=== PATIENT | female | born 1985 | race Caucasian/White ===

== ENCOUNTER 2021-06-15 16:43 | Emergency (ER) | payer OTHER, SELFPAY ==
[2021-06-15 17:05] VITALS: BP 141/92; PULSE 90; RESP 16; TEMP 36.4; O2SAT 99
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
== END 2021-06-15 17:37 | disposition home or self-care (01) ==
PROVIDERS: Emergency Provider Nurse Practitioner; PCP Family Medicine
DX: L03.213 Periorbital cellulitis (principal); E11.9 Type 2 diabetes mellitus without complications; I10 Essential (primary) hypertension; E66.01 Morbid (severe) obesity due to excess calories; Z68.43 Body mass index [BMI] 50.0-59.9, adult
CPT/HCPCS: 99213; G0463

== ENCOUNTER 2021-08-10 16:26 | Emergency (ER) | payer OTHER, SELFPAY ==
[2021-08-10 16:31] VITALS: BP 134/92; PULSE 85; RESP 18; TEMP 36.3; O2SAT 99
--- NOTE | 2021-08-10 17:56 | ED.GENADULT ---
HPI - General Adult General Chief complaint: Allergic Reaction Stated complaint: swelling to face Time Seen by Provider: 08/10/21 17:54 History of Present Illness HPI narrative: Patient is a 35-year-old female who comes into the ED today complaining of facial swelling. Patient reports this has been an intermittent problem for the last 3 months. Has occasionally been accompanied by a rash on various body. Her face is pruritic. She has been prescribed 4 different rounds of antibiotics which have not helped and she is currently on doxycycline which she has been on for about 8 weeks. She was prescribed prednisone once before that helped a little. She is unknown what the cause of her symptoms are. She has been paying attention to possible precipitants/exposures. She saw her PCP for a few times. 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 Comes to the ED because symptoms became worse since yesterday. She took Benadryl which helped a little. Denies any throat swelling or shortness of breath. No other symptoms or concerns. No chance of . She does have a cat at home. Related Data Home Medications Medication Instructions Recorded Confirmed Aleve 06/15/19 Vitamin C 06/15/19 ertugliflozin [Steglatro] mg 06/15/19 fluvoxamine mg 06/15/19 insulin glargine [Basaglar KwikPen unit SUBCUT 06/15/19 U-100 Insulin] metformin 2,000 mg PO DAILY 06/15/19 06/15/19 multivitamin,tx-minerals 1 cap PO DAILY 06/15/19 06/15/19 [Multi-Vitamin HP/Minerals] norethindrone (contraceptive) mg 06/15/19 omega 4-mbx-zwx-fish oil [Fish Oil] 1 cap PO DAILY 06/15/19 06/15/19 quetiapine 50 mg DAILY 06/15/19 06/15/19 trazodone 06/15/19 06/15/19 vitamin E 400 unit PO DAILY 06/15/19 06/15/19 doxycycline monohydrate 08/10/21 empagliflozin [Jardiance] mg 08/10/21 fenofibrate nanocrystallized mg PO 08/10/21 liraglutide [Victoza 2-Mervin] mg SUBCUT 08/10/21 spironolactone 08/10/21 Allergies Allergy/AdvReac Type Severity Reaction Status Date / Time Penicillins Allergy Mild Anaphylaxis Verified 08/10/21 19:01 clindamycin Allergy Rash Verified 08/10/21 19:01 OXYCODONE HCL Allergy Unknown Rash Uncoded 08/10/21 19:01 Review of Systems Constitutional: Constitutional: Reports as per HPI, Denies fever(s), Denies night sweats and Denies weakness ENT: Comments: See HPI Cardiovascular: Cardiovascular: Denies chest pain, Denies edema, Denies leg edema, Denies dyspnea and Denies orthopnea Respiratory: Respiratory: Denies cough and Denies dyspnea Gastrointestinal: Gastrointestinal: Denies abdominal pain, Denies constipation, Denies diarrhea, Denies nausea and Denies vomiting Musculoskeletal: Musculoskeletal: Denies abnormal gait, Denies back pain, Denies numbness and Denies tingling Neurologic: Denies Abnormal speech present, Denies abnormal gait, Denies numbness, Denies tingling and Denies weakness Psychiatric: Psychiatric: Denies homicidal ideation and Denies suicidal ideation [facility] Past Medical History Medical History Diabetes HTN (hypertension) Morbid obesity Social History Social History (Updated 06/15/21 @ 17:24 by Lesvia Lorenzo CNP) Smoking status: Never smoker Exam Const: General: cooperative, healthy appearing, comfortable, no acute distress, well developed, alert, awake and Physically active Orientation/consciousness: patient oriented x3 HENMT: Head: normal to inspection, normocephalic and atraumatic Ears: external ears normal General nose exam: Normal external nose present Other: Clinically, patient only has a trace amount of infraorbital edema bilaterally Eyes: General: appearance normal, both eyes and all related structures Pupils: Equal, round and reactive pupils present EOM: EOMs intact bilaterally Neck: Neck: normal visual inspection Chest: Chest palpation & inspection: normal inspection of the chest and no tenderness Resp: Effort & Inspection: normal respira
[2021-08-10 18:05] VITALS: BP 134/92; PULSE 85; RESP 20; TEMP 36.3; O2SAT 99
[2021-08-10] MEDS: methylPREDNISolone SOD SUCC 125 MG VIAL IM (19:06)
[2021-08-10] MEDS: ACETAMINOPHEN 500 MG TABLET 1000 MG PO (19:07)
[2021-08-10] MEDS: IBUPROFEN 600 MG TABLET PO (19:07)
== END 2021-08-10 19:39 | disposition home or self-care (01) ==
PROVIDERS: Emergency Provider Family Medicine; PCP Family Medicine
DX: T78.40XA Allergy, unspecified, initial encounter (principal); E11.9 Type 2 diabetes mellitus without complications; I10 Essential (primary) hypertension; E66.01 Morbid (severe) obesity due to excess calories; Z68.43 Body mass index [BMI] 50.0-59.9, adult; Z79.4 Long term (current) use of insulin
CPT/HCPCS: 96372; 99283; A9270; J2930

== ENCOUNTER 2022-11-08 08:26 | Emergency (ER) | payer OTHER, SELFPAY ==
--- NOTE | ~2022-11-08 | US_ITS ---
Pelvic ultrasound. Clinical History: Left-sided pelvic pain Technique: Realtime transabdominal and transvaginal scanning of the pelvis was performed. Color flow Doppler and Doppler spectral analysis were performed. Findings: The uterus is anteverted, and measures 10.3 x 5.6 x 6.6 cm. There is a large fibroid centra lly in the uterus measuring 6.1 x 5.6 x 5.1 cm. Endometrial stripe is obscured by this dominant fibro id. There is a probable IUD in place, posterior to the fibroid. Measured ovary seen. No adnexal mass seen. There is no evidence of free fluid in the cul de sac. Impression: Dominant central fibroid measuring 6.1 cm in diameter, as above. IUD probably in place, posterior/deep to the fibroid. Reviewed, dictated and finalized at location . Impression: Dominant central fibroid measuring 6.1 cm in diameter, as above. IUD probably in place, posterior/deep to the fibroid.
[2022-11-08 08:28] VITALS: BP 112/76; PULSE 81; RESP 14; TEMP 36.6; O2SAT 99
[2022-11-08] MEDS: HYDROcodone/acetaminophen (*CRX) 5-325 MG TABLET 1 TAB PO (08:45)
[2022-11-08 08:51] LABS: Eosinophils Absolute Auto 0.1 K/mm3 (0-0.3); Eosinophils Percent Auto 3.5 % (0-4.4); Hemoglobin 14.7 g/dL (12.0-15.0); Immature Granulocyte Absolute 0.01 K/mm3 (0.00-0.031); Immature Granulocyte Percent A 0.3 % (0-0.5); Lymphocytes Absolute Auto 1.29 K/mm3 (0.9-3.2); Lymphocytes Percent Auto 32.3 % (18.3-44.2); Mean Corpuscular Hemoglobin 29.6 pg (26-34); Mean Corpuscular Volume 92.6 fl (80-100); Mean Platelet Volume 9.9 fl (7.4-10.4); Monocytes Absolute Auto 0.3 K/mm3 (0.1-0.6); Neutrophils Absolute Auto 2.2 K/mm3 (1.3-6.7); Neutrophils Percent Auto 54.9 % (45.5-73.1); Platelet Count Result 165 k/mm3 (150-375); Red Blood Count 4.97 M/mm3 (4.2-5.4); Red Cell Distribution Width 14.6 % (11.5-14.5)
[2022-11-08 09:08] LABS: Anion Gap 7 mmol/L (8-16); Blood Urea Nitrogen 8 mg/dL (7-17); Carbon Dioxide 25 mmol/L (22-30); Chloride 103 mmol/L (98-107); Estimated CRCL calculation 259 ml/min; Estimated Glomerular Filt Rate > 60; Glucose 175 mg/dL (65-110); Potassium 4.6 mmol/L (3.4-5.0); Sodium 135 mmol/L (137-145)
[2022-11-08 09:18] LABS: Appearance Urine Cloudy (Clear); Bacteria Urine 4+ /hpf; Bilirubin Urine Negative (Negative); Blood Urine Negative (Negative); Color Urine Yellow (Yellow); Glucose Urine UA Negative (Negative); Ketones Urine Negative (Negative); Leukocyte Esterase Ur 2+ LEU/UL (Negative); Nitrate Urine Positive (Negative); Non Pathogenic Casts 0-2; Protein Urine 1+ mg/dL (Negative); RBC Urine 0-2 /hpf (0-2); Specific Grav Ur 1.018 (1.001-1.035); Squamous Epithelial Cell Urine Occasional /hpf (Few); Urobilinogen Urine 0.2 mg/dL (<2.0); WBC Urine 51-100 /hpf; pH Urine 5.5 (5.0-9.0)
[2022-11-08 09:21] LABS: Add Urine Microscopic? YES
[2022-11-08 12:30] VITALS: BP 100/72; PULSE 72; RESP 16; O2SAT 100
--- NOTE | 2022-11-08 12:30 | ED.GENADULT ---
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 Ongoing over the last week. Intermittent and sharp. No radiation. Concerned it may be related to ovarian cyst. She has had some very mild bloody discharge. No concern for STI. No urinary frequency urgency or dysuria. Related Data Home Medications Medication Instructions Recorded Confirmed Aleve 06/15/19 Vitamin C 06/15/19 ertugliflozin 15 mg tablet mg 06/15/19 (Steglatro) fluvoxamine 100 mg tablet mg 06/15/19 insulin glargine 100 unit/mL (3 unit subcut 06/15/19 mL) subcutaneous pen (Basaglar KwikPen U-100 Insulin) metformin 500 mg tablet,extended 2,000 mg PO DAILY 06/15/19 06/15/19 release 24 hr multivitamin,tx-minerals 1 cap PO DAILY 06/15/19 06/15/19 (Multi-Vitamin HP/Minerals capsule) norethindrone (contraceptive) 0.35 mg 06/15/19 mg tablet omega 9-loc-vtx-fish oil 1,000 mg 1 cap PO DAILY 06/15/19 06/15/19 (120 mg-180 mg) capsule (Fish Oil) quetiapine 50 mg DAILY 06/15/19 06/15/19 trazodone 50 mg tablet 06/15/19 06/15/19 vitamin E 268 mg (400 unit) capsule 400 unit PO DAILY 06/15/19 06/15/19 doxycycline monohydrate 100 mg 08/10/21 capsule empagliflozin 25 mg tablet mg 08/10/21 (Jardiance) fenofibrate nanocrystallized 145 mg PO 08/10/21 mg tablet liraglutide 0.6 mg/0.1 mL (18 mg/3 mg subcut 08/10/21 mL) subcutaneous pen injector (Victoza 2-Mervin) spironolactone 100 mg tablet 08/10/21 Allergies Allergy/AdvReac Type Severity Reaction Status Date / Time Penicillins Allergy Mild Anaphylaxis Verified 08/10/21 19:01 oxycodone Allergy Unknown Rash Verified 11/08/22 08:41 clindamycin Allergy Rash Verified 08/10/21 19:01 Review of Systems Review of Systems: All systems reviewed & are unremarkable except as noted in HPI and below Constitutional: Constitutional: Denies chills, Denies fatigue and Denies fever(s) ENT: Denies nasal congestion and Denies sore throat Cardiovascular: Cardiovascular: Denies chest pain, Denies rapid heart rate and Denies radiating jaw, neck or arm pain Respiratory: Respiratory: Denies cough and Denies dyspnea Gastrointestinal: Gastrointestinal: Reports abdominal pain, Denies diarrhea, Denies nausea and Denies vomiting Genitourinary: Genitourinary: Reports abnormal vaginal bleeding, Denies nocturia and Denies dysuria [facility] Past Medical History Medical History (Updated 11/08/22 @ 12:40 by Chet Guerrero MD) Diabetes Fibroids HTN (hypertension) Morbid obesity Social History Social History (Updated 06/15/21 @ 17:24 by Lesvia Lorenzo, HAND CANDLE DIPPER) Smoking status: Never smoker Exam Narrative: GENERAL: Well-appearing, morbidly obese, and in no acute distress. HEAD: Normocephalic, atraumatic. EYES: PERRL and EOMI. ENT: Mucous membranes moist. CHEST: Clear to auscultation. No respiratory distress. HEART: Regular rate and rhythm. Normal peripheral pulses. ABDOMEN: Soft, mildly tender left lower quadrant, nondistended. EXTREMITIES: Normal range of motion. No edema. SKIN: Warm, dry, no rash. NEURO: Alert and oriented x3. PSYCH: Normal mood and affect. Course Course Emergency Course: Patient resting comfortably. Informed of results. Will treat as UTI. No ovarian torsion. Vital Signs Vital signs: Vital Signs Temperature 97.8 F 11/08/22 08:28 Pulse Rate 81 11/08/22 08:28 Respiratory Rate 14 11/08/22 08:28 Blood Pressure 112/76 11/08/22 08:28 Pulse Oximetry 99 11/08/22 08:28 Oxygen Delivery Room Air 11/08/22 08:28 Temperature 97.8 F 11/08/22 08:28 Pulse Rate 81 11/08/22 08:28 Respiratory Rate 14 11/08/22 08:28 Blood Pressure 112/76 11/08/22 08:28 Pulse Oximetry 99 11/08/22 08:28 Oxygen Delivery Room Air 11/08/22 08:28 Med
[2022-11-08 12:58] VITALS: BP 103/74; PULSE 81; RESP 20; O2SAT 98
== END 2022-11-08 13:07 | disposition home or self-care (01) ==
PROVIDERS: Emergency Provider Emergency Medicine; PCP Family Medicine
DX: N39.0 Urinary tract infection, site not specified (principal); E11.9 Type 2 diabetes mellitus without complications; I10 Essential (primary) hypertension; E66.01 Morbid (severe) obesity due to excess calories; Z68.43 Body mass index [BMI] 50.0-59.9, adult; Z79.85 Long-term (current) use of injectable non-insulin antidiabetic drugs; Z79.4 Long term (current) use of insulin; Z79.84 Long term (current) use of oral hypoglycemic drugs
CPT/HCPCS: 36415; 76830; 76856; 80048; 81001; 81025; 85025; 87077; 87086; 87088; 87186; 99284; A9270

== ENCOUNTER 2024-08-16 21:03 | Emergency (ER) | payer OTHER, SELFPAY ==
[2024-08-16 21:10] VITALS: BP 147/78; PULSE 94; RESP 20; TEMP 36.4; O2SAT 100
--- NOTE | 2024-08-16 23:04 | ECG_ITS ---
Test Date: 2024-08-16 23:13:40 Measurements Intervals [place] Rate: 99 P: 52 [place]: 156 QRS: -3 QRSD: 100 T: 43 QT: 368 QTc: 474 Interpretive Statements SINUS RHYTHM POSSIBLE LEFT ATRIAL ENLARGEMENT [-0.1mV P-WAVE IN V1/V2] LOW QRS VOLTAGE IN PRECORDIAL LEADS [QRS DEFLECTION < 1.0 mV IN CHEST LEADS] PATTERN CONSISTENT WITH PULMONARY DISEASE No previous ECG available for comparison Electronically Signed On 08-17-2024 11:54:59 SENIOR VALIDATION ENGINEER by Veena Garcia
[2024-08-16 23:36] LABS: Strep Group A RT-PCR NOT DETECTED (Negative)
[2024-08-16 23:48] LABS: Influenza A QL RT-PCR Positive (Negative); Influenza B QL RT-PCR Negative (Negative); RSV RNA, RT-PCR Negative (Negative); SARS-CoV-2 RNA PCR Negative (Negative)
--- NOTE | 2024-08-17 00:45 | ED_ITS ---
HPI - General Adult General Chief complaint: Upper Respiratory Infection Stated complaint: sob Time Seen by Provider: 08/17/24 00:20 History of Present Illness HPI narrative: Patient is a 38-year-old female who presents to the emergency department this evening complaining of URI symptoms. Patient states that 2 weeks ago she was diagnosed with RSV and then this past Tuesday her spouse tested positive for influenza A. Patient states that her symptoms did not start until today with shortness of breath and cough. States that she feels as though there is a lot of fluid backing up behind her ears worse in the right ear. Denies any additional symptoms or concerns at this time. Related Data Home Medications ?Medication ?Instructions ?Recorded ?Confirmed ?Last Taken ?Type Aleve 06/15/19 Unknown History Vitamin C 06/15/19 Unknown History ertugliflozin 15 mg tablet mg 06/15/19 Unknown History (Steglatro) fluvoxamine 100 mg tablet mg 06/15/19 Unknown History insulin glargine 100 unit/mL (3 unit subcut 06/15/19 Unknown History mL) subcutaneous pen (Basaglar KwikPen U-100 Insulin) metformin 500 mg tablet,extended 2,000 mg PO DAILY 06/15/19 06/15/19 Unknown History release 24 hr multivitamin,tx-minerals 1 cap PO DAILY 06/15/19 06/15/19 Unknown History (Multi-Vitamin HP/Minerals capsule) norethindrone (contraceptive) 0.35 mg 06/15/19 Unknown History mg tablet omega 5-gxd-htd-fish oil 1,000 mg 1 cap PO DAILY 06/15/19 06/15/19 Unknown History (120 mg-180 mg) capsule (Fish Oil) quetiapine 50 mg DAILY 06/15/19 06/15/19 Unknown History trazodone 50 mg tablet 06/15/19 06/15/19 Unknown History vitamin E 268 mg (400 unit) capsule 400 unit PO DAILY 06/15/19 06/15/19 Unknown History doxycycline monohydrate 100 mg 08/10/21 Unknown History capsule empagliflozin 25 mg tablet mg 08/10/21 Unknown History (Jardiance) fenofibrate nanocrystallized 145 mg PO 08/10/21 Unknown History mg tablet liraglutide 0.6 mg/0.1 mL (18 mg/3 mg subcut 08/10/21 Unknown History mL) subcutaneous pen injector (Victoza 2-Mervin) spironolactone 100 mg tablet 08/10/21 Unknown History Allergies Allergy/AdvReac Type Severity Reaction Status Date / Time Penicillins Allergy Mild Anaphylaxis Verified 08/16/24 21:21 oxycodone Allergy Unknown Rash Verified 08/16/24 21:21 clindamycin Allergy Rash Verified 08/16/24 21:21 Latex, Natural Rubber Allergy Rash Verified 08/16/24 21:21 Review of Systems Review of Systems: All systems are reviewed and are negative unless stated otherwise in the HPI. [facility] Past Medical History Medical History Fibroids Diabetes Morbid obesity HTN (hypertension) Social History Social History Smoking status: Never smoker Exam Narrative: General: Alert, awake, afebrile, in no acute distress. HEENT: PERRL, no rhinorrhea, no post nasal drip, oropharynx clear, clear bilateral tympanic membranes, no tonsillar exudates. Neck: Trachea midline, no JVD, no lymphadenopathy. Cardiovascular: Regular rate and rhythm, no murmurs, rubs or gallops, no peripheral edema. Respiratory: Clear to auscultation bilaterally, no tachypnea, no wheezing, no rhonchi, no rubs, no respiratory distress. Abdomen: Soft, nontender, nondistended, no rebound, no guarding, no peritoneal signs. Musculoskeletal: No joint swelling or deformity, normal muscle tone. Skin: No rashes or petechia, no signs of infection. Psychiatric: Alert and oriented, normal behavior and judgment for situation. Neurological: Alert and oriented to person, place, and time. Follows all commands. No focal deficits, speech is clear and fluent. Course Vital Signs Vital signs: Vital Signs Temperature 97.6 F 08/16/24 21:10 Pulse Rate 94 08/16/24 21:10 Respiratory Rate 20 08/16/24 21:10 Blood Pressure 147/78 H 08/16/24 21:10 Pulse Oximetry 100 08/16/24 21:10 Oxygen Delivery Room Air 08/16/24 21:10 Temperature 97.6 F 08/16/24 21:10 Pulse Rate 94 08/16/24 21:10 Respiratory Rate 20 08/16/24 21:10 Blood Pressure 147/78 H 08/16/24 21:10 Pulse Oximetry 100 08/16/24 21:10 Oxygen Delivery Room Air 08/16/24 21:10 Medical Decision Making MDM Narrative Medical decision making narrative: The patient was evaluated by myself in the emergency department. History is obtained from patient who is an independent historian and physical exam was performed. External medical records were reviewed at this time. Patient was administered 75 mg of Tamiflu at this time and was informed that she will be sent home on a script for the full 5 day course. Patient was also informed that she will be prescribed some Tessalon Perles to help with her cough. EKG was obtained and independently interpreted by me revealing normal sinus rhythm at a rate of 99 beats per minute, no evidence of acute ischemia. EKG pending official cardiology read. Differential diagnosis considerations include acute viral syndrome, strep versus viral pharyngitis, otitis media. Comorbidities impacting this visit include none. I have evaluated and discussed social determinants of health with the patient that could potentially impact subsequent diagnosis and treatment plans. On repeat assessment of the patient, reevaluation revealed that the patient is doing well and is in no acute distress. Patient symptoms have improved since she arrived to our emergency department. Repeat vital signs were all reviewed and noted to be stable. Differential diagnosis and treatment plan were discussed with the patient at bedside. Patient agrees with discussion and after shared medical decision making agrees with discharge. All questions were answered to the patient's satisfaction. Patient will follow up with her PCP in 3-5 days. Patient was provided with strict return precautions and instructed to return to the emergency department if any new or worsening symptoms develop. The patient was discharged in stable condition. Vital Signs Vital Signs: Vital Signs Temperature 97.6 F 08/16/24 21:10 Pulse Rate 94 08/16/24 21:10 Respiratory Rate 20 08/16/24 21:10 Blood Pressure 147/78 H 08/16/24 21:10 Pulse Oximetry 100 08/16/24 21:10 Oxygen Delivery Room Air 08/16/24 21:10 Temperature 97.6 F 08/16/24 21:10 Pulse Rate 94 08/16/24 21:10 Respiratory Rate 20 08/16/24 21:10 Blood Pressure 147/78 H 08/16/24 21:10 Pulse Oximetry 100 08/16/24 21:10 Oxygen Delivery Room Air 08/16/24 21:10 Lab Data Labs: Lab Results 08/16/24 08/16/24 Range/Units 23:07 23:08 Influenza A (RT-PCR) Positive A (Negative) Influenza B (RT-PCR) Negative (Negative) RSV (RT-PCR) Negative (Negative) SARS-CoV-2 RNA (RT-PCR) Negative (Negative) Group A Strep (PCR) Not detected (Negative) Discharge Plan Discharge Clinical Impression: Influenza A Patient Disposition: Home, Self-Care Condition: Stable Instructions: Antibiotic Form, Influenza (ED) Additional Instructions: Continue taking the Tamiflu as instructed use Tessalon Perles as needed for cough. Follow-up with your family doctor within the next 3-5 days and return to the ED if any new or worsening symptoms develop. Patient Language: Faroese Prescriptions: New oseltamivir [Tamiflu] 75 mg capsule 75 mg PO Q12H 5 Days Qty: 9 0RF benzonatate 200 mg capsule 200 mg PO TID PRN (Reason: cough) Qty: 14 0RF No Action metformin 500 mg tablet extended release 24 hr 2,000 mg PO DAILY fluvoxamine 100 mg tablet norethindrone (contraceptive) 0.35 mg tablet Basaglar KwikPen U-100 Insulin 100 unit/mL (3 mL) insulin pen SUBCUT quetiapine 50 mg DAILY vitamin E 400 unit Capsule 400 unit PO DAILY omega 3-trv-nku-fish oil [Fish Oil] 1,000 mg (120 mg-180 mg) Capsule 1 cap PO DAILY Vitamin C Aleve trazodone 50 mg tablet Multi-Vitamin HP/Minerals Capsule 1 cap PO DAILY Steglatro 15 mg tablet naproxen [Naprosyn] 500 mg tablet 500 mg PO BID PRN (Reason: pain) Qty: 20 0RF spironolactone 100 mg tablet doxycycline monohydrate 100 mg capsule fenofibrate nanocrystallized 145 mg tablet PO Jardiance 25 mg tablet Victoza 2-Mervin 0.6 mg/0.1 mL (18 mg/3 mL) pen injector SUBCUT prednisone 20 mg tablet 20 mg PO DAILY 5 Days Qty: 5 0RF Zyrtec 10 mg capsule 10 mg PO DAILY PRN (Reason: allergy symptoms) Qty: 30 0RF famotidine [Pepcid] 20 mg tablet 20 mg PO BID PRN (Reason: allergies) Qty: 30 0RF ciprofloxacin HCl [Cipro] 500 mg tablet 500 mg PO Q12H Qty: 10 0RF Follow-up/Referrals: Ambrosio,Michelle Harmon MD [Primary Care Provider] - 3 Days Stand Alone Forms: Work/School Release IP Time of Disposition: 00:52
[2024-08-17] MEDS: OSELTAMIVIR PHOSPHATE 75 MG CAPSULE PO (01:00)
[2024-08-17 01:21] VITALS: BP 136/76; PULSE 90; RESP 16; TEMP 37.1; O2SAT 98
--- OUTSIDE RECORDS SUMMARY | 2024-08-17 06:19 | XMS_ITS | Clinical Summary ---
Author Organization [facility] Address [address] [place] [address] Care Team Providers Care Field Interviewer Name Role Phone Michelle Valente MD Primary Care Provider [phone] Source Comments [facility],non-owned Affiliates and Associated Physician Practices is amultiple site organization consisting of ambulatory clinics and hospital sitesin [place], [place], [place] and [place]. This disclosure is being madepursuant to the Care Everywhere program and may not contain all information available regarding this patient. Last updated 18.[facility] Allergies Active Allergy Reactions Criticality Noted Date Comments Amoxicillin-Pot Clavulanate Rash Medium 10/20/2021 Clindamycin Rash Medium 07/28/2021 Eyes swollen shut, rash. Latex Rash Medium 04/05/2022 Oxycodone Rash Medium 03/24/2016 Pt says she can tolerate hydrocodone. Penicillins Anaphylaxis,Rash High 03/24/2016 Breathing problem seasonal allergies [Other] Headache Low 03/24/2016 Itchy eyes, nasal drainage, Received name: Seasonal Allergies Medications * Be aware that medications may not be up to date on this document. Alwaysverify current medications with the patient. Medication Sig Dispensed Refills Start Date End Date Status Puryear-3 Fatty Acids (OMEGA-3 FISH OIL) 500 MG Take 1,200 mg by mouth 2 times daily Active CPAP Inhale 1 device by mouth at bedtime Active vitamin D, ergocalciferol, (DRISDOL) 14772 UNITS capsule Take 5,000 Units by mouth once daily 09/27/2018 Active insulin syringe-needle (BD ULTRAFINE) 29G X 1/2 1 ML syringeIndication s:Type 2 diabetes mellitus with hyperglycemia, with long-term current use of insulin (HCC) once daily 100 Each 11 10/12/2018 Active QUEtiapine (SEROQUEL) 100 MG tablet Take 1 (one) tablet by mouth once daily Active fluticasone propionate (FLONASE) 50 MCG/ACT nasal spray 2 sprays 03/23/2020 Active fluvoxaMINE (LUVOX) 100 MG tablet 1 (one) tablet 04/09/2020 Active traZODone (DESYREL) 50 MG tablet 1 (one) tablet 03/31/2020 Active acetaminophen (TYLENOL) 500 MG capsule Take 1 capsule by mouth every 6 hours as needed for Pain 30 capsule 07/31/2020 Active ibuprofen (MOTRIN) 600 MG tablet Take 1 tablet by mouth every 6 hours as needed for Pain 40 tablet 1 07/31/2020 Active levonorgestrel (MIRENA, 52 MG,) 20 MCG/24HR IUD 1 (one) device by Intrauterine route as directed Active OneTouch Delica Lancets 33G MISCIndications:T ype 2 diabetes mellitus with hyperglycemia, with long-term current use of insulin (HCC) Use 1 Each 2 times daily 100 Each 11 06/25/2021 Active triamcinolone acetonide (KENALOG) 0.1 % cream MIX WITH NYSTATIN OINTMENT AND APPLY TO EXTERNALLY VULVAR TISSUES TWICE DAILY 07/31/2021 Active cetirizine (ZYRTEC) 10 MG tablet Take 1 (one) tablet by mouth once daily Active famotidine (PEPCID) 20 MG tablet Take 1 (one) tablet by mouth 2 times daily Active allergy injection Weekly through [facility] Active naproxen (NAPROSYN) 500 MG tablet Take 1 (one) tablet by mouth 2 times daily as needed 11/09/2021 Active Biotin 10 MGIndications:Acn e vulgaris 01/05/2022 Active insulin glargine (LANTUS SOLOSTAR) penIndications:Ty pe 2 diabetes mellitus with hyperglycemia, with long-term current use of insulin (HCC) Inject 90 (ninety) Units subcutaneously at bedtime 75 mL 11 01/05/2022 Active Insulin Pen Needle (TECHLITE PEN NEEDLES) 32G X 4 MM MISCIndications:T ype 2 diabetes mellitus with hyperglycemia, with long-term current use of insulin (HCC) Use 1 Each 3 times daily 100 Each 11 02/18/2022 Active Meth-Hyo-M Bl-Na Phos-Ph Carlos (Uribel) 118 MG Take 1 (one) capsule by mouth every 8 hours as needed (bladder pain) 30 capsule 11 04/05/2022 Active Additional Information Patient not taking.Reported on 04/20/2022 cyclobenzaprine (Flexeril) 10 MG tablet Take 1 (one) tablet by mouth 3 times daily 20 tablet 1 04/26/2022 Active metFORMIN ER 24hr (Glucophage XR) 500 MG tabletIndications :Type 2 diabetes mellitus with hyperglycemia, with long-term current use of insulin ([facility]) TAKE 2 TABLETS BY MOUTH TWICE DAILY 360 tablet 11 07/21/2022 Active fenofibrate (Tricor) 145 MG tabletIndications :Type 2 diabetes mellitus with hyperglycemia, with long-term current use of insulin ([facility]) TAKE 1 TABLET BY MOUTH EVERY DAY 90 tablet 4 08/05/2022 Active Blood Glucose Monitoring Suppl ([employer] Verio Flex System) w/Device KITIndications:Ty pe 2 diabetes mellitus with hyperglycemia, with long-term current use of insulin ([facility]) Use 1 kit as directed 1 kit 09/14/2022 Active dulaglutide (Trulicity) 1.5 MG/0.5ML injection Inject 0.5 mL subcutaneously every 7 days 6 mL 11 09/24/2022 Active Quickfilter TechnologiesTouch Verio test stripIndications: Type 2 diabetes mellitus with hyperglycemia, with long-term current use of insulin ([facility]) USE TWICE DAILY 100 strip 11 10/13/2022 Active SYRINGE-NEEDLE, DISP, 3 ML (B-D INTEGRA SYRINGE) 25G X 5/8 3 ML MISC USE WITH ALLERGY SERUM. Dispense 30 for a 1 month supply 30 Each 3 10/20/2022 Active acetaminophen (Tylenol) 500 MG tablet Take 1 (one) tablet by mouth every 6 hours as needed 07/15/2022 Active albuterol HFA (Proventil; Ventolin; Proair) 108 (90 Base) MCG/ACT inhaler INHALE 1 TO 2 PUFFS BY MOUTH EVERY 4 TO 6 HOURS NEEDED 06/04/2022 Active fenofibrate (Tricor) 145 MG tablet Take 1 (one) tablet by mouth once daily 06/17/2022 Active fluconazole (Diflucan) 150 MG tablet TAKE 1 TABLET BY MOUTH 1 TIME FOR 1 DOSE. REPEAT IN 3 DAYS 09/24/2022 Active lisinopril (Prinivil; Zestril) 10 MG tablet Take 1 (one) tablet by mouth once daily 10/22/2022 Active metFORMIN ER 24hr (Glucophage XR) 500 MG tablet Take 2 (two) tablets by mouth once daily 07/15/2022 Active spironolactone (Aldactone) 100 MG tabletIndications :Acne vulgaris Take 2 (two) tablets by mouth once daily 60 tablet 5 10/26/2022 Active ketoconazole (Nizoral) 2 % shampooIndication s:Other seborrheic dermatitis Apply to wet hair, leave on for 3 minutes, then rinse; three times weekly. 30 days supply 120 mL 10/26/2022 Active metroNIDAZOLE (Metrogel) 0.75 % gelIndications:Ot her rosacea,Acne vulgaris Apply a thin film to affected areas on face twice daily. 30 days supply. 45 g 11 10/26/2022 Active triamcinolone acetonide (Kenalog) 0.1 % ointmentIndicatio ns:Recurrent candidiasis of vagina MIX WITH NYSTATIN AND APPLY TO VULVAR TISSUES TWICE A DAY / patient needs an appointment for future refills 30 g 02/21/2023 Active nystatin (Mycostatin) 279087 UNIT/GM ointmentIndicatio ns:Recurrent candidiasis of vagina MIX WITH TRIAMCINOLONE AND APPLY TO EXTERNAL VULVAR TISSUES TWICE A DAY / pt needs an appointment for future refills 30 g 02/21/2023 Active hydrocortisone (Hytone) 2.5 % creamIndications: Eyelid dermatitis, allergic/contact APPLY TO AFFECTED AREA ON EYELIDS EVERY DAY NEEDED FOR RASH 28.35 g 3 06/06/2023 Active EPINEPHrine (Epipen) 0.3 MG/0.3ML auto-injector pen INJECT 1 PEN INTO THE MUSCLE 1 TIME NEEDED FOR ANAPHYLAXIS 0.6 mL 06/06/2023 Active doxycycline monohydrate 100 MG capsuleIndication s:Other rosacea,Acne vulgaris TAKE 1 CAPSULE BY MOUTH EVERY DAY 30 capsule 3 10/10/2023 Active fenofibrate (Tricor) 145 MG tablet TAKE 1 TABLET BY MOUTH EVERY DAY 30 tablet 01/02/2024 Active empagliflozin (Jardiance) 25 MG tabletIndications :Type 2 diabetes mellitus with hyperglycemia, with long-term current use of insulin (HCC) Take 1 (one) tablet by mouth once daily 30 tablet 01/02/2024 Active Active Problems Problem Noted Date Diagnosed Date Generalized anxiety disorder 07/15/2022 Overview (10/26/2022): Last Assessment & Plan: Condition: stable Follow up in: one month with PCP. Discussed breathing and relaxation techniques. Avoid triggering stressors, if possible. Take medications as directed and keep all scheduled appointments. Chronic interstitial cystitis 07/15/2022 Overview (10/26/2022): Last Assessment & Plan: Condition: stable Follow up in: one month with PCP Bipolar affective disorder, currently depressed, mild 07/15/2022 Overview (10/26/2022): Last Assessment & Plan: Condition: symptomatic Never seen mental health provider. Condition managed by PCP Medications: Taking medications as prescribed If taking medications, do not stop treatment without consulting healthcare provider. If symptoms worsen or do not improve/stabilize, notify health care provider right away. If thoughts of harming self or others notify health care provider immediately &/or seek urgent/emergent care including calling Suicide Hotline (364 or ) or 201. Follow up in one month with PCP Hypertension associated with type 2 diabetes kilo litus 07/12/2022 Overview (10/26/2022): Last Assessment & Plan: Condition: stable Discussed glucose control targets. 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 Follow up in: one month with PCP Intramural leiomyoma of uterus 07/30/2020 S/P laparoscopy 07/30/2020 Chronic pelvic pain in female 07/30/2020 Endometriosis, unspecified 07/30/2020 Overview (03/16/2022): N80.9 - Genital - extra low Added by Interface BMI 60.0-69.9, adult 10/12/2018 Type 2 diabetes mellitus wit h hyperglycemia, with long-term current use of insulin 06/02/2018 Central sleep apnea due to medical condition 01/2016 Depressed 06/30/2016 HLD (hyperlipidemia) 06/30/2016 Resolved Problems Problem Noted Date Diagnosed Date Resolved Date Constipation 09/16/2020 11/23/2022 Overview (10/26/2022): Last Assessment & Plan: Condition: stable Follow up in: one month with PCP BMI 50.0-59.9, adult 06/13/2017 019 Type 2 diabetes mellitus with hyperglycemia 06/30/2016 06/02/2018 Morbid obesity 05/14/2014 12/13/2017 Immunizations Name Administration Dates Next Due INFLUENZA VACCINE 06/10/2018 INFLUENZA VACCINE, QUADR. (F LUZONE; FLULAVAL; FLUARIX; AFLURIA QUADRIVALENT; 6MO+), 0.5 ML (IIV4) 07/31/2020 Family History Medical History Relation Name Comments None Known Brother Diabetes - Type 2 Father Hyperlipidemia Father Hypertension Father None Known Maternal Aunt Cancer - Skin, Melanoma Maternal Grandfather Lupus Maternal Grandmother None Known Maternal Uncle Hyperlipidemia Mother Hypertension Mother None Known Other None Known Paternal Aunt None Known Paternal Grandfather None Known Paternal Grandmother Cancer - Prostate Paternal Great-Grandfather None Known Paternal Uncle None Known Sister Asthma Neg Hx CVA Neg Hx Cancer - Breast Neg Hx Cancer - Other Neg Hx Cancer - Skin, Non Melanoma Neg Hx Eczema Neg Hx Hemophilia Neg Hx Psoriasis Neg Hx Relation Name Status Comments Brother Father Alive Maternal Aunt Maternal Grandfather Maternal Grandmother Maternal Uncle Mother Alive Other Paternal Aunt Paternal Grandfather Paternal Grandmother Paternal Great-Grandfather Paternal Uncle Sister Social History Tobacco Use Types Packs/Day Years Used Date Smoking Tobacco: Never Smokeless Tobacco: Never Tobacco Cessation:Counseling Given: Not Answered Alcohol Use Standard Drinks/Week Comments Not Currently 0 (1 standard drink = 0.6 oz pur e alcohol) Sex and Gender Information Value Date Recorded Sex Assigned at Female 04/20/2021 1:09 PM CDT Gender Identity Female 04/20/2021 1:09 PM CDT Sexual Orientation Straight 04/20/2021 1: 09 PM CDT Last Filed Vital Signs Vital Sign Reading Time Taken Comments Blood Pressure 140/80 04/23/2022 3:08 PM CDT Pulse 97 01/05/2022 3:44 PM CDT Temperature 36.2 ??C (97.2 ??F) 04/05/2022 3:02 PM CD T Respiratory Rate 18 07/31/2020 4:33 PM GAS PLUMBER Oxygen Saturation 96% 01/05/2022 3:44 PM CDT Inhaled Oxygen Concentration - - Weight 173.3 kg (382 lb) 04/23/2022 3:08 PM CDT Height 175.3 cm (5' 9 ) 04/23/2022 3:08 PM CDT Body Mass Index 56.41 04/23/2022 3:08 PM CDT Plan of Treatment Health Maintenance Due Date Last Done Comments HIV SCREENING 2002 HEPATITIS C SCREENING 09/12/2005 DTAP/TDAP/TD VACCINES (1 - Tdap) 2006 HEPATITIS B VACCINE (1 of 3 - 19+ 3-dose series) 2006 PNEUMOCOCCAL VACCINE (1 of 2 - PCV) 2006 DIABETES-FOOT EXAM WITH MONOFILAMENT 05/31/2020 05/31/2019, 01/24/2019, 01/24/2019, Additional history exists DIABETES-HGB A1C 07/07/2022 01/05/2022, , 05/22/2021, Additional history exists DIABETES-SERUM CREATININE 10/09/20222021, 05/22/2021, 03/28/2021, Additional history exists DIABETES RETINOPATHY SCREENING 06/29/2023 06/29/2021, 06/23/2021, 10/16/2018 COVID-19 VACCINE ( season) 2024 INFLUENZA VACCINE (#1) 2024 07/31/2020, 2017 DIABETES - URINE PROTEIN SCREENING 07/25/2024 10/09/2021, 05/22/2021, 12/13/2017, Additional history exists PAP with HPV 06/29/2026 06/29/2021 ZOSTER VACCINE (1 of 2) 2037 HIB VACCINE Aged Out No longer eligi ble based on patient's age to complete this topic HPV VACCINE Aged Out No longer eligi ble based on patient's age to complete this topic MENINGOCOCCAL (Group B) VACCINE Aged Out No longer eligible based on patient's age to complete this topic MENINGOCOCCAL VACCINE Aged Out No wilton otoniel eligible based on patient's age to complete this topic Medical Devices Implanted Type Area Melter Helper Device Identifier Shelf Expiration Date Model / Serial / Lot Intrauterine Device/Mirena Implanted:Qty: 1 on 07/30/2020 by Willy Landeros MD at [facility] Cervix 10/21/2022 [id number] Procedures Procedure Name Priority Date/Time Associated Diagnosis Comments HEMOGLOBIN A1C - POINT OF CARE (AMB) [facility] Routine 01/05/2022 Type 2 diabetes mellitus with hyperglycemia, with long-term current use of insulin (HCC) MICROALB/CREAT RATIO URINE RANDOM PANEL 10/09/2021 2:05 PM CDT COMPREHENSIVE METABOLIC PANEL 10/09/2021 2:05 PM CDT HPV DETECTION HIGH RISK TAI Routine 06/29/2021 1:53 PM GAS PLUMBER Encounter for Pap smear of cervix with HPV DNA cotesting EYE EXAM 06/29/2021 from Last 3 Months or Most Recently Relevant to Health Maintenance Results * HEMOGLOBIN A1C - POINT OF CARE (AMB) [facility] (01/05/2022) Hemoglobin A1c POCT 8.1 % BLOOD SPECIMEN / Unknown 01/05/2022 Kam Ramesh MD LAB - POINT OF CARE ORDERABLES * MICROALB/CREAT RATIO URINE RANDOM PANEL (10/09/2021 2:05 PM CDT) Creatinine Urine 117 20 - 275 mg/dL [facility] Microalbumin Urine 1.6 mg/dL [facility] Comment: Reference Range Not established Microalbumin/Creat inine Ratio 14 <30 mcg/mg creat [facility] Comment: The ADA defines abnormalities in albumin excretion as follows: Albuminuria Category ?Result (mcg/mg creatinine) Normal to Mildly increased ?? <30 Moderately increased ? 30-299 Severely increased ? > OR = 300 The ADA recommends that at least two of three specimens collected within a 3-6 month period be abnormal before considering a patient to be within a diagnostic category. Test Performed at: [facility] [address] [place], [place] ??[phone] BALAJI CANCINO DO,MPH 10/09/2021 2:05 PM CDT 10/09/2021 2:10 PM CDT Kam Ramesh MD LAB - URINE CHEMISTR Y ORDERABLES Performing Organization Address City/State/[facility] Co de Phone Number [facility] [address] [place] [address] * (ABNORMAL) COMPREHENSIVE METABOLIC PANEL (10/09/2021 2:05 PM CDT) Glucose 169(H) 65 - 99 mg/dL [facility] Comment: ? Fasting reference interval For someone without known diabetes, a glucose value >125 mg/dL indicates that they may have diabetes and this should be confirmed with a follow-up test. BUN 9 7 - 25 mg/dL [facility] Creatinine 0.55 0.50 - 1.10 mg/dL [facility] eGFR by MDRD 122 > OR = 60 mL/min/1. 73m2 [facility] eGFR by MDRD 142 > OR = 60 mL/min/1. 73m2 [facility] BUN/Creatinine Ratio NOT APPLICABLE 6 - 22 (calc) [facility] Sodium 139 135 - 146 mmol/L [facility] Potassium 4.2 3.5 - 5.3 mmol/L [facility] Chloride 104 98 - 110 mmol/L [facility] CO2 29 20 - 32 mmol/L [facility] Calcium 9.3 8.6 - 10.2 mg/dL [facility] Protein Total 6.3 6.1 - 8.1 g/dL [facility] Albumin 4.1 3.6 - 5.1 g/dL [facility] Globulin Total 2.2 1.9 - 3.7 g/dL (calc) [facility] Albumin/Globuli n Ratio 1.9 1.0 - 2.5 (calc) [facility] Bilirubin Total 0.6 0.2 - 1.2 mg/dL [facility] Alkaline Phosphatase 56 31 - 125 U/L [facility] AST 22 10 - 30 U/L [facility] ALT 36(H) 6 - 29 U/L [facility] Comment: Test Performed at: [email or web address] [address] [place], [place] ??[phone] BALAJI CANCINO DO,MPH 10/09/2021 2:05 PM CDT 10/09/2021 2:10 PM CDT Kam Ramesh MD LAB - CHEMISTRY DARCI STEWART Performing Organization Address [facility] Co de Phone Number [facility] [address] [place] [address] * HPV DETECTION HIGH RISK TAI (06/29/2021 1:53 PM GAS PLUMBER) High Risk Human Papilloma Result Not detected Not detected 07/01/2021 7:22 AM GAS PLUMBER [facility] High Risk Human Papilloma Interp 07/01/2021 7:22 AM GAS PLUMBER [facility] Comment:High Risk Human Lopez lloma Virus was Not Detected. Pathology/Cytolo gy MISCELLANEOUS SAMPLES / Unknown 06/29/2021 1:53 PM GAS PLUMBER 06/30/2021 12:05 PM GAS PLUMBER Narrative [facility] - 07/01/2021 7:22 AM GAS PLUMBER Nucleic acid isolated from the specimen was analyzed with a nucleic acid amplification test (FDA approved Gen-Probe HPV Assay) to detect high risk human papilloma virus (Types: 16, 18, 31, 33, 35, 39, 45, 51, 52, 56, 58, 59, 66, and 68). ??The reference range is Not Detected . Comment: These test results should not be used as the sole basis for clinical assessment and treatment of patients. ??These results should always be correlated with other available data (cytology, histology, and clinical information). Minoo Verdin MD LAB - MICROBIOLOGY [facility] [address] [place] [address], [facility] [phone] * EYE EXAM (06/29/2021) Anatomical Region Laterality Modality Other Narrative 06/29/2021 Ordered by an unspecified provider. Scanned Document SCANNING ONLY from Last 3 Months or Most Recently Relevant to Health Maintenance Care Teams Field Interviewer Relationship Specialty Start Date End Date Michelle Valente MD [address] [place] [address] [address] [place] [address] PCP - General 11/29/17
--- OUTSIDE RECORDS SUMMARY | 2024-08-17 06:19 | XMS_ITS | Encounter Summary ---
Author Organization [facility] Health Address [address] [place] [address] Care Team Providers Care Operations Executive Name Role Phone Michelle Valente MD Primary Care Provider [phone] Encounter Details Date Type Department Care Team (Late st Contact Info) Description 06/26/2021 Telephone [facility] [address] [place] [address] Kam Ramesh MD [facility] [place] [address] Social History Tobacco Use Types Packs/Day Years Used Date Smoking Tobacco: Never Smokeless Tobacco: Never Alcohol Use Standard Drinks/Week Comments No 0 (1 standard drink = 0.6 oz pur e alcohol) Sex and Gender Information Value Date Recorded Sex Assigned at Female 04/20/2021 1:09 PM CDT Gender Identity Female 04/20/2021 1:09 PM CDT Sexual Orientation Straight 04/20/2021 1: 09 PM CDT documented as of this encounter Patient Instructions * Patient Instructions* Carissa Travis - 06/26/2021 11:47 AM SUCKER MACHINE OPERATOR Pt is calling to see if she can get a order of test strips sent over to the pharmacy. ER MACHINE OPERATOR documented in this encounter Plan of Treatment Not on file documented as of this encounter Visit Diagnoses Not on filedocumented in this encounter Care Teams Operations Executive Relationship Specialty Start Date End Date Michelle Valente MD [facility] [place] [id number] PCP - General 11/29/17 documented as of this encounter
--- OUTSIDE RECORDS SUMMARY | 2024-08-17 06:19 | XMS_ITS | CONTINUITY OF CARE DOCUMENT ---
Author Name codey, codey Address Unknown Organization [facility] Address [address] [place] [address] Phone [phone] Care Team Providers Care Assembler Dc Field Ring Name Role Phone Mario Alberto BUNDY, Agusto Olmos Unavailable [phone] MELISA BUNDY, VIKTOR Unavailable CELENA BUNDY, PENNY Unavailable RESULTS Date Observation Value Provider Reference Range Interpretation Location platelet count 201 10*3/mm3 Pranay Celis hematocrit, blood 42.5 % Pranay Celis triglyceride, serum, fasting 212 mg/dL Pran[facility] Celis HDL cholesterol, serum 38 mg/dL Pran[facility] Celis lipoprotein, beta, serum, point, quantitative, calculated 125 mg/dL Pranay Celis cholesterol, serum 205 mg/dL Pranay Celis thyroid stimulating hormone, serum 1.580 u[IU]/mL Pran[facility] Celis alanine aminotransferase (SGPT), serum 66 1/L Pranay Celis aspartate aminotransferase (SGOT), serum 37 1/L Pranay Celis creatinine, serum 0.70 mg/dL Pranay Celis potassium, serum 4.1 mmol/L Pranay Celis sodium, serum 139 mmol/L Pranay Celis INSURANCE PROVIDERS Payer name Policy type / Coverage type [place] [employer] [place] MEDICAID (2) Medicaid [id number]
--- OUTSIDE RECORDS SUMMARY | 2024-08-17 06:19 | XMS_ITS | Data Portability ---
Author Organization [facility] [employer], Main Office Address [address] [place] [address] Assessment No assessment recorded. Plan of Treatment Reminders Order Date Submit Date Provider Last Modified By Organization Details Last Modified Time Details Appointments None recorded. Lab urinalysis, dipstick 2022 023 [email or web address] 3 [facility] [address], [place], [address], 3 13:37:20 culture, urine 2022 023 [facility] (Lab), [address] [place], [address], 3 07:58:25 lipid panel, serum 2022 023 [facility] (Lab), [address] [place], [address], 3 13:15:56 glycohemogl obin, total, blood 2022 023 [facility] (Lab), [address] [place], [address], 3 14:29:48 CMP, serum or plasma 2022 023 [facility] (Lab), [address] [place], [address], 3 13:15:52 Referral gynecologis t referral - Please call the pt to make an appt. Thank you 2022 023 Parul Aguiar MD, [address] [place], [address], 13:12:50 Procedures None recorded. Surgeries None recorded. Imaging None recorded. Medication Orders None recorded. Patient TargetsNo targets recorded. Patient InstructionsNo instructions recorded. Reason for Referral Grocery Specialist Referral for Pa in in pelvis Please call the pt to make an appt. Thank you Referring Physician: Michelle Valente, Family Medicine, Encounter Date: 11/15/2022 Results Created Date Observation Date Name Description Value Unit Range Abnormal Flag Note LastModifiedBy Organization Detail LastModifiedTime 09/08/19 23 09/08/2022 rapid strep group A, throa t STREP A negati ve Not Available [address], [place], [address], 09/08/2022 15:59:50 11/16/19 23 11/15/2022 urina lysis , dipst ick Leukocytes (reference range: negative mayte/??l) Negati ve Not Available [address], [place], [address], 11/15/2022 11:38:40 11/16/19 23 11/15/2022 urina lysis , dipst ick Nitrite (reference rage: negative mg/dl) negati ve Not Available [address], [place], [address], 11/15/2022 11:38:40 11/16/19 23 11/15/2022 urina lysis , dipst ick Urobilinogen (reference range: 0.2-1 mg/dl) 0.2 Not Available [address], [place], [address], 11/15/2022 11:38:40 11/16/19 23 11/15/2022 urina lysis , dipst ick Protein (reference range: negative mg/dl) Negati ve Not Available [address], [place], [address], 11/15/2022 11:38:40 11/16/19 23 11/15/2022 urina lysis , dipst ick pH (reference range: 5-7) 5.5 Not Available [address], [place], [address], 11/15/2022 11:38:40 11/16/19 23 11/15/2022 urina lysis , dipst ick Blood (reference range: negative Preston/??l) Negati ve Not Available [address], [place], [address], 11/15/2022 11:38:40 11/16/19 23 11/15/2022 urina lysis , dipst ick Specific [place] (reference range: 1.005-1.030) 1.030 Not Available [address], [place], [address], 11/15/2022 11:38:40 11/16/19 23 11/15/2022 urina lysis , dipst ick Ketone (reference range: negative mg/dl) Negati ve Not Available [address], [place], [address], 11/15/2022 11:38:40 11/16/19 23 11/15/2022 urina lysis , dipst ick Bilirubin (reference range: negative mg/dl) Negati ve Not Available [address], [place], [address], 11/15/2022 11:38:40 11/16/19 23 11/15/2022 urina lysis , dipst ick Glucose (reference range: negative mg/dl) 250 Not Available [address], [place], [address], 11/15/2022 11:38:40 11/16/19 23 11/15/2022 urina lysis , dipst ick Appearance Clear Not Available [address], [place], [address], 11/15/2022 11:38:40 11/16/19 23 11/15/2022 urina lysis , dipst ick Color Yellow Not Available [address], [place], [address], 11/15/2022 11:38:40 12/17/19 23 12/16/2022 COMPR EHENS AMISH METAB OLIC PANEL sodium 139 mmol/ L 137-14 5 Not Available [facility] (Lab) [address] [place], [address], 12/16/2022 13:15:52 12/17/19 23 12/16/2022 COMPR EHENS AMISH METAB OLIC PANEL potassium 3.8 mmol/ L 3.5-5. 1 Not Available [facility] (Lab) [address] [place], [address], 12/16/2022 13:15:52 12/17/19 23 12/16/2022 COMPR EHENS AMISH METAB OLIC PANEL chloride 106 mmol/ L 98-107 Not Available [facility] (Lab) [address] [place], [address], 12/16/2022 13:15:52 12/17/19 23 12/16/2022 COMPR EHENS AMISH METAB OLIC PANEL carbon dioxide 24 mmol/ L 22-30 Not Available [facility] (Lab) [address] [place], [address], 12/16/2022 13:15:52 12/17/19 23 12/16/2022 COMPR EHENS AMISH METAB OLIC PANEL anion gap 12.8 mmol/ L 14-22 low Not Available [facility] (Lab) [address] [place], [address], 12/16/2022 13:15:52 12/17/19 23 12/16/2022 COMPR EHENS AMISH METAB OLIC PANEL glucose 97 mg/dL 70-99 Not Available [facility] (Lab) [address] [place], [address], 12/16/2022 13:15:52 12/17/19 23 12/16/2022 COMPR EHENS AMISH METAB OLIC PANEL BUN 8 mg/dL 8-19 Not Available [facility] (Lab) [address] [place], [address], 12/16/2022 13:15:52 12/17/19 23 12/16/2022 COMPR EHENS AMISH METAB OLIC PANEL creatinine 0.56 mg/dL 0.66-1 .25 low Not Available [facility] (Lab) [address] [place], [address], 12/16/2022 13:15:52 12/17/19 23 12/16/2022 COMPR EHENS AMISH METAB OLIC PANEL GFR >60 Refer ence Range : [place] ge GFR Healt hy Adult : >60 mL/mi n/1.7 3 m2 Chron ic Kidne y Disea se: 15-60 mL/mi n/1.7 3 m2 Kidne y Failu re: <15/m L/min /1.73 m2 www.n iddk. nih.g ov The MDRD study equat ion has not been valid ated in child nancy <18 years of age; pregn ant women ; the elder ly >85 years of age; or in some racia l or ethni c subgr oups, such as Hispa nics. Outsi de the valid ated montrell eters , estim ated GFR is less accur ate, requi ring clini lynne judgm ent on a case- by-ca se basis . Clini lynne inter preta tion for other races and ages must be made by the clini pravin. The MDRD study equat ion has not been valid ated for the evalu ation of serum creat inine relat ed to nutri hadley l statu s or medic ation usage . For perso ns <18 years of age, a pedia tric GFR calcu lator is avail able on the [facility] websi te: https ://davi cote.rik pierson/pr ofess ional s/kdo qi/gf r_cal culat or Not Available [facility] (Lab) [address] [place], [address], 12/16/2022 13:15:52 12/17/19 23 12/16/2022 COMPR EHENS AMISH METAB OLIC PANEL alkaline phosphatase 49 U/L 38-126 Not Available [facility] (Lab) [address] [place], [address], 12/16/2022 13:15:52 12/17/19 23 12/16/2022 COMPR EHENS AMISH METAB OLIC PANEL alanine aminotransfe rase 34 U/L 0-35 Not Available [facility] (Lab) [address] [place], [address], 12/16/2022 13:15:52 12/17/19 23 12/16/2022 COMPR EHENS AMISH METAB OLIC PANEL aspartate aminotransfe rase 26 U/L 15-37 Not Available [facility] (Lab) [address] [place], [address], 12/16/2022 13:15:52 12/17/19 23 12/16/2022 COMPR EHENS AMISH METAB OLIC PANEL bilirubin, total 0.60 mg/dL 0.20-1 .30 Not Available [facility] (Lab) [address] [place], [address], 12/16/2022 13:15:52 12/17/19 23 12/16/2022 COMPR EHENS AMISH METAB OLIC PANEL calcium 8.8 mg/dL 8.4-10 .2 Not Available [facility] (Lab) [address] [place], [address], 12/16/2022 13:15:52 12/17/19 23 12/16/2022 COMPR EHENS AMISH METAB OLIC PANEL total protein 6.2 g/dL 6.3-8. 2 low Not Available [facility] (Lab) [address] [place], [address], 12/16/2022 13:15:52 12/17/19 23 12/16/2022 COMPR EHENS AMISH METAB OLIC PANEL albumin 3.6 g/dL 3.4-5. 0 Not Available [facility] (Lab) [address] [place], [address], 12/16/2022 13:15:52 12/17/19 23 12/16/2022 COMPR EHENS AMISH METAB OLIC PANEL globulin 2.6 g/dL 2.6-4. 2 Not Available [facility] (Lab) [address] [place], [address], 12/16/2022 13:15:52 12/17/19 23 12/16/2022 COMPR EHENS AMISH METAB OLIC PANEL A/G ratio 1.4 ratio 1.0-2. 0 Not Available [facility] (Lab) [address] [place], [address], 12/16/2022 13:15:52 12/17/19 23 12/16/2022 LIPID PANEL cholesterol 235 mg/dL 140-19 9 high NIH CHARLI NSUS RECOM MENDA TION FOR CLARENCE STERO L: ADULT CHILD LOW RISK: <200 <170 BORDE RLINE : <200- 239 ----- HIGH RISK: >240 >200 Not Available [facility] (Lab) [address] [place], [address], 12/16/2022 13:15:56 12/17/19 23 12/16/2022 LIPID PANEL triglyceride s 318 mg/dL 0-150 high NIH CHARLI NSUS REPOR T RECOM MENDA TION FOR TRIGL YCERI URMILA: ADULT CHILD LOW RISK: <150 ----- BODER LINE: 150-1 99 ----- HIGH RISK: >200 ----- Not Available [facility] (Lab) [address] [place], [address], 12/16/2022 13:15:56 12/17/19 23 12/16/2022 LIPID PANEL HDL cholesterol 37 mg/dL 40- low Not Available [facility] (Lab) [address] [place], [address], 12/16/2022 13:15:56 12/17/19 23 12/16/2022 LIPID PANEL LDL cholesterol, calculated 134 mg/dL 0-130 high NIH CHARLI NSUS REPOR T RECOM MENDA TIONS FOR LDL: ADULT CHILD LOW RISK <130 <110 (OPTI MAL LDL) <100 ----- BORDE RLINE : 130-1 59 ----- HIGH RISK: >160 >130 A TRIGL YCERI DE RESUL T >400 INVAL IDATE S THE CALCU LATIO N FOR LDL FRACT IONAT ION - THE LDL RESUL T WILL NOT BE REPOR HIRA. Not Available [facility] (Lab) [address] [place], [address], 12/16/2022 13:15:56 12/17/1912/16/2022 HEMOG LOBIN A1C HA1C 8.5 % 4.0-6. 0 high Diabe camilla Scree melisa Crite yesi: <5.7% Consi stent with absen ce of diabe camilla 5.7-6 .4% Consi stent with incre ased risk for diabe camilla (pred iabet es) >OR=6 .5% Consi stent with diabe camilla REFER ENCE: Diabe camilla Care 2016, 39([place]ullon ppl.1 ):s13 -s22 Not Available [facility] (Lab) [address], [place], [address], 12/16/2022 14:29:48 09/08/19 23 XR, chest , 2 view [facility] [address], [place] [address] [phone] Patien t Name: DAGO SHULTZ A E Access ion #: [id number] Sex: F : 1985 7 Locati on: RA2 Attend ing Physic larry: ELKHAT IB, RUNDA Orderi ng Physic larry: ELKHAT IB, RUNDA Exam Date: 023 3:16 PM Exam Name: XR CHEST 2V Admitt ing Diagno sis(es ): RADIOL OGY REPORT - FINAL EXAM: XR CHEST 2V HISTOR Y: cough 36-yea r-old female with cough, shortn ess of breath , chest pain. COMPAR KING: Chest x-ray dated 2016. TECHNI QUE: 2 views of the chest were perfor med. FINDIN GS: No pneumo thorax , pulmon nidia edema, or consol idativ e infilt rates. The heart is not enlarg ed. No fractu res are identi fied about the bony thorax . There is abunda nt subcut aneous adipos e tissue . IMPRES WYATT: Obesit y withou t eviden ce of acute intrat horaci c proces s. Page 1 of 2 [facility] Patikandace t Name: DAGO SHULTZ A E Access ion #: [id number] Sex: F : 1985 7 Exam Date: 023 3:16 PM Exam Name: XR CHEST 2V Admitt ing Diagno sis(es ): Create d and electr onical ly signed by: Kevin rodriguez MD Signed Date: 3:43 PM (CT) Dictat ed by: Kevin rodriguez MD DD: 3:43 PM (CT) DT: 3:43 PM (CT) Page 2 of 2 [id number] [facility] (Imaging) [address], [place], [address], 09/22/2022 08:21:58 09/08/19 23 09/08/2022 XR, chest , 2 view No observ ation record ed. [id number] Not Available 09/22/2022 08:21:58 11/09/19 23 11/08/2022 imagi ng/di agnos tic resul t No observ ation record ed. [address] [facility] [address], [place], [address], 11/09/2022 08:17:44 Result Notes None recorded. Problems Name Problem SNOMED Code Status Onset Date Resolution Date Notes Provider Name and Address Organization Details Recorded Time Injury of groin 63927346 Active Not Available [facility] 3 23:43:27 Folliculitis 07221334 Active Not Available [facility] 3 23:43:27 Constipation 94763860 Active Not Available [facility] 3 23:43:27 Infectious diarrheal disease 40861175 Active Not Available [facility] 3 23:43:27 Abdominal pain 81909015 Active Not Available [facility] 3 23:43:27 Gastroesophag eal reflux disease 934007545 Active Not Available [facility] 3 23:43:27 Morbid obesity 954091573 Active Not Available [facility] 3 23:43:27 Acute vaginitis 09832343 Active Not Available [facility] 3 23:43:27 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 Not Available [facility] 3 23:43:27 Transient memory loss Active Not Available [facility] 3 23:43:27 Vaginitis 29297050 Active Not Available [facility] 3 23:43:27 Knee pain Active Not Available [facility] 3 23:43:27 Sprain of lateral collateral ligament of knee 62745508 Active Not Available [facility] 3 23:43:27 Acneiform eruption 766136451 Active Not Available [facility] 3 23:43:27 Aphthous ulcer of mouth 506066681 Active Not Available [facility] 3 23:43:28 Anxiety 40694629 Active Not Available [facility] 3 23:43:28 Sprain of foot 14650149 Active Not Available [facility] 3 23:43:28 Hyperlipidemi a 11520904 Active Not Available [facility] 3 23:43:28 Essential hypertension 77632179 Active Not Available [facility] 3 23:43:28 Diabetes mellitus 83218870 Active Not Available [facility] 3 23:43:28 Sleep apnea 60846641 Active Not Available [facility] 3 23:43:28 Nocturnal enuresis 0559377 Active Not Available [facility] 3 23:43:28 Tinea corporis 61595868 Active Not Available [facility] 3 23:43:28 Pain in pelvis 77183790 Active 2022 Not Available [facility] 3 23:43:27 Type 2 diabetes mellitus without complication 194518464 Active 2022 Not Available [facility] 3 23:43:27 Bipolar disorder 00676559 Active 2022 Not Available [facility] 3 23:43:27 Uncontrolled type 2 diabetes mellitus 241377818 Active 2022 Not Available [facility] 3 23:43:28 Insomnia 942590315 Active 2022 Michelle Valente MD [address] [facility], [address], [address] , [facility] 3 11:37:18 Persistent insomnia 429139979 Active 2022 Michelle Valente MD [address], [place], [address] , [facility] 3 11:39:42 Eczema 19732695 Active 2023 [facility] [address], [place], [address] , [facility] 4 14:58:18 Notes:Some problems listed i n Documents: #[id number], #[id number] could not be added to this patient's chart. Please review these documents and add these problems to the patient's chart manually as needed. Problem Notes None recorded. Procedures Surgical History Date Name Laterality Status Provider Name and Address Organization Details Recorded Time embolization of uterine fibroid using fluoroscopic guidance completed Not Available [facility] 09/22/2022 08:17:33 Cholecystectomy completed Not Available [facility] 09/22/2022 08:17:33 procedure on wrist completed Not Available [facility] 09/22/2022 08:17:33 Imaging Results Imaging Date Name Status LastModified by Organiz ation Details LastModified Time 09/08/2022 XR, chest, 2 view completed [id number] [facility] ([facility]) [address], [place], [address], 09/22/2022 08:21:58 09/08/2022 XR, chest, 2 view completed [id number] Information not available 09/22/2022 08:21:58 11/08/2022 imaging/lópez gnostic result completed [address], [place], [address], 11/09/2022 08:17:44 Procedure Notes None recorded. Medical Equipment None Reported. Allergies Allergen ID Allergen Name Allergen Category Reaction Reaction Severity Criticality Documentation Date Start Date Code Code System Note Provider Name and Address Organization Details Recorded Time Product containin g penicilli n and antibioti c (product) medicatio n Not available Not available Not available 09/22/2022 11971 05 SNOMED Not Available [facility] 3 08:21:55 39550 oxycodone medicatio n Not available Not available Not available 12/16/2022 7804 [facility] Mariana Lay MA null, [place] [facility] 3 09:45:23 Medications Name Sig Start Date Stop Date Status Note LastModified by Organization Details LastModified Time Singulair 10 mg tablet 1 po daily active Not Available Not Available No t Available cyclobenzap rine 10 mg tablet TAKE 1 TABLET BY MOUTH THREE TIMES DAILY 12/22 completed Not Available Not Available Not Available ziprasidone 80 mg capsule TK ONE C PO HS 09/03 completed Not Available Not Available Not Available fluconazole 100 mg tablet TK 1 T PO QD FOR 3 DAYS 09/12 completed Not Available Not Available Not Available metformin 500 mg tablet TK 2 TS PO BID WC 01/14 completed Not Available Not Available Not Available hydrocodone 7.5 mg-ibuprofe n 200 mg tablet TK ONE T PO Q 6 H PRF PAIN CONTROL. DO NOT EXCEED 5 TABLETS PER DAY 08/24 completed Not Available Not Available Not Available terconazole 0.4 % vaginal cream IVB FOR 7 DAYS 03/29 completed Not Available Not Available Not Available promethazin e-DM 6.25 mg-15 mg/5 mL oral syrup Take 5 mL every 4 hours by oral route as needed. active Not Available Not Available No t Available doxycycline hyclate 100 mg capsule Take 1 capsule twice a day by oral route for 10 days. 02/13 completed Not Available Not Available Not Available atorvastati n 20 mg tablet TAKE 1 TABLET BY MOUTH EVERY DAY 2023 active Not Available Not Available Not Avai lable ketoconazol e 2 % shampoo APPLY TO WET HAIR, LEAVE ON FOR 3MINS THEN RINSE 3 TIMES PER WEEK active Not Available Not Available No t Available clindamycin HCl 300 mg capsule TAKE 1 CAPSULE BY MOUTH EVERY 8 HOURS 07/07 completed Not Available Not Available Not Available BD Luer-Milton Syringe 3 mL 25 x 5/8 USE DIRECTED WITH ALLERGY SERUM. active Not Available Not Available No t Available trazodone 50 mg tablet active Not Available Not Available Not Available cetirizine 10 mg tablet TAKE 1 TABLET BY MOUTH EVERY DAY NEEDED FOR ALLERGY SYMPTOMS active Not Available Not Available No t Available azithromyci n 250 mg tablet TAKE DIRECTED 12/22 completed Not Available Not Available Not Available glyburide 5 mg tablet TAKE 2 TABLETS BY MOUTH IN THE MORNING AND THEN 1 TABLET IN THE EVENING active Not Available Not Available No t Available ibuprofen 800 mg tablet TK 1 T PO Q 8 H NEEDED FOR PAIN 11/08 completed Not Available Not Available Not Available nystatin 100,000 unit/gram topical ointment APPLY TO AFFECTED AREA TWICE A DAY active Not Available Not Available No t Available fluconazole 150 mg tablet TAKE 1 TABLET BY MOUTH FOR 1 DOSE. REPEAT IN 3 DAYS 12/22 completed Not Available Not Available Not Available benzonatate 200 mg capsule TAKE 1 CAPSULE BY MOUTH UP TO THREE TIMES DAILY NEEDED FOR COUGH 12/22 completed Not Available Not Available Not Available Lotrisone 1 %-0.05 % topical cream APPLY TO THE AFFECTED AND SURROUNDI NG AREAS OF SKIN BY TOPICAL ROUTE 2 TIMES PER DAY IN THE MORNING AND EVENING FOR 2 WEEKS 08/25 completed Not Available Not Available Not Available hydrocodone 5 mg-acetamin ophen 325 mg tablet TAKE 1 TABLET BY MOUTH EVERY 4 HOURS NEEDED 11/12 completed Not Available Not Available Not Available ondansetron HCl 8 mg tablet TAKE ONE TABLET BY MOUTH EVERY 8 HOURS 08/25 completed Not Available Not Available Not Available fluconazole 200 mg tablet TAKE 1 TABLET BY MOUTH EVERY OTHER DAY FOR 3 DOSES 07/07 completed Not Available Not Available Not Available meloxicam 15 mg tablet TK 1 T PO ONCE D 12/06 completed Not Available Not Available Not Available naltrexone 50 mg tablet TK 1/2 T PO BID UTD 02/13 completed Not Available Not Available Not Available FreeStyle Lancets 28 gauge USE BID 12/22 completed Not Available Not Available Not Available prednisone 20 mg tablet TAKE 2 TABLETS BY MOUTH EVERY DAY FOR 5 DAYS 12/22 completed Not Available Not Available Not Available spironolact one 100 mg tablet TAKE 2 TABLETS BY MOUTH EVERY DAY active Not Available Not Available No t Available Lantus U-100 Insulin 100 unit/mL subcutaneou s solution ADM 55 UNI SC HS active Not Available Not Available No t Available Nexium 40 mg capsule,del ayed release 1 po daily active Not Available Not Available No t Available metronidazo le 500 mg tablet TK 1 T PO Q 8 H FOR 10 DAYS 12/06 completed Not Available Not Available Not Available phentermine 37.5 mg tablet one po daily active Not Available Not Available No t Available insulin syringe U-100 with needle 1 mL 29 gauge x 7/16 U ONCE D UTD active Not Available Not Available No t Available ciprofloxac in 500 mg tablet TAKE 1 TABLET BY MOUTH EVERY 12 HOURS 12/22 completed Not Available Not Available Not Available sulfamethox azole 800 mg-trimetho prim 160 mg tablet TAKE 1 TABLET BY MOUTH TWICE DAILY FOR 3 DAYS 12/15 completed Not Available Not Available Not Available tramadol 50 mg tablet TK 1 T PO Q 6 H PRN P 09/03 completed Not Available Not Available Not Available quetiapine 100 mg tablet TAKE 1 TABLET BY MOUTH EVERYDAY AT BEDTIME active Not Available Not Available No t Available acetaminoph en 500 mg tablet TAKE 1 TABLET BY MOUTH EVERY 6 HOURS NEEDED FOR PAIN 12/22 completed Not Available Not Available Not Available triamcinolo ne acetonide 0.1 % topical cream MIX WITH NYSTATIN OINTMENT AND APPLY TO EXTERNALL Y VULVAR TISSUES TWICE DAILY 12/22 completed Not Available Not Available Not Available Depo-Medrol 80 mg/mL suspension for injection Take 1 mL by injection route. 12/22 completed Not Available Not Available Not Available terconazole 80 mg vaginal suppository UNW AND I 1 SUP VAG QHS 01/14 completed Not Available Not Available Not Available meloxicam 7.5 mg tablet TK 1 T PO D WITH FOOD active Not Available Not Available No t Available citalopram 20 mg tablet TK 3 TS PO QD HS 03/29 completed Not Available Not Available Not Available ziprasidone 20 mg capsule TK ONE C PO BID 08/25 completed Not Available Not Available Not Available famotidine 20 mg tablet TAKE 1 TABLET BY MOUTH TWICE DAILY NEEDED FOR ALLERGIES 12/22 completed Not Available Not Available Not Available methocarbam ol 750 mg tablet TAKE 1 TABLET BY MOUTH EVERY 8 HOURS NEEDED active Not Available Not Available No t Available DOK 100 mg capsule TAKE 1 CAPSULE BY MOUTH TWICE DAILY active Not Available Not Available No t Available trazodone 100 mg tablet TK 1 T PO QHS 09/03 completed Not Available Not Available Not Available meclizine 25 mg tablet TAKE 1 TABLET BY MOUTH THREE TIMES A DAY NEEDED 2023 active Not Available Not Available Not Avai lable phenazopyri dine 100 mg tablet TK 2 TS PO TID active Not Available Not Available No t Available fluvoxamine 100 mg tablet TAKE 1 TABLET BY MOUTH EVERY DAY active Not Available Not Available No t Available doxycycline monohydrate 100 mg capsule TAKE 1 CAPSULE BY MOUTH EVERY DAY active Not Available Not Available No t Available erythromyci n 5 mg/gram (0.5 %) eye ointment APPLY A THIN RIBBON TO THE LOWER EYELIDS FOUR TIMES DAILY 12/22 completed Not Available Not Available Not Available trazodone 150 mg tablet TK 1 T PO HS 09/12 completed Not Available Not Available Not Available neomycin-po lymyxin-dex ameth 3.5 mg/mL-10,00 0 unit/mL-0.1 % eye drops INSTILL 1 DROP INTO AFFECTED EYE(S) BY OPHTHALMI C ROUTE EVERY 3-4 HOURS 12/06 completed Not Available Not Available Not Available triamcinolo ne acetonide 0.1 % topical ointment MIX WITH NYSTATIN OINTMENT AND APPLY TO EXTERNAL VULVAR TISSUES TWICE DAILY active Not Available Not Available No t Available nystatin 100,000 unit/gram topical cream JOHNY AA 2-3 TIMES A DAY 09/03 completed Not Available Not Available Not Available ranitidine 150 mg tablet TAKE 1 TABLET BY MOUTH TWICE DAILY active Not Available Not Available No t Available lisinopril 10 mg tablet TAKE 1 TABLET BY MOUTH EVERY DAY active Not Available Not Available No t Available betamethaso ne dipropionat e 0.05 % topical cream JOHNY THIN LAYER EXT AA QD 08/24 completed Not Available Not Available Not Available cranberry fruit 400 mg capsule Take 2 capsules twice a day by oral route. 2013 active Not Available Not Available Not Avai lable omeprazole 20 mg capsule,del ayed release TK 1 C PO D 01/14 completed Not Available Not Available Not Available DDAVP 0.2 mg tablet 1 po q hs active Not Available Not Available Not Available hydrocortis one 2.5 % topical cream APPLY TO AFFECTED AREA ON EYELIDS EVERY DAY NEEDED FOR RASH active Not Available Not Available No t Available pseudoephed rine 30 mg tablet TAKE 2 TABLETS BY MOUTH EVERY 6 HOURS active Not Available Not Available No t Available Cortifoam 10 % (80 mg) rectal Insert by rectal route twice daily active Not Available Not Available No t Available acyclovir 200 mg capsule active Not Available Not Available Not Available zolpidem 5 mg tablet TK 1 T PO QD HS 12/06 completed Not Available Not Available Not Available fluvoxamine 50 mg tablet TK 3 TS PO QD UTD 12/06 completed Not Available Not Available Not Available ziprasidone 40 mg capsule START TAKING ONCE 60MG ARE COMPLETE. TK 1 C PO QD THEN DISCONTIN UE 02/13 completed Not Available Not Available Not Available ergocalcife rol (vitamin D2) 1,250 mcg (50,000 unit) capsule TK 1 C PO Q WK active Not Available Not Available No t Available epinephrine 0.3 mg/0.3 mL injection, auto-inject or INJECT 1 PEN INTO THE MUSCLE 1 TIME NEEDED FOR ANAPHYLAX IS active Not Available Not Available No t Available ibuprofen 600 mg tablet TAKE 1 TABLET BY MOUTH EVERY 6 HOURS WITH FOOD NEEDED FOR PAIN 12/22 completed Not Available Not Available Not Available levofloxaci n 500 mg tablet Take 1 tablet every 24 hours by oral route. active Not Available Not Available No t Available Anusol-HC 25 mg rectal suppository 1 every 8 hours rectally 01/14 completed Not Available Not Available Not Available levofloxaci n 750 mg tablet TAKE 1 TABLET BY MOUTH EVERY DAY active Not Available Not Available No t Available methylpredn isolone 4 mg tablets in a dose pack TAKE 6 TABLETS ON DAY 1 DIRECTED ON PACKAGE AND DECREASE BY 1 TAB EACH DAY FOR A TOTAL OF 6 DAYS active Not Available Not Available No t Available albuterol sulfate HFA 90 mcg/actuati on aerosol inhaler INHALE 1 TO 2 PUFFS BY MOUTH EVERY 4 TO 6 HOURS NEEDED active Not Available Not Available No t Available norethindro ne (contracept amish) 0.35 mg tablet TAKE 1 TABLET BY MOUTH EVERY DAY 12/22 completed Not Available Not Available Not Available ziprasidone 60 mg capsule TK ONE C PO QD 02/13 completed Not Available Not Available Not Available ondansetron 4 mg disintegrat ing tablet LET 1 TABLET DISSOLVE BY MOUTH EVERY 6 HOURS NEEDED FOR NAUSEA 12/22 completed Not Available Not Available Not Available cefdinir 300 mg capsule TAKE 1 CAPSULE BY MOUTH TWICE A DAY X7 DAYS active Not Available Not Available No t Available fluticasone propionate 50 mcg/actuati on nasal spray,suspe nsion SHAKE LIQUID AND ADMINISTE R 2 SPRAYS INTO EACH NOSTRIL EVERY DAY active Not Available Not Available No t Available pseudoephed rine 60 mg tablet Take 1 tablet every 6 hours by oral route. 01/14 completed Not Available Not Available Not Available metformin ER 500 mg tablet,exte nded release 24 hr TAKE 2 TABLETS BY MOUTH TWICE A DAY active Not Available Not Available No t Available risperidone 1 mg tablet 09/03 completed Not Available Not Available Not Available metronidazo le 0.75 % topical gel APPLY A THIN LAYER TO THE AFFECTED AREA OF FACE TWICE A DAY active Not Available Not Available No t Available risperidone 0.5 mg tablet TK 1 T PO HS 09/03 completed Not Available Not Available Not Available naproxen 500 mg tablet TAKE 1 TABLET BY MOUTH EVERY 12 HOURS. DO NOT USE OTHER NSAIDS WITH MEDICATIO N active Not Available Not Available No t Available spironolact one 50 mg tablet TAKE 3 TABLETS BY MOUTH EVERY DAY 12/22 completed Not Available Not Available Not Available vitamin B complex capsule Take by oral route. 2014 active Not Available Not Available Not Avai lable diazepam [address] 1 TABLET NIGHTLY IN THE VAGINA active Not Available Not Available No t Available Clarinex 5 mg tablet Take 1 tablet every day by oral route. active Not Available Not Available No t Available Vitamin D 50,000 unit capsule 1 po q weekly active Not Available Not Available No t Available bupropion HCl SR 200 mg tablet,12 hr sustained-r elease TAKE 1 TABLET BY MOUTH TWICE DAILY 12/22 completed Not Available Not Available Not Available azithromyci n 500 mg tablet TAKE 1 TABLET BY MOUTH EVERY DAY 12/22 completed Not Available Not Available Not Available Prilosec OTC 20 mg tablet,jossie yed release Take 1 tablet every day by oral route. 12/06 completed Not Available Not Available Not Available nitrofurant oin monohydrate /macrocryst als 100 mg capsule TAKE ONE CAPSULE BY MOUTH TWICE DAILY UNTIL ALL TAKEN 12/15 completed Not Available Not Available Not Available BD Integra Syringe 3 mL 25 gauge x 5/8 DIRECTED WITH ALLERGY SERUM. DISPENSE 30 FOR A MONTH SUPPLY active Not Available Not Available No t Available Acidophilus 2013 active Not Available Not Available Not Avai lable multivitami n 2013 active Not Available Not Available Not Avai lable quetiapine 50 mg tablet TAKE 1 TABLET BY MOUTH EVERY NIGHT AT BEDTIME 12/15 completed Not Available Not Available Not Available fenofibrate nanocrystal lized 145 mg tablet TAKE 1 TABLET BY MOUTH EVERY DAY active Not Available Not Available No t Available Januvia 100 mg tablet TAKE 1 TABLET BY MOUTH EVERY DAY 08/25 completed Not Available Not Available Not Available omeprazole 20 mg tablet,jossie yed release TK 1 T PO QD 08/24 completed Not Available Not Available Not Available Uribel 118 mg-10 mg-40.8 mg-36 mg capsule TAKE 1 CAPSULE BY MOUTH THREE TIMES DAILY NEEDED active Not Available Not Available No t Available OneTouch Verio test strips USE TO TEST TWICE A DAY active Not Available Not Available No t Available TRUEplus Insulin 1 mL 29 gauge x 1/2 syringe U UTD ONCE D 12/22 completed Not Available Not Available Not Available Victoza 2-Mervin 0.6 mg/0.1 mL (18 mg/3 mL) subcutaneou s pen injector ADMINISTE R 1.8 MG UNDER THE SKIN EVERY DAY 12/22 completed Not Available Not Available Not Available Invokana 100 mg tablet TK 1 T PO D 08/24 completed Not Available Not Available Not Available Invokana 300 mg tablet TK 1 T PO D 02/13 completed Not Available Not Available Not Available Meghann Cambogia 2014 active Not Available Not Available Not Avai lable Levemir FlexTouch U-100 Insulin 100 unit/mL (3 mL) subcutaneou s pen Inject 20 units every day by subcutane ous route. active Not Available Not Available No t Available Tanzeum 50 mg/0.5 mL subcutaneou s pen injector ADM 50 MG SC Q 7 DAYS 08/25 completed Not Available Not Available Not Available Bydureon 2 mg/0.65 mL subcutaneou s pen injector INJ ONCE A WK UTD active Not Available Not Available No t Available Jardiance 25 mg tablet TAKE 1 TABLET BY MOUTH EVERY DAY active Not Available Not Available No t Available Trulicity 1.5 mg/0.5 mL subcutaneou s pen injector active Not Available Not Available Not Available Trulicity 0.75 mg/0.5 mL subcutaneou s pen injector ADMINISTE R 0.75 MG UNDER THE SKIN WEEKLY 2022 active Not Available Not Available Not Avai lable OneTouch Verio Flex Meter USE DIRECTED active Not Available Not Available No t Available TechLITE Pen Needle 32 gauge x 5/32 DIRECTED THREE TIMES DAILY active Not Available Not Available No t Available Basaglar KwikPen U-100 Insulin 100 unit/mL (3 mL) subcutaneou s 2023 active Not Available Not Available Not Avai lable TRUEplus Pen Needle 31 gauge x 5/16 USE DIRECTED 3 TIMES A DAY FOR INJECTION S active Not Available Not Available No t Available Steglatro 15 mg tablet TK 1 T PO QD 09/03 completed Not Available Not Available Not Available OneTouch Ultra Blue Test Strip TEST ONCE DAILY 12/22 completed Not Available Not Available Not Available Fluzone Quad (PF) 60 mcg(15 mcgx4)/0.5 mL intramuscul ar syringe ADM 0.5ML IM UTD 09/12 completed Not Available Not Available Not Available OneTouch Delica Plus Lancet 33 gauge USE 1 EACH TWICE DAILY active Not Available Not Available No t Available OneTouch Delica Plus Lancet 30 gauge USE ONCE DAILY 12/22 completed Not Available Not Available Not Available Semglee (insulin glargine-yf gn) Pen 100 unit/mL (3 mL) subcutaneou s 2023 active Not Available Not Available Not Avai lable Paxlovid 300 mg (150 mg x 2)-100 mg tablets in a dose pack TK 2 NIRMATREL VIR TS AND 1 RITONAVIR T TOGETHER PO BID FOR 5 DAYS BID FOR 5 DAYS active Not Available Not Available No t Available Lagevrio 200 mg capsule (EUA) TAKE 4 CAPSULES BY MOUTH TWICE A DAY FOR 5 DAYS 12/22 completed Not Available Not Available Not Available Vitals Date Recorded Body mass index (BMI) Body height Oxygen saturation Oxygen saturation in Arterial blood by Pulse oximetry Heart rate Respiratory rate Body temperature Body weight Systolic blood pressure Diastolic blood pressure Provider Name and Address Organization Details Last Updated DateTime 2 58.6 kg/m2 170.18 cm 97 % 97 % 86 /min 18 /min 97.2 [degF] 377642. 55 g 114 mm[Hg] 82 mm[Hg] Not Available [facility] 3 08:18:18 Date Recorded Body mass index (BMI) Body height Oxygen saturation Oxygen saturation in Arterial blood by Pulse oximetry Heart rate Body temperature Body weight Systolic blood pressure Diastolic blood pressure Provider Name and Address Organization Details Last Updated DateTime 3 55.8 kg/m2 170.18 cm 97 % 97 % 96 /min 97.3 [degF] 709450. 88 g 142 mm[Hg] 100 mm[Hg] Not Available [facility] 3 08:18:18 Date Recorded Body mass index (BMI) Body height Oxygen saturation Oxygen saturation in Arterial blood by Pulse oximetry Heart rate Body temperature Body weight Systolic blood pressure Diastolic blood pressure Provider Name and Address Organization Details Last Updated DateTime 3 55.1 kg/m2 170.18 cm 97 % 97 % 85 /min 97.2 [degF] 695123. 51 g 134 mm[Hg] 80 mm[Hg] Not Available [facility] 3 08:18:18 Date Recorded Body height Body mass index (BMI) Body weight Body temperature Heart rate Oxygen saturation Oxygen saturation in Arterial blood by Pulse oximetry Systolic blood pressure Diastolic blood pressure Provider Name and Address Organization Details Last Updated DateTime 3 170.18 cm 55.4 kg/m2 058969. 7 g 97.2 [degF] 99 /min 97 % 97 % 108 mm[Hg] 74 mm[Hg] VADIM Maria DC [employer] [facility] [employer] 3 11:24:49 Date Recorded Body height Body mass index (BMI) Body weight Body temperature Heart rate Oxygen saturation Oxygen saturation in Arterial blood by Pulse oximetry Systolic blood pressure Diastolic blood pressure Provider Name and Address Organization Details Last Updated DateTime 3 170.18 cm 55.8 kg/m2 463661. 6 g 97.3 [degF] 75 /min 98 % 98 % 118 mm[Hg] 62 mm[Hg] Mariana Lay MA [employer] 3 09:44:49 Social History Question Answer Notes LastModified by Organizat ion Details LastModified Time Tobacco Smoking Status Never Smoker Not Available [facility] 09/22/2022 08:17:27 What Is Your Level Of Alcohol Consumption? None [id number] Information not available 09/22/2022 In The 14 Days Before Symptom Onset, Have You Had Close Contact With A Laboratory-confirm ed COVID-19 While That Case Was Ill? No [id number] Information not available 09/22/2022 In The 14 Days Before Symptom Onset, Have You Had Close Contact With A Person Who Is Under Investigation For COVID-19 While That Person Was Ill? No [id number] Information not available 09/22/2022 Do You Use Your Seat Belt Or Car Seat Routinely? Yes [email or web address] Information not available 12/16/2022 Do You Feel Stressed (tense, Restless, Nervous, Or Anxious, Or Unable To Sleep At Night)? [id number] Information not available 12/16/2022 Sex: Unknown Functional Status None recorded. Mental Status None recorded. Family History Relationship Description Onset Age of this Age Resolved Age Notes LastModified by Organization Details LastModified Time Maternal Grandfather Heart disease [id number] Not available 09/22/2022 08:17:34 Maternal Grandfather Family history of malignant neoplasm [id number] Not available 09/22/2022 08:17:34 Maternal Grandfather Hypertensive disorder [id number] Not available 09/22/2022 08:17:34 Maternal Grandmother Heart disease [id number] Not available 09/22/2022 08:17:34 Maternal Grandmother Depressive disorder [id number] Not available 09/22/2022 08:17:34 Maternal Grandmother Hypertensive disorder [id number] Not available 09/22/2022 08:17:34 Paternal Grandfather Heart disease [id number] Not available 09/22/2022 08:17:34 Paternal Grandfather Family history of malignant neoplasm [id number] Not available 09/22/2022 08:17:34 Paternal Grandfather Hypertensive disorder [id number] [id number] Not available 09/22/2022 08:17:34 Paternal Grandmother Heart disease [id number] Not available 09/22/2022 08:17:34 Paternal Grandmother Hypertensive disorder [id number].207 [id number] Not available 09/22/2022 08:17:34 Father Diabetes mellitus [id number] [id number] Not available 09/22/2022 08:17:34 Father Hypertensive disorder [id number].590 [id number] Not available 09/22/2022 08:17:34 Mother Depressive disorder [id number] Not available 09/22/2022 08:17:34 Mother Hypertensive disorder [id number] Not available 09/22/2022 08:17:34 Medical History No medical history recorded. Gynecological HistoryNo gynecological history recorded. Obstetrics History GPAL:G 0 P 0 0 0 0 Past Encounters Encounter ID Performer Location Encounter Start Date Encounter Closed Date Diagnosis/Indication Diagnosis SNOMED-CT Code Diagnosis ICD10 Code Diagnosis Note [id number] [place] [address] 01/06/2021 00:00:00 01/06/2021 19:51:12 [id number] [place] [address] 04/27/2021 00:00:00 04/27/2021 20:57:20 [id number] [facility] [place] [address] 06/15/2021 00:00:00 06/15/2021 19:04:33 [id number] [facility] [place] [address] 07/07/2021 00:00:00 07/08/2021 06:10:39 [id number] [facility] [place] [address] 12/15/2021 00:00:00 12/16/2021 06:17:08 [id number] S_G [facility] [address] [place] [address] 07/28/2022 00:00:00 07/28/2022 20:12:37 [id number] [facility] [place] [address] [place] [address] 09/08/2022 00:00:00 09/09/2022 06:12:28 [id number] Michelle Valente MD [facility] [place] [address] [facility] [place] [address] 11/15/2022 11:16:21 11/15/2022 11:59:20 Pain in pelvis 11695241 R10.2 [id number] Michelle Valente MD [facility] [place] [address] [facility] [place] [address] 12/16/2022 09:38:49 12/16/2022 10:02:06 Adult health examination 920538895 Z00.00 Ok to participat e in exercise at the GYM. Type 2 lópez betes mellitus without complication 759698267 E11.9 Hyperlipid emia screening 534037065 Z13.220 Bipolar disorder 7450597 4 F31.9 Continue meds Health Concerns Section Related Observation LastModified by Organization Detai ls LastModified Time None Recorded Concern Status LastModified by Organization Details LastModified Time None Recorded Advance Directives Directive None Recorded Payers Encounter Date Sequence Insurance Name Policy Number Policy Brewster Covered Member ID Brewster Member ID Guarantor Name 11/15/2022 1 [employer] [place] ON [place] AFTER 2020 (MEDICAID REPLACEMENT - HMO) Cora Shultz [id number] Cora Shultz 12/16/2022 1 [employer] [place] AFTER 2020 ([place]ICAID REPLACEMENT - HMO) Cora E Khushboo Lexii [id number] Cora Shultz Notes Date Note Type Note Provider Name and Address Organization Details Recorded Time 11/15/2022 text/html Here today for f/u of UTI. finished cipro after stopped cipro. Pain is located in pelvic area. No burning on urination. No frequency or urgency. Stopped the cipro on Tuesday and sxs started again Tuesday night. No vaginal d/c. Michelle Valente MD [address] [facility] [address], [place], [address], [employer] 11/15/2022 13:38:00 12/16/2022 text/html Here today for annual physical. Doing ok. Wants to get qualified for GYM membership submitted to Insurance company. 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 Michelle Valente MD [address], [facility] [address], [place], [address], [employer] 12/16/2022 20:22:31 OBGyn Episode No OBEpisode recorded.
--- OUTSIDE RECORDS SUMMARY | 2024-08-17 06:19 | XMS_ITS | Referral Summary ---
Author Organization [facility] Address [address] [place] [address] Care Team Providers Care Mail Clerk Bills Name Role Phone Michelle Valente MD Primary Care Provider [phone] Source Comments [facility],non-owned Affiliates and Associated Physician Practices is amultiple site organization consisting of ambulatory clinics and hospital sitesin [place], [place], [place] and [place]. This disclosure is being madepursuant to the Care Everywhere program and may not contain all information available regarding this patient. Last updated 18.[facility] Allergies Active Allergy Reactions Criticality [...] Dispensed Refills Start Date End Date Status [place]-3 Fatty Acids (OMEGA-3 FISH OIL) 500 MG Take 1,200 mg by mouth 2 times daily Active CPAP Inhale 1 device by mouth at bedtime Active vitamin D, ergocalciferol, (DRISDOL) 37779 UNITS capsule Take 5,000 Units by mouth [...] times daily Active allergy injection Weekly through [facility] Ot[facility] Active naproxen (NAPROSYN) 500 MG [...] hyperglycemia, with long-term current use of insulin ([facility]) TAKE 2 TABLETS BY MOUTH TWICE DAILY 360 tablet 11 07/21/2022 Active fenofibrate (Tricor) 145 MG tabletIndications :Type 2 diabetes mellitus with hyperglycemia, with long-term current use of insulin ([facility]) TAKE 1 TABLET BY MOUTH EVERY DAY 90 tablet 4 08/05/2022 Active Blood Glucose Monitoring Suppl ([employer] Verio Flex System) w/Device KITIndications:Ty pe 2 diabetes mellitus with hyperglycemia, with long-term current use of insulin ([facility]) Use 1 kit as directed 1 kit 09/14/2022 Active dulaglutide (Trulicity) 1.5 MG/0.5ML injection Inject 0.5 mL subcutaneously every 7 days 6 mL 11 09/24/2022 Active [employer] Verio test stripIndications: Type 2 diabetes mellitus with hyperglycemia, with long-term current use of insulin ([facility]) USE TWICE DAILY 100 strip 11 10/13/2022 [...] refills 30 g 02/21/2023 Active nystatin (Mycostatin) 479830 UNIT/GM ointmentIndicatio ns:Recurrent candidiasis of vagina MIX [...] seek urgent/emergent care including calling Suicide Hotline (792 or ) or 321. Follow up in one month with PCP [...] AFLURIA QUADRIVALENT; 6MO+), 0.5 ML (IIV4) 07/31/2020 Social History Tobacco Use Types Packs/Day Years [...] T Respiratory Rate 18 07/31/2020 4:33 PM INJECTOR ASSEMBLER Oxygen Saturation 96% 01/05/2022 3:44 PM CDT Inhaled Oxygen Concentration - - Weight 173.3 kg (382 lb) 04/23/2022 3:08 PM CDT Height 175.3 cm (5' 9 ) 04/23/2022 3:08 PM CDT Body Mass Index 56.41 04/23/2022 3:08 PM CDT Plan of Treatment Not on file Medical Devices Implanted Type Area Court Magistrate Device Identifier Shelf Expiration Date Model / Serial / Lot Intrauterine Device/Mirena Implanted:Qty: 1 on 07/30/2020 by Willy Landeros MD at [facility] Cervix 10/21/2022 [id number] / [id number] Procedures Procedure Name Priority Date/Time Associated Diagnosis Comments HEMOGLOBIN A1C - POINT OF CARE (AMB) [facility] Routine 01/05/2022 Type 2 diabetes mellitus with hyperglycemia, with long-term current use of insulin (HCC) MICROALB/CREAT RATIO URINE RANDOM PANEL 10/09/2021 2:05 PM CDT COMPREHENSIVE METABOLIC PANEL 10/09/2021 2:05 PM CDT HPV DETECTION HIGH RISK TAI Routine 06/29/2021 1:53 PM INJECTOR ASSEMBLER Encounter for Pap smear of cervix with HPV DNA cotesting EYE EXAM 06/29/2021 from Last 3 Months or Most Recently Relevant to Health Maintenance Results * HEMOGLOBIN A1C - POINT OF CARE (AMB) [facility] (01/05/2022) Pathologist [facility] Hemoglobin A1c POCT 8.1 % BLOOD SPECIMEN [...] within a diagnostic category. Test Performed at: [facility] [address] [place], [place] ??[phone] BALAJI CANCINO DO,MPH 10/09/2021 2:05 PM CDT 10/09/2021 2:10 PM CDT Kam Ramesh MD LAB - URINE CHEMISTR Y ORDERABLES [facility] [address] [place] [address] * (ABNORMAL) COMPREHENSIVE METABOLIC PANEL (10/09/2021 2:05 [...] 29 U/L [facility] Comment: Test Performed at: [facility] [address] [place], [place] ??[phone] BALAJI CANCINO DO,MPH 10/09/2021 2:05 PM CDT 10/09/2021 2:10 PM CDT Kam Ramesh MD LAB - CHEMISTRY DARCI STEWART [facility] [address] [place] [address] * HPV DETECTION HIGH RISK TAI (06/29/2021 1:53 PM INJECTOR ASSEMBLER) High Risk Human Papilloma Result Not detected Not detected 07/01/2021 7:22 AM INJECTOR ASSEMBLER [facility] High Risk Human Papilloma Interp 07/01/2021 7:22 AM INJECTOR ASSEMBLER [facility] Comment:High Risk Human Lopez lloma Virus was Not Detected. Pathology/Cytolo gy MISCELLANEOUS SAMPLES / Unknown 06/29/2021 1:53 PM INJECTOR ASSEMBLER 06/30/2021 12:05 PM INJECTOR ASSEMBLER Narrative [facility] - 07/01/2021 7:22 AM INJECTOR ASSEMBLER Nucleic acid isolated from the specimen was [...] information). Minoo Verdin MD LAB - MICROBIOLOGY [facility] [address] [place] [address], [facility] [phone] * EYE EXAM (06/29/2021) Anatomical Region Laterality Modality Other Narrative 06/29/2021 Ordered by an unspecified provider. Scanned Document SCANNING ONLY from Last 3 Months or Most Recently Relevant to Health Maintenance Care Teams Mail Clerk Bills Relationship Specialty Start Date End Date Michelle Valente MD [facility] [place] [id number] PCP - General 11/29/17
--- OUTSIDE RECORDS SUMMARY | 2024-08-17 06:19 | XMS_ITS | Patient Health Summary ---
Author Organization [facility] Address [address] [place] [address] Care Team Providers Care Scarf Gluer Name Role Phone Michelle Valente MD Primary Care Provider [phone] Note from [facility],non-owned Affiliates and Associated Physician Practices is amultiple site organization consisting of ambulatory clinics and hospital sitesin [place], [place], [place] and [place]. This disclosure is being madepursuant to the Care Everywhere program and may not contain all information available regarding this patient. Last updated 18.[facility] Allergies * Amoxicillin-Pot Clavulanate(Rash) -Medium Criticality * Clindamycin(Rash) -Medium Criticality * Latex(Rash) -Medium Criticality * Oxycodone(Rash) -Medium Criticality * Penicillins(Anaphylaxis,Rash) -High Criticality * seasonal allergies [Other](Headache) -Low Criticality Medications * Be aware that medications may not be up to date on this document. Alwaysverify current medications with the patient. * [place]-3 Fatty Acids (OMEGA-3 FISH OIL) 500 MG Take 1,200 mg by mouth 2 times daily * CPAP Inhale 1 device by mouth at bedtime * vitamin D, ergocalciferol, (DRISDOL) 94960 UNITS capsule(Started 09/27/2018) Take 5,000 Units by mouth once daily * insulin syringe-needle (BD ULTRAFINE) 29G X 1/2 1 ML syringe(Started 10/12/2018) once daily 11 refills remaining * QUEtiapine (SEROQUEL) 100 MG tablet Take 1 (one) tablet by mouth once daily * fluticasone propionate (FLONASE) 50 MCG/ACT nasal spray(Started 03/23/2020) 2 sprays * fluvoxaMINE (LUVOX) 100 MG tablet(Started 04/09/2020) 1 (one) tablet * traZODone (DESYREL) 50 MG tablet(Started 03/31/2020) 1 (one) tablet * acetaminophen (TYLENOL) 500 MG capsule(Started 07/31/2020) Take 1 capsule by mouth every 6 hours as needed for Pain * ibuprofen (MOTRIN) 600 MG tablet(Started 07/31/2020) Take 1 tablet by mouth every 6 hours as needed for Pain 1 refill by 07/31/2021 * levonorgestrel (MIRENA, 52 MG,) 20 MCG/24HR IUD 1 (one) device by Intrauterine route as directed * OneTouch Delica Lancets 33G MISC(Started 06/25/2021) Use 1 Each 2 times daily 11 refills by 06/25/2022 * triamcinolone acetonide (KENALOG) 0.1 % cream(Started 07/31/2021) MIX WITH NYSTATIN OINTMENT AND APPLY TO EXTERNALLY VULVAR TISSUES TWICE DAILY * cetirizine (ZYRTEC) 10 MG tablet Take 1 (one) tablet by mouth once daily * famotidine (PEPCID) 20 MG tablet Take 1 (one) tablet by mouth 2 times daily * [facility] * naproxen (NAPROSYN) 500 MG tablet(Started 11/09/2021) Take 1 (one) tablet by mouth 2 times daily as needed * Biotin 10 MG(Started 01/05/2022) * insulin glargine (LANTUS SOLOSTAR) pen(Started 01/05/2022) Inject 90 (ninety) Units subcutaneously at bedtime 11 refills by 01/05/2023 * Insulin Pen Needle (TECHLITE PEN NEEDLES) 32G X 4 MM MISC(Started 02/18/2022) Use 1 Each 3 times daily 11 refills by 02/18/2023 * Meth-Hyo-M Bl-Na Phos-Ph Carlos (Uribel) 118 MG(Started 04/05/2022) Take 1 (one) capsule by mouth every 8 hours as needed (bladder pain) 11 refills by 04/05/2023 * cyclobenzaprine (Flexeril) 10 MG tablet(Started 04/26/2022) Take 1 (one) tablet by mouth 3 times daily 1 refill by 04/26/2023 * metFORMIN ER 24hr (Glucophage XR) 500 MG tablet(Started 07/21/2022) TAKE 2 TABLETS BY MOUTH TWICE DAILY 11 refills by 07/21/2023 * fenofibrate (Tricor) 145 MG tablet(Started 08/05/2022) TAKE 1 TABLET BY MOUTH EVERY DAY 4 refills by 08/05/2023 * Blood Glucose Monitoring Suppl ([employer] Verio Flex System) w/Device KIT (Started 09/14/2022) Use 1 kit as directed * dulaglutide (Trulicity) 1.5 MG/0.5ML injection(Started 09/24/2022) Inject 0.5 mL subcutaneously every 7 days 11 refills by 09/24/2023 * [employer] Verio test strip(Started 10/13/2022) USE TWICE DAILY 11 refills by 10/13/2023 * SYRINGE-NEEDLE, DISP, 3 ML (B-D INTEGRA SYRINGE) 25G X 5/8 3 ML MISC(Started 10/20/2022) USE WITH ALLERGY SERUM. Dispense 30 for a 1 month supply 3 refills by 10/20/2023 * acetaminophen (Tylenol) 500 MG tablet(Started 07/15/2022) Take 1 (one) tablet by mouth every 6 hours as needed * albuterol HFA (Proventil; Ventolin; Proair) 108 (90 Base) MCG/ACT inhaler (Started 06/04/2022) INHALE 1 TO 2 PUFFS BY MOUTH EVERY 4 TO 6 HOURS NEEDED * fenofibrate (Tricor) 145 MG tablet(Started 06/17/2022) Take 1 (one) tablet by mouth once daily * fluconazole (Diflucan) 150 MG tablet(Started 09/24/2022) TAKE 1 TABLET BY MOUTH 1 TIME FOR 1 DOSE. REPEAT IN 3 DAYS * lisinopril (Prinivil; Zestril) 10 MG tablet(Started 10/22/2022) Take 1 (one) tablet by mouth once daily * metFORMIN ER 24hr (Glucophage XR) 500 MG tablet(Started 07/15/2022) Take 2 (two) tablets by mouth once daily * spironolactone (Aldactone) 100 MG tablet(Started 10/26/2022) Take 2 (two) tablets by mouth once daily 5 refills by 10/26/2023 * ketoconazole (Nizoral) 2 % shampoo(Started 10/26/2022) Apply to wet hair, leave on for 3 minutes, then rinse; three times weekly. 30 days supply 11 refills by 10/26/2023 * metroNIDAZOLE (Metrogel) 0.75 % gel(Started 10/26/2022) Apply a thin film to affected areas on face twice daily. 30 days supply. 11 refills by 10/26/2023 * triamcinolone acetonide (Kenalog) 0.1 % ointment(Started 02/21/2023) MIX WITH NYSTATIN AND APPLY TO VULVAR TISSUES TWICE A DAY / patient needs an appointment for futurerefills * nystatin (Mycostatin) 988376 UNIT/GM ointment(Started 02/21/2023) MIX WITH TRIAMCINOLONE AND APPLY TO EXTERNAL VULVAR TISSUES TWICE A DAY / pt needs an appointment for future refills * hydrocortisone (Hytone) 2.5 % cream(Started 06/06/2023) APPLY TO AFFECTED AREA ON EYELIDS EVERY DAY NEEDED FOR RASH 3 refills by 06/05/2024 * EPINEPHrine (Epipen) 0.3 MG/0.3ML auto-injector pen(Started 06/06/2023) INJECT 1 PEN INTO THE MUSCLE 1 TIME NEEDED FOR ANAPHYLAXIS * doxycycline monohydrate 100 MG capsule(Started 10/10/2023) TAKE 1 CAPSULE BY MOUTH EVERY DAY 3 refills by 10/09/2024 * fenofibrate (Tricor) 145 MG tablet(Started 01/02/2024) TAKE 1 TABLET BY MOUTH EVERY DAY * empagliflozin (Jardiance) 25 MG tablet(Started 01/02/2024) Take 1 (one) tablet by mouth once daily Active Problems Problem Noted Date Diagnosed Date Generalized anxiety disorder 07/15/2022 Chronic interstitial cystitis 07/15/2022 Bipolar affective disorder, currently depressed, mild 07/15/2022 Hypertension associated with type 2 diabetes kilo litus 07/12/2022 Lichen simplex chronicus 03/16/2022 Infection due to Marah glabrata 03/16/2022 Recurrent candidiasis of vagina 03/16/2022 Other seborrheic dermatitis 05/09/2021 Other rosacea 05/09/2021 Acne vulgaris 05/09/2021 Fatty (change of) liver, not elsewhere classifie d 03/11/2021 Acneiform eruption 11/11/2020 Aphthous ulcer of mouth 11/11/2020 Folliculitis 11/11/2020 Tinea corporis 11/11/2020 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 Seasonal allergies 09/16/2020 Gastroesophageal reflux disease 09/16/2020 Intramural leiomyoma of uterus 07/30/2020 S/P laparoscopy 07/30/2020 Chronic pelvic pain in female 07/30/2020 Endometriosis, unspecified 07/30/2020 BMI 60.0-69.9, adult 10/12/2018 Type 2 diabetes mellitus wit h hyperglycemia, with long-term current use of insulin 06/02/2018 Central sleep apnea due to medical condition 01/2016 Depressed 06/30/2016 HLD (hyperlipidemia) 06/30/2016 Resolved Problems Problem Noted Date Diagnosed Date Resolved Date Constipation 09/16/2020 11/23/2022 BMI 50.0-59.9, adult 06/13/2017 019 Type 2 diabetes mellitus with hyperglycemia 06/30/2016 06/02/2018 Morbid obesity 05/14/2014 12/13/2017 Immunizations * INFLUENZA VACCINE(Given 06/10/2018) * INFLUENZA VACCINE, QUADR. (FLUZONE; FLULAVAL; FLUARIX; AFLURIA QUADRIVALENT; 6MO+), 0.5 ML (IIV4)(Given 07/31/2020) Social History Tobacco Use Types Packs/Day Years [...] T Respiratory Rate 18 07/31/2020 4:33 PM PEELER OPERATOR Oxygen Saturation 96% 01/05/2022 3:44 PM CDT Inhaled Oxygen Concentration - - Weight 173.3 kg (382 lb) 04/23/2022 3:08 PM CDT Height 175.3 cm (5' 9 ) 04/23/2022 3:08 PM CDT Body Mass Index 56.41 04/23/2022 3:08 PM CDT Medical Devices Implanted Type Area Paint Roller Assembler Device Identifier Shelf Expiration Date Model / Serial / Lot Intrauterine Device/Mirena Implanted:Qty: 1 on 07/30/2020 by Willy Landeros MD at [facility] Cervix 10/21/2022 [id number] / [id number] Procedures * CT INSERT NON-INDWELLING BLADDER(Performed 04/05/2022) Performed for Pelvic pain * URINALYSIS AUTO - POINT OF CARE (AMB) SLU(Performed 04/05/2022) Performed for Chronic interstitial cystitis * CULTURE URINE(Performed 01/14/2022) Performed for Acute cystitis without hematuria * HEMOGLOBIN A1C - POINT OF CARE (AMB) [facility]U(Performed 01/05/2022) Performed for Type 2 diabetes mellitus with hyperglycemia, with long-term current use of insulin (HCC) * URINALYSIS W/MICROSCOPIC NO CULTURE(Performed 10/13/2021) Performed for Hematuria, unspecified type * CULTURE URINE COMPREHENSIVE(Performed 10/13/2021) Performed for Hematuria, unspecified type * HEMOGLOBIN A1C(Performed 10/09/2021) * VITAMIN B12(Performed 10/09/2021) * COMPREHENSIVE METABOLIC PANEL(Performed 10/09/2021) * MICROALB/CREAT RATIO URINE RANDOM PANEL(Performed 10/09/2021) * LIPID PROFILE(Performed 10/09/2021) * PAP IMAGE-GUIDED W HPV(Performed 06/29/2021) Performed for Encounter for Pap smear of cervix with HPV DNA cotesting * HPV DETECTION HIGH RISK TAI(Performed 06/29/2021) Performed for Encounter for Pap smear of cervix with HPV DNA cotesting * EYE EXAM(Performed 06/29/2021) * SUSCEPTIBILITY YEAST(Performed 06/03/2021) * CULTURE YEAST WITH DIRECT FLUORESCENT JAMILA(Performed 06/03/2021) Performed for Yeast infection involving the vagina and surrounding area * US PELVIS COMPLETE(Performed 06/02/2021) Performed for Chronic interstitial cystitis * CT SONO EXAM, TRANSVAGINAL(Performed 06/02/2021) Performed for Chronic interstitial cystitis * CT US PEL NONOB B-SCAN&/R-T IMG LMTD/F-UP+C97(Performed 06/02/2021) Performed for Chronic interstitial cystitis * HEMOGLOBIN A1C(Performed 05/22/2021) * VITAMIN B12(Performed 05/22/2021) * COMPREHENSIVE METABOLIC PANEL(Performed 05/22/2021) * MICROALB/CREAT RATIO URINE RANDOM PANEL(Performed 05/22/2021) * LIPID PROFILE(Performed 05/22/2021) * URINALYSIS AUTO - POINT OF CARE (AMB) SLU(Performed 05/05/2021) Performed for Dysuria * MRI BRAIN WWO CONTRAST(Performed 03/28/2021) Performed for Transient amnesia, Black-out (not amnesia), Staring episodes * CREATININE - POCT INTERFACED(Performed 03/28/2021) * CARDIAC RHYTHM STRIP ORDER(Performed 08/01/2020) * APHERESIS/TRANSFUSION ORDER(Performed 08/01/2020) * GLUCOSE - POINT OF CARE(Performed 07/31/2020) * GLUCOSE - POINT OF CARE(Performed 07/31/2020) * GLUCOSE - POINT OF CARE(Performed 07/31/2020) * RENAL FUNCTION PANEL(Performed 07/31/2020) Performed for Intramural leiomyoma of uterus, Chronic pelvic pain in female, S/P laparoscopy * CBC W AUTO DIFFERENTIAL(Performed 07/31/2020) Performed for Intramural leiomyoma of uterus, Chronic pelvic pain in female, S/P laparoscopy * GLUCOSE - POINT OF CARE(Performed 07/31/2020) * GLUCOSE - POINT OF CARE(Performed 07/31/2020) * GLUCOSE - POINT OF CARE(Performed 07/30/2020) * CBC W AUTO DIFFERENTIAL(Performed 07/30/2020) Performed for Intramural leiomyoma of uterus, Chronic pelvic pain in female, S/P laparoscopy * GLUCOSE - POINT OF CARE(Performed 07/30/2020) * GLUCOSE - POINT OF CARE(Performed 07/30/2020) * GLUCOSE - POINT OF CARE(Performed 07/30/2020) * PATHOLOGY TISSUE EXAM (STL)(Performed 07/30/2020) Performed for Diagnosis unknown * ENDOTRACHEAL TUBE NOTE(Performed 07/30/2020) * CT HYSTEROSCOPY,W/ENDO BX(Performed 07/30/2020) Performed for Diagnosis unknown * LAPAROSCOPIC MYOMECTOMY(Performed 07/30/2020) Performed for Diagnosis unknown * HCG URINE QUAL POCT NOTIFICATION(Performed 07/30/2020) Performed for Preop examination * GLUCOSE - POINT OF CARE(Performed 07/30/2020) * BLOOD TYPE VERIFICATION(Performed 07/30/2020) * HCG URINE QUALITATIVE - POCT (IP) INTERFACED(Performed 07/30/2020) * BASIC METABOLIC PANEL (CALCIUM TOTAL)(Performed 07/28/2020) Performed for Pre-op testing * HEMOGLOBIN A1C(Performed 07/28/2020) Performed for Pre-op testing * CBC W AUTO DIFFERENTIAL(Performed 07/28/2020) Performed for Pre-op testing * SARS-COV-2 (COVID-19) IN HOUSE(Performed 07/28/2020) Performed for Pre-op testing * TYPE + SCREEN PANEL(Performed 07/28/2020) Performed for Pre-op testing * CBC W AUTO DIFFERENTIAL(Performed 02/27/2020) Performed for Menorrhagia with regular cycle, Dysmenorrhea, Fibroids, intramural * IMAGING/RADIOLOGY/XRAY RESULTS ORDER(Performed 02/25/2020) * CT SONO EXAM, TRANSVAGINAL(Performed 02/22/2020) Performed for Chronic pelvic pain in female, Dysmenorrhea, Menorrhagia with regular cycle * CT US PELVIC NONOB REAL-TIME IMG COMPLETE(Performed 02/22/2020) Performed for Chronic pelvic pain in female, Dysmenorrhea, Menorrhagia with regular cycle * HEMOGLOBIN A1C - POINT OF CARE (AMB) SLU(Performed 05/31/2019) Performed for Type 2 diabetes mellitus with hyperglycemia, with long-term current use of insulin ([facility]) * LAB RESULTS ORDER(Performed 02/01/2019) * HEMOGLOBIN A1C - POINT OF CARE (AMB) SLU(Performed 01/24/2019) Performed for Type 2 diabetes mellitus with hyperglycemia, with long-term current use of insulin (HCC) * EYE EXAM(Performed 10/16/2018) * HEMOGLOBIN A1C - POINT OF CARE (AMB) SLU(Performed 10/12/2018) Performed for Type 2 diabetes mellitus with hyperglycemia, with long-term current use of insulin ([facility]) * HEMOGLOBIN A1C - POINT OF CARE (AMB) [facility]U(Performed 06/02/2018) Performed for Type 2 diabetes mellitus with hyperglycemia, with long-term current use of insulin ([facility]) * MICROALB/CREAT RATIO URINE RANDOM PANEL(Performed 12/13/2017) Performed for Type 2 diabetes mellitus with complication, with long-term current use of insulin ([facility]) * LIPID PROFILE(Performed 12/13/2017) Performed for Type 2 diabetes mellitus with complication, with long-term current use of insulin ([facility]) * TSH(Performed 12/13/2017) Performed for Type 2 diabetes mellitus with complication, with long-term current use of insulin ([facility]) * COMPREHENSIVE METABOLIC PANEL(Performed 12/13/2017) Performed for Type 2 diabetes mellitus with complication, with long-term current use of insulin ([facility]) * HEMOGLOBIN A1C - POINT OF CARE (AMB)(Performed 12/13/2017) Performed for Type 2 diabetes mellitus with complication, with long-term current use of insulin ([facility]) * HEMOGLOBIN A1C - POINT OF CARE (AMB) SLU(Performed 09/13/2017) * HEMOGLOBIN A1C - POINT OF CARE (AMB) SLU(Performed 06/13/2017) * TSH(Performed 01/10/2017) * MICROALB/CREAT RATIO URINE RANDOM PANEL(Performed 01/10/2017) * COMPREHENSIVE METABOLIC PANEL(Performed 01/10/2017) * LIPID PROFILE(Performed 01/10/2017) * HEMOGLOBIN A1C(Performed 01/10/2017) * HEMOGLOBIN A1C - POINT OF CARE (AMB) SLU(Performed 09/20/2016) * HEMOGLOBIN A1C - POINT OF CARE (AMB) SLU(Performed 06/21/2016) * GLUTAMIC ACID DECARBOXYLASE (ABIDA) ANTIBODY(Performed 03/24/2016) * HEMOGLOBIN A1C(Performed 03/24/2016) * C-PEPTIDE(Performed 03/24/2016) * TSH(Performed 03/24/2016) * COMPREHENSIVE METABOLIC PANEL(Performed 03/24/2016) * LIPID PROFILE(Performed 03/24/2016) * MICROALB/CREAT RATIO URINE RANDOM PANEL(Performed 03/24/2016) * GROSS + MICRO EXAM(Performed 01/30/1997) Results * CT INSERT NON-INDWELLING BLADDER (04/05/2022 5:36 PM CDT) Narrative Oneida Trivedi MD - 04/05/2022 5:36 PM CDT Oneida Trivedi MD ? 04/05/2022 ??5:40 PM Procedure note: Straight catheterization was performed after swabbing the urethra with betadine. A 14 Fr urethral catheter was inserted without difficulty and the bladder was drained for 20 mL. The patient tolerated the procedure well. ?? Oneida Trivedi MD PROCEDURE/MINOR MARCEL GICAL ORDERABLES * URINALYSIS AUTO - POINT OF CARE (AMB) SLU (04/05/2022 4:21 PM CDT) Only the most recent of2 resultswithin the time period is included. Glucose UA 3+ Comment:1000 mg/dL Bilirubin UA POCT 1+ Comment:1 mg/dL Ketones UA POCT neg Specific Pearcy UA 1.030 Blood Urine POCT neg pH UA 5.5 Protein UA trace Comment:15 mg/dL Urobilinogen UA neg Nitrite UA neg WBC UA neg Urine URINE / Unknown 04/05/2022 4 :21 PM CDT Oneida Trivedi MD LAB - POINT OF CARE ORDERABLES * CULTURE URINE (01/14/2022 3:15 PM CDT) Culture [facility] Comment: ??CULTURE, URINE, ROUTINE ?Micro Number: ?[id number] ??Test Status: ? Final ??Specimen Source: ?? Urine, clean catch ??Specimen Quality: ??Adequate ??Result: ?No Growth Test Performed at: [address] ??[id number] CODY NORMAN MD Urine URINE SPECIMEN OBTAINED BY CLEAN CATCH PROCEDURE / Unknown 01/14/2022 3:15 PM CDT 01/14/2022 3:15 PM CDT Minoo Verdin MD LAB - MICROBIOLOGY O RDERABLES [address] [address] * HEMOGLOBIN A1C - POINT OF CARE (AMB) [facility]U (01/05/2022) Only the most recent of9 resultswithin the time period is included. Pathologist [facility] Hemoglobin A1c POCT 8.1 % BLOOD SPECIMEN / Unknown 01/05/2022 Kam Ramesh MD LAB - POINT OF CARE ORDERABLES * (ABNORMAL) URINALYSIS W/MICROSCOPIC NO CULTURE (10/13/2021 5:09 PM CDT) Color UA YELLOW YELLOW [facility] Appearance CLEAR CLEAR [facility] Specific [place] UA 1.024 1.001 - 1.035 [facility] pH UA 6.0 5.0 - 8.0 [facility] Glucose UA 3+(A) NEGATIVE [facility] Bilirubin UA NEGATIVE NEGATIVE [facility] Ketone UA NEGATIVE NEGATIVE [facility] Blood UA NEGATIVE NEGATIVE [facility] Protein UA NEGATIVE NEGATIVE [facility] Nitrite UA NEGATIVE NEGATIVE [facility] Leukocyte UA NEGATIVE NEGATIVE [facility] WBC UA NONE SEEN < OR = 5 /HPF [facility] RBC UA NONE SEEN < OR = 2 /HPF [facility] Epithelial Cell UA NONE SEEN < OR = 5 /HPF [facility] Bacteria UA NONE SEEN NONE SEEN /HPF [facility] Hyaline Casts NONE SEEN NONE SEEN /LPF [facility] Comment: Test Performed at: [facility] [address] ??[phone] CODY NORMAN MD Urine URINE SPECIMEN OBTAINED BY CLEAN CATCH PROCEDURE / Unknown 10/13/2021 5:09 PM CDT 10/14/2021 11:45 PM CDT Minoo Verdin MD LAB - URINALYSIS ORD ERABLES [facility] [id number] [address] * (ABNORMAL) CULTURE URINE COMPREHENSIVE (10/13/2021 5:09 PM CDT) Culture (A) [facility] Comment: ??CULTURE, URINE, SPECIAL ?Micro Number: ?[id number] ??Test Status: ? Final ??Specimen Source: ?? Urine ??Specimen Quality: ??Adequate ??Result: ?50,000-100,000 CFU/mL of Klebsiella pneumoniae ?K.pneumoniae ?INT ?? MALOU ?? AMOX/CLAVULANATE ? S ? 4 ?? AMPICILLIN ? R ? >=32 ?? AMP/SULBACTAM ?I ? 16 ?? CEFAZOLIN ?NR ?<=4 2 ?? CEFEPIME ? S ? <=1 ?? CEFTRIAXONE ?S ? <=1 ?? CIPROFLOXACIN ?S ? <=0.25 ?? ERTAPENEM ?S ? <=0.5 ?? GENTAMICIN ? S ? <=1 ?? IMIPENEM ? S ? <=0.25 ?? LEVOFLOXACIN ? S ? 0.5 ?? NITROFURANTOIN ? R ? 128 ?? PIP/TAZOBACTAM ? S ? 16 ?? TOBRAMYCIN ? S ? <=1 ?? TRIMETHOPRIM/SULFA ? S ? <=20 S=Susceptible ??I=Intermediate ??R=Resistant ??* = Not Tested NR = Not Reported ??NN = See Therapy Comments THERAPY COMMENTS ?Note 1: ?For infections other than uncomplicated UTI ?caused by E. coli, K. pneumoniae or P. mirabilis: ?Cefazolin is resistant if MALOU > or = 8 mcg/mL. ?(Distinguishing susceptible versus intermediate ?for isolates with MALOU < or = 4 mcg/mL requires ?additional testing.) ?Note 2: ?For uncomplicated UTI caused by E. coli, ?K. pneumoniae or P. mirabilis: Cefazolin is ?susceptible if MALOU <32 mcg/mL and predicts ?susceptible to the oral agents cefaclor, cefdinir, ?cefpodoxime, cefprozil, cefuroxime, cephalexin ?and loracarbef. Test Performed at: [facility] ??[phone] CODY NORMAN MD Microbiology URINE SPECIMEN OBTAINED BY CLEAN CATCH PROCEDURE / Unknown 10/13/2021 5:09 PM CDT 10/15/2021 12:22 AM CDT Minoo Verdin MD LAB - MICROBIOLOGY O RDERABLES [address] [address] * MICROALB/CREAT RATIO URINE RANDOM PANEL (10/09/2021 2:05 PM CDT) Only the most recent of5 resultswithin the time period is included. Creatinine Urine 117 20 - 275 mg/dL [...] within a diagnostic category. Test Performed at: [facility] [address] [place], [place] ??[phone] BALAJI CANCINO DO,MPH 10/09/2021 2:05 PM CDT 10/09/2021 2:10 PM CDT Kam Ramesh MD LAB - URINE CHEMISTR Y ORDERABLES [place] [id number] [place] [address] * (ABNORMAL) HEMOGLOBIN A1C (10/09/2021 2:05 PM CDT) Only the most recent of5 resultswithin the time period is included. Hemoglobin A1c 9.3(H) <5.7 % of total Hgb [facility] Comment: For someone without known diabetes, a hemoglobin A1c value of 6.5% or greater indicates that they may have diabetes and this should be confirmed with a follow-up test. For someone with known diabetes, a value <7% indicates that their diabetes is well controlled and a value greater than or equal to 7% indicates suboptimal control. A1c targets should be individualized based on duration of diabetes, age, comorbid conditions, and other considerations. Currently, no consensus exists regarding use of hemoglobin A1c for diagnosis of diabetes for children. ?? REPORT COMMENT: INSURANCE ON PHONE FASTING:YES Test Performed at: [facility] [place] ??[phone] CODY NORMAN MD 10/09/2021 2:05 PM CDT 10/09/2021 2:10 PM CDT Kam Ramesh MD LAB - CHEMISTRY [facility] [address] [address] * (ABNORMAL) COMPREHENSIVE METABOLIC PANEL (10/09/2021 2:05 PM CDT) Only the most recent of5 resultswithin the time period is included. Glucose 169(H) 65 - 99 mg/dL [facility] [...] 29 U/L [facility] Comment: Test Performed at: [facility] [address] [facility] [place] ??[phone] BALAJI CANCINO DO,MPH 10/09/2021 2:05 PM CDT 10/09/2021 2:10 PM CDT Kam Ramesh MD LAB - CHEMISTRY [facility] Performing Organization Address [facility] Co de Phone Number [facility] [address] [place] [address] * VITAMIN B12 (10/09/2021 2:05 PM CDT) Only the most recent of2 resultswithin the time period is included. Vitamin B12 434 200 - 1100 pg/mL [facility] Comment: Test Performed at: [facility] ??[phone] BALAJI CANCINO DO,MPH 10/09/2021 2:05 PM CDT 10/09/2021 2:10 PM CDT Kam Ramesh MD LAB - CHEMISTRY [facility] Performing Organization Address [facility] de Phone Number [facility] [address] [place] [address] * (ABNORMAL) LIPID PROFILE (10/09/2021 2:05 PM CDT) Only the most recent of5 resultswithin the time period is included. Cholesterol 242(H) <200 mg/dL [facility] HDL Cholesterol 38(L) > OR = 50 mg/dL [facility] Triglycerides 437(H) <150 mg/dL [facility] Comment: If a non-fasting specimen was collected, consider repeat triglyceride testing on a fasting specimen if clinically indicated. Abiel et al. J. of Clin. Lipidol. 2015;9:129-169. LDL Calculated mg/dL (calc) [facility] Comment: LDL cholesterol not calculated. Triglyceride levels greater than 400 mg/dL invalidate calculated LDL results. Reference range: <100 Desirable range <100 mg/dL for primary prevention; ?? <70 mg/dL for patients with CHD or diabetic patients with > or = 2 CHD risk factors. LDL-C is now calculated using the Gianfranco-Jac calculation, which is a validated novel method providing better accuracy than the Friedewald equation in the estimation of LDL-C. Gianfranco SUE et al. ISABELA. 2013;310(19): 0378-0791 (http://education.[facility].DrNaturalHealing/faq/CYS698) CHOL/HDLC RATIO 6.4(H) <5.0 (calc) [facility] Non HDL Cholesterol 204(H) <130 mg/dL (calc) [facility] Comment: For patients with diabetes plus 1 major ASCVD risk factor, treating to a non-HDL-C goal of <100 mg/dL (LDL-C of <70 mg/dL) is considered a therapeutic option. Test Performed at: [facility] [address] [place], [place] ??[phone] BALAJI CANCINO DO,MPH 10/09/2021 2:05 PM CDT 10/09/2021 2:10 PM CDT Kam Ramesh MD LAB - CHEMISTRY [facility] [address] [place] [address] * HPV DETECTION HIGH RISK TAI (06/29/2021 1:53 PM PEELER OPERATOR) High Risk Human Papilloma Result Not detected Not detected 07/01/2021 7:22 AM PEELER OPERATOR [facility] High Risk Human Papilloma Interp 07/01/2021 7:22 AM PEELER OPERATOR [facility] Comment:High Risk Human Lopez lloma Virus was Not Detected. Pathology/Cytolo gy MISCELLANEOUS SAMPLES / Unknown 06/29/2021 1:53 PM PEELER OPERATOR 06/30/2021 12:05 PM PEELER OPERATOR Narrative [facility] - 07/01/2021 7:22 AM PEELER OPERATOR Nucleic acid isolated from the specimen was [...] Minoo Verdin MD LAB - MICROBIOLOGY O RDERABLES [facility] [address] [place], [place] [address], [facility] [phone] * PAP IMAGE-GUIDED W HPV (06/29/2021 1:53 PM PEELER OPERATOR) Case Report Gynecologic Cytology Report ? Case: [id number] ? Authorizing Provider: ??Minoo Verdin MD ? Collected: ? 06/29/2021 01:53 PM ? Ordering Location: ? [facility] ? Received: ?06/30/2021 12:05 PM ? Gynecology and Women's ? Health ? First Screen: ?Tereso Woodruff ? Rescreen: ?Garo Orellana ? Specimen: ?THINPREP - IMAGE GUIDED, Cervix/Endocervix ? 07/02/2021 3:53 PM PEELER OPERATOR [facility] LMP na 07/02/2021 3:53 PM PEELER OPERATOR [facility] Menstrual Status Mirena 07/02/20 21 3:53 PM PEELER OPERATOR [facility] Specimen Adequacy Satisfactory for evaluation, endocervical/trans formation zone component present. 07/02/2021 3:53 PM PEELER OPERATOR [facility] Categorization Negative for intraepithelial lesion or malignancy. 07/02/2021 3:53 PM PEELER OPERATOR [facility] Interpretation FOOD SERVICE TECHNICIAN Negative for intraepithelial lesion or malignancy. 07/02/2021 3:53 PM PEELER OPERATOR [facility] Pap Footnote The Pap Smear is a screening test. False positive and false negative results occur. Negative results do not preclude abnormalities, thus clinical correlation is required. This specimen was evaluated by the ThinPrep Imaging System along with an additional manual rescreening by a electron beam operator and/or pathologist. 07/02/2021 3:53 PM PEELER OPERATOR [facility] Embedded Images 3:53 PM PEELER OPERATOR [facility] Pathology/Cytolo gy MISCELLANEOUS SAMPLES / Unknown 06/29/2021 1:53 PM PEELER OPERATOR 06/30/2021 12:05 PM PEELER OPERATOR Minoo Verdin MD LAB - PATHOLOGY/CYTO LOGY ORDERABLES [facility] [address] [place] [address], [facility] [phone] * EYE EXAM (06/29/2021) Anatomical Region Laterality Modality Other Narrative 06/29/2021 Ordered by an unspecified provider. Scanned Document SCANNING ONLY * SUSCEPTIBILITY YEAST (06/03/2021) Source GENITAL [facility] Organism ID MARAH GLABRATA [facility] Amphotericin B 0.500 mcg/mL [facility] Anidulafungin <=0.015 S mcg/mL [facility] Caspofungin 0.030 S mcg/mL [facility] Fluconazole 8 S-DD mcg/mL [facility] 5-Flucytosine <=0.060 mcg/mL [facility] Itraconazole 0.500 mcg/mL [facility] Micafungin <=0.008 S mcg/mL [facility] Posaconazole 0.500 mcg/mL [facility] Voriconazole 0.120 mcg/mL [facility] Comment See below [facility] Comment: Drug concentrations are expressed in mcg/mL. S = Susceptible S-DD = Susceptible-Dose Dependent I = Intermediate R = Resistant Susceptible Dose Dependent (S-DD): susceptibility is dependent on achieving maximum blood levels. MALOU interpretations are based on recently published CLSI guidelines. Only the MALOU value is reported when CLSI guidelines are not available. This test was performed using a kit that has not been cleared or approved by the FDA. The analytical performance characteristics of this test have been determined by [facility]. This test should not be used for diagnosis without confirmation by other medically established means. Test Performed at: [facility] [address] [place] [address] ??[phone] RAVINDER MCKINNEY MD 06/03/2021 06/03/2021 12: 21 PM PEELER OPERATOR Kristine Fine MD LAB - MICROBIOLOGY ORDERABLES [facility] [address] [place] [address] * (ABNORMAL) CULTURE YEAST WITH DIRECT FLUORESCENT JAMILA (06/03/2021) Smear (A) [facility] Comment: ??CULTURE, YEAST, W/DIRECT FLUORESCENT JAMILA ?Micro Number: ?[id number] ??Test Status: ? Final ??Specimen Source: ?? Genital ??Specimen Quality: ??Adequate ??Smear: ? Rare Budding yeast seen ??Result: ?Marah glabrata ? Isolate forwarded to [facility] [email or web address] for Susceptibility Testing. REPORT COMMENT: FASTING:UNKNOWN Test Performed at: [address] ??[id number] CODY NORMAN MD Microbiology SPECIMEN FROM GENITAL SYSTEM / Unknown 06/03/2021 06/03/2021 12:21 PM PEELER OPERATOR Kristine Fine MD LAB - MICROBIOLOGY ORDERABLES [address] [address] * CT US PEL NONOB B-SCAN&/R-T IMG LMTD/F-UP+C97, CT SONO EXAM, TRANSVAGINAL, US PELVIS COMPLETE (06/02/2021) Anatomical Region Laterality Modality Pelvis Ultrasound Narrative 06/02/2021 Danielle Puente ? 06/02/2021 ??4:58 PM Documentation in digisonics. Procedure Note Danielle Puente - 06/02/2021 4:56 PM CST Documentation in digisonics. Minoo Verdin MD US ORDERABLES * MRI BRAIN WWO CONTRAST (03/28/2021 6:37 PM CDT) Anatomical Region Laterality Modality Head Magnetic Resonan ce 03/31/2021 1:19 PM CDT Impressions 03/31/2021 1:46 PM CDT IMPRESSION: 1. No acute intracranial abnormality. 2. 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 This report was electronically signed by SHAN MCNEILL ??on 03/31/2021 1:46 PM . Narrative 03/31/2021 1:46 PM CDT EXAM: MR BRAIN WITHOUT AND WITH CONTRAST CLINICAL INDICATION: R41.3: Transient amnesia R55: Black-out (not amnesia) R40.4: Staring episodes TECHNIQUE: ??Sagittal T1, axial diffusion, T2 FLAIR, T2, SWI, pre and post contrast T1 as well as 3-D axial T1, post contrast sagittal and coronal T1 , coronal T2 and T2 FLAIR weighted images of the brain were obtained following intravenous administration of 10 ml's of Gadavist. COMPARISON: None FINDINGS: Brain volume is normal for age. ??No significant midline shift or hydrocephalus. No significant parenchymal abnormality. Diffusion-weighted images demonstrate no acute infarction. No mass, abnormal enhancement or abnormal extra-axial fluid collection. Incidentally noted is an approximately 1.5 x 1.4 x 1.1 cm (AP, TR, CC) consistent pineal cyst which is associated with a chronic deformity of the superior aspect of the quadrigeminal plate. Visualized proximal segments of major intracranial arteries and major dural venous sinuses demonstrate patent flow signal. Orbits are normal bilaterally. ??Visualized parts of paranasal sinuses demonstrate no significant mucosal disease or opacification. ??Visualized tympanic cavities and mastoids demonstrate no significant opacification. Procedure Note Shan Mcneill MD - 03/31/2021 EXAM: MR BRAIN WITHOUT AND WITH CONTRAST CLINICAL INDICATION: R41.3: Transient amnesia R55: Black-out (not amnesia) R40.4: Staring episodes TECHNIQUE: Sagittal T1, axial diffusion, T2 FLAIR, T2, SWI, pre andpost contrast T1 as well as 3-D axial T1, post contrast sagittal and coronalT1 , coronal T2 and T2 FLAIR weighted images of the brain were obtained following intravenous administration of 10 ml's of Gadavist. COMPARISON: None FINDINGS: Brain volume is normal for age. No significant midline shift or hydrocephalus. No significant parenchymal abnormality. Diffusion-weighted images demonstrate no acute infarction. No mass, abnormal enhancement or abnormal extra-axial fluid collection. Incidentally noted is an approximately 1.5 x 1.4 x 1.1 cm (AP, TR, CC) consistent pineal cyst which is associated with a chronic deformity ofthe superior aspect of the quadrigeminal plate. Visualized proximal segments of major intracranial arteries and major dural venous sinuses demonstrate patent flow signal. Orbits are normal bilaterally. Visualized parts of paranasal sinuses demonstrate no significant mucosal disease or opacification. Visualized tympanic cavities and mastoids demonstrate no significant opacification. IMPRESSION: 1. No acute intracranial abnormality. 2. Incidental 1.5 x 1.4 x 1.1 cm pineal cyst associated chronicdeformity of the superior aspect of the quadrigeminal plate. This report was electronically signed by SHAN MCNEILL on 03/31/2021 1:46 PM. Jane PUGA MR ORDERABLES * CREATININE - POCT INTERFACED (03/28/2021 5:21 PM CDT) [facility] Signature Creatinine POCT 0.85 0.30 - 1.30 mg/dL 03/28/2021 5:25 PM CDT [facility] eGFR >60 >60 mL/min/1.7 3 m2 03/28/2021 5:25 PM CDT [facility] Blood BLOOD SPECIMEN / Unknown 03/28/2021 5:21 PM CDT 03/28/2021 5:25 PM CDT Jane PUGA LAB - POINT OF CARE ORDERABLES Performing Organization Address City/State/[facility] Co de Phone Number [facility] [address] [place] [phone], [facility] [phone] * CARDIAC RHYTHM STRIP ORDER (08/01/2020 5:07 PM PEELER OPERATOR) Narrative 08/01/2020 5:07 PM PEELER OPERATOR Ordered by an unspecified provider. Scanned Document CARDIAC SERVICES ORD ERABLES * APHERESIS/TRANSFUSION ORDER (08/01/2020 5:07 PM PEELER OPERATOR) Narrative 08/01/2020 5:07 PM PEELER OPERATOR Ordered by an unspecified provider. Scanned Document NURSING - VITAL SIGN S AND ASSESSMENT * (ABNORMAL) GLUCOSE - POINT OF CARE (07/31/2020 4:30 PM PEELER OPERATOR) Only the most recent of10 resultswithin the time period is included. [facility] Glucose WB/POC 153(H) 70 - 106 mg/dL 07/31/2020 5:[address] [facility] Specimen Type Arterial/C apillary 07/31/2020 5:[address] [facility] Blood BLOOD SPECIMEN / Unknown 07/31/2020 4:30 PM PEELER OPERATOR 07/31/2020 5:33 PM PEELER OPERATOR Willy Lanedros MD LAB - POINT OF CARE ORDERABLES [facility] [address] [place] [address] * CBC W AUTO DIFFERENTIAL (07/31/2020 5:17 AM PEELER OPERATOR) Only the most recent of4 resultswithin the time period is included. [facility] WBC 8.1 4.4 - 10.7 x10E9/L 07/31/2020 5:[address] [facility] WBC Corrected 07/31/2020 5:[address] [facility] RBC 4.54 3.80 - 5.20 x10E12/L 07/31/2020 5:[address] [facility] Hemoglobin 13.1 12.0 - 15.6 gm/dL 07/31/2020 5:[address] [facility] Hematocrit 41.5 35.9 - 45.5 % 07/31/2020 5:[address] [facility] MCV 91.4 80.7 - 98.3 fl 07/31/2020 5:[address] [facility] MCH 28.9 26.7 - 34.0 pg 07/31/2020 5:[address] [facility] MCHC 31.6 30.8 - 35.9 gm/dL 07/31/2020 5:[address] [facility] Platelet Count 196 153 - 416 x10E9/L 07/31/2020 5:[address] [facility] RDW-CV 14.3 12.1 - 14.9 % 07/31/2020 5:[address] [facility] MPV 9.4 9.4 - 12.9 fl 07/31/2020 5:[address] [facility] Neutrophils % 68.7 44.0 - 73.0 % 07/31/2020 5:[address] [facility] Lymphocytes % 22.5 20.0 - 43.0 % 07/31/2020 5:[address] [facility] Monocytes % 7.5 5.0 - 13.0 % 07/31/2020 5:[address] [facility] Eosinophils % 0.6 0.0 - 6.0 % 07/31/2020 5:[address] [facility] Basophils % 0.5 0.0 - 2.0 % 07/31/2020 5:[address] [facility] Immature Granulocytes 0.2 0 - 1 % 07/31/2020 5:[address] [facility] Neutrophil Absolute 5.59 2.01 - 7.14 x10E9/L 07/31/2020 5:[address] [facility] Lymphocytes Absolute 1.83 1.07 - 3.94 x10E9/L 07/31/2020 5:[address] [facility] Monocytes Absolute 0.61 0.26 - 1.07 x10E9/L 07/31/2020 5:[address] [facility] Eosinophils Absolute 0.05 0 - 0.47 x10E9/L 07/31/2020 5:[address] [facility] Basophils Absolute 0.04 0 - 0.08 x10E9/L 07/31/2020 5:[address] [facility] Immature Granulocytes Absolute 0.02 0.00 - 0.06 x10E9/L 07/31/2020 5:[address] [facility] nRBC Auto 0 /100 WBC 07/31/2020 5:[address] [facility] Blood BLOOD SPECIMEN / Unknown Lab Venipuncture / Unknown 07/31/2020 5:17 AM PEELER OPERATOR 07/31/2020 5:37 AM [facility] Minoo Verdin MD LAB - HEMATOLOGY ORD ERABLES [facility] [address] [place] [address] * (ABNORMAL) RENAL FUNCTION PANEL (07/31/2020 5:17 AM [facility]) [facility] Glucose 109(H) 70 - 105 mg/dL 07/31/2020 6:[address] [facility] Sodium 141 136 - 145 mmol/L 07/31/2020 6:[address] [facility] Potassium 4.2 3.5 - 5.1 mmol/L 07/31/2020 6:[address] [facility] Chloride 107 98 - 107 mmol/L 07/31/2020 6:[address] [facility] CO2 25 23 - 31 mmol/L 07/31/2020 6:[address] [facility] Calcium 8.4 8.4 - 10.4 mg/dL 07/31/2020 6:[address] [facility] Anion Gap 9 8 - 18 mmol/L 07/31/2020 6:[address] [facility] Comment:Attention clinician: ??Reference Range change. BUN 16 7 - 18.7 mg/dL 07/31/2020 6:[address] [facility] Creatinine 0.74 0.57 - 1.11 mg/dL 07/31/2020 6:[address] [facility] Albumin 3.5 3.5 - 5.2 gm/dL 07/31/2020 6:[address] [facility] Phosphorus 4.2 2.3 - 4.7 mg/dL 07/31/2020 6:[address] [facility] Comment:Attention clinician: ??Reference Range change. eGFR by MDRD >60 >60 mL/min/1.7 3m2 07/31/2020 6:[address] [facility] eGFR by MDRD >60 >60 mL/min/1.7 3m2 07/31/2020 6:[address] [facility] Blood BLOOD SPECIMEN / Unknown Lab Venipuncture / Unknown 07/31/2020 5:17 AM PEELER OPERATOR 07/31/2020 5:37 AM [facility] Minoo Verdin MD LAB - CHEMISTRY DARCI STEWART [facility] Organization Address City/State/ZIP Co de Phone Number [facility] [address] [place] [address] * PATHOLOGY TISSUE EXAM (STL) (07/30/2020 10:04 AM [facility]) Case Report Surgical Pathology Report ? Case: [id number] ? Authorizing Provider: ??Willy Landeros MD ? Collected: ? 07/30/2020 10:04 AM ? Ordering Location: ? [facility] ? Received: ?07/30/2020 01:07 PM ? Pathologist: ? Kristen Rich MD ? Specimens: ?? A) - Fibroid, UTERINE FIBROID ? B) - Endometrium Curettings ? 07/31/2020 4:20 PM PEELER OPERATOR [facility] Final Diagnosis Uterus, myomectomy (A): - Leiomyoma, 5 cm greatest dimension. Endometrium, curetting (B): - Weakly proliferative endometrium with stromal breakdown . - Benign endocervical glands. 07/31/2020 4:20 PM PEELER OPERATOR [facility] Clinical History The patient is a 34-year-old woman who underwent excision of endometriosis and myomectomy. 07/31/2020 4:[address] [facility] Gross Description The specimen is received in two containers fixed in formalin for gross and microscopic examination. Each container is labeled with the patient's name, Cora Shultz. Specimen A, fibroid consists of a 5.0 x 3.5 x 3.0 cm leiomyoma. Sectioning reveals white-erickson firm whorled tissue without necrosis or hemorrhage. Additionally received in the same container are three additional portions of white firm tissue measuring 1.0, 1.2, and 1.3 cm in greatest dimension. Sections are submitted as follows: A1-A2 - Senior Applications Analyst sections leiomyoma, A3 - Additionally submitted tissue. Specimen B, endometrial curettings consists of multiple portions of white-erickson tissue admixed with coagula and mucoid material. The specimen has an aggregate measurement of 2.0 x 0.5 x 0.2 cm. The specimen is submitted entirely in cassette B1. KH/scs 07/31/2020 4:[address] [facility] Microscopic Description Microscopic examination substantiates the final diagnosis. 07/31/2020 4:[address] [facility] Disclaimer All histochemical and/or immunohistochemical results are interpreted with controls that demonstrate appropriate staining reactions before reporting results. Note on use of immunocytochemistry reagents: This test was developed and its performance characteristic determined by [facility], Department of Laboratory Medicine. It has not been cleared or approved by the U.S. Food and Drug Administration (FDA). The FDA has determined that such clearance or approval is not necessary. The test is used for clinical purpose. It should not be regarded as investigational or for research. This laboratory is certified to perform high complexity testing. The performance characteristics of the IHC/NGUYỄN assays have been validated on formalin-fixed paraffin embedded tissues only. The assays have not been validated on decalcified tissues. Results should be interpreted with caution. 07/31/2020 4:[address] [facility] Embedded Images 07/31/2020 4:[address] [facility] Pathology/Cytology FIBROMA / Unknown 12/2020 10:04 AM PEELER OPERATOR 07/30/2020 1:07 PM PEELER OPERATOR Comment:Pre-op diagnosis: Diagnosis unknown [R69] Miscellaneous samples (specimen) SPECIMEN FROM ENDOMETRIUM OBTAINED BY CURETTAGE / Unknown 07/30/2020 12:12 PM PEELER OPERATOR 07/30/2020 1:07 PM PEELER OPERATOR Comment:Pre-op diagnosis: Diagnosis unknown [R69] Willy Landeros MD LAB - PATHOLOGY/CYTO LOGY ORDERABLES Performing Organization Address [facility] Co de Phone Number [facility] [address] [place] [address] * ETT LINE PERFORMABLE (07/30/2020 9:04 AM PEELER OPERATOR) Narrative Jose Lockett APRN-CRNA - 07/30/2020 9:04 AM PEELER OPERATOR Jose Lockett APRN-CRNA ? 07/30/2020 ??9:05 AM Endotracheal Tube Placement: ? Patient Location: OR. Procedure: intubation ([address]). Procedure Section: ?? Sedation: under general anesthesia. Indications for Airway Management: ??anesthesia Induction: standard IV Mask Ventilation: easy with oral airway. Blade Type: Watkins Blade Size: 2 Laryngoscopy View: grade 1 (full cords) Intubation Adjuncts: cricoid pressure and stylet Tube: endotracheal tube Placement: oral Tube type: cuff - inflated Tube Size (MM): 7 Depth of Insertion (CM): 21 Measured From: lips Cuff volume (mL): ??5 Cuff Inflated With: air Number of Attempts: 1. Placement Verified By: direct visualization, bilateral breath sounds, chest auscultation and CO2 monitor Tube secured with: ??adhesive tape. Dentition unchanged? ??Yes Difficult Airway? ??No. Staff Section ?? Anesthesia Provider: Jose Lockett APRN-CRNA, Performed the procedure Brice Chávez MD GENERAL ANESTHESIA ORDERABLES * HCG URINE QUAL POCT NOTIFICATION (07/30/2020 6:31 AM PEELER OPERATOR) Comment Notification Label Only - See Separate Report 07/30/2020 6:31 AM PEELER OPERATOR [facility] Urine URINE / Unknown 5:28 AM PEELER OPERATOR Brice Chávez MD LAB - URINALYSIS O RDERABLES Performing Organization Address [facility] Co de Phone Number [facility] [address] [place] [address] * BLOOD TYPE VERIFICATION (07/30/2020 6:03 AM PEELER OPERATOR) ABO Rh A POS 07/30/2020 6:5 7 AM PEELER OPERATOR [facility] Blood Bank BLOOD SPECIMEN / Unknown Venipuncture / Unknown 07/30/2020 6:03 AM PEELER OPERATOR 07/30/2020 6:11 AM PEELER OPERATOR Brice Chávez MD LAB - BLOOD BANK O RDERABLES [facility] [address] [place] [address] * HCG URINE QUALITATIVE - POCT (IP) INTERFACED (07/30/2020 5:47 AM PEELER OPERATOR) Pathologist [facility] HCG Qual Urine Negative Negative 07/30/2020 5:53 AM PEELER OPERATOR [facility] Urine URINE / Unknown 07/30/2020 5 :47 AM PEELER OPERATOR 07/30/2020 5:53 AM PEELER OPERATOR Willy Landeros MD LAB - POINT OF CARE ORDERABLES Performing Organization Address City/[facility]/ZIP Co de Phone Number [facility] [address] [place] [address] * (ABNORMAL) BASIC METABOLIC PANEL (CALCIUM TOTAL) (07/28/2020 2:53 PM PEELER OPERATOR) Pathologist [facility] Glucose 99 70 - 105 mg/dL 07/28/2020 3:[address] [facility] Sodium 141 136 - 145 mmol/L 07/28/2020 3:[address] [facility] Potassium 4.8 3.5 - 5.1 mmol/L 07/28/2020 3:[address] [facility] Chloride 107 98 - 107 mmol/L 07/28/2020 3:[address] [facility] CO2 23 23 - 31 mmol/L 07/28/2020 3:[address] [facility] Calcium 8.2(L) 8.4 - 10.4 mg/dL 07/28/2020 3:[address] [facility] Anion Gap 11 8 - 18 mmol/L 07/28/2020 3:14 PM PEELER OPERATOR [facility] Comment:Attention clinician: Reference Range change. BUN 19(H) 7 - 18.7 mg/dL 07/28/2020 3:14 PM PEELER OPERATOR [facility] Creatinine 0.76 0.57 - 1.11 mg/dL 07/28/2020 3:14 PM PEELER OPERATOR [facility] eGFR by MDRD >60 >60 mL/min/1.7 3m2 07/28/2020 3:14 PM PEELER OPERATOR [facility] eGFR by MDRD >60 >60 mL/min/1.7 3m2 07/28/2020 3:14 PM PEELER OPERATOR [facility] Blood BLOOD SPECIMEN / Unknown Venipuncture / Unknown 07/28/2020 2:53 PM PEELER OPERATOR 07/28/2020 2:56 PM PEELER OPERATOR Minoo Verdin MD LAB - CHEMISTRY DARCI [facility] Organization Address City/State/ZIP Co de Phone Number [facility] [address] [place] [address] * SARS-COV-2 (COVID-19) IN HOUSE (07/28/2020 2:43 PM PEELER OPERATOR) COVID-19 PCR Not detected Not detected 07/28/2020 11:38 PM PEELER OPERATOR [facility] Microbiology SPECIMEN FROM NASOPHARYNGEAL STRUCTURE / Unknown Collection / Unknown 07/28/2020 2:43 PM PEELER OPERATOR 07/28/2020 2:55 PM PEELER OPERATOR Narrative [facility] - 07/28/2020 11:38 PM PEELER OPERATOR This nucleic acid amplification assay performance was validated by [facility]. This test has been authorized by the Food and Drug administration (FDA)under an Emergency??Use Authorization (EUA). This test has been validated in accordance with the FDA's guidance document Policy for Diagnostic Testing in Laboratories Certified to perform High Complexity Testing under CLIA prior to Emergency Use Authorization for Coronavirus Disease-2019 during the Public Health Emergency issued on September 22, 2019. FDA independent review of this validation is pending. This test is only authorized for the duration of time the declaration that circumstances exist justifying the authorization of emergency use of in vitro diagnostic tests for detection of SARS-CoV-2 virus and/or diagnosis of COVID-19 infection under section 564(b)(1) of the Act, 21 U.S.C 360bbb-3 (b)(1), unless the authorization is terminated or revoked sooner. Fact Sheets for this EUA assay are available upon request. Willy Landeros MD LAB - MICROBIOLOGY O RDERABLES [facility] [address] [place], [place] [address] [phone] * TYPE + SCREEN PANEL (07/28/2020 2:42 PM PEELER OPERATOR) ABO Rh A POS 07/28/2020 3:30 PM PEELER OPERATOR [facility] Comment:No history; collect retype. Antibody Screen NEG 3:30 PM PEELER OPERATOR [facility] Blood Bank BLOOD SPECIMEN / Unknown Venipuncture / Unknown 07/28/2020 2:42 PM PEELER OPERATOR 07/28/2020 2:55 PM PEELER OPERATOR Willy Landeros MD LAB - BLOOD BANK ORD ERABLES Performing Organization Address City/[facility] [facility] Co de Phone Number [facility] [address] [place] [address], [facility] [phone] * IMAGING RADIOLOGY XRAY RESULTS ORDER (02/25/2020 7:29 AM CDT) Anatomical Region Laterality Modality Other Narrative 02/25/2020 7:29 AM CDT Ordered by an unspecified provider. Scanned Document IMAGING * CT US PELVIC NONOB REAL-TIME IMG COMPLETE, CT SONO EXAM, TRANSVAGINAL (02/22/2020 12:45 PM CDT) Narrative Danielle Puente - 02/22/2020 12:45 PM CDT Danielle Puente ? 02/22/2020 12:45 PM Documentation in digisonics. Martin Meyers MD PROCEDURE/MINOR MALHOTRA RGICAL ORDERABLES * LAB RESULTS ORDER (02/01/2019 2:28 PM CDT) Narrative 02/01/2019 2:28 PM CDT Ordered by an unspecified provider. Scanned Document LAB - THERAPEUTIC DR UG MONITORING ORDERABLES * EYE EXAM (10/16/2018 2:02 PM CDT) Anatomical Region Laterality Modality Other Narrative 10/16/2018 2:02 PM CDT Ordered by an unspecified provider. Scanned Document SCANNING ONLY * TSH (12/13/2017 12:48 PM CDT) Only the most recent of3 resultswithin the time period is included. [facility] TSH 2.021 0.350 - 4.940 uIU/mL 12/13/2017 4:17 PM CDT [facility] Blood BLOOD SPECIMEN / Unknown Lab Venipuncture / Unknown 12/13/2017 12:48 PM CDT 12/13/2017 1:55 PM CDT Ranjit Martinez MD LAB - CHEMISTRY ORDE RABLES [facility] [address] [place] [address] * HEMOGLOBIN A1C - POINT OF CARE (AMB) (12/13/2017 11:56 AM CDT) [facility] Hemoglobin A1c POCT 5.8 % [facility] QC Verified Yes [facility] Blood BLOOD SPECIMEN / Unknown 12/13/2017 11:56 AM CDT Ranjit Martinez MD LAB - POINT OF CARE ORDERABLES Performing Organization Address City/[facility]/ZIP Co de Phone Number [facility] [address] [phone] * (ABNORMAL) C-PEPTIDE (03/24/2016 12:39 PM CDT) [facility] C-Peptide 5.2(H) 1.1 - 4.4 ng/mL [facility] ([facility]) Comment:C-Peptide reference interval is for fasting patients. Blood specimen (specimen) BLOOD SPECIMEN / Unknown 03/24/2016 12:39 PM CDT 03/24/2016 2:10 PM CDT Narrative [facility] ([place]) - 03/25/2016 3:18 PM CDT Performed at: ??01 - [facility] ??[id number] Autistic Teacher: Maicol Chin PhD, Phone: ??[phone] Ranjit Martinez MD LAB - CHEMISTRY DARCI STEWART Performing Organization Address City/[facility]/ZIP Co de Phone Number [facility] ([place]) * GLUTAMIC ACID DECARBOXYLASE (ABIDA) ANTIBODY (03/24/2016 12:39 PM CDT) ABIDA-65 <5.0 0.0 - 5.0 U/mL [facility] ([place]) Blood specimen (specimen) BLOOD SPECIMEN / Unknown 03/24/2016 12:39 PM CDT 03/24/2016 2:09 PM CDT Narrative [facility] ([place]) - 03/26/2016 5:09 PM CDT Performed at: ??01 - [address] ??[id number] Autistic Teacher: Balaji Singh MD, Phone: ??[phone] Ranjit Martinez MD LAB - SEROLOGY ORDER TAYLOR Performing Organization Address [facility] Co de Phone Number [facility]) * GROSS + MICRO EXAM (01/30/1997 1:00 PM CDT) Result CASE NUMBER [id number] [facility] PATH REPORT Comment: ORDERING PHYSICIAN ??ALIYAH PATEL SPECIMEN TYPE ?Gastric / Esophagus CLINICAL HISTORY ? The patient is a 11-year-old girl with abdominal pain who underwent an upper endoscopy. ?? GROSS DESCRIPTION ? The specimen labeled with the patient's name and gastric and esophagus is received fixed in formalin for a gross and microscopic examination and consists of four minute fragments of pink-erickson soft tissue each with a measurement of 0.2 cm. in greatest dimension. ??The specimens are submitted in toto as A1 . (CT/lw) MICROSCOPIC DESCRIPTION ? 6 H/E Sections show fragments of esophageal mucosa with a few scattered intraepithelial lymphocytes. ??There are no intraepithelial eosinophils. ??Basal cell hyperplasia is mild, and slight papillary elongation is present. ??These features are suggestive of, but not diagnostic for, mild esophagitis. ??Also present are fragments of unremarkable gastric epithelium with underlying lamina propria containing a normal complement of inflammatory cells. ??(SYLVIA/lw) DIAGNOSIS ? DIAGNOSIS ?? STOMACH AND ESOPHAGUS, BIOPSIES ?- NO DIAGNOSTIC ABNORMALITIES. ??SEE DESCRIPTION. Heating And Cooling Technician ? Virginia Ramos RESIDENT IN PATHOLOG Al Martinez M.D. PATHOLOGIST ?Cortez Talley M.D. ELECTRONICALLY SUSY [facility] MISCELLANEOUS SAMPLES / Unknown 01/30/1997 1:00 PM CDT 01/30/1997 2:32 PM CDT Historical Provider LAB - PATHOLOGY/C YTOLOGY ORDERABLES [facility] PATH REPORT Care Teams Scarf Gluer Relationship Specialty Start Date End Date Michelle Valente MD [address] [place] [address] [address] [place] [id number] PCP - General 11/29/17
--- OUTSIDE RECORDS SUMMARY | 2024-08-17 06:20 | XMS_ITS | Encounter Summary ---
Author Organization [facility] Healthcare Address [address] [place] [address] Care Team Providers Care Retail Specialist Name Role Phone Soren Mcwilliams MD Primary Care Provider [phone] Yoel Paulson MD Unavailable [phone] Encounter Details Date Type Department Care Team (Latest Contact Info) Description 08/15/2024 2:01 PM RENEWABLE ENERGY DIVISION MANAGER - 08/15/2024 11:59 PM RENEWABLE ENERGY DIVISION MANAGER Hospital Encounter [address] [id number] Hypertension associated with type 2 diabetes mellitus (HCC); Class 3 severe obesity due to excess calories with serious comorbidity and body mass index (BMI) of 45.0 to 49.9 in adult (HCC) Discharge Disposition: Discharge to home or self care Social History Tobacco Use Types Packs/Day Years Used Date Smoking Tobacco: Never PHQ-2 Answer Date Recorded PHQ-2 Total Score (If total score is 3 or more points, staff should administer the PHQ-9) 0 08/15/2024 Personal Safety Answer Date Recorded Have you ever been in or are you currently in a harmful physical or emotional relationship or is someone making you feel afraid or unsafe? Denies 05/26/2024 Comments No Sex and Gender Information Value Date Recorded Sex Assigned at Not on file Legal Sex Female 1:26 AM RENEWABLE ENERGY DIVISION MANAGER Gender Identity Female 12/25/2022 7:50 PM CDT Sexual Orientation Straight 12/25/2022 7: 50 PM CDT documented as of this encounter Medications at Time of Discharge acetaminophen (TYLENOL) 500 mg tablet Take 1 tablet (500 mg total) by mouth every 6 (six) hours as needed 2 albuterol HFA (PROVENTIL HFA,VENTOLIN HFA,PROAIR HFA) 90 mcg/actuation inhaler Take 1-2 puffs by mouth 2 atorvastatin (LIPITOR) 20 mg tablet Take 2 tablets (40 mg total) by mouth daily biotin 10,000 mcg capsule Take by mouth 2 blood-glucose meter miscIndications:Type 2 diabetes mellitus with hyperglycemia, with long-term current use of insulin (HCC) One Touch Verio Meter Use to test blood sugar three times a day Dx: E11.65 1 each 5 boric acid, bulk, granules 600 mg compounded nightly x 4 weeks. DO NOT PUT IN MOUTH 454 g 2 3 cetirizine (ZyrTEC) 10 mg tablet TAKE 1 TABLET BY MOUTH EVERY DAY NEEDED FOR ALLERGY SYMPTOMS clotrimazole-betameth asone (LOTRISONE) cream Apply topically 2 (two) times a day 15 g 1 5 desloratadine (Clarinex) 5 mg tablet Take 1 tablet every day by oral route. diazePAM (VALIUM) [address] 1 tablet nightly in the vagina 30 tablet 1 3 docusate sodium (DOK) 100 mg capsule Take 1 capsule (100 mg total) by mouth 2 (two) times a day doxycycline monohydrate (MONODOX) 100 mg capsule Take by mouth daily EPINEPHrine 0.3 mg/0.3 mL auto-injection syringe Inject 0.3 mL (0.3 mg total) into the muscle as instructed as needed for anaphylaxis 2 each 2 4 famotidine (PEPCID) 20 mg tablet Take 1 tablet (20 mg total) by mouth 2 (two) times a day fenofibrate nanocrystallized (TRICOR) 145 mg tablet Take 1 tablet (145 mg total) by mouth daily fluticasone propionate (FLONASE) 50 mcg/actuation nasal spray SHAKE LIQUID AND ADMINISTER 2 SPRAYS INTO EACH NOSTRIL EVERY DAY fluvoxaMINE (LUVOX) 100 mg tablet Take 1 tablet (100 mg total) by mouth daily 30 tablet 2 4 hydrocortisone 2.5 % cream APPLY TO AFFECTED AREA ON EYELIDS EVERY DAY NEEDED FOR RASH insulin glargine (LANTUS) 100 unit/mL vial for injectionIndications: Type 2 diabetes mellitus with hyperglycemia, with long-term current use of insulin ([facility]) Inject 120 Units under the skin nightly 120 mL 2 5 insulin syringe-needle U-100 1 mL 29 gauge x 1/2 syringe daily 9 Jardiance 25 mg tablet Take 1 tablet (25 mg total) by mouth daily ketoconazole (NIZORAL) 2 % shampoo APPLY TO WET HAIR, LEAVE ON FOR 3MINS THEN RINSE 3 TIMES PER WEEK 4 lamoTRIgine (LaMICtal) 100 mg tablet Take 1 tablet (100 mg total) by mouth 2 (two) times a day 60 tablet 3 4 lancets 33 gauge miscIndications:Type 2 diabetes mellitus with hyperglycemia, with long-term current use of insulin ([facility]) Use to test blood sugar three times a day Dx: E11.65 100 each 11 4 levonorgestreL (Mirena) IUD 1 each by intrauterine route as directed lisinopriL (PRINIVIL,ZESTRIL) 10 mg tablet Take 1 tablet (10 mg total) by mouth daily 3 meclizine (ANTIVERT) 25 mg tablet Take by mouth 3 (three) times a day as needed medroxyPROGESTERone (PROVERA) 10 mg tabletIndications:Abn ormal Uterine Bleeding due to Hormonal Imbalance Take 1 tablet (10 mg total) by mouth daily 30 tablet 2 4 09/26/19 25 metFORMIN XR (GLUCOPHAGE XR) 500 mg 24 hr tabletIndications:Typ e 2 diabetes mellitus with hyperglycemia, with long-term current use of insulin ([facility]) Take 2 tablets (1,000 mg total) by mouth 2 (two) times a day 360 tablet 3 5 08/01/19 26 suziephos- phsal-hyo (UribeL) 118-10-40.8-36 mg capsule TAKE 1 CAPSULE BY MOUTH THREE TIMES DAILY NEEDED 2 methocarbamoL (ROBAXIN) 750 mg tablet Take 1 tablet (750 mg total) by mouth every 8 (eight) hours as needed methylPREDNISolone (MEDROL DOSEPACK) 4 mg Dosepack TAKE PER PACKAGE INSERT 4 metroNIDAZOLE (METROGEL) 0.75 % gel APPLY A THIN LAYER TO THE AFFECTED AREA OF FACE TWICE A DAY 4 naproxen (NAPROSYN) 500 mg tablet TAKE 1 TABLET BY MOUTH EVERY 12 HOURS. DO NOT USE OTHER NSAIDS WITH MEDICATION 2 nystatin ointment Apply topically 2 (two) times a day APPLY TO AFFECTED AREA 30 g 1 5 omeprazole (PriLOSEC) 20 mg capsule Take by mouth daily 6 ondansetron ODT (ZOFRAN-ODT) 8 mg disintegrating tablet Take 1 tablet (8 mg total) by mouth 3 (three) times a day as needed 4 OneTouch Verio test strips stripIndications:Type 2 diabetes mellitus with hyperglycemia, with long-term current use of insulin ([facility]) Use to test blood sugar three times a day Dx: E11.65 100 strip 11 4 pen needle, diabetic (TechLITE Pen Needle) 32 gauge x 5/32 needle 2 pseudoephedrine (SUDAFED) 30 mg tablet Take 2 tablets (60 mg total) by mouth every 6 (six) hours QUEtiapine (SEROquel) 100 mg tablet TAKE 1 TABLET BY MOUTH EVERY DAY AT NIGHT 90 tablet 1 4 spironolactone (ALDACTONE) 100 mg tablet Take 2 tablets (200 mg total) by mouth daily tirzepatide (MOUNJARO) 7.5 mg/0.5 mL pen injectorIndications:T ype 2 diabetes mellitus with hyperglycemia, with long-term current use of insulin ([facility]) Inject 7.5 mg under the skin every 7 days 6 mL 3 5 08/01/19 26 traZODone (DESYREL) 50 mg tabletIndications:Oth er insomnia TAKE 1 TABLET BY MOUTH EVERY DAY AT BEDTIME FOR 30 DAYS 90 tablet 3 4 triamcinolone (KENALOG) 0.1 % cream MIX WITH NYSTATIN OINTMENT AND APPLY TO EXTERNALLY VULVAR TISSUES TWICE DAILY 2 ergocalciferol (VITAMIN D) 50,000 unit capsule TK 1 C PO Q WK 9 08/16/19 25 documented as of this encounter Discharge Disposition Disposition Code Departure Means Destination Discharge to home or self care documented in this encounter Plan of Treatment Not on file documented as of this encounter Procedures Procedure Name Priority Date/Time Associated Diagnosis Comments EGFR Routine 08/15/2024 2:01 PM R[employer]EWABLE ENERGY DIVISION MANAGER Hypertension associated with type 2 diabetes mellitus (HCC) DIFFERENTIAL AUTO Routine 08/15/2024 2:0 1 PM RENEWABLE ENERGY DIVISION MANAGER Hypertension associated with type 2 diabetes mellitus (HCC) THYROID FUNCTION CASCADE Routine 08/15/2024 2:01 PM RENEWABLE ENERGY DIVISION MANAGER Hypertension associated with type 2 diabetes mellitus (HCC) CBC WITH AUTO DIFFERENTIAL Routine 08/15/2024 2:01 PM RENEWABLE ENERGY DIVISION MANAGER Hypertension associated with type 2 diabetes mellitus (HCC) VITAMIN D 25 HYDROXY Routine 08/15/2024 2:01 PM RENEWABLE ENERGY DIVISION MANAGER Class 3 severe obesity due to excess calories with serious comorbidity and body mass index (BMI) of 45.0 to 49.9 in adult (HCC) CHOLESTEROL, LDL, DIRECT Routine 08/15/2024 2:01 PM RENEWABLE ENERGY DIVISION MANAGER Hypertension associated with type 2 diabetes mellitus (HCC) LIPID PANEL Routine 08/15/2024 2:01 PM RENEWABLE ENERGY DIVISION MANAGER Hypertension associated with type 2 diabetes mellitus (HCC) COMPREHENSIVE METABOLIC PANEL Routine 08/15/2024 2:01 PM RENEWABLE ENERGY DIVISION MANAGER Hypertension associated with type 2 diabetes mellitus (HCC) documented in this encounter Results * eGFR (08/15/2024 2:01 PM RENEWABLE ENERGY DIVISION MANAGER) eGFR >90 >=60 mL/min/1. 73 m2 Comment: Interpretive Data Reference Interval Normal ?>/= 90 mL/min/1.73m2 Mildly decreased* ? 60 - 89 mL/min/1.73m2 Mildly to moderately decreased ?45 - 59 mL/min/1.73m2 Moderately to severely decreased ??30 - 44 mL/min/1.73m2 Severely decreased ?15 - 29 mL/min/1.73m2 Kidney Failure ?< 15 ??mL/min/1.73m2 *Relative to young adult level Estimated glomerular filtration rate is determined by the 2020 CKD-EPI equation recommended by the National Kidney Foundation (A Unifying Approach to GFR Estimation: Recommendations of the NKF-ASK Task Force on Reassessing the Inclusion of Race in Diagnosing Kidney Disease, JASN 2020). The CKD-EPI equation should not be used for patients with unstable renal function and has not been validated in children and those over 70. Current interpretive data was last reviewed 2021. Blood 08/15/2024 2:01 PM RENEWABLE ENERGY DIVISION MANAGER 08/15/2024 9:27 PM RENEWABLE ENERGY DIVISION MANAGER us Soren Mcwilliams MD LAB BLOOD ORDERABLES Final Result Performing Organization Address City/State/[facility] [place] Phone Number [place]IM[facility] [address] Department [place] [address] * Cholesterol, LDL, direct (08/15/2024 2:01 PM RENEWABLE ENERGY DIVISION MANAGER) LDL Cholesterol, Direct 72 <=129 mg/dL Comment: Interpretive Data Ages < or = 19 years ??Acceptable: ? <110 mg/dL ??Borderline high: ??110-129 mg/dL ??High: ?>or= 130 mg/dL Ages > or = 20 years ??Optimal: ? <100 mg/dL ??Near optimal: ?100-129 mg/dL ??Borderline high: ?? 130-159 mg/dL ??High: ?>160 mg/dL Literature References: 1. Expert Panel on Integrated Guidelines for Cardiovascular Health and Risk Reduction in Children and Adolescents. Pediatrics 2011;128:S213 2. NCEP Expert Panel. Circulation 2004;110:227 Current Interpretive Data was last revised on 2018. Blood 08/15/2024 2:01 PM RENEWABLE ENERGY DIVISION MANAGER 08/15/2024 9:27 PM RENEWABLE ENERGY DIVISION MANAGER Narrative [facility] - 08/15/2024 11:39 PM RENEWABLE ENERGY DIVISION MANAGER Cholesterol, LDL, direct reflexed based on Elevated Triglyceride (>400) us Soren Mcwilliams MD LAB BLOOD ORDERABLES Final Result [facility] [address] [place] [address] * Differential, auto (08/15/2024 2:01 PM RENEWABLE ENERGY DIVISION MANAGER) Neutrophil abs 2.8 1.5 - 6.5 K/cumm Imm gran abs 0.0 0.0 - 0.1 K/cumm [facility] Lymphocyte abs 1.3 0.8 - 3.3 K/cumm [facility] Monocyte abs 0.3 0.2 - 0.8 K/cumm [facility] Eosinophil abs 0.2 0.0 - 0.5 K/cumm [facility] Basophil abs 0.1 0.0 - 0.1 K/cumm [facility] Neutrophil pct 59.2 % [facility] Comment: Interpretive Data Percent cell count reference ranges are not reported, since discordance with absolute values may lead to misinterpretation of CBC data. Current Interpretive Data was last revised on 2017. Imm gran pct 0.4 % [facility] Comment: Interpretive Data Percent cell count reference ranges are not reported, since discordance with absolute values may lead to misinterpretation of CBC data. Current Interpretive Data was last revised on 2017. Lymphocyte pct 27.8 % [facility] Comment: Interpretive Data Percent cell count reference ranges are not reported, since discordance with absolute values may lead to misinterpretation of CBC data. Current Interpretive Data was last revised on 2017. Monocyte pct 6.4 % [facility] Comment: Interpretive Data Percent cell count reference ranges are not reported, since discordance with absolute values may lead to misinterpretation of CBC data. Current Interpretive Data was last revised on 2017. Eosinophil pct 4.9 % [facility] Comment: Interpretive Data Percent cell count reference ranges are not reported, since discordance with absolute values may lead to misinterpretation of CBC data. Current Interpretive Data was last revised on 2017. Basophil pct 1.3 % [facility] Comment: Interpretive Data Percent cell count reference ranges are not reported, since discordance with absolute values may lead to misinterpretation of CBC data. Current Interpretive Data was last revised on 2017. Blood 08/15/2024 2:01 PM RENEWABLE ENERGY DIVISION MANAGER 08/15/2024 9:08 PM RENEWABLE ENERGY DIVISION MANAGER Soren Mcwilliams MD LAB BLOOD ORDERABLES Final Result Performing Organization Address [facility] de Phone Number EUN [address] [employer] [place] [address] * (ABNORMAL) Vitamin D 25 hydroxy (08/15/2024 2:01 PM RENEWABLE ENERGY DIVISION MANAGER) Vitamin D 25-OH 18(L) 30 - 80 ng/mL Blood 08/15/2024 2:01 PM RENEWABLE ENERGY DIVISION MANAGER 08/15/2024 9:08 PM RENEWABLE ENERGY DIVISION MANAGER Soren Mcwilliams MD LAB BLOOD ORDERABLES Final Result Performing Organization Address [facility] de Phone Number EUN [id number] Department [place] [employer] [place] [address] * (ABNORMAL) Lipid panel (08/15/2024 2:01 PM RENEWABLE ENERGY DIVISION MANAGER) Cholesterol 171 30 - 199 mg/dL Comment: Interpretive Data Ages < or = 19 years ??Acceptable: ? <170 mg/dL ??Borderline high: ??170-199 mg/dL ??High: ? >or= 200 mg/dL Ages > or = 20 years ??Desirable: ?<200 mg/dL ??Borderline high: ??200-239 mg/dL ??High: ? >or= 240 mg/dL Literature References: 1. Expert Panel on Integrated Guidelines for Cardiovascular Health and Risk Reduction in Children and Adolescents. Pediatrics 2011;128:S213 2. NCEP Expert Panel. Circulation 2004;110:227 Current Interpretive Data was last revised on 2018. Triglycerides 734(H) <=149 mg/dL [facility] Comment: Interpretive Data Ages < or = 9 years ??Acceptable: ? <75 mg/dL ??Borderline high: ??75-99 mg/dL ??High: ? >or= 100 mg/dL Ages 10 to 20 years ??Acceptable: ? <90 mg/dL ??Borderline high: ??90-129 mg/dL ??High: ? >or= 130 mg/dL Ages > or = 20 years ??Desirable: ?<150 mg/dL ??Borderline high: ??150-199 mg/dL ??High: ? 200-499 mg/dL ?Very high: ?? >or= 499 mg/dL Literature References: 1. Expert Panel on Integrated Guidelines for Cardiovascular Health and Risk Reduction in Children and Adolescents. Pediatrics 2011;128:S213 2. NCEP Expert Panel. Circulation 2004;110:227 Current Interpretive Data was last revised on 2018. HDL 26(L) >=40 mg/dL [facility] Comment: Interpretive Data Ages < or = 19 years ??Acceptable: ? >45 mg/dL ??Borderline low: ?? 40-45 mg/dL ??Low: ? <40 mg/dL Ages > or = 20 years ??Desirable: ?>or= 60 mg/dL ??Low: ? <40 mg/dL Literature References: 1. Expert Panel on Integrated Guidelines for Cardiovascular Health and Risk Reduction in Children and Adolescents. Pediatrics 2011;128:S213 2. NCEP Expert Panel. Circulation 2004;110:227 Current Interpretive Data was last revised on 2018. LDL, calculated See Comment <=129 mg/dL [facility] Comment: Unable to calculate due to elevated Triglycerides. Interpretive Data Ages < or = 19 years ??Acceptable: ? <110 mg/dL ??Borderline high: ??110-129 mg/dL ??High: ?>or= 130 mg/dL Ages > or = 20 years ??Optimal: ? <100 mg/dL ??Near optimal: ?100-129 mg/dL ??Borderline high: ?? 130-159 mg/dL ??High: ?>160 mg/dL Calculated using the Sabino LDL-C estimating equation. This equation was implemented on 2024. Prior to this date LDL-C was estimated using the Friedewald equation. Literature References: 1. Expert Panel on Integrated Guidelines for Cardiovascular Health and Risk Reduction in Children and Adolescents. Pediatrics 2011;128:S213 2. NCEP Expert Panel. Circulation 2004;110:227 3. Sabino Olmos et al. ISABELA Cardiol. 2020 November 22;5(5):540-548. doi: 10.1001/jamacardio.2020.0013 Current Interpretive Data was last revised on 2024. Non-HDL Cholesterol 145 mg/dL [facility] Comment: Interpretive Data Ages < or = 19 years ??Acceptable: ?<120 mg/dL ??Borderline high: ??120-144 mg/dL ??High: ?>145 mg/dL Ages > or = 20 years ??When triglycerides are >200 mg/dL, Non-HDL cholesterol is a secondary target of ? therapy with treatment goals that are 30 mg/dL greater than the LDL cholesterol target. ? Literature References: 1. Expert Panel on Integrated Guidelines for Cardiovascular Health and Risk Reduction in Children and Adolescents. Pediatrics 2011;128:S213 2. NCEP Expert Panel. Circulation 2004;110:227 Current Interpretive Data was last revised on 2018. Chol/HDL ratio 7 [facility] Blood 08/15/2024 2:01 PM RENEWABLE ENERGY DIVISION MANAGER 08/15/2024 9:08 PM RENEWABLE ENERGY DIVISION MANAGER us Soren Mcwilliams MD LAB B[place] [address] [address] Department [place] [address] * (ABNORMAL) Comprehensive metabolic panel (08/15/2024 2:01 PM RENEWABLE ENERGY DIVISION MANAGER) Sodium 136 135 - 145 mmol/L Potassium, pl 4.4 3.3 - 4.9 mmol/L [facility] Chloride 103 97 - 110 mmol/L [facility] CO2 21(L) 22 - 32 mmol/L [facility] Anion gap 12 2 - 15 mmol/L [facility] BUN 5(L) 6 - 25 mg/dL [facility] Creatinine 0.57(L) 0.60 - 1.10 mg/dL [facility] Glucose 430(H) 70 - 199 mg/dL [facility] Comment: Interpretive Data Fasting glucose >/= 126 mg/dl is diagnostic for diabetes. ?? Fasting is defined as no caloric intake for at least 8 hours. Fasting glucose between 100 mg/dl to 125 mg/dl is diagnostic of prediabetes. In a patient with classic symptoms of hyperglycemia or hyperglycemic crisis, a random glucose >/= 200 mg/dl is diagnostic for diabetes. In the absence of unequivocal hyperglycemia, results should be confirmed by repeat testing. The classification and Diagnosis of Diabetes Diabetes Care 2021; 46: S19-S40. Current interpretive data was last revised 2022. Calcium 9.0 8.5 - 10.3 mg/dL [facility] Bilirubin, total 0.2 0.1 - 1.2 mg/dL [facility] Protein, pl 6.2(L) 6.5 - 8.5 g/dL [facility] Albumin 3.8 3.5 - 5.0 g/dL [facility] Alk phos 77 40 - 130 Units/L [facility] ALT 15 7 - 45 Units/L [facility] AST 14 10 - 45 Units/L [facility] Blood 08/15/2024 2:01 PM RENEWABLE ENERGY DIVISION MANAGER 08/15/2024 9:08 PM RENEWABLE ENERGY DIVISION MANAGER Soren Mcwilliams MD LAB BLOOD ORDERABLES Final Result Performing Organization Address City/[facility]/ZIP Co de Phone Number EUN [place] [phone] [place] [place] [address] * (ABNORMAL) CBC with auto differential (08/15/2024 2:01 PM RENEWABLE ENERGY DIVISION MANAGER) WBC 4.7 3.8 - 9.9 K/cumm Hgb 11.3(L) 11.9 - 15.5 g/dL [facility] Hct 38.6 35.6 - 45.5 % [facility] Plt 210 150 - 400 K/cumm [facility] MPV 11.1 9.1 - 12.3 fL [facility] RBC 4.53 3.90 - 5.20 M/cumm [facility] MCV 85.2 81.3 - 96.4 fL [facility] MCH 24.9(L) 27.1 - 33.3 pg [facility] MCHC 29.3(L) 32.3 - 35.7 g/dL [facility] RDW CV 15.8(H) 11.1 - 14.9 % [facility] RDW SD 47.4 35.7 - 48.1 fL [facility] NRBC abs 0.00 0.00 - 0.01 K/cumm [facility] Blood 08/15/2024 2:01 PM RENEWABLE ENERGY DIVISION MANAGER 08/15/2024 9:08 PM RENEWABLE ENERGY DIVISION MANAGER Soren Mcwilliams MD LAB BLOOD ORDERABLES Final Result EUN [facility] [address] [facility] [place] [place] [address] * Thyroid Function [place] (08/15/2024 2:01 PM RENEWABLE ENERGY DIVISION MANAGER) TSH 1.59 0.30 - 4.20 mcIUnit/mL Blood 08/15/2024 2:01 PM RENEWABLE ENERGY DIVISION MANAGER 08/15/2024 9:08 PM RENEWABLE ENERGY DIVISION MANAGER us Soren Mcwilliams MD LAB BLOOD ORDERABLES Final Result Performing Organization Address City/[place] [address] [address] Department [place] [address] documented in this encounter Visit Diagnoses Diagnosis Hypertension associated with type 2 diabetes mellitus (HCC) Class 3 severe obesity due to excess calories with serious comorbidity and body mass index (BMI) of 45.0 to 49.9 in adult (HCC) documented in this encounter Care Teams Retail Specialist Relationship Specialty Start Date End Date Soren Mcwilliams MD [address] [facility] [address] [place] [address] PCP - General Family Medicine 04/17/24 Yoel Paulson MD [address] [place] [address] Complex Care Nurse Practitioner Obstetrics and Gynecology 08/15/24 documented as of this encounter
--- OUTSIDE RECORDS SUMMARY | 2024-08-17 06:20 | XMS_ITS | Clinical Summary ---
Author Organization [facility] Address [address] [place] [address]. [place], [place] [address] [place] [id number] Care Team Providers Care Assistant Corporation Counsel Name Role Phone Anup Orellana MD Primary Care Provider [phone] Allergies Active Allergy Reactions Criticality Noted Date Comments Oxycodone Unknown 12/01/2016 Penicillins Unknown 08/09/2016 Medications CPAP MACHINE 9 cm. 10/11/2016 Active Albiglutide (TANZEUM) 50 MG Pen-injector 04/08/2016 Active INVOKANA 300 MG tablet TK 1 T PO D 2 01/17/2018 Active Exenatide ER (BYDUREON) 2 MG Pen-injector PEN Active glyBURIDE 5 MG tablet 03/23/2016 Active hydrocodone-armani taminophen 5-325 MG tablet TAKE 1 TO 2 TABLETS BY MOUTH EVERY 4 TO 6 HOURS NEEDED FOR PAIN 0 09/22/2017 Active LANTUS 100 UNIT/ML injection (VIAL) ADM 55 UNI SC HS 11 06/23/2018 Active lisinopril 10 MG tablet Active meloxicam 15 MG tablet Active metFORMIN 500 MG 24 hr tablet TK 4 TS PO QD 9 06/23/2018 Active Norethindrone, Contraceptive, 0.35 MG tablet TK 1 T PO QD 0 06/10/2018 A ctive omeprazole 20 MG capsule Take by mouth daily. 12/15/2015 Active STEGLATRO 15 MG Tab Take 1 tablet by mouth daily. 08/21/2019 Active QUEtiapine 50 MG tablet Take 50 mg by mouth nightly at bedtime. 10/26/2019 Active raNITIdine 150 MG tablet Take 150 mg by mouth 2 (two) times daily. 06/10/2017 Active traMADol 50 MG tablet Take 50 mg by mouth every 6 (six) hours as needed. 10/30/2019 Active traZODone 50 MG tablet Take 50 mg by mouth nightly at bedtime. 10/26/2019 Active CPAP MACHINE Inhale 1 Device into the lungs. Active buPROPion SR 200 MG TABLET SR 12 HR 12 hr tablet Take 2 tablets by mouth daily. 09/06/2017 Active fluvoxaMINE 100 MG tablet 11/18/2019 Active Multiple Vitamin (MULTIVITAMIN) capsule Take 1 capsule by mouth daily. Active omega-3 fatty acid 500 MG capsule Take 1,200 mg by mouth 2 (two) times daily. Active fluticasone propionate 50 MCG/ACT nasal spray 11/18/2019 Active vitamin D2, ergocalciferol, 68847 UNITS capsule Take 50,000 Units by mouth every 7 days. 09/04/2019 Active Active Problems Problem Noted Date Diagnosed Date Daytime sleepiness 10/11/2016 Benign essential HTN 08/09/2016 Diabetes mellitus ([facility]) 08/09/2016 Morbid obesity ([facility]) 08/09/2016 NIEVES on CPAP 08/09/2016 Family History Medical History Relation Comments Diabetes Father Osteoarthritis Father high cholesterol Father Glaucoma Mother Hypertension Mother bipolar disorder Mother Relation Status Comments Father Mother Social History Tobacco Use Types Packs/Day Years Used Date Smoking Tobacco: Never Smokeless Tobacco: Never Alcohol Use Standard Drinks/Week Comments No 0 (1 standard drink = 0.6 oz pur e alcohol) AUDIT-C Answer Date Recorded Frequency of Alcohol Consumption Never 11/22/2019 Average Number of Drinks Not on file 020 Frequency of Binge Drinking Not on file 10/25 Comments Unknown Sex and Gender Information Value Date Recorded Sex Assigned at Not on file Legal Sex Female 7:17 PM CDT Gender Identity Not on file Sexual Orientation Not on file Last Filed Vital Signs Vital Sign Reading Time Taken Comments Blood Pressure 126/68 07/08/2017 11:53 AM PRECIPITATOR OPERATOR Pulse 82 07/08/2017 11:53 AM PRECIPITATOR OPERATOR Temperature - - Respiratory Rate - - Oxygen Saturation - - Inhaled Oxygen Concentration - - Weight 172.8 kg (381 lb) 07/08/2017 11:53 AM PRECIPITATOR OPERATOR Height 170.2 cm (5' 7 ) 07/08/2017 11:53 AM PRECIPITATOR OPERATOR Body Mass Index 59.67 07/08/2017 11:53 AM PRECIPITATOR OPERATOR Plan of Treatment Health Maintenance Due Date Last Done Comments Cervical Cancer Screening Pa p Smear (Age 30 to 64) Every 3 Years 1987 Kidney Health Evaluation 1987 Hemoglobin A1C 1987 Lipid Panel 1987 Annual Physical 1990 Pneumococcal Vaccine: Pediat rics (0 to 5 Years) and At-Risk Patients (6 to 64 Years) (1 of 2 - PCV) 1993 Diabetes: Retinopathy Eye Exam 2005 Hepatitis C 2005 DTaP, Tdap and Td Vaccines ( 1 - Tdap) 2006 Hepatitis B Vaccines (1 of 3 - 19+ 3-dose series) 2006 Cervical Cancer Screening Pa p with HPV Testing (Age 30 to 64) Every 5 Years 2017 Cervical Cancer Screening with HPV 2017 COVID-19 Vaccine (2023-2 5 season) 2024 Influenza Adult (#1) 2024 06/10/2018 HPV Vaccines Aged Out No longer eligi ble based on patient's age to complete this topic Meningococcal Vaccine Aged Out No [place]iel eligible based on patient's age to complete this topic RSV Immunizations Under 20 Months Aged Out No longer eligible based on patient's age to complete this topic Insurance [employer] Care Teams Assistant Corporation Counsel Relationship Specialty Start Date End Date Anup Orellana MD [address] [id number] PCP - General INTERNAL MEDICINE 05/29/18
--- OUTSIDE RECORDS SUMMARY | 2024-08-17 06:20 | XMS_ITS | Encounter Summary ---
Author Organization [facility] Healthcare Address [address] [place] [address] Care Team Providers Care Sewer Head Name Role Phone Soren Mcwilliams MD Primary Care Provider [phone] Yoel Paulson MD Unavailable [phone] Reason for Visit * Reason Onset Date Comments Prior Auth 08/16/2024 clotrimazole-bet amethasone (LOTRISONE) cream Encounter Details Date Type Department Care Team (Late st Contact Info) Description 08/16/2024 Telephone [facility] Primary Care at [address] [id number] Soren Mcwilliams MD [address] [place] [address] [address] [place] [address] Prior Auth (clotrimazole-betameth asone (LOTRISONE) cream) Social History Tobacco Use Types Packs/Day Years [...] on file Legal Sex Female 1:26 AM ACCOUNT SUPPORT SPECIALIST Gender Identity Female 12/25/2022 7:50 PM CDT Sexual Orientation Straight 12/25/2022 7: 50 PM CDT documented as of this encounter Miscellaneous Notes * Telephone Encounter - Meka Castellano NP - 08/16/2024 7:10 PM CST I sent in Clotrimazole UNT SUPPORT SPECIALIST * Telephone Encounter - Danielle Ford MA - 08/16/2024 4:03 PM CST Received response. PA was denied saying pt needs to try preferred alternitives. They are: Clotrimazole 1 percent cream, betamethasone valerate cream/lotion/ointmen UNT SUPPORT SPECIALIST * Telephone Encounter - Danielle Ford MA - 08/16/2024 10:35 AM CST Received PA request for clotrimazole-betamethasone (LOTRISONE) cream PA submitted to [facility] via covermymeds. Waiting for a response. UNT SUPPORT SPECIALIST documented in this encounter Plan of Treatment Not on file documented as of this encounter Visit Diagnoses Not on filedocumented in this encounter Care Teams Sewer Head Relationship Specialty Start Date End Date Soren Mcwilliams MD [address] [place] [address] PCP - General Family Medicine 04/17/24 Yoel Paulson MD [address] [place] [address] [address] [place] [id number] Military Technology Specialist Obstetrics and Gynecology 08/15/24 documented as of this encounter
--- OUTSIDE RECORDS SUMMARY | 2024-08-17 06:20 | XMS_ITS | Clinical Summary ---
Author Organization [facility] Address [address] [place] [address] Care Team Providers Care Cleaning Technician Name Role Phone Soren Mcwilliams MD Primary Care Provider Yoel Paulson MD Unavailable [phone] Allergies Active Allergy Reactions Criticality Noted Date Comments Clindamycin Rash Medium 07/28/2021 Eyes swollen shut, rash. Eyes swollen shut, rash. Latex Rash Medium 04/05/2022 Oxycodone Rash,Unknown Medium 03/24/2016 Pt says she can tolerate hydrocodone. Pt says she can tolerate hydrocodone. Penicillins Shortness of breath High 01/17/2024 Reaction: SOB, , Medications boric acid, bulk, granules 600 mg compounded nightly x 4 weeks. DO NOT PUT IN MOUTH 454 g 2 023 Active diazePAM (VALIUM) [address] 1 tablet nightly in the vagina 30 tablet 1 023 Active acetaminophen (TYLENOL) 500 mg tablet Take 1 tablet (500 mg total) by mouth every 6 (six) hours as needed 022 Active albuterol HFA (PROVENTIL HFA,VENTOLIN HFA,PROAIR HFA) 90 mcg/actuation inhaler Take 1-2 puffs by mouth 022 Active atorvastatin (LIPITOR) 20 mg tablet Take 2 tablets (40 mg total) by mouth daily Active biotin 10,000 mcg capsule Take by mouth 022 Active cetirizine (ZyrTEC) 10 mg tablet TAKE 1 TABLET BY MOUTH EVERY DAY NEEDED FOR ALLERGY SYMPTOMS Active desloratadine (Clarinex) 5 mg tablet Take 1 tablet every day by oral route. Active doxycycline monohydrate (MONODOX) 100 mg capsule Take by mouth daily Active Jardiance 25 mg tablet Take 1 tablet (25 mg total) by mouth daily Active famotidine (PEPCID) 20 mg tablet Take 1 tablet (20 mg total) by mouth 2 (two) times a day Active fenofibrate nanocrystallized (TRICOR) 145 mg tablet Take 1 tablet (145 mg total) by mouth daily Active fluticasone propionate (FLONASE) 50 mcg/actuation nasal spray SHAKE LIQUID AND ADMINISTER 2 SPRAYS INTO EACH NOSTRIL EVERY DAY Active hydrocortisone 2.5 % cream APPLY TO AFFECTED AREA ON EYELIDS EVERY DAY NEEDED FOR RASH Active levonorgestreL (Mirena) IUD 1 each by intrauterine route as directed Active lisinopriL (PRINIVIL,ZESTRIL) 10 mg tablet Take 1 tablet (10 mg total) by mouth daily 023 Active meclizine (ANTIVERT) 25 mg tablet Take by mouth 3 (three) times a day as needed Active suzieph sz-yjozh-sik (UribeL) 118-10-40.8-36 mg capsule TAKE 1 CAPSULE BY MOUTH THREE TIMES DAILY NEEDED Active naproxen (NAPROSYN) 500 mg tablet TAKE 1 TABLET BY MOUTH EVERY 12 HOURS. DO NOT USE OTHER NSAIDS WITH MEDICATION 022 Active omeprazole (PriLOSEC) 20 mg capsule Take by mouth daily 016 Active pen needle, diabetic (TechLITE Pen Needle) 32 gauge x needle 022 Active pseudoephedrine (SUDAFED) 30 mg tablet Take 2 tablets (60 mg total) by mouth every 6 (six) hours Active spironolactone (ALDACTONE) 100 mg tablet Take 2 tablets (200 mg total) by mouth daily Active insulin syringe-needle U-100 1 mL 29 gauge x 2 syringe daily 019 Active triamcinolone (KENALOG) 0.1 % cream MIX WITH NYSTATIN OINTMENT AND APPLY TO EXTERNALLY VULVAR TISSUES TWICE DAILY Active OneTouch Verio test strips stripIndications:T ype 2 diabetes mellitus with hyperglycemia, with long-term current use of insulin (HCC) Use to test blood sugar three times a day Dx: E11.65 100 strip 11 Active lancets 33 gauge miscIndications:Ty pe 2 diabetes mellitus with hyperglycemia, with long-term current use of insulin (HCC) Use to test blood sugar three times a day Dx: E11.65 100 each 11 Active docusate sodium (DOK) 100 mg capsule Take 1 capsule (100 mg total) by mouth 2 (two) times a day Active ketoconazole (NIZORAL) 2 % shampoo APPLY TO WET HAIR, LEAVE ON FOR 3MINS THEN RINSE 3 TIMES PER WEEK Active methocarbamoL (ROBAXIN) 750 mg tablet Take 1 tablet (750 mg total) by mouth every 8 (eight) hours as needed Active methylPREDNISolone (MEDROL DOSEPACK) 4 mg Dosepack TAKE PER PACKAGE INSERT Active metroNIDAZOLE (METROGEL) 0.75 % gel APPLY A THIN LAYER TO THE AFFECTED AREA OF FACE TWICE A DAY Active ondansetron ODT (ZOFRAN-ODT) 8 mg disintegrating tablet Take 1 tablet (8 mg total) by mouth 3 (three) times a day as needed Active traZODone (DESYREL) 50 mg tabletIndications: Other insomnia TAKE 1 TABLET BY MOUTH EVERY DAY AT BEDTIME FOR 30 DAYS 90 tablet 3 Active lamoTRIgine (LaMICtal) 100 mg tablet Take 1 tablet (100 mg total) by mouth 2 (two) times a day 60 tablet 3 Active EPINEPHrine 0.3 mg/0.3 mL auto-injection syringe Inject 0.3 mL (0.3 mg total) into the muscle as instructed as needed for anaphylaxis 2 each 2 Active medroxyPROGESTERon e (PROVERA) 10 mg tabletIndications: Abnormal Uterine Bleeding due to Hormonal Imbalance Take 1 tablet (10 mg total) by mouth daily 30 tablet 2 024 2024 Active QUEtiapine (SEROquel) 100 mg tablet TAKE 1 TABLET BY MOUTH EVERY DAY AT NIGHT 90 tablet 1 024 Active fluvoxaMINE (LUVOX) 100 mg tablet Take 1 tablet (100 mg total) by mouth daily 30 tablet 2 024 Active metFORMIN XR (GLUCOPHAGE XR) 500 mg 24 hr tabletIndications: Type 2 diabetes mellitus with hyperglycemia, with long-term current use of insulin ([facility]) Take 2 tablets (1,000 mg total) by mouth 2 (two) times a day 360 tablet 3 025 2025 Active tirzepatide (MOUNJARO) 7.5 mg/0.5 mL pen injectorIndication s:Type 2 diabetes mellitus with hyperglycemia, with long-term current use of insulin ([facility]) Inject 7.5 mg under the skin every 7 days 6 mL 3 025 2025 Active blood-glucose meter miscIndications:Ty pe 2 diabetes mellitus with hyperglycemia, with long-term current use of insulin ([facility]) One Touch Verio Meter Use to test blood sugar three times a day Dx: E11.65 1 each 025 Active insulin glargine (LANTUS) 100 unit/mL vial for injectionIndicatio ns:Type 2 diabetes mellitus with hyperglycemia, with long-term current use of insulin ([facility]) Inject 120 Units under the skin nightly 120 mL 2 025 Active clotrimazole-betam ethasone (LOTRISONE) cream Apply topically 2 (two) times a day 15 g 025 Active nystatin ointment Apply topically 2 (two) times a day APPLY TO AFFECTED AREA 30 g 025 Active ergocalciferol (VITAMIN D) 50,000 unit capsule Take 1 capsule (50,000 Units total) by mouth once a week 12 capsule 1 025 Active clotrimazole 1 % cream Apply topically 2 (two) times a day 30 g 025 Active ergocalciferol (VITAMIN D) 50,000 unit capsule TK 1 C PO Q WK 019 2024 Discontinued(R eorder) nystatin ointment Apply topically 2 (two) times a day APPLY TO AFFECTED AREA 2024 Discontinued(R eorder) blood-glucose meter miscIndications:Ty pe 2 diabetes mellitus with hyperglycemia, with long-term current use of insulin (HCC) One Touch Verio Meter Use to test blood sugar three times a day Dx: E11.65 1 each 024 2024 Discontinued(R eorder) metFORMIN XR (GLUCOPHAGE XR) 500 mg 24 hr tabletIndications: Type 2 diabetes mellitus with hyperglycemia, with long-term current use of insulin (HCC) TAKE 2 TABLETS BY MOUTH TWICE A DAY 360 tablet 2 024 2024 Discontinued(R eorder) LANTUS 100 unit/mL (3 mL) pen for injectionIndicatio ns:Type 2 diabetes mellitus with hyperglycemia, with long-term current use of insulin ([facility]) Inject 100 Units under the skin nightly 90 mL 3 024 2024 Discontinued(R eorder) tirzepatide (Mounjaro) 5 mg/0.5 mL pen injectorIndication s:Type 2 diabetes mellitus with hyperglycemia, with long-term current use of insulin ([facility]) Inject 5 mg under the skin every 7 days 6 mL 3 024 2024 Discontinued clindamycin (CLEOCIN) 150 mg capsule TAKE 2 CAPSULES ORAL ROUTE 3 TIMES PER DAY FOR 10 DAYS 024 2024 Discontinued(T herapy completed) LANTUS 100 unit/mL (3 mL) pen for injectionIndicatio ns:Type 2 diabetes mellitus with hyperglycemia, with long-term current use of insulin ([facility]) Inject 120 Units under the skin nightly 120 mL 2 025 2024 Discontinued Active Problems Problem Noted Date Diagnosed Date NIEVES (obstructive sleep apnea) 07/05/2024 Family history of sleep apnea 07/05/2024 Delayed sleep phase syndrome 07/05/2024 Psychophysiological insomnia 07/05/2024 Nonsmoker 07/05/2024 Knee pain 04/17/2024 Infectious diarrheal disease 04/17/2024 Injury of groin 04/17/2024 Transient memory loss 04/17/2024 Sprain of foot 04/17/2024 Sprain of lateral collateral ligament of knee Encounter for medical examination to establish c are 04/17/2024 Assessment & Plan (04/17/2024 3:54 PM CDT): A(n) initial well visit to establish care has been performed today. Cora Shultz is not up to date on screening tests. She is in need of Diabetic eye exam, hep B, C, Cholesterol screening, and Cervical cancer screening. She is not up to date on needed preventative vaccinations; She is in need of Tdap/Td, Influenza, and Pneumonia (Prevnar-13 or Pneumovax-23). We discussed healthy lifestyle habits, educational material has been given. Medications reviewed, changes documented as per the medical record and discussed with patient along with risks vs benefits. Specific topics reviewed: drugs, ETOH, and tobacco, importance of regular dental care, importance of regular exercise, importance of varied diet, limit TV, media violence, minimize junk food, and seat belts. Return in 4 months Bipolar disorder, in partial remission, most recent episode mixed ([facility]) 04/17/2024 Assessment & Plan (08/15/2024 1:57 PM CUT OFF SAW OPERATOR): Patient has not re-established with Psychiatry, information on psychiatrist in area who accept her insurance. Symptoms stable. Assessment & Plan (05/15/2024 3:22 PM CDT): Improvement noted on the Lamictal, patient to get labs today to check level. Discussed Psychiatry with patient, she used to see provider but was released. Discussed getting back in with that provider--she is agreeable. Other Psychiatry resources given to patient also. Lymphedema of left leg 04/17/2024 Hypertension associated with type 2 diabetes kilo litus 01/17/2024 Assessment & Plan (08/15/2024 1:58 PM CUT OFF SAW OPERATOR): Chronic problem. Currently taking lisinopril 10mg daily. Assessment & Plan (08/01/2024 1:48 PM CUT OFF SAW OPERATOR): Chronic problem. Currently taking lisinopril 10mg daily. Assessment & Plan (04/17/2024 3:13 PM CDT): Chronic problem. Currently taking lisinopril 10mg daily. Assessment & Plan (01/17/2024 11:44 AM CDT): Chronic problem. Currently taking lisinopril 10mg daily. Will update labs today. Verified that she uses mychart. Aware to check results/results letter in [employer]. Will contact by phone if needed. Hyperlipidemia associated with type 2 diabetes sonia salazar 01/17/2024 Assessment & Plan (08/15/2024 1:57 PM CUT OFF SAW OPERATOR): Awaiting labs, continues Atorvastatin. Assessment & Plan (08/01/2024 1:48 PM CUT OFF SAW OPERATOR): Chronic problem. Currently taking Atorvastatin 20mg & fenofibrate 145mg daily. Last lipid panel: 01/17/24 EJA=944, HZ=450. Assessment & Plan (04/17/2024 3:14 PM CDT): Chronic problem. Currently taking Atorvastatin 20mg & fenofibrate 145mg daily. Last lipid panel: 01/17/24 FCD=245, EY=823. Assessment & Plan (01/17/2024 11:45 AM CDT): Chronic problem. Currently taking Atorvastatin 20mg & fenofibrate 145mg daily. Last lipid panel: 10/09/21 LDL=could not calc, GW=287. Will update labs today. Verified that she uses mychart. Aware to check results/results letter in [employer]. Will contact by phone if needed. Morbid (severe) obesity due to excess calories 0 01/17/2024 BMI 50.0-59.9, adult 01/17/2024 Class 3 severe obesity due t o excess calories with serious comorbidity and body mass index (BMI) of 50.0 to 59.9 in adult 01/17/2024 Assessment & Plan (08/15/2024 1:57 PM CUT OFF SAW OPERATOR): Healthy, low carbohydrate lifestyle and exercise for 150min/week recommended. Assessment & Plan (05/15/2024 3:22 PM CDT): Healthy, low carbohydrate lifestyle and exercise for 150min/week recommended Assessment & Plan (04/17/2024 4:02 PM CDT): BMI Follow-up includes: nutrition counseling, exercise counseling, and education provided. Assessment & Plan (01/17/2024 12:57 PM CDT): Discussed healthy diet and importance of regular physical activity (20- 30min/day, 150min/wk). Sent in Mounjaro 2.5mg weekly. Will call office if not covered. Type 2 diabetes mellitus wit h hyperglycemia, with long-term current use of insulin 09/15/2023 Assessment & Plan (08/01/2024 2:08 PM CUT OFF SAW OPERATOR): Chronic problem. A1c worsened from 9.3% 04/17/24 to now 10.0%. interested in insulin pump therapy but wants to check with insurance to see what cost/coverage is. Will send me a [employer] message if pump is covered. Will increase mounjaro from 5mg to 7.5mg on next refill. May need to decrease Lantus dose once Mounjaro 7.5mg weekly sent in. Would drop by 2 units weekly to keep morning fasting blood sugar less than 140 without lows overnight. Current medications: Metformin XR 1000mg twice daily Jardiance 25mg every morning Mounjaro 7.5mg weekly Lantus 120 units at bedtime UTD on DM eye exam (, letter sent to get copy of report) UTD on labs. Discussed with Cora Shultz: Strive for regular exercise (30min most days) and diet (get at least 4-5 servings of fruit and veggies daily, avoid processed foods, increase lean protein intake and decrease carb portions as well as fruit juices, regular soda & desserts). Watch carbs and simple sugars. Check the blood sugar: Freestyle sonny 3. Check the feet daily for skin breakdown and infection. Assessment & Plan (04/17/2024 3:33 PM CDT): Chronic problem. A1c worsened from 7.3% 01/17/24 to now 9.3%. will try to switch from Rybelsus to Mounjaro. Aware to call office if unable to obtain. Current medications: Metformin XR 1000mg twice daily Jardiance 25mg every morning Mounjaro 2.5mg weekly x 4weeks then increase to 5mg weekly Lantus 100 units at bedtime Due for DM eye exam; last 2022 at [facility]. Letter sent to get copy of report. UTD on labs. Discussed with Cora Shultz: Strive for regular exercise (30min most days) and diet (get at least 4-5 servings of fruit and veggies daily, avoid processed foods, increase lean protein intake and decrease carb portions as well as fruit juices, regular soda & desserts). Watch carbs and simple sugars. Check the blood sugar: Freestyle sonny 3. Check the feet daily for skin breakdown and infection. Assessment & Plan (01/17/2024 12:57 PM CDT): Chronic problem. A1c increased mildy from 7.2% 09/15/23 to now 7.3%. will switch from Trulicity to Mounjaro. Aware to call office if unable to obtain. Current medications: Metformin XR 1000mg twice daily Jardiance 25mg every morning Mounjaro 2.5mg weekly Lantus 100 units at bedtime DM eye exam 2022 at [facility]. Letter sent to get copy of report. Will update labs today. Verified that she uses [employer]. Aware to check results/results letter in [employer]. Will contact by phone if needed. Discussed with Cora Shultz: Strive for regular exercise (30min most days) and diet (get at least 4-5 servings of fruit and veggies daily, avoid processed foods, increase lean protein intake and decrease carb portions as well as fruit juices, regular soda & desserts). Watch carbs and simple sugars. Check the blood sugar: Freestyle sonny 3. Check the feet daily for skin breakdown and infection. Assessment & Plan (09/15/2023 12:26 PM CUT OFF SAW OPERATOR): Hba1c was Lab Results Component Value Date HGBA1C 7.2 09/15/2023 today, indicating suboptimal DM control Goal Hba1c under 7 and blood glucose level in the 120-160 range was explained Low carb diet and daily aerobic and /or resistant exercise were advised Prevention and treatment of hyypoglcyemia were discussed with the patient Blood glucose monitoring : will try to get her a FSL 3 Adjustment to medications: Will try to switch from Trulicity to Mounjaro If Mounjaro is not approved, will increase Trulicity to 1.5 mg Continue Lantus , Jardiance and Metformin PCOS (polycystic ovarian syndrome) 09/15/2023 Assessment & Plan (08/01/2024 1:48 PM CUT OFF SAW OPERATOR): Chronic problem. Continue metformin & Spironolactone. Assessment & Plan (04/17/2024 3:13 PM CDT): Chronic problem. Continue metformin & Spironolactone. Assessment & Plan (01/17/2024 11:43 AM CDT): Chronic problem. Continue metformin & Spironolactone. Assessment & Plan (09/15/2023 12:27 PM CUT OFF SAW OPERATOR): Continue aldactone Eczema 07/27/2023 Persistent insomnia 02/13/2023 Type II diabetes mellitus wi th hyperosmolarity, uncontrolled 12/22/2022 Type 2 diabetes mellitus 12/22/2022 Recurrent candidiasis of vagina 03/16/2022 Overview (04/17/2024): Last Assessment & Plan: Condition: stable Follow up in: one month with PCP Other rosacea 05/09/2021 Tinea corporis 11/11/2020 Gastroesophageal reflux disease 09/16/2020 Overview (04/17/2024): Last Assessment & Plan: Condition: stable Reviewed use of antacid medication and/or diet modifications of decreasing caffeine, spicy foods, chocolate, and avoiding alcohol, tobacco, NSAIDs, and reducing citrus acids. 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 Overview (04/17/2024): Last Assessment & Plan: Condition: stable Follow up in: one month with PCP Intramural leiomyoma of uterus 07/30/2020 Generalized anxiety disorder 07/03/2012 Resolved Problems Problem Noted Date Diagnosed Date Resolved Date Infection due to Marah glabrata 03/16/2022 06/27/2024 Encounters Date Type Department Care Team Description 08/16/2024 Orders Only [facility] Medical [facility] Primary Care at [address] [phone] Meka Castellano NP 08/16/2024 Telephone [facility] Primary Care at [address] [phone] Soren Mcwilliams MD Prior Auth (clotrimazole-betametha sone (LOTRISONE) cream) 08/16/2024 Orders Only [facility] Primary Care at [address] [phone] Soren Mcwilliams MD 08/15/2024 2:01 PM CUT OFF SAW OPERATOR - 08/15/2024 11:59 PM CUT OFF SAW OPERATOR Hospital Encounter [address] [address] Hypertension associated with type 2 diabetes mellitus (HCC); Class 3 severe obesity due to excess calories with serious comorbidity and body mass index (BMI) of 45.0 to 49.9 in adult (HCC) Discharge Disposition: Discharge to home or self care 08/15/2024 2:00 PM CUT OFF SAW OPERATOR Lab [facility] at [address] [phone] Type 2 diabetes mellitus (HCC) (Primary Dx) 08/15/2024 1:30 PM CUT OFF SAW OPERATOR Office Visit [facility] at [address] [phone] Meka Castellano NP Bipolar disorder, in partial remission, most recent episode mixed (CMS/HCC) (HCC) (Primary Dx); Hypertension associated with type 2 diabetes mellitus (HCC); Hyperlipidemia associated with type 2 diabetes mellitus (HCC); Intertrigo; Class 3 severe obesity due to excess calories with serious comorbidity and body mass index (BMI) of 50.0 to 59.9 in adult (HCC) 08/08/2024 Orders Only [facility] [address] [place] [phone] ProviderDavid MD 08/02/2024 Telephone [facility] at [address] [phone] Soren Mcwilliams MD Medical Question/Miscellaneous 08/01/2024 3:13 PM CUT OFF SAW OPERATOR - 08/01/2024 11:59 PM CUT OFF SAW OPERATOR Hospital Encounter [address] [address] Acute viral syndrome Discharge Disposition: Discharge to home or self care 08/01/2024 2:45 PM CUT OFF SAW OPERATOR Office Visit [facility] at [address] [phone] Rehana Irizarry NP Acute viral syndrome (Primary Dx) 08/01/2024 1:30 PM CUT OFF SAW OPERATOR Office Visit [facility] [address] [place] [phone] Haleigh Ramirez NP Type 2 diabetes mellitus with hyperglycemia, with long-term current use of insulin (HCC) (Primary Dx); Hypertension associated with type 2 diabetes mellitus (HCC); Hyperlipidemia associated with type 2 diabetes mellitus (HCC); PCOS (polycystic ovarian syndrome) 07/19/2024 [facility] [address] [place] [address] Mily Mason RN Bleeding/Progesterone Update 07/05/2024 4:00 PM CUT OFF SAW OPERATOR Office Visit [facility] Pul[facility] [address] [place] [address] Brenda Cabrera MD NIEVES (obstructive sleep apnea) (Primary Dx); Psychophysiological insomnia; Delayed sleep phase syndrome; Family history of sleep apnea; BMI 50.0-59.9, adult (HCC); Nonsmoker 07/04/2024 2:30 PM CUT OFF SAW OPERATOR Ancillary Procedure [address] [place] [address] Menometrorrhagia 07/02/[address], [place] [address] Mily Mason RN Cycle Update 06/27/2024 2:35 PM CUT OFF SAW OPERATOR Lab [address] Menometrorrhagia 06/27/2024 1:30 PM CUT OFF SAW OPERATOR Office Visit [address] [phone] Yoel Paulson MD Encounter for gynecological examination with abnormal finding (Primary Dx); Menometrorrhagia; Fibroids 06/13/[address] [place] [phone] Oneida Wells MA Appointment 06/11/2024 2:30 PM CUT OFF SAW OPERATOR Office Visit [facility] at [address] [phone] Rina Huizar NP Nausea and vomiting, unspecified vomiting type (Primary Dx); Viral gastroenteritis 05/30/2024 Telephone [facility] at [address] [phone] Leonela Johnson MA 05/26/2024 12:17 PM CDT - 05/26/2024 3:56 PM CDT Emergency [facility] Emergency Department [address] [place] [address] Dysfunctional uterine bleeding (Primary Dx) Discharge Disposition: Discharge to home or self care 05/26/2024 Orders Only [facility] at [address] [phone] Soren Mcwilliams MD from Last 3 Months Immunizations Name Administration Dates Next Due Influenza, Quadrivalent, Deepthi l Culture-based MDCK, Preservative Free, Antibiotic Free, Intramuscular 04/15/2022 Influenza, Quadrivalent, Spl it, Preservative Free, Intramuscular 09/02/2021,07/31/2020,06/10/2018 Influenza, Trivalent, Preser vative Free, Intramuscular 05/15/2024 Influenza, Unspecified 06/10/2018 Medical History Medical History Date Comments Personal history of other di seases of the digestive system History of cholecystitis - ( Added by TW Conv) Diabetes mellitus type 2, in sulin dependent (CMS/HCC) (HCC) PCOS (polycystic ovarian syndrome) Family History Medical History Relation Name Comments Diabetes Brother Diabetes Father Relation Name Status Comments Brother Alive Father Alive Mother Alive Social History Tobacco Use Types Packs/Day Years Used Date Smoking Tobacco: Never Tobacco Cessation:Counseling Given: Not Answered PHQ-2 Answer Date Recorded PHQ-2 Total Score [...] on file Legal Sex Female 1:26 AM CUT OFF SAW OPERATOR Gender Identity Female 12/25/2022 7:50 PM CDT Sexual Orientation Straight 12/25/2022 7: 50 PM CDT Obstetrics History Para Term AB IAB SAB Ectopic Multiple Livin g Live Births 0 0 0 0 0 0 0 0 0 0 0 Last Filed Vital Signs Vital Sign Reading Time Taken Comments Blood Pressure 104/60 08/15/2024 1:28 PM CUT OFF SAW OPERATOR Pulse 85 08/15/2024 1:28 PM CUT OFF SAW OPERATOR Temperature 36.6 ??C (97.8 ??F) 08/15/2024 1:28 PM CS T Respiratory Rate 18 08/01/2024 2:47 PM CUT OFF SAW OPERATOR Oxygen Saturation 99% 08/15/2024 1:28 PM CUT OFF SAW OPERATOR Inhaled Oxygen Concentration - - Weight 156.5 kg (345 lb) 08/15/2024 1:28 PM CUT OFF SAW OPERATOR Height 175.3 cm (5' 9.02 ) 08/15/2024 1:28 PM CS T Body Mass Index 50.92 08/15/2024 1:28 PM CUT OFF SAW OPERATOR Plan of Treatment Health Maintenance Due Date Last Done Comments Hepatitis C Screening 1987 Pneumococcal vaccine <65 (1 of 2 - PCV) 1993 DTaP/Tdap/Td Vaccine (1 - Tdap) 1998 Varicella Vaccines (1 of 2 - 13+ 2-dose series) 2000 Hepatitis B Screening 2005 Covid-19 Vaccine ( - season) 2024 04/15/2022, 07/22/2021, 11/25/2020, Additional history exists Foot Exam 09/15/2024 09/15/2023 Cervical Cancer Screening 10/13/2024 Po stponed from 1987 (Patient declined, but will receive in the future) Albumin Creatinine Ratio, Urine 01/16/2025 01/17/2024 Hemoglobin A1C 01/29/2025 08/01/2024, 03/26, 01/17/2024, Additional history exists Dilated Eye Exam 05/01/2025 05/01/2024, 10/21/2022 Regular Well Visit/Exam 18-64 06/27/2025 06/27/2024, 04/17/2024 Depression Screening 08/15/2025 08/15/2024, 06/27/2024, 05/15/2024, Additional history exists Lipid Panel 08/15/2025 08/15/2024, 12/24, 10/11/2012 eGFR 08/15/2025 08/15/2024, 11/0 08/2023, 01/17/2024 Influenza Vaccine Completed 05/15/2024, , 09/02/2021, Additional history exists HPV Vaccines Aged Out No longer eligi ble based on patient's age to complete this topic Procedures Procedure Name Priority Date/Time Associated Diagnosis Comments EGFR Routine 08/15/2024 2:01 PM CUT OFF SAW OPERATOR Hypertension associated with type 2 diabetes mellitus (HCC) CHOLESTEROL, LDL, DIRECT Routine 08/15/2024 2:01 PM CUT OFF SAW OPERATOR Hypertension associated with type 2 diabetes mellitus (HCC) DIFFERENTIAL AUTO Routine 08/15/2024 2:0 1 PM CUT OFF SAW OPERATOR Hypertension associated with type 2 diabetes mellitus (HCC) VITAMIN D 25 HYDROXY Routine 08/15/2024 2:01 PM CUT OFF SAW OPERATOR Class 3 severe obesity due to excess calories with serious comorbidity and body mass index (BMI) of 45.0 to 49.9 in adult (HCC) LIPID PANEL Routine 08/15/2024 2:01 PM CUT OFF SAW OPERATOR Hypertension associated with type 2 diabetes mellitus (HCC) COMPREHENSIVE METABOLIC PANEL Routine 08/15/2024 2:01 PM CUT OFF SAW OPERATOR Hypertension associated with type 2 diabetes mellitus (HCC) CBC WITH AUTO DIFFERENTIAL Routine 08/15/2024 2:01 PM CUT OFF SAW OPERATOR Hypertension associated with type 2 diabetes mellitus (HCC) THYROID FUNCTION CASCADE Routine 08/15/2024 2:01 PM CUT OFF SAW OPERATOR Hypertension associated with type 2 diabetes mellitus (HCC) THROAT CULTURE Routine 08/01/2024 3:13 PM CUT OFF SAW OPERATOR Acute viral syndrome INFLUENZA A/B, RSV, AND COVID-19 PCR Routine 08/01/2024 3:13 PM CUT OFF SAW OPERATOR Acute viral syndrome POCT RAPID RSV Routine 08/01/2024 3:07 PM CUT OFF SAW OPERATOR Acute viral syndrome POC INFLUENZA A/B, COVID-19 ANTIGEN Routine 08/01/2024 3:07 PM CUT OFF SAW OPERATOR Acute viral syndrome POCT RAPID STREP Routine 08/01/2024 3:04 PM CUT OFF SAW OPERATOR Acute viral syndrome POCT GLUCOSE Routine 08/01/2024 1:35 PM CUT OFF SAW OPERATOR Type 2 diabetes mellitus with hyperglycemia, with long-term current use of insulin (HCC) POCT HEMOGLOBIN A1C Routine 08/01/2024 1 :35 PM CUT OFF SAW OPERATOR Type 2 diabetes mellitus with hyperglycemia, with long-term current use of insulin (HCC) US TRANSVAGINAL Schedule Routine, Read Routine (OP Routine) 07/04/2024 2:55 PM CUT OFF SAW OPERATOR Menometrorrhagia DIFFERENTIAL AUTO Routine 06/27/2024 2:3 9 PM CUT OFF SAW OPERATOR Menometrorrhagia CBC WITH AUTO DIFFERENTIAL Routine 06/27/2024 2:39 PM CUT OFF SAW OPERATOR Menometrorrhagia TSH Routine 06/27/2024 2:39 PM CUT OFF SAW OPERATOR Menometrorrhagia FERRITIN Routine 06/27/2024 2:39 PM CUT OFF SAW OPERATOR Menometrorrhagia POC INFLUENZA A/B, COVID-19 ANTIGEN Routine 06/11/2024 2:26 PM CUT OFF SAW OPERATOR Nausea and vomiting, unspecified vomiting type EGFR STAT 05/26/2024 12:47 PM CDT DIFFERENTIAL AUTO STAT 05/26/2024 12: 47 PM CDT ANTIBODY SCREEN STAT 05/26/2024 12:47 PM CDT ABO/RH STAT 05/26/2024 12:47 PM CDT TYPE AND SCREEN STAT 05/26/2024 12:47 PM CDT HCG, BLOOD, QUANTITATIVE STAT 05/26/2024 12:47 PM CDT COMPREHENSIVE METABOLIC PANEL STAT 05/26/2024 12:47 PM CDT CBC WITH AUTO DIFFERENTIAL STAT 05/26/2024 12:47 PM CDT B ABO / RH CONFIRMATION TESTING STAT 05/26/2024 12:42 PM CDT HM DIABETES EYE EXAM Routine 05/01/2024 7:23 AM CDT ALBUMIN CREATININE RATIO, URINE Routine 01/17/2024 1:00 PM CDT Type 2 diabetes mellitus with hyperglycemia, with long-term current use of insulin (HCC) from Last 3 Months or Most Recently Relevant to Health Maintenance Results * eGFR (08/15/2024 2:01 PM CUT OFF SAW OPERATOR) [facility] eGFR >90 >=60 mL/min/1. 73 m2 Comment: [...] last reviewed 2021. Blood 08/15/2024 2:01 PM CUT OFF SAW OPERATOR 08/15/2024 9:27 PM CUT OFF SAW OPERATOR us Soren Mcwilliams MD LAB BLOOD ORDERABLES Final Result [facility] [address] Department [place] [address] * Differential, auto (08/15/2024 2:01 PM CUT OFF SAW OPERATOR) Neutrophil abs 2.8 1.5 - 6.5 K/cumm Imm gran abs 0.0 0.0 - 0.1 K/cumm [facility] Lymphocyte abs 1.3 0.8 - 3.3 K/cumm [facility] Monocyte abs 0.3 0.2 - 0.8 K/cumm [facility] Eosinophil abs 0.2 0.0 - 0.5 K/cumm [facility] Basophil abs 0.1 0.0 - 0.1 K/cumm [facility] Neutrophil pct 59.2 % [facility] Comment: Interpretive Data Percent cell count reference ranges are not reported, since discordance with absolute values may lead to misinterpretation of CBC data. Current Interpretive Data was last revised on 2017. Imm gran pct 0.4 % [facility] Comment: Interpretive Data Percent cell count reference ranges are not reported, since discordance with absolute values may lead to misinterpretation of CBC data. Current Interpretive Data was last revised on 2017. Lymphocyte pct 27.8 % [facility] Comment: Interpretive Data Percent cell count reference ranges are not reported, since discordance with absolute values may lead to misinterpretation of CBC data. Current Interpretive Data was last revised on 2017. Monocyte pct 6.4 % [facility] Comment: Interpretive Data Percent cell count reference ranges are not reported, since discordance with absolute values may lead to misinterpretation of CBC data. Current Interpretive Data was last revised on 2017. Eosinophil pct 4.9 % [facility] Comment: Interpretive Data Percent cell count reference ranges are not reported, since discordance with absolute values may lead to misinterpretation of CBC data. Current Interpretive Data was last revised on 2017. Basophil pct 1.3 % [facility] Comment: Interpretive Data Percent cell count reference ranges are not reported, since discordance with absolute values may lead to misinterpretation of CBC data. Current Interpretive Data was last revised on 2017. Blood 08/15/2024 2:01 PM CUT OFF SAW OPERATOR 08/15/2024 9:08 PM CUT OFF SAW OPERATOR us Soren Mcwilliams MD LAB BLOOD ORDERABLES Final Result [facility] [address] Department [place] [address] * Thyroid Function Crowley (08/15/2024 2:01 PM CUT OFF SAW OPERATOR) Pathologist [facility] TSH 1.59 0.30 - 4.20 mcIUnit/mL Blood 08/15/2024 2:01 PM CUT OFF SAW OPERATOR 08/15/2024 9:08 PM CUT OFF SAW OPERATOR Soren Mcwilliams MD LAB BLOOD ORDERABLES Final Result [facility] [address] [facility] [place] [address] * (ABNORMAL) CBC with auto differential (08/15/2024 2:01 PM CUT OFF SAW OPERATOR) Pathologist [facility] WBC 4.7 3.8 - 9.9 K/cumm Hgb [...] K/cumm [facility] Blood 08/15/2024 2:01 PM CUT OFF SAW OPERATOR 08/15/2024 9:08 PM CUT OFF SAW OPERATOR Soren Mcwilliams MD LAB BLOOD ORDERABLES Final Result [facility] [address] [facility] [place] [address] * (ABNORMAL) Vitamin D 25 hydroxy (08/15/2024 2:01 PM CUT OFF SAW OPERATOR) Vitamin D 25-OH 18(L) 30 - 80 ng/mL Blood 08/15/2024 2:01 PM CUT OFF SAW OPERATOR 08/15/2024 9:08 PM CUT OFF SAW OPERATOR Soren Mcwilliams MD LAB BLOOD ORDERABLES Final Result Performing Organization Address [facility] de Phone Number [facility] [address] [place] [address] * Cholesterol, LDL, direct (08/15/2024 2:01 PM CUT OFF SAW OPERATOR) Pathologist [facility] LDL Cholesterol, Direct 72 <=129 mg/dL Comment: [...] revised on 2018. Blood 08/15/2024 2:01 PM CUT OFF SAW OPERATOR 08/15/2024 9:27 PM CUT OFF SAW OPERATOR Narrative EUN - 08/15/2024 11:39 PM CUT OFF SAW OPERATOR Cholesterol, LDL, direct reflexed based on Elevated Triglyceride (>400) Soren Mcwilliams MD LAB BLOOD ORDERABLES Final Result Performing Organization Address [facility] de Phone Number EUN [address] Department [place] [address] * (ABNORMAL) Lipid panel (08/15/2024 2:01 PM CUT OFF SAW OPERATOR) [facility] Signature Cholesterol 171 30 - 199 mg/dL Comment: [...] 2018. LDL, calculated See Comment <=129 mg/dL [facility] Comment: Unable to calculate due to [...] 7 [facility] Blood 08/15/2024 2:01 PM CUT OFF SAW OPERATOR 08/15/2024 9:08 PM CUT OFF SAW OPERATOR us Soren Mcwilliams MD LAB BLOOD ORDERABLES Final Result [facility] [address] Department [place] [address] * (ABNORMAL) Comprehensive metabolic panel (08/15/2024 2:01 PM CUT OFF SAW OPERATOR) Sodium 136 135 - 145 mmol/L Potassium, [...] classification and Diagnosis of Diabetes Diabetes Care 2022; 46: S19-S40. Current interpretive data was last [...] Units/L [facility] Blood 08/15/2024 2:01 PM CUT OFF SAW OPERATOR 08/15/2024 9:08 PM CUT OFF SAW OPERATOR Soren Mcwilliams MD LAB BLOOD ORDERABLES Final Result EUN [address] Department [place] [address] * (ABNORMAL) Influenza A/B, RSV, and COVID-19 PCR Nasopharyngeal (08/01/2024 3:13 PM CUT OFF SAW OPERATOR) Pathologist [facility] COVID-19 RNA Negative Negative Influenza A RNA Negative Negative [facility] Influenza B RNA Negative Negative [facility] RSV RNA Positive(A) Negative [facility] Comment: Interpretive data: Testing performed by [facility]. This test is performed using the 10X10 Room Xpert Xpress CoV-2/Flu/RSV plus assay. This is a multiplex, real-time reverse transcriptase PCR assay intended for the qualitative detection of nucleic acid from SARS-CoV-2, influenza A, influenza B, and respiratory syncytial virus. This assay has been cleared by the [place] Food and Drug administration. The performance characteristics have been verified by the [facility]. ??Results must be considered in the clinical context, and a negative result does not rule out infection. Interpretive Data last revised 2023 Nasopharyngeal 08/01/2024 3: 13 PM CUT OFF SAW OPERATOR 08/01/2024 7:43 PM CUT OFF SAW OPERATOR Narrative [facility] - 08/01/2024 8:34 PM CUT OFF SAW OPERATOR Is the Patient experiencing symptoms consistent with COVID?->Yes us Rehana Irizarry NP LAB MICROBIOLOGY - GENERAL ORD ERABLES Final Result [facility] [address] Department [place] [address] CH * Throat culture Throat (08/01/2024 3:13 PM CUT OFF SAW OPERATOR) Report Final Report: No growth of pathogens. Comment:Testing performed by : [facility], [address] [place]., [address] Throat 08/01/2024 3:13 PM CUT OFF SAW OPERATOR 08/01/2024 10:46 PM CUT OFF SAW OPERATOR Narrative EUN - 08/02/2024 10:45 PM CUT OFF SAW OPERATOR Testing performed by [facility] Microbiology Laboratory ([phone]). us Rehana Irizarry NP LAB MICROBIOLOGY - GENERAL ORD ERABLES Final Result Performing Organization Address [facility] Co de Phone Number EUN [facility] [address] Department [place] [address] * POC Influenza A/B, COVID-19 antigen (08/01/2024 3:07 PM CUT OFF SAW OPERATOR) [facility] Influenza A Ag, POC Negative Negative [facility] ED[facility] Influenza B Ag, POC Negative Negative [facility] COVID-19 Ag POC Presumptive Negative Presumptive Negative, Invalid [facility] Nasal 08/01/2024 3:07 PM CUT OFF SAW OPERATOR Rehana Irizarry NP POINT OF CARE TEST ORDERABLES Final Result [facility] [address] [place] [address] * POCT rapid RSV (08/01/2024 3:07 PM CUT OFF SAW OPERATOR) [facility] Rapid RSV, POC Negative Negative Lot Number [id number] QC Control Line Acceptable Swab 08/01/2024 3:07 PM CUT OFF SAW OPERATOR Rehana Irizarry NP POINT OF CARE TEST ORDERABLES Final Result * POCT rapid strep A (08/01/2024 3:04 PM CUT OFF SAW OPERATOR) Rapid Strep A, POC Negative Negative Swab 08/01/2024 3:04 PM CUT OFF SAW OPERATOR Rehana Irizarry NP POINT OF CARE TEST ORDERABLES Final Result * (ABNORMAL) POCT hemoglobin A1c (08/01/2024 1:35 PM CUT OFF SAW OPERATOR) Hemoglobin A1C, POC 10.0 4.0 - 5.6 % Blood 08/01/2024 1:35 PM CUT OFF SAW OPERATOR Haleigh Ramirez DIRECTOR TRANSLATION POINT OF CARE TEST ORDERA BLES Final Result * (ABNORMAL) POCT glucose (08/01/2024 1:35 PM CUT OFF SAW OPERATOR) Pathologist [facility] Glucose Blood, POC 351 mg/dL Blood 08/01/2024 1:35 PM CUT OFF SAW OPERATOR Haleigh Ramirez DIRECTOR TRANSLATION POINT OF CARE TEST ORDERA BLES Final Result * US Transvaginal (07/04/2024 2:55 PM CUT OFF SAW OPERATOR) Anatomical Region Laterality Modality Pelvis N/A Ultrasound 07/04/2024 3:06 PM CUT OFF SAW OPERATOR Impressions 07/04/2024 9:26 PM CUT OFF SAW OPERATOR 1. Enlarged uterus with a 4.6 and a 4.5 cm fibroid as described. ??EMC is not well seen. ??IUD is suspected within the EMC. ?? 2. Normal appearing left ovary. ?? 3. Right ovary is not seen. ?? Narrative Procedure Note Yoel Paulson MD - 07/04/2024 IMPRESSION: 1. Enlarged uterus with a 4.6 and a 4.5 cm fibroid as described. EMC isnot well seen. IUD is suspected within the EMC. 2. Normal appearing left ovary. 3. Right ovary is not seen. us Yoel Paulson MD [facility] US PROCEDURES Final Re sult * Differential, auto (06/27/2024 2:39 PM CUT OFF SAW OPERATOR) Neutrophil abs 3.0 1.5 - 6.5 K/cumm Imm gran abs 0.0 0.0 - 0.1 K/cumm [facility] ([place]) Lymphocyte abs 1.7 0.8 - 3.3 K/cumm [facility] ([place]) Monocyte abs 0.3 0.2 - 0.8 K/cumm [facility] ([place]) Eosinophil abs 0.2 0.0 - 0.5 K/cumm [facility] ([place]) Basophil abs 0.1 0.0 - 0.1 K/cumm [facility] ([place]) Neutrophil pct 57.7 % [facility] ([place]) Comment: Interpretive Data Percent cell count reference ranges are not reported, since discordance with absolute values may lead to misinterpretation of CBC data. Current Interpretive Data was last revised on 2017. Imm gran pct 0.2 % [facility] ([place]) Comment: Interpretive Data Percent cell count reference ranges are not reported, since discordance with absolute values may lead to misinterpretation of CBC data. Current Interpretive Data was last revised on 2017. Lymphocyte pct 32.3 % [facility] ([place]) Comment: Interpretive Data Percent cell count reference ranges are not reported, since discordance with absolute values may lead to misinterpretation of CBC data. Current Interpretive Data was last revised on 2017. Monocyte pct 5.5 % [facility] ([place]) Comment: Interpretive Data Percent cell count reference ranges are not reported, since discordance with absolute values may lead to misinterpretation of CBC data. Current Interpretive Data was last revised on 2017. Eosinophil pct 3.2 % [facility] ([place]) Comment: Interpretive Data Percent cell count reference ranges are not reported, since discordance with absolute values may lead to misinterpretation of CBC data. Current Interpretive Data was last revised on 2017. Basophil pct 1.1 % [facility] ([place]) Comment: Interpretive Data Percent cell count reference ranges are not reported, since discordance with absolute values may lead to misinterpretation of CBC data. Current Interpretive Data was last revised on 2017. Blood 06/27/2024 2:39 PM CUT OFF SAW OPERATOR 06/27/2024 3:46 PM CUT OFF SAW OPERATOR Yoel Paulson MD LAB BLOOD ORDERABLES Final Result [facility] ([place]) 1 [facility] Department [place] [address] * (ABNORMAL) CBC with auto differential (06/27/2024 2:39 PM CUT OFF SAW OPERATOR) WBC 5.3 3.8 - 9.9 K/cumm Hgb 11.8(L) 11.9 - 15.5 g/dL [facility] ([place]) Hct 37.2 35.6 - 45.5 % [facility] ([place]) Plt 243 150 - 400 K/cumm [facility] ([place]) MPV 10.4 9.1 - 12.3 fL [facility] ([place]) RBC 4.21 3.90 - 5.20 M/cumm [facility] ([place]) MCV 88.4 81.3 - 96.4 fL [facility] ([place]) MCH 28.0 27.1 - 33.3 pg [facility] ([place]) MCHC 31.7(L) 32.3 - 35.7 g/dL [facility] ([place]) RDW CV 13.6 11.1 - 14.9 % [facility] ([place]) RDW SD 43.9 35.7 - 48.1 fL [facility] ([place]) NRBC abs 0.00 0.00 - 0.01 K/cumm [facility] ([place]) Blood 06/27/2024 2:39 PM CUT OFF SAW OPERATOR 06/27/2024 3:46 PM CUT OFF SAW OPERATOR us Yoel Paulson MD LAB BLOOD ORDERABLES Final Result [facility] ([place]) 1 [facility] [place] [address] * TSH (06/27/2024 2:39 PM CUT OFF SAW OPERATOR) [facility] Thyroid Stimulating Hormone 2.25 0.30 - 4.20 mcIUnit/mL Blood 06/27/2024 2:39 PM CUT OFF SAW OPERATOR 06/27/2024 3:46 PM CUT OFF SAW OPERATOR Yoel Paulson MD LAB BLOOD ORDERABLES Final Result [facility] ([place]) 1 [facility] [place] [address] * Ferritin (06/27/2024 2:39 PM CUT OFF SAW OPERATOR) [facility] Ferritin 22 15 - 150 ng/mL Blood 06/27/2024 2:39 PM CUT OFF SAW OPERATOR 06/27/2024 3:46 PM CUT OFF SAW OPERATOR Yoel Paulson MD LAB BLOOD ORDERABLES Final Result Performing Organization Address City/[facility]/ZIP Co de Phone Number [facility] ([place]) 1 [facility] [place] [address] * POC Influenza A/B, COVID-19 antigen (06/11/2024 2:26 PM CUT OFF SAW OPERATOR) [facility] Influenza A Ag, POC Negative Negative [facility] Influenza B Ag, POC Negative Negative [facility] COVID-19 Ag POC Presumptive Negative Presumptive Negative, Invalid [facility] Nasal 06/11/2024 2:26 PM CUT OFF SAW OPERATOR Rina Huizar NP POINT OF CARE TEST ORDERAB LES Final Result [facility] CC ED[facility] [address] * eGFR (05/26/2024 12:47 PM CDT) [facility] eGFR >90 >=60 mL/min/1. 73 m2 Comment: [...] interpretive data was last reviewed 2021. Blood 05/26/2024 12:4 7 PM CDT 05/26/2024 12:51 PM CDT Suyapa MAI LAB BLOOD ORDERABLES Dilcia l Result [facility] ([place]) 1 [facility] Department [place] [address] * Differential, auto (05/26/2024 12:47 PM CDT) [facility] Neutrophil abs 2.1 1.5 - 6.5 K/cumm Imm gran abs 0.0 0.0 - 0.1 K/cumm [facility] ([place]) Lymphocyte abs 2.3 0.8 - 3.3 K/cumm EUN COUNT INCLUDES THE [facility] ([place]) Monocyte abs 0.3 0.2 - 0.8 K/cumm [facility] ([place]) Eosinophil abs 0.1 0.0 - 0.5 K/cumm [facility] ([place]) Basophil abs 0.1 0.0 - 0.1 K/cumm [facility] ([place]) Neutrophil pct 43.9 % [facility] ([place]) Comment: Interpretive Data Percent cell count reference ranges are not reported, since discordance with absolute values may lead to misinterpretation of CBC data. Current Interpretive Data was last revised on 2017. Imm gran pct 0.4 % [facility] ([place]) Comment: Interpretive Data Percent cell count reference ranges are not reported, since discordance with absolute values may lead to misinterpretation of CBC data. Current Interpretive Data was last revised on 2017. Lymphocyte pct 46.8 % [facility] ([place]) Comment: Interpretive Data Percent cell count reference ranges are not reported, since discordance with absolute values may lead to misinterpretation of CBC data. Current Interpretive Data was last revised on 2017. Monocyte pct 5.6 % [facility] ([place]) Comment: Interpretive Data Percent cell count reference ranges are not reported, since discordance with absolute values may lead to misinterpretation of CBC data. Current Interpretive Data was last revised on 2017. Eosinophil pct 2.3 % [facility] ([place]) Comment: Interpretive Data Percent cell count reference ranges are not reported, since discordance with absolute values may lead to misinterpretation of CBC data. Current Interpretive Data was last revised on 2017. Basophil pct 1.0 % [facility] ([place]) Comment: Interpretive Data Percent cell count reference ranges are not reported, since discordance with absolute values may lead to misinterpretation of CBC data. Current Interpretive Data was last revised on 2017. Blood 05/26/2024 12:4 7 PM CDT 05/26/2024 12:51 PM CDT us Suyapa MAI LAB BLOOD ORDERABLES Dilcia disla Result EUN COUNT INCLUDES THE [facility] ([place]) 1 [facility] Department [place] [address] * CBC with auto differential (05/26/2024 12:47 PM CDT) WBC 4.8 3.8 - 9.9 K/cumm Hgb 13.7 11.9 - 15.5 g/dL [facility] Hct 41.9 35.6 - 45.5 % [facility] ([place]) Plt 174 150 - 400 K/cumm [facility] ([place]) MPV 10.0 9.1 - 12.3 fL [facility] ([place]) RBC 4.77 3.90 - 5.20 M/cumm [facility] ([place]) MCV 87.8 81.3 - 96.4 fL [facility] ([place]) MCH 28.7 27.1 - 33.3 pg [facility] ([place]) MCHC 32.7 32.3 - 35.7 g/dL [facility] ([place] RDW CV 14.1 11.1 - 14.9 % [facility] RDW SD 44.2 35.7 - 48.1 fL [facility] ([place] NRBC abs 0.00 0.00 - 0.01 K/cumm [facility] ([place] Blood 05/26/2024 12:4 7 PM CDT 05/26/2024 12:51 PM CDT Suyapa MAI LAB BLOOD ORDERABLES Dilcia l Result [facility] ([place]) 1 [facility] Department [place] [address] * ABO/Rh (05/26/2024 12:47 PM CDT) Pathologist [facility] ABO/Rh A Positive Blood 05/26/2024 12:4 7 PM CDT 05/26/2024 12:51 PM CDT Narrative [facility] ([place] - 05/26/2024 1:28 PM CDT Has the patient had Daratumumab or Isatuximab in the past 6 months?->Unknown Suyapa MAI LAB BLOOD BANK TEST ORDER TAYLOR Final Result Performing Organization Address City/[facility]/ZIP Co de Phone Number [facility] ([place]) 1 [facility] [place] [address] * Antibody screen (05/26/2024 12:47 PM CDT) Raissa, indirect, Gel Interpretation Negative ABSC Blood 05/26/2024 12:4 7 PM CDT 05/26/2024 12:51 PM CDT Narrative [facility] ([place]) - 05/26/2024 1:28 PM CDT Has the patient had Daratumumab or Isatuximab in the past 6 months?->Unknown Suyapa MAI LAB BLOOD BANK TEST ORDER TAYLOR Final Result Performing Organization Address [facility] de Phone Number [facility] ([place]) [address] [place] [address] * hCG, blood, quantitative (05/26/2024 12:47 PM CDT) hCG, quant <5.0 0.0 - 5.0 IUnits/L Comment: Interpretive Data Male: < 5 IU/L Non- premenopausal Female: <5 IU/L The Elma hCG Beta Quant assay procedure was used. Results from different manufacturers or methods may not be comparable. ??Serial testing should be performed using the same method. Interpretive Data was last revised on 2023 Blood 05/26/2024 12:4 7 PM CDT 05/26/2024 12:51 PM CDT Suyapa MAI LAB BLOOD ORDERABLES Dilcia l Result [facility] ([place]) 1 [facility] [place] [address] * (ABNORMAL) Comprehensive metabolic panel (05/26/2024 12:47 PM CDT) Sodium 136 135 - 145 mmol/L Potassium, pl 4.2 3.3 - 4.9 mmol/L [facility] ([place]) Chloride 104 97 - 110 mmol/L [facility] ([place]) CO2 21(L) 22 - 32 mmol/L [facility] ([place]) Anion gap 12 2 - 15 mmol/L [facility] ([place]) BUN 8 6 - 25 mg/dL [facility] ([place]) Creatinine 0.74 0.60 - 1.10 mg/dL [facility] ([place]) Glucose 191 70 - 199 mg/dL [facility] ([place]) Comment: Interpretive Data Fasting glucose >/= 126 [...] classification and Diagnosis of Diabetes Diabetes Care 202; 46: S19-S40. Current interpretive data was last revised 2022. Calcium 9.2 8.5 - 10.3 mg/dL [facility] ([place]) Bilirubin, total 0.3 0.1 - 1.2 mg/dL [facility] [facility] ([facility]) Protein, pl 6.5 6.5 - 8.5 g/dL [facility] ([facility]) Albumin 4.1 3.5 - 5.0 g/dL [facility] ([facility]) Alk phos 55 40 - 130 Units/L [facility] ([facility]) ALT 9 7 - 45 Units/L [facility] ([facility]) AST 8(L) 10 - 45 Units/L [facility] ([facility]) Blood 05/26/2024 12:4 7 PM CDT 05/26/2024 12:51 PM CDT us Suyapa MAI LAB BLOOD ORDERABLES Dilcia disla Result [facility] [address] Department [place] [address] * ABO / Rh Confirmation Testing (05/26/2024 12:42 PM CDT) Pathologist [facility] ABO/Rh Confirmation A Positive [facility] Blood 05/26/2024 12:4 2 PM CDT 05/26/2024 1:28 PM CDT Suyapa MAI LAB BLOOD ORDERABLES Dilcia l Result [facility] ([facility]) 1 [facility] [place] [address] [facility] * DIABETES EYE EXAM (05/01/2024 7:23 AM CDT) Historical Provider MD HEALTH MAINTENANCE Final Result * Albumin Creatinine Ratio, Urine (01/17/2024 1:00 PM CDT) Albumin Ur <12.0 mg/L Comment: Interpretive Data No reference range established. Current interpretive data was last revised 2018. Creatinine Ur 35.5 mg/dL [facility] Comment: Interpretive Data No reference range established. Current interpretive data was last revised 2018. Albumin Creatinine Ratio, Ur See Comment 1 - 29 [facility] Comment:Unable to calculate Urine 01/17/2024 1:00 PM CDT 01/17/2024 8:21 PM CDT Haleigh Ramirez NP LAB URINE ORDERABLES Dilcia l Result [facility] [address] Department [place] [address] from Last 3 Months or Most Recently Relevant to Health Maintenance Insurance [employer] [employer] Care Teams Cleaning Technician Relationship Specialty Start Date End Date Soren Mcwilliams MD [address] [facility] [address] [place] [address] PCP - General Family Medicine 04/17/24 Yoel Paulson MD [address] [place] [address] [address] [place] [address] Paralegal Internship Obstetrics and Gynecology 08/15/24
--- OUTSIDE RECORDS SUMMARY | 2024-08-17 06:20 | XMS_ITS | Encounter Summary ---
Author Organization [facility] Healthcare Address [address] [place] [address] Care Team Providers Care Lunchroom Attendant Name Role Phone Soren Mcwilliams MD Primary Care Provider [phone] Yoel Paulson MD Unavailable [phone] Encounter Details Date Type Department Care Team (Late st Contact Info) Description 08/16/2024 Orders Only [facility] Medical Group Primary Care at [address] [address] Soren Mcwilliams MD [address] [place] [address] [address] [place] [address] Social History Tobacco Use Types Packs/Day Years [...] on file 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 Gender Identity Female 12/25/2022 7:50 PM CDT Sexual Orientation Straight 12/25/2022 7: 50 PM CDT documented as of this encounter Ordered Prescriptions Prescription Sig Dispense Quantity Refills Last Filled Start Date End Date ergocalciferol (VITAMIN D) 50,000 unit capsule Take 1 capsule (50,000 Units total) by mouth once a week 12 capsule 1 08/16/2024 documented in this encounter Plan of Treatment Not on file documented as of this encounter Visit Diagnoses Not on filedocumented in this encounter Discontinued Medications Medication Sig Discontinue Reason Start Date End Da te ergocalciferol (VITAMIN D) 50,000 unit capsule TK 1 C PO Q WK Reorder 09/27/2018 08/16/2024 documented as of this encounter Care Teams Lunchroom Attendant Relationship Specialty Start Date End Date Soren Mcwilliams MD [address] [facility] [address] [place] [address] PCP - General Family Medicine 04/17/24 Yoel Paulson MD [address] [facility] [address] [place] [address] Power Transformer Repairer Obstetrics and Gynecology 08/15/24 documented as of this encounter
--- OUTSIDE RECORDS SUMMARY | 2024-08-17 06:20 | XMS_ITS | Encounter Summary ---
Author Organization [facility] Healthcare Address [address] [place] [address] Care Team Providers Care Rn Case Mgr Name Role Phone Soren Mcwilliams MD Primary Care Provider [phone] Yoel Paulson MD Unavailable [phone] Reason for Visit * Reason Comments Follow-up Pt states for 3 magui h follow up. Pt has no current complaints. Encounter Details Date Type Department Care Team (Late st Contact Info) Description 08/15/2024 1:30 PM AWNING HANGER HELPER Office Visit [facility] Medical Group Primary Care at [address] [address] Meka Castellano, KIRSTIE [address] [place] [address] [address] [place] [address] Bipolar disorder, in partial remission, most recent episode mixed (CMS/HCC) (HCC) (Primary Dx); Hypertension associated with type 2 diabetes mellitus (HCC); Hyperlipidemia associated with type 2 diabetes mellitus (HCC); Intertrigo; Class 3 severe obesity due to excess calories with serious comorbidity and body mass index (BMI) of 50.0 to 59.9 in adult (HCC) Social History Tobacco Use Types Packs/Day Years [...] on file Legal Sex Female 1:26 AM AWNING HANGER HELPER Gender Identity Female 12/25/2022 7:50 PM CDT Sexual Orientation Straight 12/25/2022 7: 50 PM CDT documented as of this encounter Last Filed Vital Signs Vital Sign Reading Time Taken Comments Blood Pressure 104/60 08/15/2024 1:28 PM AWNING HANGER HELPER Pulse 85 08/15/2024 1:28 PM AWNING HANGER HELPER Temperature 36.6 ??C (97.8 ??F) 08/15/2024 1:28 PM CS T Respiratory Rate - - Oxygen Saturation 99% 08/15/2024 1:28 PM AWNING HANGER HELPER Inhaled Oxygen Concentration - - Weight 156.5 kg (345 lb) 08/15/2024 1:28 PM AWNING HANGER HELPER Height 175.3 cm (5' 9.02 ) 08/15/2024 1:28 PM CS T Body Mass Index 50.92 08/15/2024 1:28 PM AWNING HANGER HELPER documented in this encounter Patient Instructions * Patient Instructions* Meka Castellano NP - 08/15/2024 1:30 PM AWNING HANGER HELPER [email or web address] is a resource to help find a local psychologist/counselor. You can search for local therapist by zip code and read their profile to see if he finds somebody that you feel would be a good fit for you. Local Psychiatrist. Please call and see who can see you. If none of these options work, then call your insurance to seewho is network and then call those providers to schedule an appointment. It can take a couple months to get in with psychiatry, so do not turn down appointments if you feel they are too far out. You can always call back and cancel if you find a provider that can get you in sooner [facility] Psychiatry at [facility] [address], [facility] [address] [place] [address] [address] Initial Appointments : State funded insurance can walk in with no appointment [address] [place] [address] [facility] MD Oneida Khanna, KIRSTIE Polanco NP [address] [place] [address] [facility] [address] [place] [phone] KIRSTIE Clay - [place], [place] [phone] Inna Martinez NP - [place], [place] [phone] [facility] Care Psychiatry [address] [address] Other Psychiatry locations to try: [facility] @ [phone] [facility] Behavioral Health @ [phone] [facility] @ [phone] [facility] [place] @ [phone] If struggling but not actively suicidal and you need to see somebody more urgently for mental health consultation you can try the [facility] Behavioral Health urgent Care at [address], [address] [place] [address] Currently open Mon-Sat 9 am-7 pm National Suicide Prevention Lifeline 988 or 0-357-288-TALK ( ) A skilled, trained counselor in your are is available you are 24 hours a day 7 days a week to talk.If you feel in a crisis, whether or not you are thinking of hurting yourself, and need to talk please consider calling the Lifeline. All calls are confidential and FREE If actively suicidal, call 911 or go to the ER NG HANGER HELPER NG HANGER HELPER NG HANGER HELPER documented in this encounter Ordered Prescriptions Prescription Sig Dispense Quantity Refills Last Filled Start Date End Date nystatin ointment Apply topically 2 (two) times a day APPLY TO AFFECTED AREA 30 g 1 08/15/2024 clotrimazole-betam ethasone (LOTRISONE) cream Apply topically 2 (two) times a day 15 g 1 08/15/2024 documented in this encounter Progress Notes * Meka Castellano, KIRSTIE - 08/15/2024 1:30 PM CST Images from the original note were not included. Patient ID: Cora Shultz is a 38 y.o. female. Assessment/Plan Diagnoses and all orders for this visit: Bipolar disorder, in partial remission, most recent episode mixed ([facility]) ([facility]) (Primary) Assessment & Plan: Patient has not re-established with Psychiatry, information on psychiatrist in area who accept her insurance. Symptoms stable. Hypertension associated with type 2 diabetes mellitus ([facility]) Assessment & Plan: Chronic problem. Currently taking lisinopril 10mg daily. Hyperlipidemia associated with type 2 diabetes mellitus ([facility]) Assessment & Plan: Awaiting labs, continues Atorvastatin. Intertrigo Comments: topical Lotrisone Class 3 severe obesity due to excess calories with serious comorbidity and body mass index (BMI) of50.0 to 59.9 in adult ([facility]) Assessment & Plan: Healthy, low carbohydrate lifestyle and exercise for 150min/week recommended. Other orders - clotrimazole-betamethasone (LOTRISONE) cream; Apply topically 2 (two) times a day - nystatin ointment; Apply topically 2 (two) times a day APPLY TO AFFECTED AREA Follow up 6 Months Chief Complaint Follow-up (Pt states for 3 month follow up. Pt has no current complaints. ) Patient here today to discuss chronic conditions and discuss labs/have labs ordered. Had RSV x 2 weeks ago, sinus sx still present but improving. Review of Systems Respiratory: Negative for shortness of breath. Cardiovascular: Negative for chest pain. Skin: Positive for rash. Psychiatric/Behavioral: Negative for suicidal ideas. BP 104/60 (BP Location: Right arm, Patient Position: Sitting) Pulse 85 Temp 36.6 ??C (97.8 ??F)(Temporal) Ht 175.3 cm (5' 9.02 ) Wt (!) 156.5 kg (345 lb) SpO2 99% BMI 50.92 kg/m?? Physical Exam Constitutional: Appearance: Normal appearance. HENT: Head: Normocephalic. Right Ear: Tympanic membrane and external ear normal. Left Ear: Tympanic membrane and external ear normal. Eyes: Extraocular Movements: Extraocular movements intact. Cardiovascular: Rate and Rhythm: Normal rate and regular rhythm. Pulmonary: Effort: Pulmonary effort is normal. Breath sounds: Normal breath sounds. Skin: Findings: Rash (intertrigo rash present intergluteal cleft) present. Neurological: General: No focal deficit present. Mental Status: She is alert and oriented to person, place, and time. Psychiatric: Mood and Affect: Mood normal. Behavior: Behavior normal. Meka Castellano NP Cosigned by Soren Mcwilliams MD at 08/16/2024 4:23 PM AWNING HANGER HELPER NG HANGER HELPER NG HANGER HELPER documented in this encounter Miscellaneous Notes * Assessment & Plan Note - Meka Castellano NP - 08/15/2024 1:58 PM CSTAssociated Problem(s): Hypertension associated with type 2 diabetes mellitus (HCC) Chronic problem. Currently taking lisinopril 10mg daily. NG HANGER HELPER * Assessment & Plan Note - Meka Castellano NP - 08/15/2024 1:57 PM CSTAssociated Problem(s): Hyperlipidemia associated with type 2 diabetes mellitus (HCC) Awaiting labs, continues Atorvastatin. NG HANGER HELPER * Assessment & Plan Note - Meka Castellano NP - 08/15/2024 1:57 PM CSTAssociated Problem(s): Class 3 severe obesity due to excess calories with serious comorbidity and body mass index (BMI) of 50.0 to 59.9 in adult (HCC) Healthy, low carbohydrate lifestyle and exercise for 150min/week recommended. NG HANGER HELPER * Assessment & Plan Note - Meka Castellano NP - 08/15/2024 1:57 PM CSTAssociated Problem(s): Bipolar disorder, in partial remission, most recent episode mixed (CMS/HCC) (HCC) Patient has not re-established with Psychiatry, information on psychiatrist in area who accept her insurance. Symptoms stable. NG HANGER HELPER NG HANGER HELPER documented in this encounter Plan of Treatment Not on file documented as of this encounter Visit Diagnoses Diagnosis Bipolar disorder, in partial remission, most recent episode mixed (CMS/HCC) (HCC)- Primary Hypertension associated with type 2 diabetes mellitus (HCC) Hyperlipidemia associated with type 2 diabetes mellitus (HCC) Intertrigo Other specified erythematous condition Class 3 severe obesity due to excess calories with serious comorbidity and body mass index (BMI) of 50.0 to 59.9 in adult (HCC) documented in this encounter Discontinued Medications Medication Sig Discontinue Reason Start Date End Da te nystatin ointment Apply topically 2 (two) times a day APPLY TO AFFECTED AREA Reorder 08/15/2024 documented as of this encounter Care Teams Rn Case Mgr Relationship Specialty Start Date End Date Soren Mcwilliams MD [address] [facility] [address] [place] [address] PCP - General Family Medicine 04/17/24 Yoel Paulson MD [address] [place] [address] [address] [place] [address] Hoisting Pile Driving Engineer Obstetrics and Gynecology 08/15/24 documented as of this encounter
--- OUTSIDE RECORDS SUMMARY | 2024-08-17 06:20 | XMS_ITS | Encounter Summary ---
Author Organization [facility] Healthcare Address [address] [place] [address] Care Team Providers Care Credit Support Specialist Name Role Phone Soren Mcwilliams MD Primary Care Provider [phone] Yoel Paulson MD Unavailable [phone] Encounter Details Date Type Department Care Team (Late st Contact Info) Description 08/16/2024 Orders Only [facility] Medical Group Primary Care at [address] [address] Meka Castellano, KIRSTIE [address] [place] [address] [address] [place] [address] Social History Tobacco Use Types [...] on file 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 Gender Identity Female 12/25/2022 7:50 PM CDT Sexual Orientation Straight 12/25/2022 7: 50 PM CDT documented as of this encounter Ordered Prescriptions Prescription Sig Dispense Quantity Refills Last Filled Start Date End Date clotrimazole 1 % cream Apply topically 2 (two) times a day 30 g 1 08/16/2024 documented in this encounter Plan of Treatment Not on file documented as of this encounter Visit Diagnoses Not on filedocumented in this encounter Care Teams Credit Support Specialist Relationship Specialty Start Date End Date Soren Mcwilliams MD [address] [place] [address] PCP - General Family Medicine 04/17/24 Yoel Paulson MD [address] [facility] [address] [place] [address] Lower In Supervisor Obstetrics and Gynecology 08/15/24 documented as of this encounter
--- OUTSIDE RECORDS SUMMARY | 2024-08-17 06:20 | XMS_ITS | Encounter Summary ---
Author Organization [facility] Healthcare Address [address] [place] [address] Care Team Providers Care Picture Frames Inspector Name Role Phone Soren Mcwilliams MD Primary Care Provider [phone] Yoel Paulson MD Unavailable [phone] Encounter Details Date Type Department Care Team (Late st Contact Info) Description 08/15/2024 2:00 PM VICE PRESIDENT AND PORTFOLIO MANAGER Lab [facility] Medical Group Outpatient Lab at [address] [address] Type 2 diabetes mellitus (HCC) (Primary Dx) Social History Tobacco Use Types Packs/Day Years [...] on file Legal Sex Female 1:26 AM VICE PRESIDENT AND PORTFOLIO MANAGER Gender Identity Female 12/25/2022 7:50 PM CDT Sexual Orientation Straight 12/25/2022 7: 50 PM CDT documented as of this encounter Plan of Treatment Not on file documented as of this encounter Visit Diagnoses Diagnosis Type 2 diabetes mellitus (HCC)- Primary documented in this encounter Care Teams Picture Frames Inspector Relationship Specialty Start Date End Date Soren Mcwilliams MD [address] [place] [address] PCP - General Family Medicine 04/17/24 Yoel Paulson MD [address] [facility] [address] [place] [address] Photo Producer Obstetrics and Gynecology 08/15/24 documented as of this encounter
--- OUTSIDE RECORDS SUMMARY | 2024-08-17 06:20 | XMS_ITS | Referral Summary ---
Author Organization [facility] Address [address] [place] [address] Care Team Providers Care Drawing Press Operator Name Role Phone Soren Mcwilliams MD Primary Care Provider Yoel Paulson MD Unavailable [phone] Encounters Date Type Department Care Team Description 08/16/2024 Orders Only [facility] Medical [facility] Primary Care at [address] [phone] Meka Castellano NP 08/16/2024 Telephone [facility] Medical [facility] Primary Care at [address] [address] Soren Mcwilliams MD Prior Auth (clotrimazole-betametha sone (LOTRISONE) cream) 08/16/2024 Orders Only [facility] Medical [facility] Primary Care at [address] [phone] Soren Mcwilliams MD 08/15/2024 2:01 PM SEWING MACHINE ATTACHMENT TESTER - 08/15/2024 11:59 PM SEWING MACHINE ATTACHMENT TESTER Hospital Encounter [address] [address] Hypertension associated with type 2 diabetes mellitus (HCC); Class 3 severe obesity due to excess calories with serious comorbidity and body mass index (BMI) of 45.0 to 49.9 in adult (HCC) Discharge Disposition: Discharge to home or self care 08/15/2024 2:00 PM SEWING MACHINE ATTACHMENT TESTER Lab [facility] at [address] [address] Type 2 diabetes mellitus (HCC) (Primary Dx) 08/15/2024 1:30 PM SEWING MACHINE ATTACHMENT TESTER Office Visit [facility] at [address] [phone] Meka Castellano NP Bipolar disorder, in partial remission, most recent episode mixed (CMS/HCC) (HCC) (Primary Dx); Hypertension associated with type 2 diabetes mellitus (HCC); Hyperlipidemia associated with type 2 diabetes mellitus (HCC); Intertrigo; Class 3 severe obesity due to excess calories with serious comorbidity and body mass index (BMI) of 50.0 to 59.9 in adult (HCC) 08/08/2024 Orders Only [facility] [address] [place] [phone] David Garrett MD 08/02/2024 Telephone [facility] at [address] [address] Soren Mcwilliams MD Medical Question/Miscellaneous 08/01/2024 3:13 PM SEWING MACHINE ATTACHMENT TESTER - 08/01/2024 11:59 PM SEWING MACHINE ATTACHMENT TESTER Hospital Encounter [address] [address] Acute viral syndrome Discharge Disposition: Discharge to home or self care 08/01/2024 2:45 PM SEWING MACHINE ATTACHMENT TESTER Office Visit [facility] at [address] [address] Rehana Irizarry NP Acute viral syndrome (Primary Dx) 08/01/2024 1:30 PM SEWING MACHINE ATTACHMENT TESTER Office Visit [facility] [address] [place] [phone] Haleigh Ramirez NP Type 2 diabetes mellitus with hyperglycemia, with long-term current use of insulin (HCC) (Primary Dx); Hypertension associated with type 2 diabetes mellitus (HCC); Hyperlipidemia associated with type 2 diabetes mellitus (HCC); PCOS (polycystic ovarian syndrome) 07/19/[address] [place] [address] Mily Mason RN Bleeding/Progesterone Update 07/05/2024 4:00 PM SEWING MACHINE ATTACHMENT TESTER Office Visit [facility] [address] [facility] [address] [place] [phone] Brenda Sheriff MD NIEVES (obstructive sleep apnea) (Primary Dx); Psychophysiological insomnia; Delayed sleep phase syndrome; Family history of sleep apnea; BMI 50.0-59.9, adult (HCC); Nonsmoker 07/04/2024 2:30 PM SEWING MACHINE ATTACHMENT TESTER Ancillary Procedure [address] [place] [phone] Menometrorrhagia 07/02/[address] [address] Mily Mason RN Cycle Update 06/27/2024 2:35 PM SEWING MACHINE ATTACHMENT TESTER Lab [address] Menometrorrhagia 06/27/2024 1:30 PM SEWING MACHINE ATTACHMENT TESTER Office Visit [address] [phone] Yoel Paulson MD Encounter for gynecological examination with abnormal finding (Primary Dx); Menometrorrhagia; Fibroids 06/13/[address] [place] [phone] Oneida Wells MA Appointment 06/11/2024 2:30 PM SEWING MACHINE ATTACHMENT TESTER Office Visit [facility] at [address] [phone] Rina Huizar NP Nausea and vomiting, unspecified vomiting type (Primary Dx); Viral gastroenteritis 05/30/2024 Telephone [facility] at [address] [address] Leonela Johnson MA 05/26/2024 Orders Only [facility] Medical [facility] Primary Care at [address] [phone] Soren Mcwilliams MD 05/26/2024 12:17 PM CDT - 05/26/2024 3:56 PM CDT Emergency [facility] Emergency Department [address] [place] [address] Dysfunctional uterine bleeding (Primary Dx) Discharge Disposition: Discharge to home or self care from Last 3 Months Allergies Active Allergy Reactions Criticality Noted Date [...] mouth every 6 (six) hours as needed Active albuterol HFA (PROVENTIL HFA,VENTOLIN HFA,PROAIR HFA) 90 mcg/actuation inhaler Take 1-2 puffs by mouth Active atorvastatin (LIPITOR) 20 mg tablet Take [...] (three) times a day as needed Active methen-mAllablue-s.ph lu-riomk-mek (UribeL) 118-10-40.8-36 mg capsule TAKE 1 CAPSULE BY MOUTH THREE TIMES DAILY NEEDED 022 Active naproxen (NAPROSYN) 500 mg tablet TAKE 1 TABLET BY MOUTH EVERY 12 HOURS. DO NOT USE OTHER NSAIDS WITH MEDICATION 022 Active omeprazole (PriLOSEC) 20 mg capsule Take by mouth daily 016 Active pen needle, diabetic (TechLITE Pen Needle) 32 gauge x 32 needle 022 Active pseudoephedrine (SUDAFED) 30 mg tablet Take 2 tablets (60 mg total) by mouth every 6 (six) hours Active spironolactone (ALDACTONE) 100 mg tablet Take 2 tablets (200 mg total) by mouth daily Active insulin syringe-needle U-100 1 mL 29 gauge x 1/2 syringe daily 019 Active triamcinolone (KENALOG) 0.1 % cream MIX WITH NYSTATIN OINTMENT AND APPLY TO EXTERNALLY VULVAR TISSUES TWICE DAILY 022 Active OneTouch Verio test strips stripIndications:T ype 2 diabetes mellitus with hyperglycemia, with long-term current use of insulin (HCC) Use to test blood sugar three times a day Dx: E11.65 100 strip 11 024 Active lancets 33 gauge miscIndications:Ty pe 2 diabetes mellitus with hyperglycemia, with long-term current use of insulin (HCC) Use to test blood sugar three times a day Dx: E11.65 100 each Active docusate sodium (DOK) 100 mg capsule [...] EVERY DAY AT NIGHT 90 tablet 1 Active fluvoxaMINE (LUVOX) 100 mg tablet Take 1 tablet (100 mg total) by mouth daily 30 tablet 2 Active metFORMIN XR (GLUCOPHAGE XR) 500 mg 24 hr tabletIndications: Type 2 diabetes mellitus with hyperglycemia, with long-term current use of insulin (HCC) Take 2 tablets (1,000 mg total) by mouth 2 (two) times a day 360 tablet 3 025 2025 Active tirzepatide (MOUNJARO) 7.5 mg/0.5 mL pen injectorIndication s:Type 2 diabetes mellitus with hyperglycemia, with long-term current use of insulin ([facility]) Inject 7.5 mg under the skin every 7 days 6 mL 3 025 2025 Active blood-glucose meter miscIndications:Ty pe 2 diabetes mellitus with hyperglycemia, with long-term current use of insulin ([facility]) One Touch Verio Meter Use to test blood sugar three times a day Dx: E11.65 1 each 025 Active insulin glargine (LANTUS) 100 unit/mL vial for injectionIndicatio ns:Type 2 diabetes mellitus with hyperglycemia, with long-term current use of insulin ([facility]) Inject 120 Units under the skin nightly 120 mL 2 025 Active clotrimazole-betam ethasone (LOTRISONE) cream Apply topically 2 (two) times a day 15 g 1 025 Active nystatin ointment Apply topically 2 (two) times a day APPLY TO AFFECTED AREA 30 g 025 Active ergocalciferol (VITAMIN D) 50,000 unit capsule Take 1 capsule (50,000 Units total) by mouth once a week 12 capsule 1 025 Active clotrimazole 1 % cream Apply topically 2 (two) times a day 30 g 1 025 Active ergocalciferol (VITAMIN D) 50,000 unit capsule TK 1 C PO Q WK 019 2024 Discontinued(R eorder) nystatin ointment Apply topically 2 (two) times a day APPLY TO AFFECTED AREA 2024 Discontinued(R eorder) blood-glucose meter miscIndications:Ty pe 2 diabetes mellitus with hyperglycemia, with long-term current use of insulin ([facility]) One Touch Verio Meter Use to test blood sugar three times a day Dx: E11.65 1 each 024 2024 Discontinued(R eorder) metFORMIN XR (GLUCOPHAGE XR) 500 mg 24 hr tabletIndications: Type 2 diabetes mellitus with hyperglycemia, with long-term current use of insulin ([facility]) TAKE 2 TABLETS BY MOUTH TWICE A DAY 360 tablet 2 12/21/ 024 2024 Discontinued(R eorder) LANTUS 100 unit/mL (3 mL) pen for injectionIndicatio ns:Type 2 diabetes mellitus with hyperglycemia, with long-term current use of insulin (HCC) Inject 100 Units under the skin nightly 90 mL 3 024 2024 Discontinued(R eorder) tirzepatide (Mounjaro) 5 mg/0.5 mL pen injectorIndication s:Type 2 diabetes mellitus with hyperglycemia, with long-term current use of insulin (HCC) Inject 5 mg under the skin every 7 days 6 mL 3 024 2024 Discontinued clindamycin (CLEOCIN) 150 mg capsule TAKE 2 CAPSULES ORAL ROUTE 3 TIMES PER DAY FOR 10 DAYS 024 2024 Discontinued(T herapy completed) LANTUS 100 unit/mL (3 mL) pen for injectionIndicatio ns:Type 2 diabetes mellitus with hyperglycemia, with long-term current use of insulin ([facility]) Inject 120 Units under the skin nightly [...] in partial remission, most recent episode mixed ([facility]) 04/17/2024 Assessment & Plan (08/15/2024 1:57 PM SEWING MACHINE ATTACHMENT TESTER): Patient has not re-established with Psychiatry, information [...] 01/17/2024 Assessment & Plan (08/15/2024 1:58 PM SEWING MACHINE ATTACHMENT TESTER): Chronic problem. Currently taking lisinopril 10mg daily. Assessment & Plan (08/01/2024 1:48 PM SEWING MACHINE ATTACHMENT TESTER): Chronic problem. Currently taking lisinopril 10mg daily. Assessment & Plan (04/17/2024 3:13 PM CDT): Chronic problem. Currently taking lisinopril 10mg daily. Assessment & Plan (01/17/2024 11:44 AM CDT): Chronic problem. Currently taking lisinopril 10mg daily. Will update labs today. Verified that she uses my[facility]. Aware to check results/results letter in [facility]. Will contact by phone if needed. Hyperlipidemia associated with type 2 diabetes sonia salazar 01/17/2024 Assessment & Plan (08/15/2024 1:57 PM SEWING MACHINE ATTACHMENT TESTER): Awaiting labs, continues Atorvastatin. Assessment & Plan (08/01/2024 1:48 PM SEWING MACHINE ATTACHMENT TESTER): Chronic problem. Currently taking Atorvastatin 20mg & fenofibrate 145mg daily. Last lipid panel: 01/17/24 IRX=452, AV=085. Assessment & Plan (04/17/2024 3:14 PM CDT): Chronic problem. Currently taking Atorvastatin 20mg & fenofibrate 145mg daily. Last lipid panel: 01/17/24 JSX=475, MC=900. Assessment & Plan (01/17/2024 11:45 AM CDT): Chronic problem. Currently taking Atorvastatin 20mg & fenofibrate 145mg daily. Last lipid panel: 10/09/21 LDL=could not calc, QY=515. Will update labs today. Verified that she uses [facility]. Aware to check results/results letter in [facility]. Will contact by phone if needed. Morbid (severe) obesity due to excess calories 0 01/17/2024 BMI 50.0-59.9, adult 01/17/2024 Class 3 severe obesity due t o excess calories with serious comorbidity and body mass index (BMI) of 50.0 to 59.9 in adult 01/17/2024 Assessment & Plan (08/15/2024 1:57 PM SEWING MACHINE ATTACHMENT TESTER): Healthy, low carbohydrate lifestyle and exercise for [...] 09/15/2023 Assessment & Plan (08/01/2024 2:08 PM SEWING MACHINE ATTACHMENT TESTER): Chronic problem. A1c worsened from 9.3% 04/17/24 to now 10.0%. interested in insulin pump therapy but wants to check with insurance to see what cost/coverage is. Will send me a [facility] message if pump is covered. Will increase [...] for DM eye exam; last 2022 at [facility] in [place]. Letter sent to get copy of report. [...] at bedtime DM eye exam 2022 at [facility] in [place]. Letter sent to get copy of report. Will update labs today. Verified that she uses [facility]. Aware to check results/results letter in [facility]. Will contact by phone if needed. Discussed [...] infection. Assessment & Plan (09/15/2023 12:26 PM SEWING MACHINE ATTACHMENT TESTER): Hba1c was Lab Results Component Value Date [...] 09/15/2023 Assessment & Plan (08/01/2024 1:48 PM SEWING MACHINE ATTACHMENT TESTER): Chronic problem. Continue metformin & Spironolactone. Assessment & Plan (04/17/2024 3:13 PM CDT): Chronic problem. Continue metformin & Spironolactone. Assessment & Plan (01/17/2024 11:43 AM CDT): Chronic problem. Continue metformin & Spironolactone. 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 03/16/2022 06/27/2024 Immunizations Name Administration Dates Next Due Influenza, Quadrivalent, Deepthi l Culture-based MDCK, Preservative Free, Antibiotic Free, Intramuscular 04/15/2022 Influenza, Quadrivalent, Spl it, Preservative Free, Intramuscular 09/02/2021,07/31/2020,06/10/2018 Influenza, Trivalent, Preser vative Free, Intramuscular 05/15/2024 Influenza, Unspecified 06/10/2018 Social History Tobacco Use Types Packs/Day Years [...] on file Legal Sex Female 1:26 AM SEWING MACHINE ATTACHMENT TESTER Gender Identity Female 12/25/2022 7:50 PM CDT Sexual Orientation Straight 12/25/2022 7: 50 PM CDT Last Filed Vital Signs Vital Sign Reading Time Taken Comments Blood Pressure 104/60 08/15/2024 1:28 PM SEWING MACHINE ATTACHMENT TESTER Pulse 85 08/15/2024 1:28 PM SEWING MACHINE ATTACHMENT TESTER Temperature 36.6 ??C (97.8 ??F) 08/15/2024 1:28 PM CS T Respiratory Rate 18 08/01/2024 2:47 PM SEWING MACHINE ATTACHMENT TESTER Oxygen Saturation 99% 08/15/2024 1:28 PM SEWING MACHINE ATTACHMENT TESTER Inhaled Oxygen Concentration - - Weight 156.5 kg (345 lb) 08/15/2024 1:28 PM SEWING MACHINE ATTACHMENT TESTER Height 175.3 cm (5' 9.02 ) 08/15/2024 1:28 PM CS T Body Mass Index 50.92 08/15/2024 1:28 PM SEWING MACHINE ATTACHMENT TESTER Plan of Treatment Not on file Procedures Procedure Name Priority Date/Time Associated Diagnosis Comments EGFR Routine 08/15/2024 2:01 PM SEWING MACHINE ATTACHMENT TESTER Hypertension associated with type 2 diabetes mellitus (HCC) CHOLESTEROL, LDL, DIRECT Routine 08/15/2024 2:01 PM SEWING MACHINE ATTACHMENT TESTER Hypertension associated with type 2 diabetes mellitus (HCC) DIFFERENTIAL AUTO Routine 08/15/2024 2:0 1 PM SEWING MACHINE ATTACHMENT TESTER Hypertension associated with type 2 diabetes mellitus (HCC) VITAMIN D 25 HYDROXY Routine 08/15/2024 2:01 PM SEWING MACHINE ATTACHMENT TESTER Class 3 severe obesity due to excess calories with serious comorbidity and body mass index (BMI) of 45.0 to 49.9 in adult (HCC) LIPID PANEL Routine 08/15/2024 2:01 PM SEWING MACHINE ATTACHMENT TESTER Hypertension associated with type 2 diabetes mellitus (HCC) COMPREHENSIVE METABOLIC PANEL Routine 08/15/2024 2:01 PM SEWING MACHINE ATTACHMENT TESTER Hypertension associated with type 2 diabetes mellitus (HCC) CBC WITH AUTO DIFFERENTIAL Routine 08/15/2024 2:01 PM SEWING MACHINE ATTACHMENT TESTER Hypertension associated with type 2 diabetes mellitus (HCC) THYROID FUNCTION CASCADE Routine 08/15/2024 2:01 PM SEWING MACHINE ATTACHMENT TESTER Hypertension associated with type 2 diabetes mellitus (HCC) THROAT CULTURE Routine 08/01/2024 3:13 PM SEWING MACHINE ATTACHMENT TESTER Acute viral syndrome INFLUENZA A/B, RSV, AND COVID-19 PCR Routine 08/01/2024 3:13 PM SEWING MACHINE ATTACHMENT TESTER Acute viral syndrome POCT RAPID RSV Routine 08/01/2024 3:07 PM SEWING MACHINE ATTACHMENT TESTER Acute viral syndrome POC INFLUENZA A/B, COVID-19 ANTIGEN Routine 08/01/2024 3:07 PM SEWING MACHINE ATTACHMENT TESTER Acute viral syndrome POCT RAPID STREP Routine 08/01/2024 3:04 PM SEWING MACHINE ATTACHMENT TESTER Acute viral syndrome POCT GLUCOSE Routine 08/01/2024 1:35 PM SEWING MACHINE ATTACHMENT TESTER Type 2 diabetes mellitus with hyperglycemia, with long-term current use of insulin (HCC) POCT HEMOGLOBIN A1C Routine 08/01/2024 1 :35 PM SEWING MACHINE ATTACHMENT TESTER Type 2 diabetes mellitus with hyperglycemia, with long-term current use of insulin (HCC) US TRANSVAGINAL Schedule Routine, Read Routine (OP Routine) 07/04/2024 2:55 PM SEWING MACHINE ATTACHMENT TESTER Menometrorrhagia DIFFERENTIAL AUTO Routine 06/27/2024 2:3 9 PM SEWING MACHINE ATTACHMENT TESTER Menometrorrhagia CBC WITH AUTO DIFFERENTIAL Routine 06/27/2024 2:39 PM SEWING MACHINE ATTACHMENT TESTER Menometrorrhagia TSH Routine 06/27/2024 2:39 PM SEWING MACHINE ATTACHMENT TESTER Menometrorrhagia FERRITIN Routine 06/27/2024 2:39 PM SEWING MACHINE ATTACHMENT TESTER Menometrorrhagia POC INFLUENZA A/B, COVID-19 ANTIGEN Routine 06/11/2024 2:26 PM SEWING MACHINE ATTACHMENT TESTER Nausea and vomiting, unspecified vomiting type EGFR [...] Maintenance Results * eGFR (08/15/2024 2:01 PM SEWING MACHINE ATTACHMENT TESTER) Pathologist [facility] eGFR >90 >=60 mL/min/1. 73 m2 Comment: [...] of Race in Diagnosing Kidney Disease, JASN 202). The CKD-EPI equation should not be used for patients with unstable renal function and has not been validated in children and those over 70. Current interpretive data was last reviewed 2021. Blood 08/15/2024 2:01 PM SEWING MACHINE ATTACHMENT TESTER 08/15/2024 9:27 PM SEWING MACHINE ATTACHMENT TESTER us Soren Mcwilliams MD LAB BLOOD ORDERABLES Final Result Performing Organization Address City/State/ZIP Co mt Phone Number EUN [address] Department [place] [address] * Differential, auto (08/15/2024 2:01 PM SEWING MACHINE ATTACHMENT TESTER) Neutrophil abs 2.8 1.5 - 6.5 K/cumm Imm gran abs 0.0 0.0 - 0.1 K/cumm [facility] Lymphocyte abs 1.3 0.8 - 3.3 K/cumm [facility] Monocyte abs 0.3 0.2 - 0.8 K/cumm [facility] Eosinophil abs 0.2 0.0 - 0.5 K/cumm [facility] Basophil abs 0.1 0.0 - 0.1 K/cumm [facility] Neutrophil pct 59.2 % [facility] Comment: Interpretive Data Percent cell count reference ranges are not reported, since discordance with absolute values may lead to misinterpretation of CBC data. Current Interpretive Data was last revised on 2017. Imm gran pct 0.4 % [facility] Comment: Interpretive Data Percent cell count reference ranges are not reported, since discordance with absolute values may lead to misinterpretation of CBC data. Current Interpretive Data was last revised on 2017. Lymphocyte pct 27.8 % [facility] Comment: Interpretive Data Percent cell count reference ranges are not reported, since discordance with absolute values may lead to misinterpretation of CBC data. Current Interpretive Data was last revised on 2017. Monocyte pct 6.4 % [facility] Comment: Interpretive Data Percent cell count reference ranges are not reported, since discordance with absolute values may lead to misinterpretation of CBC data. Current Interpretive Data was last revised on 2017. Eosinophil pct 4.9 % [facility] Comment: Interpretive Data Percent cell count reference ranges are not reported, since discordance with absolute values may lead to misinterpretation of CBC data. Current Interpretive Data was last revised on 2017. Basophil pct 1.3 % [facility] Comment: Interpretive Data Percent cell count reference ranges are not reported, since discordance with absolute values may lead to misinterpretation of CBC data. Current Interpretive Data was last revised on 2017. Blood 08/15/2024 2:01 PM SEWING MACHINE ATTACHMENT TESTER 08/15/2024 9:08 PM SEWING MACHINE ATTACHMENT TESTER us Soren Mcwilliams MD LAB BLOOD ORDERABLES Final Result EUN [facility] [id number] [address] [facility] [place] [address] * Thyroid Function Midway (08/15/2024 2:01 PM SEWING MACHINE ATTACHMENT TESTER) Pathologist [facility] TSH 1.59 0.30 - 4.20 mcIUnit/mL Blood 08/15/2024 2:01 PM SEWING MACHINE ATTACHMENT TESTER 08/15/2024 9:08 PM SEWING MACHINE ATTACHMENT TESTER Soren Mcwilliams MD LAB BLOOD ORDERABLES Final Result Performing Organization Address City/[facility]/ZIP Co de Phone Number EUN [address] [address] [facility] [place] [address] * (ABNORMAL) CBC with auto differential (08/15/2024 2:01 PM SEWING MACHINE ATTACHMENT TESTER) Pathologist [facility] WBC 4.7 3.8 - 9.9 K/cumm Hgb [...] K/cumm [facility] CH Blood 08/15/2024 2:01 PM SEWING MACHINE ATTACHMENT TESTER 08/15/2024 9:08 PM SEWING MACHINE ATTACHMENT TESTER Soren Mcwilliams MD LAB BLOOD ORDERABLES Final Result EUN [facility] [address] [address] [facility] [place] [address] * (ABNORMAL) Vitamin D 25 hydroxy (08/15/2024 2:01 PM SEWING MACHINE ATTACHMENT TESTER) Vitamin D 25-OH 18(L) 30 - 80 ng/mL Blood 08/15/2024 2:01 PM SEWING MACHINE ATTACHMENT TESTER 08/15/2024 9:08 PM SEWING MACHINE ATTACHMENT TESTER Soren Mcwilliams MD LAB BLOOD ORDERABLES Final Result Performing Organization Address [facility] Phone Number [facility] [address] [employer] [place] [address] * Cholesterol, LDL, direct (08/15/2024 2:01 PM SEWING MACHINE ATTACHMENT TESTER) Pathologist [facility] LDL Cholesterol, Direct 72 <=129 mg/dL Comment: [...] revised on 2018. Blood 08/15/2024 2:01 PM SEWING MACHINE ATTACHMENT TESTER 08/15/2024 9:27 PM SEWING MACHINE ATTACHMENT TESTER Narrative EUN XAVIER - 08/15/2024 11:39 PM SEWING MACHINE ATTACHMENT TESTER Cholesterol, LDL, direct reflexed based on Elevated Triglyceride (>400) Soren Mcwilliams MD LAB BLOOD ORDERABLES Final Result Performing Organization Address [facility] de Phone Number EUN [address] [place] [address] * (ABNORMAL) Lipid panel (08/15/2024 2:01 PM SEWING MACHINE ATTACHMENT TESTER) [facility] Signature Cholesterol 171 30 - 199 [...] 7 [facility] CH Blood 08/15/2024 2:01 PM SEWING MACHINE ATTACHMENT TESTER 08/15/2024 9:08 PM SEWING MACHINE ATTACHMENT TESTER us Soren Mcwilliams MD LAB BLOOD ORDERABLES Final Result [facility] [address] Department [place] [address] * (ABNORMAL) Comprehensive metabolic panel (08/15/2024 2:01 PM SEWING MACHINE ATTACHMENT TESTER) Sodium 136 135 - 145 mmol/L Potassium, pl 4.4 3.3 - 4.9 mmol/L [facility] Chloride 103 97 - 110 mmol/L [facility] CO2 21(L) 22 - 32 mmol/L [facility] Anion gap 12 2 - 15 mmol/L [facility] BUN 5(L) 6 - 25 mg/dL [facility]ER Creatinine 0.57(L) 0.60 - 1.10 mg/dL CERNER [...] Units/L [facility] Blood 08/15/2024 2:01 PM SEWING MACHINE ATTACHMENT TESTER 08/15/2024 9:08 PM SEWING MACHINE ATTACHMENT TESTER Soren Mcwilliams MD LAB BLOOD ORDERABLES Final Result EUN [address] Department [place] [address] * (ABNORMAL) Influenza A/B, RSV, and COVID-19 PCR Nasopharyngeal (08/01/2024 3:13 PM SEWING MACHINE ATTACHMENT TESTER) COVID-19 RNA Negative Negative Influenza A RNA Negative Negative C[facility]ER Influenza B RNA Negative Negative [facility] RSV RNA Positive(A) Negative [facility] Comment: Interpretive data: Testing performed by [facility]. This test is performed using the [employer] Xpert Xpress CoV-2/Flu/RSV plus assay. This is a multiplex, real-time reverse transcriptase PCR assay intended for the qualitative detection of nucleic acid from SARS-CoV-2, influenza A, influenza B, and respiratory syncytial virus. This assay has been cleared by the [place] Food and Drug administration. The performance characteristics have been verified by the [facility]. ??Results must be considered in the clinical context, and a negative result does not rule out infection. Interpretive Data last revised 2023 Nasopharyngeal 08/01/2024 3: 13 PM SEWING MACHINE ATTACHMENT TESTER 08/01/2024 7:43 PM SEWING MACHINE ATTACHMENT TESTER Narrative CERNER [facility] - 08/01/2024 8:34 PM SEWING MACHINE ATTACHMENT TESTER Is the Patient experiencing symptoms consistent with COVID?->Yes us Rehana Irizarry NP LAB MICROBIOLOGY - GENERAL ORD ERABLES Final Result EUN [address] Department [place] [address] CH * Throat culture Throat (08/01/2024 3:13 PM SEWING MACHINE ATTACHMENT TESTER) Report Final Report: No growth of pathogens. Comment:Testing performed by : [facility], [address] [place]., [address] Throat 08/01/2024 3:13 PM SEWING MACHINE ATTACHMENT TESTER 08/01/2024 10:46 PM SEWING MACHINE ATTACHMENT TESTER Narrative EUN - 08/02/2024 10:45 PM SEWING MACHINE ATTACHMENT TESTER Testing performed by [facility] Microbiology Laboratory ([phone]). us Rehana Irizarry NP LAB MICROBIOLOGY - GENERAL ORD ERABLES Final Result Performing Organization Address [facility] Co de Phone Number EUN [address] Department [place] [address] * POC Influenza A/B, COVID-19 antigen (08/01/2024 3:07 PM SEWING MACHINE ATTACHMENT TESTER) [facility] Influenza A Ag, POC Negative Negative [facility] ED[facility] Influenza B Ag, POC Negative Negative [facility] COVID-19 Ag POC Presumptive Negative Presumptive Negative, Invalid [facility] Nasal 08/01/2024 3:07 PM SEWING MACHINE ATTACHMENT TESTER Rehana Irizarry NP POINT OF CARE TEST ORDERABLES Final Result [facility] EDW [address] [place] [address] * POCT rapid RSV (08/01/2024 3:07 PM SEWING MACHINE ATTACHMENT TESTER) [facility] Rapid RSV, POC Negative Negative Lot Number [id number] QC Control Line Acceptable Swab 08/01/2024 3:07 PM SEWING MACHINE ATTACHMENT TESTER Rehana Irizarry NP POINT OF CARE TEST ORDERABLES Final Result * POCT rapid strep A (08/01/2024 3:04 PM SEWING MACHINE ATTACHMENT TESTER) Rapid Strep A, POC Negative Negative Swab 08/01/2024 3:04 PM SEWING MACHINE ATTACHMENT TESTER Rehana Irizarry EDGING MACHINE FEEDER POINT OF CARE TEST ORDERABLES Final Result * (ABNORMAL) POCT hemoglobin A1c (08/01/2024 1:35 PM SEWING MACHINE ATTACHMENT TESTER) Hemoglobin A1C, POC 10.0 4.0 - 5.6 % Blood 08/01/2024 1:35 PM SEWING MACHINE ATTACHMENT TESTER Haleigh Ramirez EDGING MACHINE FEEDER POINT OF CARE TEST ORDERA BLES Final Result * (ABNORMAL) POCT glucose (08/01/2024 1:35 PM SEWING MACHINE ATTACHMENT TESTER) Pathologist [facility] Glucose Blood, POC 351 mg/dL Blood 08/01/2024 1:35 PM SEWING MACHINE ATTACHMENT TESTER Haleigh Ramirez EDGING MACHINE FEEDER POINT OF CARE TEST ORDERA BLES Final Result * US Transvaginal (07/04/2024 2:55 PM SEWING MACHINE ATTACHMENT TESTER) Anatomical Region Laterality Modality Pelvis N/A Ultrasound 07/04/2024 3:06 PM SEWING MACHINE ATTACHMENT TESTER Impressions 07/04/2024 9:26 PM SEWING MACHINE ATTACHMENT TESTER 1. Enlarged uterus with a 4.6 and [...] is not seen. us Yoel Paulson MD IM US PROCEDURES Final Re sult * Differential, auto (06/27/2024 2:39 PM SEWING MACHINE ATTACHMENT TESTER) Neutrophil abs 3.0 1.5 - 6.5 K/cumm [...] revised on 2017. Blood 06/27/2024 2:39 PM SEWING MACHINE ATTACHMENT TESTER 06/27/2024 3:46 PM SEWING MACHINE ATTACHMENT TESTER Yoel Paulson MD LAB BLOOD ORDERABLES Final Result Performing Organization Address City/[facility] Co de Phone Number [facility] ([place]) 1 [facility] Department [place] [address] * (ABNORMAL) CBC with auto differential (06/27/2024 2:39 PM SEWING MACHINE ATTACHMENT TESTER) WBC 5.3 3.8 - 9.9 K/cumm Hgb [...] [facility] ([place]) Blood 06/27/2024 2:39 PM SEWING MACHINE ATTACHMENT TESTER 06/27/2024 3:46 PM SEWING MACHINE ATTACHMENT TESTER us Yoel Paulson MD LAB BLOOD ORDERABLES Final Result EUN B[facility] ([place]) 1 [facility] [place] [address] * TSH (06/27/2024 2:39 PM SEWING MACHINE ATTACHMENT TESTER) [facility] Thyroid Stimulating Hormone 2.25 0.30 - 4.20 mcIUnit/mL Blood 06/27/2024 2:39 PM SEWING MACHINE ATTACHMENT TESTER 06/27/2024 3:46 PM SEWING MACHINE ATTACHMENT TESTER Yoel Paulson MD LAB BLOOD ORDERABLES Final Result Performing Organization Address [facility]/State/ZIP Co de Phone Number EUN [facility] ([place]) 1 [facility] [place] [address] * Ferritin (06/27/2024 2:39 PM SEWING MACHINE ATTACHMENT TESTER) [facility] Ferritin 22 15 - 150 ng/mL Blood 06/27/2024 2:39 PM SEWING MACHINE ATTACHMENT TESTER 06/27/2024 3:46 PM SEWING MACHINE ATTACHMENT TESTER Yoel Paulson MD LAB BLOOD ORDERABLES Final Result Performing Organization Address [facility]/ZIP Co de Phone Number EUN [facility] ([place]) 1 [facility] [place] [address] * POC Influenza A/B, COVID-19 antigen (06/11/2024 2:26 PM SEWING MACHINE ATTACHMENT TESTER) [facility] Influenza A Ag, POC Negative Negative [facility] Influenza B Ag, POC Negative Negative [facility] COVID-19 Ag POC Presumptive Negative Presumptive Negative, Invalid [facility] Nasal 06/11/2024 2:26 PM SEWING MACHINE ATTACHMENT TESTER Rina Huizar NP POINT OF CARE TEST ORDERAB LES Final Result [facility] [address] [place] [address] * eGFR (05/26/2024 12:47 PM CDT) [facility] eGFR >90 >=60 mL/min/1. 73 m2 [...] LAB BLOOD ORDERABLES Dilcia l Result EUN [facility] ([place]) 1 [facility] Department [place] [address] * Differential, auto (05/26/2024 12:47 PM CDT) [facility] Neutrophil abs 2.1 1.5 - 6.5 K/cumm Imm gran abs 0.0 0.0 - 0.1 K/cumm [facility] ([place]) Lymphocyte abs 2.3 0.8 - 3.3 K/cumm [facility] ([place]) Monocyte abs 0.3 0.2 - [...] Lymphocyte pct 46.8 % [facility]NE R [facility] ([place]) Comment: Interpretive [...] Eosinophil pct 2.3 % [facility] ([place]) Comment: Interpretive Data Percent cell count reference ranges are not reported, since discordance with absolute values may lead to misinterpretation of CBC data. Current Interpretive Data was last revised on 2017. Basophil pct 1.0 % [facility] ([place]) Comment: Interpretive Data Percent cell count reference ranges are not reported, since discordance with absolute values may lead to misinterpretation of CBC data. Current Interpretive Data was last revised on 2017. Blood 05/26/2024 12:4 7 PM CDT 05/26/2024 12:51 PM CDT us Suyapa MAI LAB BLOOD ORDERABLES Dilcia l Result EUN [facility] ([place]) 1 [facility] Department [place] [address] * CBC with auto differential (05/26/2024 12:47 PM CDT) WBC 4.8 3.8 - 9.9 K/cumm Hgb 13.7 11.9 - 15.5 g/dL [facility] ([place]) Hct 41.9 35.6 - 45.5 % [facility] ([place]) Plt 174 150 - 400 K/cumm [facility] ([place]) MPV 10.0 9.1 - 12.3 fL [facility] ([place]) RBC 4.77 3.90 - 5.20 M/cumm [facility] ([place]) MCV 87.8 81.3 - 96.4 fL [facility] ([place]) MCH 28.7 27.1 - 33.3 pg [facility] ([place]) MCHC 32.7 32.3 - 35.7 g/dL [facility] ([place]) RDW CV 14.1 11.1 - 14.9 % [facility] ([place]) RDW SD 44.2 35.7 - 48.1 fL [facility] ([place]) NRBC abs 0.00 0.00 - 0.01 K/cumm [facility] ([place]) Blood 05/26/2024 12:4 7 PM CDT 05/26/2024 12:51 PM CDT Suyapa MAI LAB BLOOD ORDERABLES Dilcia disla Result EUN [facility] ([place]) 1 [facility] [place] [address] * ABO/Rh (05/26/2024 12:47 PM CDT) ABO/Rh A Positive Blood 05/26/2024 12:4 7 PM CDT 05/26/2024 12:51 PM CDT Narrative [facility] ([place]) - 05/26/2024 1:28 PM CDT Has the patient had Daratumumab or Isatuximab in the past 6 months?->Unknown Suyapa MAI LAB BLOOD BANK TEST ORDER TAYLOR Final Result Performing Organization Address City/[facility]/ZIP Co de Phone Number EUN [facility] ([place]) 1 [facility] [place] [address] * Antibody screen (05/26/2024 12:47 PM CDT) Raissa, indirect, Gel Interpretation Negative ABSC Blood 05/26/2024 12:4 7 PM CDT 05/26/2024 12:51 PM CDT Narrative ASIM[facility]IS B[facility] ([place]) - 05/26/2024 1:28 PM CDT Has the patient had Daratumumab or Isatuximab in the past 6 months?->Unknown Suyapa MAI LAB BLOOD BANK TEST ORDER TAYLOR Final Result Performing Organization Address [facility] de Phone Number EUN [facility] ([place]) 1 [place] [address] * hCG, blood, quantitative (05/26/2024 12:47 PM [...] BLOOD ORDERABLES Dilcia l Result EUN [facility] ([place]) 1 [facility] [place] [address] * (ABNORMAL) Comprehensive metabolic panel (05/26/2024 12:47 [...] MAI LAB BLOOD ORDERABLES Dilcia disla Result [facility] ([place]) 1 [facility] Department [place] [address] * ABO / Rh Confirmation Testing (05/26/2024 12:42 PM CDT) Pathologist [facility] ABO/Rh Confirmation A Positive [facility] Blood 05/26/2024 12:4 2 PM CDT 05/26/2024 1:28 PM CDT Suyapa Marvin PA LAB BLOOD ORDERABLES Dilcia l Result EUN [facility] ([place]) 1 [facility] [place] [address] AM[facility] * DIABETES EYE EXAM (05/01/2024 7:23 AM CDT) [facility] Provider MD HEALTH MAINTENANCE Final Result * [...] URINE ORDERABLES Dilcia l Result EUN [address] Department [place] [address] from Last 3 Months or Most Recently Relevant to Health Maintenance [facility] [place] [address] [facility] Care Teams Drawing Press Operator Relationship Specialty Start Date End Date Soren Mcwilliams MD [address] [facility] [address] [place] [address] PCP - General Family Medicine 04/17/24 Yoel Paulson MD [address] [place] [address] [address] [place] [id number] Assembly Machine Tool Setter Obstetrics and Gynecology 08/15/24
--- OUTSIDE RECORDS SUMMARY | 2024-08-17 06:20 | XMS_ITS | Encounter Summary ---
Author Organization [facility] Address [address] [facility] [place] [address] Care Team Providers Care Bias Machine Operator Name Role Phone Michelle Valente MD Primary Care Provider [phone] Reason for Visit * Reason Onset Date Comments Concerns 09/08/2021 Appointment 09/08/2021 Encounter Details Date Type Department Care Team (Late st Contact Info) Description 09/08/2021 Telephone [facility] [address] [place] [address] Minoo Verdin MD Need new address Concerns; Appointment Social History Tobacco Use Types Packs/Day Years [...] encounter Miscellaneous Notes * Telephone Encounter - Dudley Johns RN - 09/08/2021 2:[address] Verdin, since fever just broke roughly 2 1/2 days ago, prefers to wait until next week to be seen. Opening next week, 09/15 , at 120. LM on her personal VM re: we can see you next week as above. Will cancel today's appt. EL MACHINE OPERATOR * Telephone Encounter - Dudley Johns RN - 09/08/2021 11:24 AM CST She lives w/ her parents and brother who last Wed started w/ Covid symptoms. All broke out with fever on Tuesday, but gone on Tuesday. Can she still come in and be seen? Will check w/ supervisors and provider then call her back. Appt at 4pm today. EL MACHINE OPERATOR * Telephone Encounter - Karrie Santos - 09/08/2021 11:19 AM CST Pt states she has come in contact with someone who had covid last week. She states she has since tested negative and has no symptoms. CB# [phone] EL MACHINE OPERATOR documented in this encounter Plan of Treatment Not on file documented as of this encounter Visit Diagnoses Not on filedocumented in this encounter Care Teams Bias Machine Operator Relationship Specialty Start Date End Date Michelle Valente MD [address] [place] [address] [address] [place] [id number] PCP - General 11/29/17 documented as of this encounter
--- OUTSIDE RECORDS SUMMARY | 2024-08-17 06:20 | XMS_ITS | Encounter Summary ---
Author Organization [facility] Healthcare Address [address] [place] [address] Care Team Providers Care Manager Mutual Fund Name Role Phone Soren Mcwilliams MD Primary Care Provider [phone] Yoel Paulson MD Unavailable [phone] Reason for Visit * Reason Onset Date Comments Medical Question/Miscellaneous 08/02/2024 Encounter Details Date Type Department Care Team (Late st Contact Info) Description 08/02/2024 Telephone [facility] Medical Group Primary Care at [address] [address] Soren Mcwilliams MD [address] [place] [address] [address] [place] [address] Medical Question/Miscellaneous Social History Tobacco Use Types Packs/Day Years Used Date Smoking Tobacco: Never PHQ-2 Answer Date Recorded PHQ-2 Total Score (If total score is 3 or more points, staff should administer the PHQ-9) 0 06/27/2024 Personal Safety Answer Date Recorded Have you ever been in or are you currently in a harmful physical or emotional relationship or is someone making you feel afraid or unsafe? Denies 05/26/2024 Comments No Sex and Gender Information Value Date Recorded Sex Assigned at Not on file Legal Sex Female 1:26 AM STARCHMAKER Gender Identity Female 12/25/2022 7:50 PM CDT Sexual Orientation Straight 12/25/2022 7: 50 PM CDT documented as of this encounter Miscellaneous Notes * Telephone Encounter - Amaya Escamilla - 08/02/2024 10:04 AM CST Medical Question/Miscellaneous Caller???s Concern: Patient tested positive for RSV yesterday at [facility] cc. Her symptoms started 07/31. She would like to know how long she needs to quarantine? Please advise Does message need to be routed? Yes-Action Needed CHMAKER documented in this encounter Plan of Treatment Not on file documented as of this encounter Visit Diagnoses Not on filedocumented in this encounter Additional Health Concerns Infection Onset Date Last Indicated Resolved Time RSV, droplet 08/01/2024 08/01/2024 08/08/2024 3:05 AM STARCHMAKER documented as of this encounter Care Teams Manager Mutual Fund Relationship Specialty Start Date End Date Soren Mcwilliams MD [address] [place] [address] PCP - General Family Medicine 04/17/24 Yoel Paulson MD [address] [facility] [address] [place] [address] [employer] Sk[employer] Front Desk Clerk Obstetrics and Gynecology 08/15/24 documented as of this encounter
--- OUTSIDE RECORDS SUMMARY | 2024-08-17 06:21 | XMS_ITS | Encounter Summary ---
Author Organization [facility] Address [address] [place] [address] Care Team Providers Care Armhole Raiser Lockstitch Name Role Phone Soren Mcwilliams MD Primary Care Provider [phone] Yoel Paulson MD Unavailable [phone] Reason for Referral * Diagnostic Imaging (Routine) - Closed Specialty Diagnoses / Procedures Referred By Contac t Referred To Contact Diagnoses Other specified symptoms and signs involving the circulatory and respiratory systems Procedures Vl US SAVAGE Soren Mcwilliams MD [address] [place] [id number] Phone: tel: fax: [facility] Cardiology at [address] [address] Phone: tel: fax: Referral ID Status Reason Start Date Expiration Date Visits Re quested Visits Authorized [id number] Closed 05/10/2024 06/09/2025 1 1 Reason for Visit * Reason Comments Getting Established Encounter Details Date Type Department Care Team ([facility] Contact Info) Description 04/17/2024 3:45 PM CDT Office Visit [facility] Primary Care at [address] [address] Soren Mcwilliams MD [address] [place] [address] Encounter for medical examination to establish care (Primary Dx); Hypertension associated with type 2 diabetes mellitus (HCC); Class 3 severe obesity due to excess calories with serious comorbidity and body mass index (BMI) of 45.0 to 49.9 in adult (HCC); Bipolar disorder, in partial remission, most recent episode mixed (CMS/HCC) (HCC); Class 3 severe obesity due to excess calories with serious comorbidity and body mass index (BMI) of 50.0 to 59.9 in adult (HCC); Lymphedema of left leg; Other specified symptoms and signs involving the circulatory and respiratory systems Social History Tobacco Use Types Packs/Day Years [...] on file Legal Sex Female 1:26 AM CURRICULUM MANAGER Gender Identity Female 12/25/2022 7:50 PM CDT Sexual Orientation Straight 12/25/2022 7: 50 PM CDT documented as of this encounter Last Filed Vital Signs Vital Sign Reading Time Taken Comments Blood Pressure 108/70 04/17/2024 3:42 PM CDT Pulse 67 04/17/2024 3:42 PM CDT Temperature 36.7 ??C (98 ??F) 04/17/2024 3:42 PM CDT Respiratory Rate 20 04/17/2024 3:42 PM CDT Oxygen Saturation 97% 04/17/2024 3:42 PM CDT Inhaled Oxygen Concentration - - Weight 152.9 kg (337 lb) 04/17/2024 3:42 PM CDT Height 172.7 cm (5' 7.99 ) 04/17/2024 3:42 PM CD T Body Mass Index 51.26 04/17/2024 3:42 PM CDT documented in this encounter Patient Instructions * Patient Instructions* Warren, Soren A., MD - 04/17/2024 3:45 PM CDT Lamictal trial Continue current regimen BP looks fine SAVAGE ordered to assess vascular in the left leg We may want to get a lymphedema clinic involved as well Compression stockings, massage should be helpful Thanks for coming in today! My medical assistants and I are thankful you have trusted us with your care, and hope that you received EXCELLENT care today! Please do not hesitate to call if you have any questions or concerns at [phone]. You may receive a phone call, text, MYCHART message, or e-mail asking about your care today. We would love to hear your feedback on how EXCELLENT your care wastoday! Wishing you better health, always. Dr. Mcwilliams * Attachments The following attachments cannot be sent through Care Everywhere. * Lamotrigine (By mouth) (Kazakh) documented in this encounter Ordered Prescriptions Prescription Sig Dispense Quantity Refills Last Filled Start Date End Date lamoTRIgine (LaMICtal) 25 mg tabletIndications: Rapid Cycling Bipolar Affective Disorder Take 1 tablet (25 mg total) by mouth 2 (two) times a day for 14 days, THEN 2 tablets (50 mg total) 2 (two) times a day for 14 days. 84 tablet 04/17/2024 4 documented in this encounter Progress Notes * Soren Mcwilliams MD - 04/17/2024 3:45 PM CDT SUBJECTIVE: 38 y.o. female who presents today to establish care with me. HPI Current Outpatient Medications Medication Sig Dispense Refill acetaminophen (TYLENOL) 500 mg tablet Take 1 tablet (500 mg total) by mouth every 6 (six) hours as needed albuterol HFA (PROVENTIL HFA,VENTOLIN HFA,PROAIR HFA) 90 mcg/actuation inhaler Take 1-2 puffs by mouth atorvastatin (LIPITOR) 20 mg tablet Take 1 tablet (20 mg total) by mouth daily biotin 10,000 mcg capsule Take by mouth blood-glucose meter [facility] One Touch Verio Meter Use to test blood sugar three times a day Dx: E11.651 each 0 boric acid, bulk, granules 600 mg compounded nightly x 4 weeks. DO NOT PUT IN MOUTH 454 g 2 cetirizine (ZyrTEC) 10 mg tablet TAKE 1 TABLET BY MOUTH EVERY DAY NEEDED FOR ALLERGY SYMPTOMS desloratadine (Clarinex) 5 mg tablet Take 1 tablet every day by oral route. diazePAM (VALIUM) [address] 1 tablet nightly in the vagina 30 tablet 1 docusate sodium (DOK) 100 mg capsule Take 1 capsule (100 mg total) by mouth 2 (two) times a day doxycycline monohydrate (MONODOX) 100 mg capsule Take by mouth daily EPINEPHrine 0.3 mg/0.3 mL auto-injection syringe INJECT 1 PEN INTO THE MUSCLE 1 TIME NEEDED FOR ANAPHYLAXIS ergocalciferol (VITAMIN D) 50,000 unit capsule TK 1 C PO Q WK famotidine (PEPCID) 20 mg tablet Take 1 [...] tablet (100 mg total) by mouth daily hydrocortisone 2.5 % cream APPLY TO AFFECTED AREA ON EYELIDS EVERY DAY NEEDED FOR RASH insulin syringe-needle U-100 1 mL 29 gauge x 1/2 syringe daily Jardiance 25 mg tablet Take 1 tablet (25 mg total) by mouth daily ketoconazole (NIZORAL) 2 % shampoo APPLY TO WET HAIR, LEAVE ON FOR 3MINS THEN RINSE 3 TIMES PER WEEK lancets 33 gauge [facility] Use to test blood sugar three times a day Dx: E11.65 100 each 11 LANTUS 100 unit/mL (3 mL) pen for injection Inject 100 Units under the skin nightly (Patient takingdifferently: Inject 120 Units under the skin nightly) 90 mL 3 levonorgestreL (Mirena) IUD 1 each by intrauterine route as directed lisinopriL (PRINIVIL,ZESTRIL) 10 mg tablet Take 1 tablet (10 mg total) by mouth daily meclizine (ANTIVERT) 25 mg tablet Take by mouth 3 (three) times a day as needed metFORMIN XR (GLUCOPHAGE XR) 500 mg 24 hr tablet TAKE 2 TABLETS BY MOUTH TWICE A DAY 360 tablet 2 hany.sxva-vwjdd-udz (UribeL) 118-10-40.8-36 mg capsule TAKE 1 CAPSULE BY MOUTH THREE TIMES DAILY NEEDED methocarbamoL (ROBAXIN) 750 mg tablet Take 1 tablet (750 mg total) by mouth every 8 (eight) hours as needed methylPREDNISolone (MEDROL DOSEPACK) 4 mg Dosepack TAKE PER PACKAGE INSERT metroNIDAZOLE (METROGEL) 0.75 % gel APPLY A THIN LAYER TO THE AFFECTED AREA OF FACE TWICE A DAY naproxen (NAPROSYN) 500 mg tablet TAKE 1 TABLET BY MOUTH EVERY 12 HOURS. DO NOT USE OTHER NSAIDS WITH MEDICATION norethindrone (MICRONOR) 0.35 mg tablet Take by mouth daily nystatin ointment Apply topically 2 (two) times a day APPLY TO AFFECTED AREA omeprazole (PriLOSEC) 20 mg capsule Take by mouth daily ondansetron ODT (ZOFRAN-ODT) 8 mg disintegrating tablet Take 1 tablet (8 mg total) by mouth 3 (three) times a day as needed OneTouch Verio test strips strip Use to test blood sugar three times a day Dx: E11.65 100 strip 11 pen needle, diabetic (TechLITE Pen Needle) 32 gauge x 5/32 needle pseudoephedrine (SUDAFED) 30 mg tablet Take 2 tablets (60 mg total) by mouth every 6 (six) hours QUEtiapine (SEROquel) 100 mg tablet Take 1 tablet (100 mg total) by mouth nightly spironolactone (ALDACTONE) 100 mg tablet Take 2 tablets (200 mg total) by mouth daily tirzepatide (Mounjaro) 5 mg/0.5 mL pen injector Inject 5 mg under the skin every 7 days 6 mL 3 traZODone (DESYREL) 50 mg tablet TAKE 1 TABLET BY MOUTH EVERY DAY AT BEDTIME FOR 30 DAYS triamcinolone (KENALOG) 0.1 % cream MIX WITH NYSTATIN OINTMENT AND APPLY TO EXTERNALLY VULVAR TISSUES TWICE DAILY No current facility-administered medications for this visit. Allergies: Penicillins, Clindamycin, Latex, and Oxycodone No LMP recorded. (Menstrual status: IUD). Past Medical History: Diagnosis Date Diabetes mellitus type 2, insulin dependent (CMS/HCC) (HCC) PCOS (polycystic ovarian syndrome) Personal history of other diseases of the digestive system History of cholecystitis - (Added by TW Conv) No past surgical history on file. Family History Problem Relation Age of Onset Diabetes Father Diabetes Brother Social History Tobacco Use Smoking status: Never Smokeless tobacco: None Substance and Sexual Activity Drug use: Defer Sexual activity: None Alcohol Use: Not At Risk (09/16/2020) Received from [employer], [employer] [facility] Frequency of Alcohol Consumption: Never Average Number of Drinks: Not on file Frequency of Binge Drinking: Not on file Review of Systems Constitutional: Negative. HENT: Negative. Eyes: Negative. Respiratory: Negative. Cardiovascular: Negative. Gastrointestinal: Negative. Genitourinary: Negative. Musculoskeletal: Negative. Skin: Negative. Neurological: Negative. Endo/Heme/Allergies: Negative. Psychiatric/Behavioral: Negative. Negative for depression. OBJECTIVE: The patient appears well, alert, oriented x 3, in no distress. BP 108/70 (BP Location: Right arm, Patient Position: Sitting) Pulse 67 Temp 36.7 ??C (98 ??F) (Temporal) Resp 20 Ht 172.7 cm (5' 7.99 ) Wt (!) 152.9 kg (337 lb) SpO2 97% BMI 51.26 kg/m?? Physical Exam Vitals reviewed. Constitutional: Appearance: She is well-developed. She is morbidly obese. HENT: Head: Normocephalic and atraumatic. Right Ear: External ear normal. Left Ear: External ear normal. Eyes: Conjunctiva/sclera: Conjunctivae normal. Pupils: Pupils are equal, round, and reactive to light. Cardiovascular: Rate and Rhythm: Normal rate and regular rhythm. Heart sounds: Normal heart sounds. No murmur heard. No friction rub. No gallop. Pulmonary: Effort: Pulmonary effort is normal. Breath sounds: Normal breath sounds. Abdominal: General: Bowel sounds are normal. Palpations: Abdomen is soft. Tenderness: There is no abdominal tenderness. Musculoskeletal: General: Normal range of motion. Cervical back: Normal range of motion and neck supple. Skin: General: Skin is warm and dry. Capillary Refill: Capillary refill takes less than 2 seconds. Neurological: Mental Status: She is alert and oriented to person, place, and time. Psychiatric: Behavior: Behavior normal. Diagnoses and all orders for this visit: Encounter for medical examination to establish care (Primary) Assessment & Plan: A(n) initial well visit to establish care has been performed today. Xiomara Shultz is not up to date on screening tests. She is in need of Diabetic eye exam, hep B, C, Cholesterol screening, and Cervical cancer screening. She is not up to date on needed preventative vaccinations; She is in need ofTdap/Td, Influenza, and Pneumonia (Prevnar-13 or Pneumovax-23). We discussed healthy lifestyle habit s, educational material has been given. Medications reviewed, changes documented as per the medicalrecord and discussed with patient along with risks vs benefits. Specific topics reviewed: drugs, ETOH, and tobacco, importance of regular dental care, importance of regular exercise, importance of varied diet, limit TV, media violence, minimize junk food, and seat belts. Return in 4 months Hypertension associated with type 2 diabetes mellitus (HCC) - CBC with auto differential; Future - Comprehensive metabolic panel; Future - Lipid panel; Future - Thyroid Function [place]; Future Class 3 severe obesity due to excess calories with serious comorbidity and body mass index (BMI) of45.0 to 49.9 in adult ([facility]) Assessment & Plan: BMI Follow-up includes: nutrition counseling, exercise counseling, and education provided. Orders: - Vitamin D 25 hydroxy; Future Bipolar disorder, in partial remission, most recent episode mixed (CMS/HCC) ([facility]) Comments: Lamictal trial, will ramp up slowly Continuing quetiapine, duloxetine as well follow up in 1 month Orders: - lamoTRIgine (LaMICtal) 25 mg tablet; Take 1 tablet (25 mg total) by mouth 2 (two) times a day for14 days, THEN 2 tablets (50 mg total) 2 (two) times a day for 14 days. - Lamotrigine level; Future Class 3 severe obesity due to excess calories with serious comorbidity and body mass index (BMI) of50.0 to 59.9 in adult ([facility]) Assessment & Plan: BMI Follow-up includes: nutrition counseling, exercise counseling, and education provided. Lymphedema of left leg - Vl US SAVAGE; Future documented in this encounter Miscellaneous Notes * Assessment & Plan Note - Soren Mcwilliams MD - 04/17/2024 4:02 PM CDT Associated Problem(s): Class 3 severe obesity due to excess calories with serious comorbidity and body mass index (BMI) of 50.0 to 59.9 in adult ([facility]) BMI Follow-up includes: nutrition counseling, exercise counseling, and education provided. * Assessment & Plan Note - Soren Mcwilliams MD - 04/17/2024 3:54 PM CDT Associated Problem(s): Encounter for medical examination to establish care A(n) initial well visit to establish care has been performed today. Xiomara Shultz is not up to date on screening tests. She is in need of Diabetic eye exam, hep B, C, Cholesterol screening, and Cervical cancer screening. She is not up to date on needed preventative vaccinations; She is in need ofTdap/Td, Influenza, and Pneumonia (Prevnar-13 or Pneumovax-23). We discussed healthy lifestyle habit s, educational material has been given. Medications reviewed, changes documented as per the medicalrecord and discussed with patient along with risks vs benefits. Specific topics reviewed: drugs, ETOH, and tobacco, importance of regular dental care, importance of regular exercise, importance of varied diet, limit TV, media violence, minimize junk food, and seat belts. Return in 4 months * Addendum Note - Robby Villalobos MA - 04/17/2024 3:45 PM CDTAddended by: ROBBY VILLALOBOS on: 05/10/2024 11:15 AM Modules accepted: Orders * Addendum Note - Archana Morrison - 04/17/2024 3:45 PM CDTAddended by: ARCHANA MORRISON on: 05/15/2024 03:25 PM Modules accepted: Orders * Addendum Note - Yumiko Murphy - 04/17/2024 3:45 PM CDTAddended by: YUMIKO MURPHY on: 08/15/2024 02:00 PM Modules accepted: Orders ICULUM MANAGER documented in this encounter Plan of Treatment Not on file documented as of this encounter Results * (ABNORMAL) Vitamin D 25 hydroxy (08/15/2024 2:01 PM CURRICULUM MANAGER) Vitamin D 25-OH 18(L) 30 - 80 ng/mL Blood 08/15/2024 2:01 PM CURRICULUM MANAGER 08/15/2024 9:08 PM CURRICULUM MANAGER us Soren Mcwilliams MD LAB BLOOD ORDERABLES Final Result Performing Organization Address City/State/[facility] Co ak Phone Number [facility] [address] [facility] Department [place] [address] * (ABNORMAL) Lipid panel (08/15/2024 2:01 PM CURRICULUM MANAGER) Cholesterol 171 30 - 199 mg/dL [...] last revised on 2018. Chol/HDL ratio 7 EUN XAVIER Blood 08/15/2024 2:01 PM CURRICULUM MANAGER 08/15/2024 9:08 PM CURRICULUM MANAGER us Soren Mcwilliams MD LAB BLOOD ORDERABLES Final Result Performing Organization Address [facility] [place] [address] Department [place] [address] * (ABNORMAL) Comprehensive metabolic panel (08/15/2024 2:01 PM CURRICULUM MANAGER) Sodium 136 135 - 145 mmol/L [...] Units/L [facility] Blood 08/15/2024 2:01 PM CURRICULUM MANAGER 08/15/2024 9:08 PM CURRICULUM MANAGER Soren Mcwilliams MD LAB BLOOD ORDERABLES Final Result Performing Organization Address City/[facility]/ZIP Co de Phone Number EUN X[facility] [address] [place] [address] * (ABNORMAL) CBC with auto differential (08/15/2024 2:01 PM CURRICULUM MANAGER) WBC 4.7 3.8 - 9.9 K/cumm [...] K/cumm [facility] Blood 08/15/2024 2:01 PM CURRICULUM MANAGER 08/15/2024 9:08 PM CURRICULUM MANAGER us Soren Mcwilliams MD LAB BLOOD ORDERABLES Final Result Performing Organization Address [facility] Co de Phone Number EUN [facility] [address] [place] [address] * Thyroid Function [place] (08/15/2024 2:01 PM CURRICULUM MANAGER) TSH 1.59 0.30 - 4.20 mcIUnit/mL Blood 08/15/2024 2:01 PM CURRICULUM MANAGER 08/15/2024 9:08 PM CURRICULUM MANAGER Soren Mcwilliams MD LAB BLOOD ORDERABLES Final Result Performing Organization Address [facility] Co de Phone Number [facility] [address] Department [place] [address] * (ABNORMAL) Lamotrigine level (05/15/2024 3:25 PM CDT) Lamotrigine 1.0(L) 3.0 - 15.0 mcg/mL [place] ref Lab Comment: ADDITIONAL INFORMATION This test was developed and its performance characteristics determined by [facility] in a manner consistent with CLIA requirements. This test has not been cleared or approved by the U.S. Food and Drug Administration. Test Performed by: [facility] - [address] [address] [employer]: Davian Martinez Ph.D.; CLIA# [id number] Blood 05/15/2024 3:25 PM CDT 05/15/2024 8:28 PM CDT us Soren Mcwilliams MD LAB BLOOD ORDERABLES Final Result EUN [address] Department [place] [address] [facility] Lab * Vl US SAVAGE (05/15/2024 8:54 AM CDT) Anatomical Region Laterality Modality Vascular N/A Ultrasound 05/15/2024 8:43 AM CDT Narrative 05/15/2024 12:46 PM CDT Vascular & Vein Surgery [address] [place] [address] Lower Extremity Arterial Doppler Report Patient Name: XIOMARA SHULTZ E : 1985 Study Date: 05/15/2024 8:43:00 AM Gender: F [id number] Consultant: Nicole Callejas RVSmiley Location: [facility] Ref Provider: SOREN MCWILLIAMS ?Quality: Adequate Order Provider: SOREN MCWILLIAMS ?? PROCEDURES: Arterial Report: Ankle - Brachial Index Doppler exam. ?? INDICATIONS: R09.89 Other specified symptoms and signs involving the circulatory and respiratory systems. ?? HISTORY: Hypertension. Hyperlipidemia. Diabetic. ?? PREVIOUS STUDIES: No previous studies for comparison. ?? MEASUREMENTS: Right ? Value ? Left ?Value Rt Brachial Pressure ?134 mmHg ?Lt Brachial Pressure ?121 mmHg Rt ERECTING ENGINEER Pressure ? 141 mmHg ?Lt ERECTING ENGINEER Pressure ? 124 mmHg Rt DPA Pressure ? 125 mmHg ?Lt DPA Pressure ? 125 mmHg Rt PT SAVAGE Resting ? 1.05 ?Lt PT SAVAEG Resting ? 0.93 Rt DP SAVAGE Resting ? 0.93 ?Lt DP SAVAGE Resting ? 0.93 - ?? FINDINGS: Right Posterior Tibial Artery Analysis: The posterior tibial waveform is triphasic. Right Anterior Tibial Artery Analysis: The anterior tibial waveform is triphasic. Left Posterior Tibial Artery Analysis: The posterior tibial waveform is triphasic. Left Anterior Tibial Artery Analysis: The anterior tibial waveform is triphasic. ?? CONCLUSIONS: 1. Ankle-brachial index of 0.9-1.3 is within normal limits in the bilateral lower extremities. ?? ATTESTATION: I have reviewed and interpreted the pertinent images and measurements of this study. I attest to the conclusions in the final report that is provided above. Electronically Signed By: Dominic Weems MD [facility] 2024-05-15 12:45:23 CDT Procedure Note Dominic Weems MD - 05/15/2024 Vascular & Vein Surgery [address] [place] [address] Lower Extremity Arterial Doppler Report Patient Name: XIOMARA SHULTZ E : 1985 Study Date: 05/15/2024 8:43:00 AM Gender: [id number] Consultant: Nicole Callejas [place] Location: [facility] Ref Provider: SOREN MCWILLIAMS Quality: Adequate Order Provider: SOREN MCWILLIAMS PROCEDURES: Arterial Report: Ankle - Brachial Index Doppler exam. INDICATIONS: R09.89 Other specified symptoms and signs involving the circulatory andrespiratory systems. HISTORY: Hypertension. Hyperlipidemia. Diabetic. PREVIOUS STUDIES: No previous studies for comparison. MEASUREMENTS: Right Value Left Value Rt Brachial Pressure 134 mmHg Lt Brachial Pressure 121 mmHg Rt ERECTING ENGINEER Pressure 141 mmHg Lt ERECTING ENGINEER Pressure 124 mmHg Rt DPA Pressure 125 mmHg Lt DPA Pressure 125 mmHg Rt PT SAVAGE Resting 1.05 Lt PT SAVAGE Resting 0.93 Rt DP SAVAGE Resting 0.93 Lt DP SAVAGE Resting 0.93 - FINDINGS: Right Posterior Tibial Artery Analysis: The posterior tibial waveform is triphasic. Right Anterior Tibial Artery Analysis: The anterior tibial waveform is triphasic. Left Posterior Tibial Artery Analysis: The posterior tibial waveform is triphasic. Left Anterior Tibial Artery Analysis: The anterior tibial waveform is triphasic. CONCLUSIONS: 1. Ankle-brachial index of 0.9-1.3 is within normal limits in thebilateral lower extremities. ATTESTATION: I have reviewed and interpreted the pertinent images and measurements ofthis study. I attest to the conclusions in the final report that is provided above. Electronically Signed By: Dominic Weems MD [facility] 2024-05-15 12:45:23 CDT us Soren Mcwilliams MD IMG US PROCEDURES Final Res ult documented in this encounter Visit Diagnoses Diagnosis Encounter for medical examination to establish care- Primary Hypertension associated with type 2 diabetes mellitus (HCC) Class 3 severe obesity due to excess calories with serious comorbidity and body mass index (BMI) of 45.0 to 49.9 in adult (HCC) Bipolar disorder, in partial remission, most recent episode mixed (CMS/HCC) (HCC) Class 3 severe obesity due to excess calories with serious comorbidity and body mass index (BMI) of 50.0 to 59.9 in adult (HCC) Lymphedema of left leg Other specified symptoms and signs involving the circulatory and respiratory systems Other specified symptoms and signs involving the circulatory and respiratory systems documented in this encounter Additional Health Concerns Infection Onset Date Last Indicated Resolved Time COVID: Suspected 06/11/2024 06/11/2024 06/11/2024 2:42 PM CURRICULUM MANAGER COVID: Suspected 08/01/2024 08/01/2024 08/01/2024 3:10 PM CURRICULUM MANAGER COVID: Suspected 08/01/2024 08/01/2024 08/01/2024 8:35 PM CURRICULUM MANAGER RSV, droplet 08/01/2024 08/01/2024 08/08/2024 3:05 AM CURRICULUM MANAGER documented as of this encounter Care Teams Armhole Raiser Lockstitch Relationship Specialty Start Date End Date Soren Mcwilliams MD [address] [place] [address] PCP - General Family Medicine 04/17/24 Yoel Paulson MD [address] [place] [address] [facility] 08/15/24 documented as of this encounter
== END 2024-08-17 01:22 | disposition home or self-care (01) ==
PROVIDERS: Emergency Provider Emergency Medicine; PCP Family Medicine
DX: J10.1 Influenza due to other identified influenza virus with other respiratory manifestations (principal); E11.9 Type 2 diabetes mellitus without complications; I10 Essential (primary) hypertension; Z20.822 Contact with and (suspected) exposure to COVID-19; E66.01 Morbid (severe) obesity due to excess calories; Z68.43 Body mass index [BMI] 50.0-59.9, adult
CPT/HCPCS: 87637; 87651; 93005; 99283; A9270

== ENCOUNTER 2024-08-31 22:57 | Emergency (ER) | payer OTHER, SELFPAY ==
--- NOTE | ~2024-08-31 | XR_ITS ---
EXAMINATION: XR hip RT 2V w AP pelvis DATE: 09/01/2024 02:21 INDICATION: Right hip pain. Fall. TECHNIQUE: An anteroposterior view of the pelvis and 2 views of right hip were obtained. COMPARISON: None. FINDINGS: Sensitivity is decreased by obesity. Alignment is normal. No fracture. There is mild osteoa rthritis of the hips. IMPRESSION: 1. Mild osteoarthritis of the hips. Reviewed, dictated and finalized at location A. ER HELPER FORGE
--- NOTE | ~2024-08-31 | XR_ITS ---
EXAMINATION: XR ankle RT 2V DATE: 09/01/2024 02:21 INDICATION: Fall. TECHNIQUE: 2 views of right ankle were obtained. COMPARISON: None. FINDINGS: Alignment is normal. No fracture. There is mild osteoarthritis of talonavicular joint. Ther e is an enthesophyte of posterior aspect of calcaneal tuberosity. IMPRESSION: 1. No fracture. Reviewed, dictated and finalized at location A. FER APPRENTICE IMPRESSION: 1. No fracture.
--- NOTE | ~2024-08-31 | XR_ITS ---
EXAMINATION: XR knee RT 3V DATE: 09/01/2024 02:21 INDICATION: Fall. TECHNIQUE: 3 views of right knee were obtained. COMPARISON: Right knee radiograph 01/17/2015 FINDINGS: Alignment is normal. No fracture. There is mild tricompartmental osteoarthritis. No knee clifford int effusion. IMPRESSION: 1. Mild right knee osteoarthritis. Reviewed, dictated and finalized at location A. EO COMPILER
[2024-08-31 23:00] VITALS: BP 142/84; PULSE 93; RESP 18; TEMP 36.8; O2SAT 100
--- OUTSIDE RECORDS SUMMARY | 2024-08-31 23:00 | XMS_ITS | CONTINUITY OF CARE DOCUMENT ---
Author Name codey, codey Address Unknown Organization [facility] Address [address] [place] [address] Phone [phone] Care Team Providers Care Customer Resource Specialist Name Role Phone Mario Alberto BUNDY, Agusto Olmos Unavailable [phone] MELISA BUNDY, VIKTOR Unavailable CELENA BUNDY, PENNY Unavailable [phone] RESULTS Date Observation Value Provider Reference Range Interpretation Location platelet count 201 10*3/mm3 Pranay Celis hematocrit, blood 42.5 % Pranay Celis triglyceride, serum, fasting 212 mg/dL Pranay Celis HDL cholesterol, serum 38 mg/dL Pranay Celis lipoprotein, beta, serum, point, quantitative, calculated 125 mg/dL Praany Celis cholesterol, serum 205 mg/dL Pranay Celis thyroid stimulating hormone, serum 1.580 u[IU]/mL Pranay Celis alanine aminotransferase (SGPT), serum 66 1/L Pranay Celis aspartate aminotransferase (SGOT), serum 37 1/L Pranay Celis creatinine, serum 0.70 mg/dL Pranay Celis potassium, serum 4.1 mmol/L Pranay Celis sodium, serum 139 mmol/L Pranay Celis INSURANCE PROVIDERS Payer name Policy type / Coverage type [place] party [place] MEDICAID (2) Medicaid [id number]
--- OUTSIDE RECORDS SUMMARY | 2024-08-31 23:00 | XMS_ITS | Encounter Summary ---
Author Organization [facility] Address [address] [place] [address] Care Team Providers Care Engineering And Operations Director Name Role Phone Michelle Valente MD Primary Care Provider [phone] Encounter Details Date Type Department Care Team (Late st Contact Info) Description 06/26/2021 Telephone [facility] [address] [place] [address] Kam Ramesh MD [facility] [place] [address] Social History Tobacco Use Types Packs/Day Years [...] Instructions* Carissa Travis - 06/26/2021 11:47 AM GENERAL NEUROLOGIST Pt is calling to see if she can get a order of test strips sent over to the pharmacy. RAL NEUROLOGIST documented in this encounter Plan of Treatment Not on file documented as of this encounter Visit Diagnoses Not on filedocumented in this encounter Care Teams Engineering And Operations Director Relationship Specialty Start Date End Date Michelle Valente MD [facility] [place] [id number] PCP - General 11/29/17 documented as of this encounter
--- OUTSIDE RECORDS SUMMARY | 2024-08-31 23:00 | XMS_ITS | Patient Health Summary ---
Author Organization [facility] Address [address] [place] [address] Care Team Providers Care Solar Energy System Installer Name Role Phone Michelle Valente MD Primary Care Provider [phone] Note from [facility] [place],non-owned Affiliates and Associated Physician Practices is amultiple site organization consisting of ambulatory clinics and hospital sitesin [place], [place], [place] and [place]. This disclosure is being madepursuant to the Care Everywhere program and may not contain all information available regarding this patient. Last updated 18.[facility] Allergies * Amoxicillin-Pot Clavulanate(Rash) -Medium Criticality * Clindamycin(Rash) -Medium Criticality * Latex(Rash) -Medium Criticality * Oxycodone(Rash) -Medium Criticality * Penicillins(Anaphylaxis,Rash) -High Criticality * seasonal allergies [Other](Headache) -Low Criticality Medications * Be aware that medications may not be up to date on this document. Alwaysverify current medications with the patient. * Windom-3 Fatty Acids (OMEGA-3 FISH OIL) 500 MG Take 1,200 mg by mouth 2 times daily * CPAP Inhale 1 device by mouth at bedtime * vitamin D, ergocalciferol, (DRISDOL) 21125 UNITS capsule(Started 09/27/2018) Take 5,000 Units by [...] times daily * allergy injection Weekly through [facility] * naproxen (NAPROSYN) 500 MG tablet(Started [...] by 08/05/2023 * Blood Glucose Monitoring Suppl (Eventable Verio Flex System) w/Device KIT (Started 09/14/2022) Use 1 kit as directed * dulaglutide (Trulicity) 1.5 MG/0.5ML injection(Started 09/24/2022) Inject 0.5 mL subcutaneously every 7 days 11 refills by 09/24/2023 * Eventable Verio test strip(Started 10/13/2022) USE TWICE DAILY [...] an appointment for futurerefills * nystatin (Mycostatin) 089665 UNIT/GM ointment(Started 02/21/2023) MIX WITH TRIAMCINOLONE AND [...] 97 01/05/2022 3:44 PM CDT Temperature 36.2 C (97.2 F) 04/05/2022 3:02 PM CDT Respiratory Rate 18 07/31/2020 4:33 PM SALES DEVELOPMENT COORDINATOR Oxygen Saturation 96% 01/05/2022 3:44 PM CDT Inhaled Oxygen Concentration - - Weight 173.3 kg (382 lb) 04/23/2022 3:08 PM CDT Height 175.3 cm (5' 9 ) 04/23/2022 3:08 PM CDT Body Mass Index 56.41 04/23/2022 3:08 PM CDT Medical Devices Implanted Type Area Sail Cutter Device Identifier Shelf Expiration Date Model / Serial / Lot Intrauterine Device/Mirena Implanted:Qty: 1 on 07/30/2020 by Willy Landeros MD at [facility] Cervix 10/21/2022 [id number] / [id number] Procedures * AR INSERT NON-INDWELLING BLADDER(Performed 04/05/2022) Performed for Pelvic [...] 06/02/2021) Performed for Chronic interstitial cystitis * AR SONO EXAM, TRANSVAGINAL(Performed 06/02/2021) Performed for Chronic interstitial cystitis * AR US PEL NONOB B-SCAN&/R-T IMG LMTD/F-UP+C97(Performed 06/02/2021) [...] unknown * ENDOTRACHEAL TUBE NOTE(Performed 07/30/2020) * AR HYSTEROSCOPY,W/ENDO BX(Performed 07/30/2020) Performed for Diagnosis unknown [...] intramural * IMAGING/RADIOLOGY/XRAY RESULTS ORDER(Performed 02/25/2020) * AR SONO EXAM, TRANSVAGINAL(Performed 02/22/2020) Performed for Chronic pelvic pain in female, Dysmenorrhea, Menorrhagia with regular cycle * AR US PELVIC NONOB REAL-TIME IMG COMPLETE(Performed 02/22/2020) Performed for Chronic pelvic pain in female, Dysmenorrhea, Menorrhagia with regular cycle * HEMOGLOBIN A1C - POINT OF CARE (AMB) [facility](Performed 05/31/2019) Performed for Type 2 diabetes mellitus with hyperglycemia, with long-term current use of insulin (HCC) * LAB RESULTS ORDER(Performed 02/01/2019) * HEMOGLOBIN A1C - POINT OF CARE (AMB) [facility](Performed 01/24/2019) Performed for Type 2 diabetes mellitus with hyperglycemia, with long-term current use of insulin (HCC) * EYE EXAM(Performed 10/16/2018) * HEMOGLOBIN A1C - POINT OF CARE (AMB) [facility](Performed 10/12/2018) Performed for Type 2 diabetes mellitus with hyperglycemia, with long-term current use of insulin ([facility]) * HEMOGLOBIN A1C - POINT OF CARE (AMB) [facility](Performed 06/02/2018) Performed for Type 2 diabetes mellitus with hyperglycemia, with long-term current use of insulin ([facility]) * MICROALB/CREAT RATIO URINE RANDOM PANEL(Performed 12/13/2017) Performed for Type 2 diabetes mellitus with complication, with long-term current use of insulin (HCC) * LIPID PROFILE(Performed 12/13/2017) Performed for Type 2 diabetes mellitus with complication, with long-term current use of insulin ([facility]) * TSH(Performed 12/13/2017) Performed for Type 2 diabetes mellitus with complication, with long-term current use of insulin ([facility]) * COMPREHENSIVE METABOLIC PANEL(Performed 12/13/2017) Performed for Type 2 diabetes mellitus with complication, with long-term current use of insulin ([facility]) * HEMOGLOBIN A1C - POINT OF CARE (AMB)(Performed 12/13/2017) Performed for Type 2 diabetes mellitus with complication, with long-term current use of insulin ([facility]) * HEMOGLOBIN A1C - POINT OF CARE [...] GROSS + MICRO EXAM(Performed 01/30/1997) Results * AR INSERT NON-INDWELLING BLADDER (04/05/2022 5:36 PM CDT) Oneida Greenwood MD - 04/05/2022 5:36 PM CDT Oneida Trivedi MD 04/05/2022 5:40 PM Procedure note: Straight catheterization was performed after swabbing the urethra with betadine. A 14 Fr urethral catheter was inserted without difficulty and the bladder was drained for 20 mL. The patient tolerated the procedure well. Oneida Trivedi MD PROCEDURE/MINOR MARCEL GICAL ORDERABLES * URINALYSIS AUTO - POINT OF CARE (AMB) [facility] (04/05/2022 4:21 PM CDT) Only the most recent of2 resultswithin the time period is included. Glucose UA 3+ Comment:1000 mg/dL Bilirubin UA POCT 1+ Comment:1 mg/dL Ketones UA POCT neg Specific [place] UA 1.030 Blood Urine POCT neg pH UA 5.5 Protein UA trace Comment:15 mg/dL Urobilinogen UA neg Nitrite UA neg WBC UA neg Urine URINE / Unknown 04/05/2022 4 :21 PM CDT Oneida Trivedi MD LAB - POINT OF CARE ORDERABLES * CULTURE URINE (01/14/2022 3:15 PM CDT) Culture [facility] Comment: CULTURE, URINE, ROUTINE Micro Number: [id number] Test Status: Final Specimen Source: Urine, clean catch Specimen Quality: Adequate Result: No Growth Test Performed at: [facility] [address] CODY NORMAN MD Urine URINE SPECIMEN OBTAINED BY CLEAN CATCH PROCEDURE / Unknown 01/14/2022 3:15 PM CDT 01/14/2022 3:15 PM CDT Minoo Verdin MD LAB - MICROBIOLOGY O RDERABLES Performing Organization Address [facility]/ZIP Co de Phone Number [address] [address] * HEMOGLOBIN A1C - POINT OF CARE (AMB) [facility] (01/05/2022) Only the most recent of9 resultswithin the time period is included. Pathologist [facility] Hemoglobin A1c POCT 8.1 % BLOOD SPECIMEN / Unknown 01/05/2022 Kam Ramesh MD LAB - POINT OF CARE ORDERABLES * (ABNORMAL) URINALYSIS W/MICROSCOPIC NO CULTURE (10/13/2021 5:09 PM CDT) Color UA YELLOW YELLOW [facility] Appearance CLEAR CLEAR [facility] Specific [place] UA 1.024 1.001 - 1.035 [facility] pH [...] SEEN /LPF [facility] Comment: Test Performed at: [facility] [address] CODY NORMAN MD Urine URINE SPECIMEN OBTAINED BY CLEAN CATCH PROCEDURE / Unknown 10/13/2021 5:09 PM CDT 10/14/2021 11:45 PM CDT Minoo Verdin MD LAB - URINALYSIS ORD ERABLES Performing Organization Address [facility]/ZIP Co de Phone Number [facility] [address] [place] [phone] * (ABNORMAL) CULTURE URINE COMPREHENSIVE (10/13/2021 5:09 PM CDT) Culture (A) [facility] Comment: CULTURE, URINE, SPECIAL Micro Number: [id number] Test Status: Final Specimen Source: Urine Specimen Quality: Adequate Result: 50,000-100,000 CFU/mL of Klebsiella pneumoniae K.pneumoniae INT MALOU AMOX/CLAVULANATE S 4 AMPICILLIN R >=32 AMP/SULBACTAM I 16 CEFAZOLIN NR <=4 2 CEFEPIME S <=1 CEFTRIAXONE S <=1 CIPROFLOXACIN S <=0.25 ERTAPENEM S <=0.5 GENTAMICIN S <=1 IMIPENEM S <=0.25 LEVOFLOXACIN S 0.5 NITROFURANTOIN R 128 PIP/TAZOBACTAM S 16 TOBRAMYCIN S <=1 TRIMETHOPRIM/SULFA S <=20 S=Susceptible I=Intermediate R=Resistant * = Not Tested NR = Not Reported NN = See Therapy Comments THERAPY COMMENTS Note 1: For infections other than uncomplicated UTI caused by E. coli, K. pneumoniae or P. mirabilis: Cefazolin is resistant if MALOU > or = 8 mcg/mL. (Distinguishing susceptible versus intermediate for isolates with MALOU < or = 4 mcg/mL requires additional testing.) Note 2: For uncomplicated UTI caused by E. coli, K. pneumoniae or P. mirabilis: Cefazolin is susceptible if MALOU <32 mcg/mL and predicts susceptible to the oral agents cefaclor, cefdinir, cefpodoxime, cefprozil, cefuroxime, cephalexin and loracarbef. Test Performed at: [facility] [address] CODY NORMAN MD Microbiology URINE SPECIMEN OBTAINED BY CLEAN CATCH PROCEDURE / Unknown 10/13/2021 5:09 PM CDT 10/15/2021 12:22 AM CDT Minoo Verdin MD LAB - MICROBIOLOGY O RDERABLES Performing Organization Address City/[facility]/ZIP Co de Phone Number [facility] [address] [place] [phone] * MICROALB/CREAT RATIO URINE RANDOM PANEL (10/09/2021 2:05 PM CDT) Only the most recent of5 resultswithin the time period is included. Creatinine Urine 117 20 - 275 mg/dL [facility] Microalbumin Urine 1.6 mg/dL [facility] Comment: Reference Range Not established Microalbumin/Creat inine Ratio 14 <30 mcg/mg creat [facility] Comment: The ADA defines abnormalities in albumin excretion as follows: Albuminuria Category Result (mcg/mg creatinine) Normal to Mildly increased <30 Moderately increased 30-299 Severely increased > OR = 300 The ADA recommends that at least two of three specimens collected within a 3-6 month period be abnormal before considering a patient to be within a diagnostic category. Test Performed at: [facility] [address] [place] [address] BALAJI CANCINO DO,MPH 10/09/2021 2:05 PM CDT 10/09/2021 2:10 PM CDT Kam Ramesh MD LAB - URINE CHEMISTR Y ORDERABLES [facility] [address] [place] [address] * (ABNORMAL) HEMOGLOBIN A1C (10/09/2021 2:05 PM [...] A1c for diagnosis of diabetes for children. REPORT COMMENT: INSURANCE ON PHONE FASTING:YES Test [facility]formed [facility]: [facility] [address] [place] [address] CODY NORMAN MD 10/09/2021 2:05 PM CDT 10/09/2021 2:10 PM CDT Kam Ramesh MD LAB - CHEMISTRY DAVIDElizabeth DANIELMAN[facility] Organization Address City/State/ZIP Co de Phone Number [facility] [address] [place] [address] * (ABNORMAL) COMPREHENSIVE METABOLIC PANEL (10/09/2021 2:05 PM CDT) Only the most recent of5 resultswithin the time period is included. Glucose 169(H) 65 - 99 mg/dL [facility] Comment: Fasting reference interval For someone without known [...] 29 U/L [facility] Comment: Test Performed at: [facility] [place] [address] [place] [address] BALAJI CANCINO DO,MPH 10/09/2021 2:05 PM CDT 10/09/2021 2:10 PM CDT Kam Ramesh MD LAB - CHEMISTRY DARCI STEWART Performing Organization Address [facility] Co de Phone Number [facility] [address] [place] [address] * VITAMIN B12 (10/09/2021 2:05 PM CDT) Only the most recent of2 resultswithin the time period is included. Pathologist [facility] Vitamin B12 434 200 - 1100 pg/mL [facility] Comment: Test Performed at: [facility] [address] [place] [address] BALAJI CANCINO DO,MPH 10/09/2021 2:05 PM CDT 10/09/2021 2:10 PM CDT Kam Ramesh MD LAB - CHEMISTRY DARCI STEWART Performing Organization Address [facility] de Phone Number [facility] [address] [place] [address] * (ABNORMAL) LIPID PROFILE (10/09/2021 2:05 PM CDT) Only the most recent of5 resultswithin the time period is included. Pathologist [facility] Cholesterol 242(H) <200 mg/dL [facility] HDL Cholesterol [...] Desirable range <100 mg/dL for primary prevention; <70 mg/dL for patients with CHD or diabetic patients with > or = 2 CHD risk factors. LDL-C is now calculated using the Marck calculation, which is a validated novel method providing better accuracy than the Friedewald equation in the estimation of LDL-C. Gianfranco SUE et al. ISABELA. 2013;310(19): 7641-1442 (http://education.ReliOn.Blurr/faq/CUA673) CHOL/HDLC RATIO 6.4(H) <5.0 (calc) [facility] Non HDL Cholesterol 204(H) <130 mg/dL (calc) [facility] Comment: For patients with diabetes plus 1 major ASCVD risk factor, treating to a non-HDL-C goal of <100 mg/dL (LDL-C of <70 mg/dL) is considered a therapeutic option. Test Performed at: [facility] [address] [place] [address] BALAJI CANCINO DO,MPH 10/09/2021 2:05 PM CDT 10/09/2021 2:10 PM CDT Kam Ramesh MD LAB - CHEMISTRY DARCI STEWART Performing Organization Address City/[facility]/ZIP Co de Phone Number [facility] [address] [place] [address] * HPV DETECTION HIGH RISK TAI (06/29/2021 1:53 PM SALES DEVELOPMENT COORDINATOR) High Risk Human Papilloma Result Not detected Not detected 07/01/2021 7:22 AM SALES DEVELOPMENT COORDINATOR [facility] High Risk Human Papilloma Interp 07/01/2021 7:22 AM SALES DEVELOPMENT COORDINATOR [facility] Comment:High Risk Human Lopez lloma Virus was Not Detected. Pathology/Cytolo gy MISCELLANEOUS SAMPLES / Unknown 06/29/2021 1:53 PM SALES DEVELOPMENT COORDINATOR 06/30/2021 12:05 PM SALES DEVELOPMENT COORDINATOR Narrative [facility] - 07/01/2021 7:22 AM SALES DEVELOPMENT COORDINATOR Nucleic acid isolated from the specimen was analyzed with a nucleic acid amplification test (FDA approved Gen-Probe HPV Assay) to detect high risk human papilloma virus (Types: 16, 18, 31, 33, 35, 39, 45, 51, 52, 56, 58, 59, 66, and 68). The reference range is Not Detected . Comment: These test results should not be used as the sole basis for clinical assessment and treatment of patients. These results should always be correlated with other available data (cytology, histology, and clinical information). Minoo Verdin MD LAB - MICROBIOLOGY O RDERABLES Performing Organization Address City/[facility]/ZIP Co de Phone Number [facility] [address] [place] [address], [facility] [phone] * PAP IMAGE-GUIDED W HPV (06/29/2021 1:53 PM SALES DEVELOPMENT COORDINATOR) Case Report Gynecologic Cytology Report Case: [id number] Authorizing Provider: Minoo Verdin MD Collected: 06/29/2021 01:53 PM Ordering Location: [facility] Received: 06/30/2021 12:05 PM [facility] First Screen: Tereso Woodruff Rescreen: Garo Orellana Specimen: THINPREP - IMAGE GUIDED, Cervix/Endocervix 07/02/2021 3:53 PM SALES DEVELOPMENT COORDINATOR [facility] LMP na 07/02/2021 3:53 PM SALES DEVELOPMENT COORDINATOR [facility] Menstrual Status Mirena 07/02/20 21 3:53 PM SALES DEVELOPMENT COORDINATOR [facility] Specimen Adequacy Satisfactory for evaluation, endocervical/trans formation zone component present. 07/02/2021 3:53 PM SALES DEVELOPMENT COORDINATOR [facility] Categorization Negative for intraepithelial lesion or malignancy. 07/02/2021 3:53 PM SALES DEVELOPMENT COORDINATOR [facility] Interpretation ASSISTANT PROFESSOR OF ARCHAEOLOGY Negative for intraepithelial lesion or malignancy. 07/02/2021 3:53 PM SALES DEVELOPMENT COORDINATOR [facility] Pap Footnote The Pap Smear is a screening test. False positive and false negative results occur. Negative results do not preclude abnormalities, thus clinical correlation is required. This specimen was evaluated by the ThinPrep Imaging System along with an additional manual rescreening by a corduroy cutting supervisor and/or pathologist. 07/02/2021 3:53 PM SALES DEVELOPMENT COORDINATOR [facility] Embedded Images 3:53 PM SALES DEVELOPMENT COORDINATOR [facility] Pathology/Cytolo gy MISCELLANEOUS SAMPLES / Unknown 06/29/2021 1:53 PM SALES DEVELOPMENT COORDINATOR 06/30/2021 12:05 PM SALES DEVELOPMENT COORDINATOR Minoo Verdin MD LAB - PATHOLOGY/CYTO LOGY ORDERABLES [facility] [address] [phone] * EYE EXAM (06/29/2021) Anatomical Region Laterality [...] of this test have been determined by [employer]. This test should not be used for diagnosis without confirmation by other medically established means. Test Performed at: [email or web address] [address] [place] [address] RAVINDER MCKINNEY MD 06/03/2021 06/03/2021 12: 21 PM SALES DEVELOPMENT COORDINATOR Kristine Fine MD LAB - MICROBIOLOGY ORDERABLES [address] [address] * (ABNORMAL) CULTURE YEAST WITH DIRECT FLUORESCENT JAMILA (06/03/2021) Smear (A) [facility] Comment: CULTURE, YEAST, W/DIRECT FLUORESCENT JAMILA Micro Number: [id number] Test Status: Final Specimen Source: Genital Specimen Quality: Adequate Smear: Rare Budding yeast seen Result: Marah glabrata Isolate forwarded to [employer] [facility] [employer]. for Susceptibility Testing. REPORT COMMENT: FASTING:UNKNOWN Test Performed at: [facility] [address] CODY NORMAN MD Microbiology SPECIMEN FROM GENITAL SYSTEM / Unknown 06/03/2021 06/03/2021 12:21 PM SALES DEVELOPMENT COORDINATOR Kristine Fine MD LAB - MICROBIOLOGY ORDERABLES [address] [address] * AR US PEL NONOB B-SCAN&/R-T IMG LMTD/F-UP+C97, AR SONO EXAM, TRANSVAGINAL, US PELVIS COMPLETE (06/02/2021) Anatomical Region Laterality Modality Pelvis Ultrasound Narrative 06/02/2021 Danielle Puente 06/02/2021 4:58 PM Documentation in digisonics. Procedure Note Danielle [...] signed by SHAN MCNEILL on 03/31/2021 1:46 PM . Narrative 03/31/2021 1:46 [...] SHAN MCNEILL on 03/31/2021 1:46 PM. Jane Woodard DIRECTOR RADIO NEWS-CHIMNEY CONSTRUCTION SUPERVISOR MR ORDERABLES * CREATININE - POCT INTERFACED (03/28/2021 5:21 PM CDT) Pathologist [facility] Creatinine POCT 0.85 0.30 - 1.30 mg/dL 03/28/2021 5:25 PM CDT [facility] eGFR >60 >60 mL/min/1.7 3 m2 03/28/2021 5:25 PM CDT [facility] Blood BLOOD SPECIMEN / Unknown 03/28/2021 5:21 PM CDT 03/28/2021 5:25 PM CDT Jane Woodard APRN-CHIMNEY CONSTRUCTION SUPERVISOR LAB - POINT OF CARE ORDERABLES [address] [address], [facility] [phone] * CARDIAC RHYTHM STRIP ORDER (08/01/2020 5:07 PM SALES DEVELOPMENT COORDINATOR) Narrative 08/01/2020 5:07 PM SALES DEVELOPMENT COORDINATOR Ordered by an unspecified provider. Scanned Document CARDIAC SERVICES ORD ERABLES * APHERESIS/TRANSFUSION ORDER (08/01/2020 5:07 PM SALES DEVELOPMENT COORDINATOR) Narrative 08/01/2020 5:07 PM SALES DEVELOPMENT COORDINATOR Ordered by an unspecified provider. Scanned Document NURSING - VITAL SIGN S AND ASSESSMENT * (ABNORMAL) GLUCOSE - POINT OF CARE (07/31/2020 4:30 PM SALES DEVELOPMENT COORDINATOR) Only the most recent of10 resultswithin the time period is included. Pathologist [facility] Glucose WB/POC 153(H) 70 - 106 mg/dL 07/31/2020 5:33 PM SALES DEVELOPMENT COORDINATOR [facility] Specimen Type Arterial/C apillary 07/31/2020 5:33 PM SALES DEVELOPMENT COORDINATOR [facility] Blood BLOOD SPECIMEN / Unknown 07/31/2020 4:30 PM SALES DEVELOPMENT COORDINATOR 07/31/2020 5:33 PM SALES DEVELOPMENT COORDINATOR Willy Landeros MD LAB - POINT OF CARE ORDERABLES [facility] [address] [place] [address] * CBC W AUTO DIFFERENTIAL (07/31/2020 5:17 AM SALES DEVELOPMENT COORDINATOR) Only the most recent of4 resultswithin the time period is included. [facility] WBC 8.1 4.4 - 10.7 x10E9/L 07/31/2020 5:56 AM [facility] WBC Corrected 07/31/2020 5:56 AM [facility] RBC 4.54 3.80 - 5.20 x10E12/L 07/31/2020 5:56 AM [facility] Hemoglobin 13.1 12.0 - 15.6 gm/dL 07/31/2020 5:56 AM [facility] Hematocrit 41.5 35.9 - 45.5 % 07/31/2020 5:56 AM [facility] MCV 91.4 80.7 - 98.3 fl 07/31/2020 5:56 AM [facility] MCH 28.9 26.7 - 34.0 pg 07/31/2020 5:56 AM [facility] MCHC 31.6 30.8 - 35.9 gm/dL 07/31/2020 5:56 AM [facility] Platelet Count 196 153 - 416 x10E9/L 07/31/2020 5:56 AM [facility] RDW-CV 14.3 12.1 - 14.9 % 07/31/2020 5:56 AM [facility] MPV 9.4 9.4 - 12.9 fl 07/31/2020 5:56 AM [facility] Neutrophils % 68.7 44.0 - 73.0 % 07/31/2020 5:56 AM [facility] Lymphocytes % 22.5 20.0 - 43.0 % 07/31/2020 5:56 AM [facility] Monocytes % 7.5 5.0 - 13.0 % 07/31/2020 5:56 AM [facility] Eosinophils % 0.6 0.0 - 6.0 % 07/31/2020 5:56 AM [facility] Basophils % 0.5 0.0 - 2.0 % 07/31/2020 5:56 AM [facility] Immature Granulocytes 0.2 0 - 1 % 07/31/2020 5:56 AM [facility] Neutrophil Absolute 5.59 2.01 - 7.14 x10E9/L 07/31/2020 5:56 AM [facility] Lymphocytes Absolute 1.83 1.07 - 3.94 x10E9/L 07/31/2020 5:56 AM [facility] Monocytes Absolute 0.61 0.26 - 1.07 x10E9/L 07/31/2020 5:56 AM [facility] Eosinophils Absolute 0.05 0 - 0.47 x10E9/L 07/31/2020 5:56 AM [facility] Basophils Absolute 0.04 0 - 0.08 x10E9/L 07/31/2020 5:56 AM [facility] Immature Granulocytes Absolute 0.02 0.00 - 0.06 x10E9/L 07/31/2020 5:56 AM [facility] nRBC Auto 0 /100 WBC 07/31/2020 5:56 AM [facility] Blood BLOOD SPECIMEN / Unknown Lab Venipuncture / Unknown 07/31/2020 5:17 AM SALES DEVELOPMENT COORDINATOR 07/31/2020 5:37 AM [facility] Minoo Verdin MD LAB - HEMATOLOGY ORD ERABLES [facility] [address] [place] [address] * (ABNORMAL) RENAL FUNCTION PANEL (07/31/2020 5:17 AM [facility]) [facility] Signature Glucose 109(H) 70 - 105 mg/dL 07/31/2020 6:07 AM [facility] Sodium 141 136 - 145 mmol/L 07/31/2020 6:07 AM [facility] Potassium 4.2 3.5 - 5.1 mmol/L 07/31/2020 6:07 AM [facility] Chloride 107 98 - 107 mmol/L 07/31/2020 6:07 AM [facility] CO2 25 23 - 31 mmol/L 07/31/2020 6:07 AM [facility] Calcium 8.4 8.4 - 10.4 mg/dL 07/31/2020 6:07 AM [facility] Anion Gap 9 8 - 18 mmol/L 07/31/2020 6:07 AM [facility] Comment:Attention clinician: Reference Range change. BUN 16 7 - 18.7 mg/dL 07/31/2020 6:07 AM [facility] Creatinine 0.74 0.57 - 1.11 mg/dL 07/31/2020 6:07 AM [facility] Albumin 3.5 3.5 - 5.2 gm/dL 07/31/2020 6:07 AM [facility] Phosphorus 4.2 2.3 - 4.7 mg/dL 07/31/2020 6:07 AM [facility] Comment:Attention clinician: Reference Range change. eGFR by MDRD >60 >60 mL/min/1.7 3m2 07/31/2020 6:07 AM [facility] eGFR by MDRD >60 >60 mL/min/1.7 3m2 07/31/2020 6:07 AM [facility] Blood BLOOD SPECIMEN / Unknown Lab Venipuncture / Unknown 07/31/2020 5:17 AM SALES DEVELOPMENT COORDINATOR 07/31/2020 5:37 AM SALES DEVELOPMENT COORDINATOR Minoo Verdin MD LAB - CHEMISTRY [place] [place] Organization Address City/State/ZIP Co de Phone Number [facility] [address] [place], [place] [id number] * PATHOLOGY TISSUE EXAM (STL) (07/30/2020 10:04 AM SALES DEVELOPMENT COORDINATOR) Case Report Surgical Pathology Report Case: [id number] Authorizing Provider: Willy Landeros MD Collected: 07/30/2020 10:04 AM Ordering Location: [facility] IN[facility]OP Received: 07/30/2020 01:07 PM Pathologist: Kristen Rich MD Specimens: A) - Fibroid, UTERINE FIBROID B) - Endometrium Curettings 07/31/2020 4:20 PM [facility] Final Diagnosis Uterus, myomectomy (A): - Leiomyoma, 5 cm greatest dimension. Endometrium, curetting (B): - Weakly proliferative endometrium with stromal breakdown . - Benign endocervical glands. 07/31/2020 4:20 PM [facility] Clinical History The patient is a 34-year-old woman who underwent excision of endometriosis and myomectomy. 07/31/2020 4:20 PM [facility] Gross Description The specimen is received [...] Sections are submitted as follows: A1-A2 - Tailman sections leiomyoma, A3 - Additionally submitted tissue. Specimen B, endometrial curettings consists of multiple portions of white-erickson tissue admixed with coagula and mucoid material. The specimen has an aggregate measurement of 2.0 x 0.5 x 0.2 cm. The specimen is submitted entirely in cassette B1. KADEN/odin 07/31/2020 4:20 PM [facility] Microscopic Description Microscopic examination substantiates the final diagnosis. 07/31/2020 4:20 PM [facility] Disclaimer All histochemical and/or immunohistochemical results are interpreted with controls that demonstrate appropriate staining reactions before reporting results. Note on use of immunocytochemistry reagents: This test was developed and its performance characteristic determined by [facility], Department of Laboratory Medicine. It has [...] be interpreted with caution. 07/31/2020 4:20 PM [facility] Embedded Images 07/31/2020 4:20 PM [facility] Pathology/Cytology FIBROMA / Unknown 12/2020 10:04 AM SALES DEVELOPMENT COORDINATOR 07/30/2020 1:07 PM SALES DEVELOPMENT COORDINATOR Comment:Pre-op diagnosis: Diagnosis unknown [R69] Miscellaneous samples (specimen) SPECIMEN FROM ENDOMETRIUM OBTAINED BY CURETTAGE / Unknown 07/30/2020 12:12 PM SALES DEVELOPMENT COORDINATOR 07/30/2020 1:07 PM SALES DEVELOPMENT COORDINATOR Comment:Pre-op diagnosis: Diagnosis unknown [R69] Willy Landeros MD LAB - PATHOLOGY/CYTO LOGY ORDERABLES Performing Organization Address [facility] Co de Phone Number [facility] [address] [place] [address] * ETT LINE PERFORMABLE (07/30/2020 9:04 AM SALES DEVELOPMENT COORDINATOR) Narrative Jose Lockett APRN-CRNA - 07/30/2020 9:04 AM SALES DEVELOPMENT COORDINATOR Jose Lockett APRN-CRNA 07/30/2020 9:05 AM Endotracheal Tube Placement: Patient Location: OR. Procedure: intubation (03437). Procedure Section: Sedation: under general anesthesia. Indications for Airway Management: anesthesia Induction: standard IV Mask Ventilation: easy with oral airway. Blade Type: Watkins Blade Size: 2 Laryngoscopy View: grade 1 (full cords) Intubation Adjuncts: cricoid pressure and stylet Tube: endotracheal tube Placement: oral Tube type: cuff - inflated Tube Size (MM): 7 Depth of Insertion (CM): 21 Measured From: lips Cuff volume (mL): 5 Cuff Inflated With: air Number of Attempts: 1. Placement Verified By: direct visualization, bilateral breath sounds, chest auscultation and CO2 monitor Tube secured with: adhesive tape. Dentition unchanged? Yes Difficult Airway? No. Staff Section Anesthesia Provider: Jose Lockett APRN-CRNA, Performed the procedure Brice Chávez MD GENERAL ANESTHESIA ORDERABLES * HCG URINE QUAL POCT NOTIFICATION (07/30/2020 6:31 AM SALES DEVELOPMENT COORDINATOR) Comment Notification Label Only - See Separate Report 07/30/2020 6:31 AM SALES DEVELOPMENT COORDINATOR [facility] Urine URINE / Unknown 5:28 AM SALES DEVELOPMENT COORDINATOR Brice Chávez MD LAB - URINALYSIS O RDERABLES [facility] [address] [place] [address] * BLOOD TYPE VERIFICATION (07/30/2020 6:03 AM SALES DEVELOPMENT COORDINATOR) ABO Rh A POS 07/30/2020 6:5 7 AM SALES DEVELOPMENT COORDINATOR [facility] Blood Bank BLOOD SPECIMEN / Unknown Venipuncture / Unknown 07/30/2020 6:03 AM SALES DEVELOPMENT COORDINATOR 07/30/2020 6:11 AM SALES DEVELOPMENT COORDINATOR Brice Chávez MD LAB - BLOOD BANK O RDERABLES Performing Organization Address [facility]/ZIP Co de Phone Number [facility] [address] [place] [address] * HCG URINE QUALITATIVE - POCT (IP) INTERFACED (07/30/2020 5:47 AM SALES DEVELOPMENT COORDINATOR) HCG Qual Urine Negative Negative 07/30/2020 5:53 AM SALES DEVELOPMENT COORDINATOR [facility] Urine URINE / Unknown 07/30/2020 5 :47 AM SALES DEVELOPMENT COORDINATOR 07/30/2020 5:53 AM SALES DEVELOPMENT COORDINATOR Willy Landeros MD LAB - POINT OF CARE ORDERABLES Performing Organization Address [facility] Co de Phone Number [facility] [address] [place] [address] * (ABNORMAL) BASIC METABOLIC PANEL (CALCIUM TOTAL) (07/28/2020 2:53 PM SALES DEVELOPMENT COORDINATOR) Glucose 99 70 - 105 mg/dL 07/28/2020 3:14 PM SALES DEVELOPMENT COORDINATOR [facility] Sodium 141 136 - 145 mmol/L 07/28/2020 3:14 PM [facility] Potassium 4.8 3.5 - 5.1 mmol/L 07/28/2020 3:14 PM [facility] Chloride 107 98 - 107 mmol/L 07/28/2020 3:14 PM [facility] CO2 23 23 - 31 mmol/L 07/28/2020 3:14 PM [facility] Calcium 8.2(L) 8.4 - 10.4 mg/dL 07/28/2020 3:14 PM SALES DEVELOPMENT COORDINATOR [facility] Anion Gap 11 8 - 18 mmol/L 07/28/2020 3:14 PM SALES DEVELOPMENT COORDINATOR [facility] Comment:Attention clinician: Reference Range change. BUN 19(H) 7 - 18.7 mg/dL 07/28/2020 3:14 PM SALES DEVELOPMENT COORDINATOR [facility] Creatinine 0.76 0.57 - 1.11 mg/dL 07/28/2020 3:14 PM SALES DEVELOPMENT COORDINATOR [facility] eGFR by MDRD >60 >60 mL/min/1.7 3m2 07/28/2020 3:14 PM SALES DEVELOPMENT COORDINATOR [facility] eGFR by MDRD >60 >60 mL/min/1.7 3m2 07/28/2020 3:14 PM SALES DEVELOPMENT COORDINATOR [facility] Blood BLOOD SPECIMEN / Unknown Venipuncture / Unknown 07/28/2020 2:53 PM SALES DEVELOPMENT COORDINATOR 07/28/2020 2:56 PM SALES DEVELOPMENT COORDINATOR Minoo Verdin MD LAB - CHEMISTRY DARCI STEWART [facility] Organization Address City/State/ZIP Co de Phone Number [facility] [address] [place] [address] * SARS-COV-2 (COVID-19) IN HOUSE (07/28/2020 2:43 PM SALES DEVELOPMENT COORDINATOR) COVID-19 PCR Not detected Not detected 07/28/2020 11:38 PM SALES DEVELOPMENT COORDINATOR [facility] Microbiology SPECIMEN FROM NASOPHARYNGEAL STRUCTURE / Unknown Collection / Unknown 07/28/2020 2:43 PM SALES DEVELOPMENT COORDINATOR 07/28/2020 2:55 PM SALES DEVELOPMENT COORDINATOR Narrative [facility] - 07/28/2020 11:38 PM SALES DEVELOPMENT COORDINATOR This nucleic acid amplification assay performance was validated by [facility]. This test has been authorized by the Food and Drug administration (FDA)under an Emergency Use Authorization (EUA). This test has been validated [...] Landeros MD LAB - MICROBIOLOGY O RDERABLES [facility] [address] [place] [id number], [facility] [phone] * TYPE + SCREEN PANEL (07/28/2020 2:42 PM SALES DEVELOPMENT COORDINATOR) ABO Rh A POS 07/28/2020 3:30 PM SALES DEVELOPMENT COORDINATOR [facility] Comment:No history; collect retype. Antibody Screen NEG 3:30 PM SALES DEVELOPMENT COORDINATOR [facility] Blood Bank BLOOD SPECIMEN / Unknown Venipuncture / Unknown 07/28/2020 2:42 PM SALES DEVELOPMENT COORDINATOR 07/28/2020 2:55 PM SALES DEVELOPMENT COORDINATOR Willy Landeros MD LAB - BLOOD BANK ORD ERABLES Performing Organization Address [facility]/ZIP Co de Phone Number [facility] [address] [place] [address], [facility] [phone] * IMAGING RADIOLOGY XRAY RESULTS ORDER (02/25/2020 7:29 AM CDT) Anatomical Region Laterality Modality Other Narrative 02/25/2020 7:29 AM CDT Ordered by an unspecified provider. Scanned Document IMAGING * AR US PELVIC NONOB REAL-TIME IMG COMPLETE, AR SONO EXAM, TRANSVAGINAL (02/22/2020 12:45 PM CDT) Narrative Danielle Puente - 02/22/2020 12:45 PM CDT Danielle Puente 02/22/2020 12:45 PM Documentation in digisonics. Martin Meyers MD PROCEDURE/MINOR MALHOTRA RGICAL ORDERABLES * LAB RESULTS ORDER (02/01/2019 2:28 PM CDT) Narrative 02/01/2019 2:28 PM CDT Ordered by an unspecified provider. Scanned Document LAB - THERAPEUTIC DR PEARSON MONITORING ORDERABLES * EYE EXAM (10/16/2018 2:02 PM CDT) Anatomical Region Laterality Modality Other Narrative 10/16/2018 2:02 PM CDT Ordered by an unspecified provider. Scanned Document SCANNING ONLY * TSH (12/13/2017 12:48 PM CDT) Only the most recent of3 resultswithin the time period is included. [facility] TSH 2.021 0.350 - 4.940 uIU/mL 12/13/2017 4:17 PM CDT [facility] Blood BLOOD SPECIMEN / Unknown Lab Venipuncture / Unknown 12/13/2017 12:48 PM CDT 12/13/2017 1:55 PM CDT Ranjit Martinez MD LAB - CHEMISTRY ORDElizabeth STEWART [facility] [address] [place] [address] * HEMOGLOBIN A1C - POINT OF CARE (AMB) (12/13/2017 11:56 AM CDT) [facility] Hemoglobin A1c POCT 5.8 % [facility] POCT TEST[facility] QC Verified Yes [facility] POCT TEST[facility] Blood BLOOD SPECIMEN / Unknown 12/13/2017 11:56 AM CDT Ranjit Martinez MD LAB - POINT OF CARE ORDERABLES Performing Organization Address City/[facility]/ZIP Co de Phone Number [facility] POCT TESTING [address] [place] [address] * (ABNORMAL) C-PEPTIDE (03/24/2016 12:39 PM CDT) [facility] C-Peptide 5.2(H) 1.1 - 4.4 ng/mL [facility] ([facility]) Comment:C-Peptide reference interval is for fasting patients. Blood specimen (specimen) BLOOD SPECIMEN / Unknown 03/24/2016 12:39 PM CDT 03/24/2016 2:10 PM CDT Narrative [facility] ([place]) - 03/25/2016 3:18 PM CDT Performed at: [address] [place] [id number] Reel Operator: Maicol Chin PhD, Phone: [phone] Ranjit Martinez MD LAB - CHEMISTRY ORDElizabeth STEWART Performing Organization Address City/[facility]/ZIP Co de Phone Number [facility] ([facility]) * GLUTAMIC ACID DECARBOXYLASE (ABIDA) ANTIBODY (03/24/2016 12:39 PM CDT) ABIDA-65 <5.0 0.0 - 5.0 U/mL [facility]) Blood specimen (specimen) BLOOD SPECIMEN / Unknown 03/24/2016 12:39 PM CDT 03/24/2016 2:09 PM CDT Narrative [facility] ([facility]) - 03/26/2016 5:09 PM CDT Performed at: [address] [place] [id number] Reel Operator: Balaji Singh MD, Phone: [phone] Ranjit Martinez MD LAB - SEROLOGY ORDER TAYLOR Performing Organization Address City/[facility]/ZIP Co de Phone Number [facility] * GROSS + MICRO EXAM (01/30/1997 1:00 PM CDT) Result CASE NUMBER [id number] [facility] PATH REPORT Comment: ORDERING PHYSICIAN ALIYAH PATEL SPECIMEN TYPE Gastric / Esophagus CLINICAL HISTORY The patient is a 11-year-old girl with abdominal pain who underwent an upper endoscopy. GROSS DESCRIPTION The specimen labeled with the patient's name and gastric and esophagus is received fixed in formalin for a gross and microscopic examination and consists of four minute fragments of pink-erickson soft tissue each with a measurement of 0.2 cm. in greatest dimension. The specimens are submitted in toto as A1 . (CT/lw) MICROSCOPIC DESCRIPTION 6 H/E Sections show fragments of esophageal mucosa with a few scattered intraepithelial lymphocytes. There are no intraepithelial eosinophils. Basal cell hyperplasia is mild, and slight papillary elongation is present. These features are suggestive of, but not diagnostic for, mild esophagitis. Also present are fragments of unremarkable gastric epithelium with underlying lamina propria containing a normal complement of inflammatory cells. (SYLVIA/lw) DIAGNOSIS DIAGNOSIS STOMACH AND ESOPHAGUS, BIOPSIES - NO DIAGNOSTIC ABNORMALITIES. SEE DESCRIPTION. Final Armature Tester Virginia Ramos RESIDENT IN PATHOLOG Al Martinez M.D. PATHOLOGIST Cortez Talley M.D. ELECTRONICALLY SUSY CORTEZ TALLEY MISCELLANEOUS SAMPLES / Unknown 01/30/1997 1:00 PM CDT 01/30/1997 2:32 PM CDT Historical Provider MD LAB - PATHOLOGY/C YTOLOGY ORDERABLES [facility] LAB PATH REPORT Care Teams Solar Energy System Installer Relationship Specialty Start Date End Date Michelle Valente MD [address] [place] [address] [address] [place] [address] PCP - General 11/29/17
--- OUTSIDE RECORDS SUMMARY | 2024-08-31 23:00 | XMS_ITS | Clinical Summary ---
Author Organization [facility] Address [address] [facility] [place] [address] Care Team Providers Care Lining Printer Name Role Phone Michelle Valente MD Primary Care Provider [phone] Source Comments [facility],non-owned Affiliates and Associated Physician Practices is amultiple site organization consisting of ambulatory clinics and hospital sitesin [place], [place], [place] and [place]. This disclosure is being madepursuant to the Care Everywhere program and may not contain all information available regarding this patient. Last updated 18.[facility] Allergies Active Allergy Reactions [...] Dispensed Refills Start Date End Date Status [place]-3 Fatty Acids (OMEGA-3 FISH OIL) 500 MG Take 1,200 mg by mouth 2 times daily Active CPAP Inhale 1 device by mouth at bedtime Active vitamin D, ergocalciferol, (DRISDOL) 26044 UNITS capsule Take 5,000 Units by mouth [...] times daily Active allergy injection Weekly through [facility] Otolaryngology Active naproxen (NAPROSYN) 500 MG tablet [...] with long-term current use of insulin ([facility]) TAKE 2 TABLETS BY MOUTH TWICE DAILY 360 tablet 11 07/21/2022 Active fenofibrate (Tricor) 145 MG tabletIndications :Type 2 diabetes mellitus with hyperglycemia, with long-term current use of insulin ([facility]) TAKE 1 TABLET BY MOUTH EVERY DAY 90 tablet 4 08/05/2022 Active Blood Glucose Monitoring Suppl (NutshellMailuch Verio Flex System) w/Device KITIndications:Ty pe 2 diabetes mellitus with hyperglycemia, with long-term current use of insulin ([facility]) Use 1 kit as directed 1 kit 09/14/2022 Active dulaglutide (Trulicity) 1.5 MG/0.5ML injection Inject 0.5 mL subcutaneously every 7 days 6 mL 11 09/24/2022 Active HotswapTouch Verio test stripIndications: Type 2 diabetes mellitus with hyperglycemia, with long-term current use of insulin ([facility]) USE TWICE DAILY 100 strip 11 10/13/2022 [...] refills 30 g 02/21/2023 Active nystatin (Mycostatin) 285232 UNIT/GM ointmentIndicatio ns:Recurrent candidiasis of vagina MIX [...] seek urgent/emergent care including calling Suicide Hotline (462 or ) or 961. Follow up in one month with PCP [...] CDT Respiratory Rate 18 07/31/2020 4:33 PM SEWAGE PLANT OPERATOR Oxygen Saturation 96% 01/05/2022 3:44 PM [...] 06/29/2023 06/29/2021, 06/23/2021, 10/16/2018 COVID-19 VACCINE ( - season) 2024 INFLUENZA VACCINE (#1) 2024 07/31/2020, [...] this topic Medical Devices Implanted Type Area Marketing Strategy Manager Device Identifier Shelf Expiration Date Model / Serial / Lot Intrauterine Device/Mirena Implanted:Qty: 1 on 07/30/2020 by Willy Landeros MD at [facility] Cervix 10/21/2022 [id number] Procedures Procedure Name Priority Date/Time Associated Diagnosis Comments HEMOGLOBIN A1C - POINT OF CARE (AMB) [facility] Routine 01/05/2022 Type 2 diabetes mellitus with hyperglycemia, with long-term current use of insulin (HCC) MICROALB/CREAT RATIO URINE RANDOM PANEL 10/09/2021 2:05 PM CDT COMPREHENSIVE METABOLIC PANEL 10/09/2021 2:05 PM CDT HPV DETECTION HIGH RISK TAI Routine 06/29/2021 1:53 PM SEWAGE PLANT OPERATOR Encounter for Pap smear of cervix with [...] within a diagnostic category. Test Performed at: [facility] [address] [place] [address] BALAJI CANCINO DO,MPH 10/09/2021 2:05 PM CDT 10/09/2021 2:10 PM CDT Kam Ramesh MD LAB - URINE CHEMISTR Y ORDERABLES [facility] [address] [place] [address] * (ABNORMAL) COMPREHENSIVE METABOLIC PANEL (10/09/2021 2:05 [...] 29 U/L [facility] Comment: Test Performed at: [facility] [address] [place] [address] BALAJI CANCINO DO,MPH 10/09/2021 2:05 PM CDT 10/09/2021 2:10 PM CDT Kam Ramesh MD LAB - CHEMISTRY DARCI STEWART Performing Organization Address City/[facility]/ZIP Co de Phone Number [facility] [address] [place] [address] * HPV DETECTION HIGH RISK TAI (06/29/2021 1:53 PM SEWAGE PLANT OPERATOR) High Risk Human Papilloma Result Not detected Not detected 07/01/2021 7:22 AM SEWAGE PLANT OPERATOR [facility] High Risk Human Papilloma Interp 07/01/2021 7:22 AM SEWAGE PLANT OPERATOR [facility] LAB Comment:High Risk Human Lopez lloma Virus was Not Detected. Pathology/Cytolo gy MISCELLANEOUS SAMPLES / Unknown 06/29/2021 1:53 PM SEWAGE PLANT OPERATOR 06/30/2021 12:05 PM SEWAGE PLANT OPERATOR Narrative [facility] LAB - 07/01/2021 7:22 AM SEWAGE PLANT OPERATOR Nucleic acid isolated from the specimen [...] Verdin MD LAB - MICROBIOLOGY O RDERAPATRIA [facility] LAB [address] [facility] [place] [address], [facility] [phone] * EYE EXAM (06/29/2021) Anatomical Region Laterality Modality Other Narrative 06/29/2021 Ordered by an unspecified provider. Scanned Document SCANNING ONLY from Last 3 Months or Most Recently Relevant to Health Maintenance Care Teams Lining Printer Relationship Specialty Start Date End Date Michelle Valente MD [facility] [place] [id number] PCP - General 11/29/17
--- OUTSIDE RECORDS SUMMARY | 2024-08-31 23:00 | XMS_ITS | Referral Summary ---
Author Organization [facility] Address [address] [place] [address] Care Team Providers Care Export Manager Name Role Phone Michelle Valente MD Primary Care Provider [phone] Source Comments [facility],non-owned Affiliates and Associated Physician Practices is amultiple site organization consisting of ambulatory clinics and hospital sitesin [place], [place], [place] and [place]. This disclosure is being madepursuant to the Care Everywhere program and may not contain all information available regarding this patient. Last updated 18.[facility] Allergies Active Allergy Reactions Criticality Noted Date [...] Dispensed Refills Start Date End Date Status [place]-3 Fatty Acids (OMEGA-3 FISH OIL) 500 MG Take 1,200 mg by mouth 2 times daily Active CPAP Inhale 1 device by mouth at bedtime Active vitamin D, ergocalciferol, (DRISDOL) 21619 UNITS capsule Take 5,000 Units by mouth [...] times daily Active allergy injection Weekly through [facility] Otolaryngology Active naproxen (NAPROSYN) 500 MG tablet [...] hyperglycemia, with long-term current use of insulin ([facility]) TAKE 2 TABLETS BY MOUTH TWICE DAILY 360 tablet 11 07/21/2022 Active fenofibrate (Tricor) 145 MG tabletIndications :Type 2 diabetes mellitus with hyperglycemia, with long-term current use of insulin ([facility]) TAKE 1 TABLET BY MOUTH EVERY DAY 90 tablet 4 08/05/2022 Active Blood Glucose Monitoring Suppl ([employer] Verio Flex System) w/Device KITIndications:Ty pe 2 diabetes mellitus with hyperglycemia, with long-term current use of insulin ([facility]) Use 1 kit as directed 1 kit 09/14/2022 Active dulaglutide (Trulicity) 1.5 MG/0.5ML injection Inject 0.5 mL subcutaneously every 7 days 6 mL 11 09/24/2022 Active Pharma Two BTouch Verio test stripIndications: Type 2 diabetes mellitus with hyperglycemia, with long-term current use of insulin ([facility]) USE TWICE DAILY 100 strip 11 10/13/2022 [...] refills 30 g 02/21/2023 Active nystatin (Mycostatin) 310659 UNIT/GM ointmentIndicatio ns:Recurrent candidiasis of vagina MIX [...] seek urgent/emergent care including calling Suicide Hotline (541 or ) or 561. Follow up in one month with PCP [...] CDT Respiratory Rate 18 07/31/2020 4:33 PM MACHINE MAINTENANCE REPAIRER Oxygen Saturation 96% 01/05/2022 3:44 PM CDT Inhaled Oxygen Concentration - - Weight 173.3 kg (382 lb) 04/23/2022 3:08 PM CDT Height 175.3 cm (5' 9 ) 04/23/2022 3:08 PM CDT Body Mass Index 56.41 04/23/2022 3:08 PM CDT Plan of Treatment Not on file Medical Devices Implanted Type Area Market Research Coordinator Device Identifier Shelf Expiration Date Model / Serial / Lot Intrauterine Device/Mirena Implanted:Qty: 1 on 07/30/2020 by Willy Landeros MD at [facility] Cervix 10/21/2022 [id number] / [id number] Procedures Procedure Name Priority Date/Time Associated Diagnosis Comments HEMOGLOBIN A1C - POINT OF CARE (AMB) [facility] Routine 01/05/2022 Type 2 diabetes mellitus with hyperglycemia, with long-term current use of insulin (HCC) MICROALB/CREAT RATIO URINE RANDOM PANEL 10/09/2021 2:05 PM CDT COMPREHENSIVE METABOLIC PANEL 10/09/2021 2:05 PM CDT HPV DETECTION HIGH RISK TAI Routine 06/29/2021 1:53 PM MACHINE MAINTENANCE REPAIRER Encounter for Pap smear of cervix with HPV DNA cotesting EYE EXAM 06/29/2021 from Last 3 Months or Most Recently Relevant to Health Maintenance Results * HEMOGLOBIN A1C - POINT OF CARE (AMB) [facility] (01/05/2022) Pathologist [facility] Hemoglobin A1c POCT 8.1 % BLOOD SPECIMEN [...] within a diagnostic category. Test Performed at: [facility] [id number] [facility] [place] [address] BALAJI CANCINO DO,MPH 10/09/2021 2:05 PM CDT 10/09/2021 2:10 PM CDT Kam Ramesh MD LAB - URINE CHEMISTR Y ORDERABLES [facility] [address] [place] [address] * (ABNORMAL) COMPREHENSIVE METABOLIC PANEL (10/09/2021 2:05 [...] 29 U/L [facility] Comment: Test Performed at: [facility] [address] [place] [address] BALAJI CANCINO DO,MPH 10/09/2021 2:05 PM CDT 10/09/2021 2:10 PM CDT Kam Ramesh MD LAB - CHEMISTRY DARIC [place] [address] [place] [address] * HPV DETECTION HIGH RISK TAI (06/29/2021 1:53 PM MACHINE MAINTENANCE REPAIRER) High Risk Human Papilloma Result Not detected Not detected 07/01/2021 7:22 AM MACHINE MAINTENANCE REPAIRER [facility] High Risk Human Papilloma Interp 07/01/2021 7:22 AM MACHINE MAINTENANCE REPAIRER [facility] Comment:High Risk Human Lopez lloma Virus was Not Detected. Pathology/Cytolo gy MISCELLANEOUS SAMPLES / Unknown 06/29/2021 1:53 PM MACHINE MAINTENANCE REPAIRER 06/30/2021 12:05 PM MACHINE MAINTENANCE REPAIRER Narrative [facility] - 07/01/2021 7:22 AM MACHINE MAINTENANCE REPAIRER Nucleic acid isolated from the specimen was [...] Minoo Verdin MD LAB - MICROBIOLOGY O RDZAC [facility] [address] [facility] [place] [address], [facility] [phone] * EYE EXAM (06/29/2021) Anatomical Region Laterality Modality Other Narrative 06/29/2021 Ordered by an unspecified provider. Scanned Document SCANNING ONLY from Last 3 Months or Most Recently Relevant to Health Maintenance Care Teams Export Manager Relationship Specialty Start Date End Date Michelle Valente MD [facility] [place] [id number] PCP - General 11/29/17
--- OUTSIDE RECORDS SUMMARY | 2024-08-31 23:00 | XMS_ITS | Data Portability ---
Author Organization [facility], Main Office Address [address] [place] [address] Assessment No assessment recorded. Plan of Treatment Reminders Order Date Submit Date Provider Last Modified By Organization Details Last Modified Time Details Appointments None recorded. Lab urinalysis, dipstick 2022 023 [email or web address] 3 [facility] [address], [place], [address], 3 13:37:20 culture, urine 2022 023 [facility] (Lab), [address] [place], [address], 3 07:58:25 lipid panel, serum 2022 023 [facility] (Lab), [address] [place], [address], 3 13:15:56 glycohemogl obin, total, blood 2022 023 [facility] (Lab), [address] [place], [address], 3 14:29:48 CMP, serum or plasma 2022 023 [facility] (Lab), [address] [place], [address], 3 13:15:52 Referral gynecologis t referral - Please call the pt to make an appt. Thank you 2022 023 [email or web address] Parul Aguiar MD, [address] [place], [address], 13:12:50 Procedures None recorded. Surgeries None recorded. Imaging None recorded. Medication Orders None recorded. Patient TargetsNo targets recorded. Patient InstructionsNo instructions recorded. 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 Thank you Referring Physician: Michelle Valente, Family Medicine, Encounter Date: 11/15/2022 Results Created Date Observation Date Name Description Value Unit Range Abnormal Flag Note LastModifiedBy Organization Detail LastModifiedTime 09/08/19 23 09/08/2022 rapid strep group A, throa t STREP A negati ve Not Available [address], [place], [address], 09/08/2022 15:59:50 11/16/19 23 11/15/2022 urina lysis , dipst ick Leukocytes (reference range: negative mayte/ l) Negati ve Not Available [address], [place], [address], 11/15/2022 11:38:40 11/16/19 23 11/15/2022 urina lysis , dipst ick Nitrite (reference rage: negative mg/dl) negati ve Not Available [address], [place], [address], 11/15/2022 11:38:40 11/16/19 23 11/15/2022 urina lysis , dipst ick Urobilinogen (reference range: 0.2-1 mg/dl) 0.2 Not Available [address], [place], [address], 11/15/2022 11:38:40 11/16/19 23 11/15/2022 urina lysis , dipst ick Protein (reference range: negative mg/dl) Negati ve Not Available [address], [place], [address], 11/15/2022 11:38:40 11/16/19 23 11/15/2022 urina lysis , dipst ick pH (reference range: 5-7) 5.5 Not Available [address], [place], [address], 11/15/2022 11:38:40 11/16/19 23 11/15/2022 urina lysis , dipst ick Blood (reference range: negative Preston/ l) Negati ve Not Available [address], [place], [address], 11/15/2022 11:38:40 11/16/19 23 11/15/2022 urina lysis , dipst ick Specific [place] (reference range: 1.005-1.030) 1.030 Not Available [address], [place], [address], 11/15/2022 11:38:40 11/16/19 23 11/15/2022 urina lysis , dipst ick Ketone (reference range: negative mg/dl) Negati ve Not Available [address], [place], [address], 11/15/2022 11:38:40 11/16/19 23 11/15/2022 urina lysis , dipst ick Bilirubin (reference range: negative mg/dl) Negati ve Not Available [address], [place], [address], 11/15/2022 11:38:40 11/16/19 23 11/15/2022 urina lysis , dipst ick Glucose (reference range: negative mg/dl) 250 Not Available [address], [place], [address], 11/15/2022 11:38:40 11/16/19 23 11/15/2022 urina lysis , dipst ick Appearance Clear Not Available [address], [place], [address], 11/15/2022 11:38:40 11/16/19 23 11/15/2022 urina lysis , dipst ick Color Yellow Not Available [address], [place], [address], 11/15/2022 11:38:40 12/17/19 23 12/16/2022 COMPR EHENS AMISH METAB OLIC PANEL sodium 139 mmol/ L 137-14 5 Not Available [facility] (Lab) [address] [place], [address], 12/16/2022 13:15:52 12/17/19 23 12/16/2022 COMPR EHENS AMISH METAB OLIC PANEL potassium 3.8 mmol/ L 3.5-5. 1 Not Available [facility] (Lab) [address] [place], [address], 12/16/2022 13:15:52 12/17/19 23 12/16/2022 COMPR EHENS AMISH METAB OLIC PANEL chloride 106 mmol/ L 98-107 Not Available [facility] (Lab) [address] [place], [address], 12/16/2022 13:15:52 12/17/19 23 12/16/2022 COMPR EHENS AMISH METAB OLIC PANEL carbon dioxide 24 mmol/ L 22-30 Not Available [facility] (Lab) [address] [place], [address], 12/16/2022 13:15:52 12/17/19 23 12/16/2022 COMPR EHENS AMISH METAB OLIC PANEL anion gap 12.8 mmol/ L 14-22 low Not Available [facility] (Lab) [address] [place], [address], 12/16/2022 13:15:52 12/17/19 23 12/16/2022 COMPR EHENS AMISH METAB OLIC PANEL glucose 97 mg/dL 70-99 Not Available [facility] (Lab) [address] [place], [address], 12/16/2022 13:15:52 12/17/19 23 12/16/2022 COMPR EHENS AMISH METAB OLIC PANEL BUN 8 mg/dL 8-19 Not Available [facility] (Lab) [address] [place], [address], 12/16/2022 13:15:52 12/17/19 23 12/16/2022 COMPR EHENS AMISH METAB OLIC PANEL creatinine 0.56 mg/dL 0.66-1 .25 low Not Available [facility] (Lab) [address] [place], [address], 12/16/2022 13:15:52 12/17/19 23 12/16/2022 COMPR EHENS AMISH METAB OLIC PANEL GFR >60 Refer ence Range : [place] ge GFR Healt hy Adult : >60 [...] calcu lator is avail able on the [facility] websi te: https :[email or web address] fong.liz cote.o dangelo/pr ofess ional s/kdo qi/gf r_cal culat or Not Available [facility] (Lab) [address] [place], [address], 12/16/2022 13:15:52 12/17/19 23 12/16/2022 COMPR EHENS AMISH METAB OLIC PANEL alkaline phosphatase 49 U/L 38-126 Not Available [facility] (Lab) [address] [place], [address], 12/16/2022 13:15:52 12/17/19 23 12/16/2022 COMPR EHENS AMISH METAB OLIC PANEL alanine aminotransfe rase 34 U/L 0-35 Not Available [facility] (Lab) [address] [place], [address], 12/16/2022 13:15:52 12/17/19 23 12/16/2022 COMPR EHENS AMISH METAB OLIC PANEL aspartate aminotransfe rase 26 U/L 15-37 Not Available [facility] (Lab) [address] [place], [address], 12/16/2022 13:15:52 12/17/19 23 12/16/2022 COMPR EHENS AMISH METAB OLIC PANEL bilirubin, total 0.60 mg/dL 0.20-1 .30 Not Available [facility] (Lab) [address] [place], [address], 12/16/2022 13:15:52 12/17/19 23 12/16/2022 COMPR EHENS AMISH METAB OLIC PANEL calcium 8.8 mg/dL 8.4-10 .2 Not Available [facility] (Lab) [address] [place], [address], 12/16/2022 13:15:52 12/17/19 23 12/16/2022 COMPR EHENS AMISH METAB OLIC PANEL total protein 6.2 g/dL 6.3-8. 2 low Not Available [facility] (Lab) [address] [place], [address], 12/16/2022 13:15:52 12/17/19 23 12/16/2022 COMPR EHENS AMISH METAB OLIC PANEL albumin 3.6 g/dL 3.4-5. 0 Not Available [facility] (Lab) [address] [place], [address], 12/16/2022 13:15:52 12/17/19 23 12/16/2022 COMPR EHENS AMISH METAB OLIC PANEL globulin 2.6 g/dL 2.6-4. 2 Not Available [facility] (Lab) [address] [place], [address], 12/16/2022 13:15:52 12/17/19 23 12/16/2022 COMPR EHENS AMISH METAB OLIC PANEL A/G ratio 1.4 ratio 1.0-2. 0 Not Available [facility] (Lab) [address] [place], [address], 12/16/2022 13:15:52 12/17/19 23 12/16/2022 LIPID PANEL cholesterol 235 mg/dL 140-19 9 high NIH CHARLI NSUS RECOM MENDA TION FOR CLARENCE STERO L: ADULT CHILD LOW RISK: <200 <170 BORDE RLINE : <200- 239 ----- HIGH RISK: >240 >200 Not Available [facility] (Lab) [address] [place], [address], 12/16/2022 13:15:56 12/17/19 23 12/16/2022 LIPID PANEL triglyceride s 318 mg/dL 0-150 high NIH CHARLI NSUS REPOR T RECOM MENDA TION FOR TRIGL YCERI URMILA: ADULT CHILD LOW RISK: <150 ----- BODER LINE: 150-1 99 ----- HIGH RISK: >200 ----- Not Available [facility] (Lab) [address] [place], [address], 12/16/2022 13:15:56 12/17/19 23 12/16/2022 LIPID PANEL HDL cholesterol 37 mg/dL 40- low Not Available [facility] (Lab) [address] [place], [address], 12/16/2022 13:15:56 12/17/19 23 12/16/2022 LIPID PANEL [...] WILL NOT BE REPOR HIRA. Not Available [facility] (Lab) [address] [place], [address], 12/16/2022 13:15:56 12/17/1912/16/2022 HEMOG LOBIN A1C HA1C 8.5 % 4.0-6. 0 high Diabe camilla Scree melisa Crite yesi: <5.7% Consi stent with absen ce of diabe camilla 5.7-6 .4% Consi stent with incre ased risk for diabe camilla (pred iabet es) >OR=6 .5% Consi stent with diabe camilla REFER ENCE: Diabe camilla Care 2016, 39([place] ppl.1 ):s13 -s22 Not Available [facility] ([facility]) [address], [place], [address], 12/16/2022 14:29:48 09/08/19 23 XR, chest , 2 view [facility] [address], [place] [address] Patien t Name: LEXIIDAGO A E Access ion #: [id number] Sex: F : 1985 5 Locati [...] c proces s. Page 1 of 2 [facility] Patikandace t Name: LEXIIDAGO A E Access ion #: [id number] Sex: F : 1985 5 Exam Date: 023 3:16 PM Exam Name: XR CHEST 2V Admitt ing Diagno sis(es ): Create d and electr onical ly signed by: Kevin rodriguez MD Signed Date: 3:43 PM (CT) Dictat ed by: Kevin rodriguez MD DD: 023 3:43 PM (CT) DT: 023 3:43 PM (CT) Page 2 of 2 [id number] [facility] (Imaging) [address] [facility], [place], [address], 09/22/2022 08:21:58 09/08/19 23 09/08/2022 XR, chest , 2 view No observ ation record ed. [id number] Not Available 09/22/2022 08:21:58 11/09/19 23 11/08/2022 imagi ng/di agnos tic resul t No observ ation record ed. [address] [facility] [address], [place], [address], 11/09/2022 08:17:44 Result Notes None recorded. Problems Name Problem SNOMED Code Status Onset Date Resolution Date Notes Provider Name and Address Organization Details Recorded Time Injury of groin 57018939 Active Not Available [facility] 3 23:43:27 Folliculitis 02888997 Active Not Available [facility] 3 23:43:27 Constipation 33296482 Active Not Available [facility] 3 23:43:27 Infectious diarrheal disease 73733342 Active Not Available [facility] 3 23:43:27 Abdominal pain 52241972 Active Not Available [facility] 3 23:43:27 Gastroesophag eal reflux disease 682469244 Active Not Available [facility] 3 23:43:27 Morbid obesity 339244683 Active Not Available [facility] 3 23:43:27 Acute vaginitis 28258392 Active Not Available [facility] 3 23:43:27 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 Not Available [facility] 3 23:43:27 Transient memory loss Active Not Available [facility] 3 23:43:27 Vaginitis 80759363 Active Not Available [facility] 3 23:43:27 Knee pain Active Not Available [facility] 3 23:43:27 Sprain of lateral collateral ligament of knee 06204747 Active Not Available [facility] 3 23:43:27 Acneiform eruption 088891990 Active Not Available [facility] 3 23:43:27 Aphthous ulcer of mouth 915471936 Active Not Available [facility] 3 23:43:28 Anxiety 55813269 Active Not Available [facility] 3 23:43:28 Sprain of foot 39738708 Active Not Available [facility] 3 23:43:28 Hyperlipidemi a 26859450 Active Not Available [facility] 3 23:43:28 Essential hypertension 21312175 Active Not Available [facility] 3 23:43:28 Diabetes mellitus 93571694 Active Not Available [facility] 3 23:43:28 Sleep apnea 48408529 Active Not Available [facility] 3 23:43:28 Nocturnal enuresis 9043519 Active Not Available [facility] 3 23:43:28 Tinea corporis 89097320 Active Not Available [facility] 3 23:43:28 Pain in pelvis 44909585 Active 2022 Not Available [facility] 3 23:43:27 Type 2 diabetes mellitus without complication 455749184 Active 2022 Not Available [facility] 3 23:43:27 Bipolar disorder 36643773 Active 2022 Not Available [facility] 3 23:43:27 Uncontrolled type 2 diabetes mellitus 963770507 Active 2022 Not Available [facility] 3 23:43:28 Insomnia 523060570 Active 2022 Michelle Valente MD [address], [place] [address], [place], [address] , [email or web address] [facility] 3 11:37:18 Persistent insomnia 232463478 Active 2022 Michelle Valente MD [address], [facility] [address], [place], [address] , [facility] 3 11:39:42 Eczema 54691971 Active 2023 [facility] [address], [place], [address] , [facility] [employer] [facility] 4 14:58:18 Notes:Some problems listed i n Documents: #[id number], #[id number] could not be added to this patient's chart. Please review these documents and add these problems to the patient's chart manually as needed. Problem Notes None recorded. Procedures Surgical History Date Name Laterality Status Provider Name and Address Organization Details Recorded Time embolization of uterine fibroid using fluoroscopic guidance completed Not Available [facility] 09/22/2022 08:17:33 Cholecystectomy completed Not Available [facility] 09/22/2022 08:17:33 procedure on wrist completed Not Available [facility] 09/22/2022 08:17:33 Imaging Results Imaging Date Name Status LastModified by Organiz ation Details LastModified Time 09/08/2022 XR, chest, 2 view completed [id number] [facility] (Imaging) [address], [place], [address], 09/22/2022 08:21:58 09/08/2022 XR, chest, 2 view completed [id number] Information not available 09/22/2022 08:21:58 11/08/2022 imaging/lópez gnostic result completed [address], [address], 11/09/2022 08:17:44 Procedure Notes None recorded. Medical Equipment None Reported. Allergies Allergen ID Allergen Name Allergen Category Reaction Reaction Severity Criticality Documentation Date Start Date Code Code System Note Provider Name and Address Organization Details Recorded Time Product containin g penicilli n and antibioti c (product) medicatio n Not available Not available Not available 09/22/2022 06529 05 SNOMED Not Available [facility] 3 08:21:55 07869 oxycodone medicatio n Not available Not available Not available 12/16/2022 7804 RxNorm Mariana Lay MA null, [place] [facility] [place] [facility] 3 09:45:23 Medications Name Sig Start Date [...] completed Not Available Not Available Not Available [employer] Lancdedra 28 gauge USE BID 12/22 completed Not [...] BY MOUTH THREE TIMES A DAY NEEDED 04/01/ 2024 active Not Available Not Available Not Avai [...] completed Not Available Not Available Not Available [employer] 2014 active Not Available Not Available [...] Date Recorded Body mass index (BMI) Body mass index (BMI) Body mass index (BMI) Body height Body height Body height Oxygen saturation Oxygen saturation in Arterial blood by Pulse oximetry Oxygen saturation Oxygen saturation in Arterial blood by Pulse oximetry Oxygen saturation Oxygen saturation in Arterial blood by Pulse oximetry Heart rate Heart rate Heart rate Respiratory rate Body temperature Body temperature Body temperature Body weight Body weight Body weight Systolic blood pressure Diastolic blood pressure Systolic blood pressure Diastolic blood pressure Systolic blood pressure Diastolic blood pressure Provider Name and Address Organization Details Last Updated DateTime 3 58.6 kg/m2 55.8 kg/m2 55.1 kg/m2 170.18 cm 170.18 cm 170.18 cm 97 % 97 % 97 % 97 % 97 % 97 % 86 /min 96 /min 85 /min 18 /min 97.2 [degF] 97.3 [degF] 97.2 [degF] 430551. 55 g 051606. 88 g 509561. 51 g 114 mm[Hg] 82 mm[Hg] 142 mm[Hg] 100 mm[Hg] 134 mm[Hg] 80 mm[Hg] Not Available [facility] 3 08:18:18 Date Recorded Body height Body mass index (BMI) Body weight Body temperature Heart rate Oxygen saturation Oxygen saturation in Arterial blood by Pulse oximetry Systolic blood pressure Diastolic blood pressure Provider Name and Address Organization Details Last Updated DateTime 3 170.18 cm 55.4 kg/m2 982099. 7 g 97.2 [degF] 99 /min 97 % 97 % 108 mm[Hg] 74 mm[Hg] [facility] 3 11:24:49 Date Recorded Body height Body mass index (BMI) Body weight Body temperature Heart rate Oxygen saturation Oxygen saturation in Arterial blood by Pulse oximetry Systolic blood pressure Diastolic blood pressure Provider Name and Address Organization Details Last Updated DateTime 3 170.18 cm 55.8 kg/m2 968969. 6 g 97.3 [degF] 75 /min 98 % 98 % 118 mm[Hg] 62 mm[Hg] Mariana Lay [facility] 3 09:44:49 Social History Question Answer Notes LastModified by Organizat ion Details LastModified Time Tobacco Smoking Status Never Smoker Not Available [facility] 09/22/2022 08:17:27 What Is Your Level Of Alcohol Consumption? None [id number] Information not available 09/22/2022 In The 14 Days Before Symptom Onset, Have You Had Close Contact With A Laboratory-confirm ed COVID-19 While That Case Was Ill? No [id number] Information not available 09/22/2022 In The 14 Days Before Symptom Onset, Have You Had Close Contact With A Person Who Is Under Investigation For COVID-19 While That Person Was Ill? No [id number] Information not available 09/22/2022 Do You Use Your Seat Belt Or Car Seat Routinely? Yes [email or web address] Information not available 12/16/2022 Do You Feel Stressed (tense, Restless, Nervous, Or Anxious, Or Unable To Sleep At Night)? [id number] Information not available 12/16/2022 Sex: Unknown Functional Status None recorded. Mental Status None recorded. Family History Relationship Description Onset Age of this Age Resolved Age Notes LastModified by Organization Details LastModified Time Maternal Grandfather Heart disease [id number] Not available 09/22/2022 08:17:34 Maternal Grandfather Family history of malignant neoplasm [id number].541 [id number] Not available 09/22/2022 08:17:34 Maternal Grandfather Hypertensive disorder MIGRATION.607 [id number] Not available 09/22/2022 08:17:34 Maternal Grandmother Heart disease MIGRATION.149 [id number] Not available 09/22/2022 08:17:34 Maternal Grandmother Depressive disorder MIGRATION.274 [id number] Not available 09/22/2022 08:17:34 Maternal Grandmother Hypertensive disorder [id number].228 [id number] Not available 09/22/2022 08:17:34 Paternal Grandfather Heart disease MIGRATION.774 [id number] Not available 09/22/2022 08:17:34 Paternal Grandfather Family history of malignant neoplasm [id number].269 [id number] Not available 09/22/2022 08:17:34 Paternal Grandfather Hypertensive disorder MIGRATION.648 [id number] Not available 09/22/2022 08:17:34 Paternal Grandmother Heart disease MIGRATION.079 [id number] Not available 09/22/2022 08:17:34 Paternal Grandmother Hypertensive disorder MIGRATION.984 [id number] Not available 09/22/2022 08:17:34 Father Diabetes mellitus MIGRATION.401 [id number] Not available 09/22/2022 08:17:34 Father Hypertensive disorder MIGRATION.408 [id number] Not available 09/22/2022 08:17:34 Mother Depressive disorder MIGRATION.840 [id number] Not available 09/22/2022 08:17:34 Mother Hypertensive disorder [id number].024 [id number] Not available 09/22/2022 08:17:34 Medical History No medical history recorded. Gynecological HistoryNo gynecological history recorded. Obstetrics History GPAL:G 0 P 0 0 0 0 Past Encounters Encounter ID Performer Location Encounter Start Date Encounter Closed Date Diagnosis/Indication Diagnosis SNOMED-CT Code Diagnosis ICD10 Code Diagnosis Note [id number] [facility] [place] [address] [facility] [address], [place] [address] 01/06/2021 00:00:00 01/06/2021 19:51:12 [id number] [facility] [place] [address] [place] [address] 04/27/2021 00:00:00 04/27/2021 20:57:20 [id number] [facility] [place] [address] [place] [address] 06/15/2021 00:00:00 06/15/2021 19:04:33 [id number] [facility] [place] [address] [place] [address] 07/07/2021 00:00:00 07/08/2021 06:10:39 [id number] [facility] [place] [address] [place] [address] 12/15/2021 00:00:00 12/16/2021 06:17:08 [id number] [facility] [place] [address] [facility] [place] [address] 07/28/2022 00:00:00 07/28/2022 20:12:37 [id number] [facility] [place] [address] [place] [address] 09/08/2022 00:00:00 09/09/2022 06:12:28 [id number] Michelle Valente MD [facility] [place] [address] [facility] [place] [address] 11/15/2022 11:16:21 11/15/2022 11:59:20 Pain in pelvis 66760423 R10.2 [id number] Michelle Valente MD [facility] [address] [address] [facility] [place] [address] 12/16/2022 09:38:49 12/16/2022 10:02:06 Adult health examination 372760423 Z00.00 Ok to participat e in exercise at the GYM. Type 2 lópez betes mellitus without complication 140299571 E11.9 Hyperlipid emia screening 520353743 Z13.220 Bipolar disorder 1050025 4 F31.9 Continue meds Health Concerns Section [...] REPLACEMENT - HMO) Cora E Khushboo Lexii [id number] Cora Khushboo [facility] 12/16/2022 1 [employer] [place] - DOS ON OR AFTER 2020 (MEDICAID REPLACEMENT - HMO) Cora E Khushboo Lexii [id number] Cora Khushboo [facility] Notes Date Note Type Note Provider Name and Address Organization Details Recorded Time 11/15/2022 text/html Here today for f/u of UTI. finished cipro after stopped cipro. Pain is located in pelvic area. No burning on urination. No frequency or urgency. Stopped the cipro on Tuesday and sxs started again Tuesday night. No vaginal d/c. Michelle Valente MD [address] [place] [address], [facility] [address], [place], [address], [facility] 11/15/2022 13:38:00 12/16/2022 text/html Here today for annual physical. Doing ok. Wants to get qualified for G[employer] membership submitted to Insurance company. 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 Michelle Valente MD [address] [place] [address], [place], [address], [facility] [employer] 12/16/2022 20:22:31 OBGyn Episode No OBEpisode recorded.
--- OUTSIDE RECORDS SUMMARY | 2024-08-31 23:01 | XMS_ITS | Clinical Summary ---
Author Organization [facility] Address [facility] [place] [address] Care Team Providers Care Reliner Name Role Phone Anup Orellana MD Primary Care Provider [phone] Allergies Active Allergy Reactions Criticality Noted Date [...] nasal spray 11/18/2019 Active vitamin D2, ergocalciferol, 75142 UNITS capsule Take 50,000 Units by mouth every 7 days. 09/04/2019 Active Active Problems Problem Noted Date Diagnosed Date Daytime sleepiness 10/11/2016 Benign essential HTN 08/09/2016 Diabetes mellitus ([facility]) 08/09/2016 Morbid obesity ([facility]) 08/09/2016 NIEVES on CPAP 08/09/2016 Family History [...] Comments Blood Pressure 126/68 07/08/2017 11:53 AM CODING SPEC Pulse 82 07/08/2017 11:53 AM CODING SPEC Temperature - - Respiratory Rate - - Oxygen Saturation - - Inhaled Oxygen Concentration - - Weight 172.8 kg (381 lb) 07/08/2017 11:53 AM CODING SPEC Height 170.2 cm (5' 7 ) 07/08/2017 11:53 AM CODING SPEC Body Mass Index 59.67 07/08/2017 11:53 AM CODING SPEC Plan of Treatment Health Maintenance Due Date [...] Cancer Screening with HPV 2017 COVID-19 Vaccine ( - 2023-2 5 season) 2024 Influenza Adult (#1) 2024 06/10/2018 HPV Vaccines Aged Out No longer eligi ble based on patient's age to complete this topic Meningococcal B Vaccine Aged Out No l onger eligible based on patient's age to complete this topic Meningococcal Vaccine Aged Out No [place] otoniel eligible based on patient's age to complete this topic RSV Immunizations Under 20 Months Aged Out No longer eligible based on patient's age to complete this topic Insurance [employer] Care Teams Reliner Relationship Specialty Start Date End Date Anup Orellana MD [address] [id number] PCP - General INTERNAL MEDICINE 05/29/18
--- OUTSIDE RECORDS SUMMARY | 2024-08-31 23:01 | XMS_ITS | Clinical Summary ---
Author Organization [facility] Address [address] [place] [address] Care Team Providers Care Shop Clerk Name Role Phone Soren Mcwilliams MD Primary Care Provider [phone] Yoel Paulson MD Unavailable [phone] Allergies Active Allergy Reactions Criticality Noted Date [...] times a day as needed Active suzieph xt-bjtuj-dey (UribeL) 118-10-40.8-36 mg capsule TAKE 1 CAPSULE [...] FOR 30 DAYS 90 tablet 3 Active EPINEPHrine 0.3 mg/0.3 mL [...] EVERY DAY AT NIGHT 90 tablet 1 12/09/2 024 Active fluvoxaMINE (LUVOX) 100 mg tablet Take 1 tablet (100 mg total) by mouth daily 30 tablet 2 024 Active metFORMIN XR (GLUCOPHAGE XR) 500 mg 24 hr tabletIndications: Type 2 diabetes mellitus with hyperglycemia, with long-term current use of insulin ([facility]) Take 2 tablets (1,000 mg total) by mouth 2 (two) times a day 360 tablet 3 025 2025 Active tirzepatide (MOUNJARO) 7.5 mg/0.5 mL pen injectorIndication s:Type 2 diabetes mellitus with hyperglycemia, with long-term current use of insulin ([facility]) Inject 7.5 mg under the skin every 7 days 6 mL 3 025 2025 Active blood-glucose meter miscIndications:Ty pe 2 diabetes mellitus with hyperglycemia, with long-term current use of insulin ([facility]) One Touch Verio Meter Use to test blood sugar three times a day Dx: E11.65 1 each 025 Active insulin glargine (LANTUS) 100 unit/mL vial for injectionIndicatio ns:Type 2 diabetes mellitus with hyperglycemia, with long-term current use of insulin ([facility]) Inject 120 Units under the skin [...] by mouth once a week 12 capsule 025 Active clotrimazole 1 % cream Apply topically 2 (two) times a day 30 g 025 Active lamoTRIgine (LaMICtal) 100 mg tablet TAKE 1 TABLET BY MOUTH TWICE A DAY 180 tablet 1 025 Active ergocalciferol (VITAMIN D) 50,000 unit capsule TK 1 C PO Q WK 019 2024 Discontinued(R juan) nystatin ointment Apply topically 2 (two) times a day APPLY TO AFFECTED AREA 2024 Discontinued(R eorder) lamoTRIgine (LaMICtal) 100 mg tablet Take 1 tablet (100 mg total) by mouth 2 (two) times a day 60 tablet 3 024 2024 Discontinued Active Problems Problem Noted Date [...] partial remission, most recent episode mixed (CMS/HCC) 04/17/2024 Assessment & Plan (08/15/2024 1:57 PM ECOLOGIST TECHNICIAN): Patient has not re-established with Psychiatry, information [...] Hypertension associated with type 2 diabetes kilo addison 01/17/2024 Assessment & Plan (08/15/2024 1:58 PM ECOLOGIST TECHNICIAN): Chronic problem. Currently taking lisinopril 10mg daily. Assessment & Plan (08/01/2024 1:48 PM ECOLOGIST TECHNICIAN): Chronic problem. Currently taking lisinopril 10mg daily. Assessment & Plan (04/17/2024 3:13 PM CDT): Chronic problem. Currently taking lisinopril 10mg daily. Assessment & Plan (01/17/2024 11:44 AM CDT): Chronic problem. Currently taking lisinopril 10mg daily. Will update labs today. Verified that she uses [facility]. Aware to check results/results letter in [facility]. Will contact by phone if needed. Hyperlipidemia associated with type 2 diabetes sonia salazar 01/17/2024 Assessment & Plan (08/15/2024 1:57 PM ECOLOGIST TECHNICIAN): Awaiting labs, continues Atorvastatin. Assessment & Plan (08/01/2024 1:48 PM ECOLOGIST TECHNICIAN): Chronic problem. Currently taking Atorvastatin 20mg & fenofibrate 145mg daily. Last lipid panel: 01/17/24 TSE=268, TX=579. Assessment & Plan (04/17/2024 3:14 PM CDT): Chronic problem. Currently taking Atorvastatin 20mg & fenofibrate 145mg daily. Last lipid panel: 01/17/24 BUB=076, CT=987. Assessment & Plan (01/17/2024 11:45 AM CDT): Chronic problem. Currently taking Atorvastatin 20mg & fenofibrate 145mg daily. Last lipid panel: 10/09/21 LDL=could not calc, FX=836. Will update labs today. Verified that she uses [facility]. Aware to check results/results letter in [facility]. Will contact by phone if needed. Morbid (severe) obesity due to excess calories 0 01/17/2024 BMI 50.0-59.9, adult 01/17/2024 Class 3 severe obesity due t o excess calories with serious comorbidity and body mass index (BMI) of 50.0 to 59.9 in adult 01/17/2024 Assessment & Plan (08/15/2024 1:57 PM ECOLOGIST TECHNICIAN): Healthy, low carbohydrate lifestyle and exercise for [...] 09/15/2023 Assessment & Plan (08/01/2024 2:08 PM ECOLOGIST TECHNICIAN): Chronic problem. A1c worsened from 9.3% 04/17/24 to now 10.0%. interested in insulin pump therapy but wants to check with insurance to see what cost/coverage is. Will send me a [facility] message if pump is covered. Will increase [...] for DM eye exam; last 2022 at [facility] in [place]. Letter sent to get copy of report. [...] at bedtime DM eye exam 2022 at [facility] in [place]. Letter sent to get copy of report. Will update labs today. Verified that she uses [facility]. Aware to check results/results letter in [facility]. Will contact by phone if needed. Discussed [...] infection. Assessment & Plan (09/15/2023 12:26 PM ECOLOGIST TECHNICIAN): Hba1c was Lab Results Component Value Date [...] 09/15/2023 Assessment & Plan (08/01/2024 1:48 PM ECOLOGIST TECHNICIAN): Chronic problem. Continue metformin & Spironolactone. Assessment & Plan (04/17/2024 3:13 PM CDT): Chronic problem. Continue metformin & Spironolactone. Assessment & Plan (01/17/2024 11:43 AM CDT): Chronic problem. Continue metformin & Spironolactone. Assessment & Plan (09/15/2023 12:27 PM ECOLOGIST TECHNICIAN): Continue aldactone Eczema 07/27/2023 Persistent insomnia 02/13/2023 [...] Encounters Date Type Department Care Team Description 08/21/2024 Telephone [facility] [address] [place] [address] [place] [phone] Miyl Mason RN Update on Progesterone 08/16/2024 Orders Only [facility] Primary Care at [address] [phone] Meka Castellano NP 08/16/2024 Telephone [facility] Medical [facility] Primary Care at [address] [phone] Soren Mcwilliams MD Prior Auth (clotrimazole-betametha sone (LOTRISONE) cream) 08/16/2024 Orders Only [facility] Medical [facility] Primary Care at [address] [phone] Soren Mcwilliams MD 08/15/2024 2:01 PM ECOLOGIST TECHNICIAN - 08/15/2024 11:59 PM ECOLOGIST TECHNICIAN Hospital Encounter [address] [address] Hypertension associated with type 2 diabetes mellitus (HCC); Class 3 severe obesity due to excess calories with serious comorbidity and body mass index (BMI) of 45.0 to 49.9 in adult (HCC) Discharge Disposition: Discharge to home or self care 08/15/2024 2:00 PM ECOLOGIST TECHNICIAN Lab [facility] Outpatient Lab at [address] [phone] Type 2 diabetes mellitus (HCC) (Primary Dx) 08/15/2024 1:30 PM ECOLOGIST TECHNICIAN Office Visit [facility] Primary Care at [address] [phone] Meka Castellano NP Bipolar disorder, in partial remission, most recent episode mixed (CMS/HCC) (HCC) (Primary Dx); Hypertension associated with type 2 diabetes mellitus (HCC); Hyperlipidemia associated with type 2 diabetes mellitus (HCC); Intertrigo; Class 3 severe obesity due to excess calories with serious comorbidity and body mass index (BMI) of 50.0 to 59.9 in adult (HCC) 08/08/2024 Orders Only [facility] Diabetes and Endocrinology [address] [place] [phone] David Garrett MD 08/02/2024 Telephone [facility] Primary Care at [address] [phone] Soren Mcwilliams MD Medical Question/Miscellaneous 08/01/2024 3:13 PM ECOLOGIST TECHNICIAN - 08/01/2024 11:59 PM ECOLOGIST TECHNICIAN Hospital Encounter [address] [address] Acute viral syndrome Discharge Disposition: Discharge to home or self care 08/01/2024 2:45 PM ECOLOGIST TECHNICIAN Office Visit [facility] at [address] [phone] Rehana Irizarry NP Acute viral syndrome (Primary Dx) 08/01/2024 1:30 PM ECOLOGIST TECHNICIAN Office Visit [facility] Diabetes and Endocrinology [address] [place] [address] Haleigh Ramirez NP Type 2 diabetes mellitus with hyperglycemia, with long-term current use of insulin (HCC) (Primary Dx); Hypertension associated with type 2 diabetes mellitus (HCC); Hyperlipidemia associated with type 2 diabetes mellitus ([facility]); PCOS (polycystic ovarian syndrome) 07/19/2024 [facility] [address] [phone] Mily Mason RN Bleeding/Progesterone Update 07/05/2024 4:00 PM ECOLOGIST TECHNICIAN Office Visit [facility] [address] [facility] [address] [place] [address] Brenda Sheriff MD NIEVES (obstructive sleep apnea) (Primary Dx); Psychophysiological insomnia; Delayed sleep phase syndrome; Family history of sleep apnea; BMI 50.0-59.9, adult ([facility]); Nonsmoker 07/04/2024 2:30 PM ECOLOGIST TECHNICIAN Ancillary Procedure [address] [address] Menometrorrhagia 07/02/[address] [address] Mily Mason RN Cycle Update 06/27/2024 2:35 PM ECOLOGIST TECHNICIAN Lab [address] Menometrorrhagia 06/27/2024 1:30 PM ECOLOGIST TECHNICIAN Office Visit [address] [phone] Yoel Paulson MD Encounter for gynecological examination with abnormal finding (Primary Dx); Menometrorrhagia; Fibroids 06/13/2024 [facility] [address] [phone] Oneida Wells [place] Appointment 06/11/2024 2:30 PM ECOLOGIST TECHNICIAN Office Visit [facility] Con[facility]ient Care at [address] [phone] Rina Huizar NP Nausea and vomiting, unspecified vomiting type (Primary Dx); Viral gastroenteritis from Last 3 Months Immunizations Name Administration [...] on file Legal Sex Female 1:26 AM ECOLOGIST TECHNICIAN Gender Identity Female 12/25/2022 7:50 PM CDT Sexual Orientation Straight 12/25/2022 7: 50 PM CDT Obstetrics History Para Term AB IAB SAB Ectopic Multiple Livin g Live Births 0 0 0 0 0 0 0 0 0 0 0 Last Filed Vital Signs Vital Sign Reading Time Taken Comments Blood Pressure 104/60 08/15/2024 1:28 PM ECOLOGIST TECHNICIAN Pulse 85 08/15/2024 1:28 PM ECOLOGIST TECHNICIAN Temperature 36.6 C (97.8 F) 08/15/2024 1:28 PM ECOLOGIST TECHNICIAN Respiratory Rate 18 08/01/2024 2:47 PM ECOLOGIST TECHNICIAN Oxygen Saturation 99% 08/15/2024 1:28 PM ECOLOGIST TECHNICIAN Inhaled Oxygen Concentration - - Weight 156.5 kg (345 lb) 08/15/2024 1:28 PM ECOLOGIST TECHNICIAN Height 175.3 cm (5' 9.02 ) 08/15/2024 1:28 PM CS T Body Mass Index 50.92 08/15/2024 1:28 PM ECOLOGIST TECHNICIAN Plan of Treatment Health Maintenance Due Date Last Done Comments Hepatitis C Screening 1987 Pneumococcal vaccine <65 (1 of 2 - PCV) 1993 DTaP/Tdap/Td Vaccine (1 - Tdap) 1998 Varicella Vaccines (1 of 2 - 13+ 2-dose series) 2000 Hepatitis B Screening 2005 Covid-19 Vaccine ( season) 2024 04/15/2022, 07/22/2021, 11/25/2020, Additional history [...] Diagnosis Comments EGFR Routine 08/15/2024 2:01 PM ECOLOGIST TECHNICIAN Hypertension associated with type 2 diabetes mellitus (HCC) CHOLESTEROL, LDL, DIRECT Routine 08/15/2024 2:01 PM ECOLOGIST TECHNICIAN Hypertension associated with type 2 diabetes mellitus (HCC) DIFFERENTIAL AUTO Routine 08/15/2024 2:0 1 PM ECOLOGIST TECHNICIAN Hypertension associated with type 2 diabetes mellitus (HCC) VITAMIN D 25 HYDROXY Routine 08/15/2024 2:01 PM ECOLOGIST TECHNICIAN Class 3 severe obesity due to excess calories with serious comorbidity and body mass index (BMI) of 45.0 to 49.9 in adult (HCC) LIPID PANEL Routine 08/15/2024 2:01 PM ECOLOGIST TECHNICIAN Hypertension associated with type 2 diabetes mellitus (HCC) COMPREHENSIVE METABOLIC PANEL Routine 08/15/2024 2:01 PM ECOLOGIST TECHNICIAN Hypertension associated with type 2 diabetes mellitus (HCC) CBC WITH AUTO DIFFERENTIAL Routine 08/15/2024 2:01 PM ECOLOGIST TECHNICIAN Hypertension associated with type 2 diabetes mellitus (HCC) THYROID FUNCTION CASCADE Routine 08/15/2024 2:01 PM ECOLOGIST TECHNICIAN Hypertension associated with type 2 diabetes mellitus (HCC) THROAT CULTURE Routine 08/01/2024 3:13 PM ECOLOGIST TECHNICIAN Acute viral syndrome INFLUENZA A/B, RSV, AND COVID-19 PCR Routine 08/01/2024 3:13 PM ECOLOGIST TECHNICIAN Acute viral syndrome POCT RAPID RSV Routine 08/01/2024 3:07 PM ECOLOGIST TECHNICIAN Acute viral syndrome POC INFLUENZA A/B, COVID-19 ANTIGEN Routine 08/01/2024 3:07 PM ECOLOGIST TECHNICIAN Acute viral syndrome POCT RAPID STREP Routine 08/01/2024 3:04 PM ECOLOGIST TECHNICIAN Acute viral syndrome POCT GLUCOSE Routine 08/01/2024 1:35 PM ECOLOGIST TECHNICIAN Type 2 diabetes mellitus with hyperglycemia, with long-term current use of insulin (HCC) POCT HEMOGLOBIN A1C Routine 08/01/2024 1 :35 PM ECOLOGIST TECHNICIAN Type 2 diabetes mellitus with hyperglycemia, with long-term current use of insulin (HCC) US TRANSVAGINAL Schedule Routine, Read Routine (OP Routine) 07/04/2024 2:55 PM ECOLOGIST TECHNICIAN Menometrorrhagia DIFFERENTIAL AUTO Routine 06/27/2024 2:3 9 PM ECOLOGIST TECHNICIAN Menometrorrhagia CBC WITH AUTO DIFFERENTIAL Routine 06/27/2024 2:39 PM ECOLOGIST TECHNICIAN Menometrorrhagia TSH Routine 06/27/2024 2:39 PM ECOLOGIST TECHNICIAN Menometrorrhagia FERRITIN Routine 06/27/2024 2:39 PM ECOLOGIST TECHNICIAN Menometrorrhagia POC INFLUENZA A/B, COVID-19 ANTIGEN Routine 06/11/2024 2:26 PM ECOLOGIST TECHNICIAN Nausea and vomiting, unspecified vomiting type HM DIABETES EYE EXAM Routine 05/01/2024 7:23 AM CDT ALBUMIN CREATININE RATIO, URINE Routine 01/17/2024 1:00 PM CDT Type 2 diabetes mellitus with hyperglycemia, with long-term current use of insulin (HCC) from Last 3 Months or Most Recently Relevant to Health Maintenance Results * eGFR (08/15/2024 2:01 PM ECOLOGIST TECHNICIAN) eGFR >90 >=60 mL/min/1. 73 m2 Comment: Interpretive Data Reference Interval Normal >/= 90 mL/min/1.73m2 Mildly decreased* 60 - 89 mL/min/1.73m2 Mildly to moderately decreased 45 - 59 mL/min/1.73m2 Moderately to severely decreased 30 - 44 mL/min/1.73m2 Severely decreased 15 - 29 mL/min/1.73m2 Kidney Failure < 15 mL/min/1.73m2 *Relative to young adult level Estimated glomerular [...] last reviewed 2021. Blood 08/15/2024 2:01 PM ECOLOGIST TECHNICIAN 08/15/2024 9:27 PM ECOLOGIST TECHNICIAN us Soren Mcwilliams MD LAB BLOOD ORDERABLES Final Result [facility] [address] Department [place] [address] * Differential, auto (08/15/2024 2:01 PM ECOLOGIST TECHNICIAN) Neutrophil abs 2.8 1.5 - 6.5 K/cumm Imm gran abs 0.0 0.0 - 0.1 K/cumm [facility] Lymphocyte abs 1.3 0.8 - 3.3 K/cumm [facility] Monocyte abs 0.3 0.2 - 0.8 K/cumm [facility] Eosinophil abs 0.2 0.0 - 0.5 K/cumm [facility] Basophil abs 0.1 0.0 - 0.1 K/cumm [facility] Neutrophil pct 59.2 % [facility] Comment: Interpretive Data Percent cell count reference ranges are not reported, since discordance with absolute values may lead to misinterpretation of CBC data. Current Interpretive Data was last revised on 2017. Imm gran pct 0.4 % [facility] Comment: Interpretive Data Percent cell count reference ranges are not reported, since discordance with absolute values may lead to misinterpretation of CBC data. Current Interpretive Data was last revised on 2017. Lymphocyte pct 27.8 % [facility] Comment: Interpretive Data Percent cell count reference ranges are not reported, since discordance with absolute values may lead to misinterpretation of CBC data. Current Interpretive Data was last revised on 2017. Monocyte pct 6.4 % [facility] Comment: Interpretive Data Percent cell count reference ranges are not reported, since discordance with absolute values may lead to misinterpretation of CBC data. Current Interpretive Data was last revised on 2017. Eosinophil pct 4.9 % [facility] Comment: Interpretive Data Percent cell count reference ranges are not reported, since discordance with absolute values may lead to misinterpretation of CBC data. Current Interpretive Data was last revised on 2017. Basophil pct 1.3 % [facility] Comment: Interpretive Data Percent cell count reference ranges are not reported, since discordance with absolute values may lead to misinterpretation of CBC data. Current Interpretive Data was last revised on 2017. Blood 08/15/2024 2:01 PM ECOLOGIST TECHNICIAN 08/15/2024 9:08 PM ECOLOGIST TECHNICIAN Soren Mcwilliams MD LAB BLOOD ORDERABLES Final Result Performing Organization Address [facility] de Phone Number [facility] [address] [place] [address] * Thyroid Function Couch (08/15/2024 2:01 PM ECOLOGIST TECHNICIAN) Pathologist [facility] TSH 1.59 0.30 - 4.20 mcIUnit/mL Blood 08/15/2024 2:01 PM ECOLOGIST TECHNICIAN 08/15/2024 9:08 PM ECOLOGIST TECHNICIAN Result [facility] Soren Mcwilliams MD LAB BLOOD ORDERABLES Final Result Performing Organization Address [facility] Co de Phone Number [facility] [address] [place] [address] * (ABNORMAL) CBC with auto differential (08/15/2024 2:01 PM ECOLOGIST TECHNICIAN) WBC 4.7 3.8 - 9.9 K/cumm Hgb 11.3(L) 11.9 - 15.5 g/dL [facility] Hct 38.6 35.6 - 45.5 % [facility] Plt 210 150 - 400 K/cumm [facility] MPV 11.1 9.1 - 12.3 fL [facility] RBC 4.53 3.90 - 5.20 M/cumm [facility] MCV 85.2 81.3 - 96.4 fL [facility] MCH 24.9(L) 27.1 - 33.3 pg [facility] MCHC 29.3(L) 32.3 - 35.7 g/dL [facility] CH RDW CV 15.8(H) 11.1 - 14.9 % [facility] RDW SD 47.4 35.7 - 48.1 fL [facility] NRBC abs 0.00 0.00 - 0.01 K/cumm [facility] CH Blood 08/15/2024 2:01 PM ECOLOGIST TECHNICIAN 08/15/2024 9:08 PM ECOLOGIST TECHNICIAN Soren Mcwilliams MD LAB BLOOD ORDERABLES Final Result Performing Organization Address City/[facility]/ZIP Co de Phone Number EUN X[facility] [address] [place] [address] * (ABNORMAL) Vitamin D 25 hydroxy (08/15/2024 2:01 PM ECOLOGIST TECHNICIAN) Vitamin D 25-OH 18(L) 30 - 80 ng/mL Blood 08/15/2024 2:01 PM ECOLOGIST TECHNICIAN 08/15/2024 9:08 PM ECOLOGIST TECHNICIAN Soren Mcwilliams MD LAB BLOOD ORDERABLES Final Result Performing Organization Address City/[facility]/ZIP Co de Phone Number ASIM[facility]IS [address] [place] [address] * Cholesterol, LDL, direct (08/15/2024 2:01 PM ECOLOGIST TECHNICIAN) LDL Cholesterol, Direct 72 <=129 mg/dL Comment: Interpretive Data Ages < or = 19 years Acceptable: <110 mg/dL Borderline high: 110-129 mg/dL High: >or= 130 mg/dL Ages > or = 20 years Optimal: <100 mg/dL Near optimal: 100-129 mg/dL Borderline high: 130-159 mg/dL High: >160 mg/dL Literature References: 1. Expert Panel on Integrated Guidelines for Cardiovascular Health and Risk Reduction in Children and Adolescents. Pediatrics 2011;128:S213 2. NCEP Expert Panel. Circulation 2004;110:227 Current Interpretive Data was last revised on 2018. Blood 08/15/2024 2:01 PM ECOLOGIST TECHNICIAN 08/15/2024 9:27 PM ECOLOGIST TECHNICIAN Narrative [facility]IM[facility] XAVIER - 08/15/2024 11:39 PM ECOLOGIST TECHNICIAN Cholesterol, LDL, direct reflexed based on Elevated Triglyceride (>400) us Soren Mcwilliams MD LAB BLOOD ORDERABLES Final Result [facility] [address] Department [place] [address] * (ABNORMAL) Lipid panel (08/15/2024 2:01 PM ECOLOGIST TECHNICIAN) Cholesterol 171 30 - 199 mg/dL Comment: Interpretive Data Ages < or = 19 years Acceptable: <170 mg/dL Borderline high: 170-199 mg/dL High: >or= 200 mg/dL Ages > or = 20 years Desirable: <200 mg/dL Borderline high: 200-239 mg/dL High: >or= 240 mg/dL Literature References: 1. Expert Panel on Integrated Guidelines for Cardiovascular Health and Risk Reduction in Children and Adolescents. Pediatrics 2011;128:S213 2. NCEP Expert Panel. Circulation 2004;110:227 Current Interpretive Data was last revised on 2018. Triglycerides 734(H) <=149 mg/dL [facility] Comment: Interpretive Data Ages < or = 9 years Acceptable: <75 mg/dL Borderline high: 75-99 mg/dL High: >or= 100 mg/dL Ages 10 to 20 years Acceptable: <90 mg/dL Borderline high: 90-129 mg/dL High: >or= 130 mg/dL Ages > or = 20 years Desirable: <150 mg/dL Borderline high: 150-199 mg/dL High: 200-499 mg/dL Very high: >or= 499 mg/dL Literature References: 1. Expert Panel on Integrated Guidelines for Cardiovascular Health and Risk Reduction in Children and Adolescents. Pediatrics 2011;128:S213 2. NCEP Expert Panel. Circulation 2004;110:227 Current Interpretive Data was last revised on 2018. HDL 26(L) >=40 mg/dL [facility] Comment: Interpretive Data Ages < or = 19 years Acceptable: >45 mg/dL Borderline low: 40-45 mg/dL Low: <40 mg/dL Ages > or = 20 years Desirable: >or= 60 mg/dL Low: <40 mg/dL Literature References: 1. Expert Panel on Integrated Guidelines for Cardiovascular Health and Risk Reduction in Children and Adolescents. Pediatrics 2011;128:S213 2. NCEP Expert Panel. Circulation 2004;110:227 Current Interpretive Data was last revised on 2018. LDL, calculated See Comment <=129 mg/dL [facility] Comment: Unable to calculate due to elevated Triglycerides. Interpretive Data Ages < or = 19 years Acceptable: <110 mg/dL Borderline high: 110-129 mg/dL High: >or= 130 mg/dL Ages > or = 20 years Optimal: <100 mg/dL Near optimal: 100-129 mg/dL Borderline high: 130-159 mg/dL High: >160 mg/dL Calculated using the Sabino LDL-C estimating equation. This equation was implemented on 2024. Prior to this date LDL-C was estimated using the Friedewald equation. Literature References: 1. Expert Panel on Integrated Guidelines for Cardiovascular Health and Risk Reduction in Children and Adolescents. Pediatrics 2011;128:S213 2. NCEP Expert Panel. Circulation 2004;110:227 3. Sabino Olmos et al. ISABELA Cardiol. 2019November 22;5(5):540-548. doi: 10.1001/[email or web address].2020.0013 Current Interpretive Data was last revised on 2024. Non-HDL Cholesterol 145 mg/dL [facility] Comment: Interpretive Data Ages < or = 19 years Acceptable: <120 mg/dL Borderline high: 120-144 mg/dL High: >145 mg/dL Ages > or = 20 years When triglycerides are >200 mg/dL, Non-HDL cholesterol is a secondary target of therapy with treatment goals that are 30 mg/dL greater than the LDL cholesterol target. Literature References: 1. Expert Panel on Integrated Guidelines for Cardiovascular Health and Risk Reduction in Children and Adolescents. Pediatrics 2011;128:S213 2. NCEP Expert Panel. Circulation 2004;110:227 Current Interpretive Data was last revised on 2018. Chol/HDL ratio 7 [facility] Blood 08/15/2024 2:01 PM ECOLOGIST TECHNICIAN 08/15/2024 9:08 PM ECOLOGIST TECHNICIAN us Soren Mcwilliams MD LAB BLOOD ORDERABLES Final Result [facility] [address] Department [place] [address] * (ABNORMAL) Comprehensive metabolic panel (08/15/2024 2:01 PM ECOLOGIST TECHNICIAN) Pathologist [facility] Sodium 136 135 - 145 mmol/L Potassium, [...] >/= 126 mg/dl is diagnostic for diabetes. Fasting is defined as no caloric intake [...] Units/L [facility] Blood 08/15/2024 2:01 PM ECOLOGIST TECHNICIAN 08/15/2024 9:08 PM ECOLOGIST TECHNICIAN Soren Mcwilliams MD LAB BLOOD ORDERABLES Final Result Performing Organization Address [facility] Co de Phone Number EUN X[facility] [address] Department [place] [address] * (ABNORMAL) Influenza A/B, RSV, and COVID-19 PCR Nasopharyngeal (08/01/2024 3:13 PM ECOLOGIST TECHNICIAN) COVID-19 RNA Negative Negative Influenza A RNA Negative Negative [facility] Influenza B RNA Negative Negative [facility] RSV RNA Positive(A) Negative [facility] Comment: Interpretive data: Testing performed by [facility]. This test is performed using the [employer] Xpert Xpress CoV-2/Flu/RSV plus assay. This is a multiplex, real-time reverse transcriptase PCR assay intended for the qualitative detection of nucleic acid from SARS-CoV-2, influenza A, influenza B, and respiratory syncytial virus. This assay has been cleared by the [place] Food and Drug administration. The performance characteristics have been verified by the [facility]. Results must be considered in the clinical context, and a negative result does not rule out infection. Interpretive Data last revised 2023 Nasopharyngeal 08/01/2024 3: 13 PM ECOLOGIST TECHNICIAN 08/01/2024 7:43 PM ECOLOGIST TECHNICIAN Narrative [facility] - 08/01/2024 8:34 PM ECOLOGIST TECHNICIAN Is the Patient experiencing symptoms consistent with COVID?->Yes us Rehana Irizarry NP LAB MICROBIOLOGY - GENERAL ORD ERABLES Final Result Performing Organization Address [facility]/ZIP Co de Phone Number EUN XAVIER [address] Department [place] [address] CH * Throat culture Throat (08/01/2024 3:13 PM ECOLOGIST TECHNICIAN) Report Final Report: No growth of pathogens. Comment:Testing performed by : [facility], [address] [facility], [place]., [address] Throat 08/01/2024 3:13 PM ECOLOGIST TECHNICIAN 08/01/2024 10:46 PM ECOLOGIST TECHNICIAN Narrative [facility] - 08/02/2024 10:45 PM ECOLOGIST TECHNICIAN Testing performed by [facility] Microbiology Laboratory ([phone]). us Rehana Irizarry NP LAB MICROBIOLOGY - GENERAL ORD ERABLES Final Result Performing Organization Address City/[facility]/ZIP Co de Phone Number EUN [address] [address] Department [place] [address] * POC Influenza A/B, COVID-19 antigen (08/01/2024 3:07 PM ECOLOGIST TECHNICIAN) Influenza A Ag, POC Negative Negative [facility] Influenza B Ag, POC Negative Negative [facility] COVID-19 Ag POC Presumptive Negative Presumptive Negative, Invalid [facility] Nasal 08/01/2024 3:07 PM ECOLOGIST TECHNICIAN us Rehana Irizarry SENIOR FORMULATION SCIENTIST POINT OF CARE TEST ORDERABLES Final Result Performing Organization Address [facility]/ZIP Co de Phone Number [facility] EDW [address] [place] [address] * POCT rapid RSV (08/01/2024 3:07 PM ECOLOGIST TECHNICIAN) Rapid RSV, POC Negative Negative Lot Number [id number] QC Control Line Acceptable Swab 08/01/2024 3:07 PM ECOLOGIST TECHNICIAN us Rehana Irizarry NP POINT OF CARE TEST ORDERABLES Final Result * POCT rapid strep A (08/01/2024 3:04 PM ECOLOGIST TECHNICIAN) Rapid Strep A, POC Negative Negative Swab 08/01/2024 3:04 PM ECOLOGIST TECHNICIAN us Rehana Irizarry NP POINT OF CARE TEST ORDERABLES Final Result * (ABNORMAL) POCT hemoglobin A1c (08/01/2024 1:35 PM ECOLOGIST TECHNICIAN) Pathologist [facility] Hemoglobin A1C, POC 10.0 4.0 - 5.6 % Blood 08/01/2024 1:35 PM ECOLOGIST TECHNICIAN us Haleighyariel Ramirez SENIOR FORMULATION SCIENTIST POINT OF CARE TEST ORDERA BLES Final Result * (ABNORMAL) POCT glucose (08/01/2024 1:35 PM ECOLOGIST TECHNICIAN) Pathologist [facility] Glucose Blood, POC 351 mg/dL Blood 08/01/2024 1:35 PM ECOLOGIST TECHNICIAN us Haleigh Ramirez SENIOR FORMULATION SCIENTIST POINT OF CARE TEST ORDERA BLES Final Result * US Transvaginal (07/04/2024 2:55 PM ECOLOGIST TECHNICIAN) Anatomical Region Laterality Modality Pelvis N/A Ultrasound 07/04/2024 3:06 PM ECOLOGIST TECHNICIAN Impressions 07/04/2024 9:26 PM ECOLOGIST TECHNICIAN 1. Enlarged uterus with a 4.6 and a 4.5 cm fibroid as described. EMC is not well seen. IUD is suspected within the EMC. 2. Normal appearing left ovary. 3. Right ovary is not seen. Narrative Procedure Note Yoel Paulson MD - 07/04/2024 IMPRESSION: 1. Enlarged uterus with a 4.6 and a 4.5 cm fibroid as described. EMC isnot well seen. IUD is suspected within the EMC. 2. Normal appearing left ovary. 3. Right ovary is not seen. us Yoel Paulson MD IMG US PROCEDURES Final Re sult * Differential, auto (06/27/2024 2:39 PM ECOLOGIST TECHNICIAN) Pathologist [facility] Neutrophil abs 3.0 1.5 - 6.5 K/cumm [...] revised on 2017. Blood 06/27/2024 2:39 PM ECOLOGIST TECHNICIAN 06/27/2024 3:46 PM ECOLOGIST TECHNICIAN us Yoel Paulson MD LAB BLOOD ORDERABLES Final Result [facility] ([place]) [address] [facility] Department [place] [address] * (ABNORMAL) CBC with auto differential (06/27/2024 2:39 PM ECOLOGIST TECHNICIAN) WBC 5.3 3.8 - 9.9 K/cumm Hgb [...] 31.7(L) 32.3 - 35.7 g/dL [facility] RDW CV 13.6 11.1 - 14.9 % [facility] RDW SD 43.9 35.7 - 48.1 fL [facility] NRBC abs 0.00 0.00 - 0.01 K/cumm [facility] ([facility]) Blood 06/27/2024 2:39 PM ECOLOGIST TECHNICIAN 06/27/2024 3:46 PM ECOLOGIST TECHNICIAN us Yoel Paulson MD LAB BLOOD ORDERABLES Final Result [facility] ([facility]) [address] [facility] Department [place] [address] * TSH (06/27/2024 2:39 PM ECOLOGIST TECHNICIAN) Pathologist [facility] Thyroid Stimulating Hormone 2.25 0.30 - 4.20 mcIUnit/mL Blood 06/27/2024 2:39 PM ECOLOGIST TECHNICIAN 06/27/2024 3:46 PM ECOLOGIST TECHNICIAN Yoel Paulson MD LAB BLOOD ORDERABLES Final Result [facility] ([facility]) [address] [facility] Department [place] [address] * Ferritin (06/27/2024 2:39 PM ECOLOGIST TECHNICIAN) [facility] Ferritin 22 15 - 150 ng/mL Blood 06/27/2024 2:39 PM ECOLOGIST TECHNICIAN 06/27/2024 3:46 PM ECOLOGIST TECHNICIAN Yoel Paulson MD LAB BLOOD ORDERABLES Final Result Performing Organization Address City/[facility]/ZIP Co de Phone Number [facility] ([facility]) [address] [facility] Department [place] [address] * POC Influenza A/B, COVID-19 antigen (06/11/2024 2:26 PM ECOLOGIST TECHNICIAN) [facility] Influenza A Ag, POC Negative Negative [facility] Influenza B Ag, POC Negative Negative [facility] COVID-19 Ag POC Presumptive Negative Presumptive Negative, Invalid [facility] Nasal 06/11/2024 2:26 PM ECOLOGIST TECHNICIAN Rina Huizar NP POINT OF CARE TEST ORDERAB LES Final Result Performing Organization Address [facility] Co de Phone Number [facility] [address] [place] [address] * DIABETES EYE EXAM (05/01/2024 7:23 AM CDT) Historical Provider HEALTH MAINTENANCE Final Result * Albumin Creatinine Ratio, Urine (01/17/2024 1:00 PM CDT) [facility] Albumin Ur <12.0 mg/L Comment: Interpretive Data No reference range established. Current interpretive data was last revised 2018. Creatinine Ur 35.5 mg/dL EUN Comment: Interpretive Data No reference range established. Current interpretive data was last revised 2018. Albumin Creatinine Ratio, Ur See Comment 1 - 29 EUN XAVIER Comment:Unable to calculate Urine 01/17/2024 1:00 PM CDT 01/17/2024 8:21 PM CDT us Haleigh Ramirez NP LAB URINE ORDERAB[place] [address] [address] Department [place] [address] from Last 3 Months or Most Recently Relevant to [place] [address] [place] [address] [facility] Care Teams Shop Clerk Relationship Specialty Start Date End Date Soren Mcwilliams MD [address] [address] PCP - General Family Medicine 04/17/24 Yoel Paulson MD [address] [place] [address] [address] FAIRCHILD [address] [place] [id number] [employer] Obstetrics and Gynecology 08/15/24
--- OUTSIDE RECORDS SUMMARY | 2024-08-31 23:01 | XMS_ITS | Referral Summary ---
Author Organization [facility] Address [address] [place] [address] Care Team Providers Care Diet Supervisor Name Role Phone Soren Mcwilliams MD Primary Care Provider Yole Paulson MD Unavailable [phone] Encounters Date Type Department Care Team Description 08/21/2024 Telephone [employer] [address] [place] [address] [address] [place] [address] Mily Mason, CHAPARRO Update on Progesterone 08/16/2024 Orders Only [facility] Primary Care at [address] [phone] Meka Castellano NP 08/16/2024 Telephone [facility] Primary Care at [address] [phone] Soren Mcwilliams MD Prior Auth (clotrimazole-betametha sone (LOTRISONE) cream) 08/16/2024 Orders Only [facility] Primary Care at [address] [phone] Soren Mcwilliams MD 08/15/2024 2:01 PM E COMMERCE SPECIALIST - 08/15/2024 11:59 PM E COMMERCE SPECIALIST Hospital Encounter [address] [address] Hypertension associated with type 2 diabetes mellitus (HCC); Class 3 severe obesity due to excess calories with serious comorbidity and body mass index (BMI) of 45.0 to 49.9 in adult (HCC) Discharge Disposition: Discharge to home or self care 08/15/2024 2:00 PM E COMMERCE SPECIALIST Lab [facility] at [address] [phone] Type 2 diabetes mellitus (HCC) (Primary Dx) 08/15/2024 1:30 PM E COMMERCE SPECIALIST Office Visit [facility] at [address] [phone] Meka Castellano NP Bipolar disorder, in partial remission, most recent episode mixed (CMS/HCC) (HCC) (Primary Dx); Hypertension associated with type 2 diabetes mellitus (HCC); Hyperlipidemia associated with type 2 diabetes mellitus (HCC); Intertrigo; Class 3 severe obesity due to excess calories with serious comorbidity and body mass index (BMI) of 50.0 to 59.9 in adult (HCC) 08/08/2024 Orders Only [facility] [address] [place] [phone] ProviderDavid MD 08/02/2024 Telephone [facility] at [address] [phone] Soren Mcwilliams MD Medical Question/Miscellaneous 08/01/2024 3:13 PM E COMMERCE SPECIALIST - 08/01/2024 11:59 PM E COMMERCE SPECIALIST Hospital Encounter [address] [address] Acute viral syndrome Discharge Disposition: Discharge to home or self care 08/01/2024 2:45 PM E COMMERCE SPECIALIST Office Visit [facility] at [address] [phone] Rehana Irizarry NP Acute viral syndrome (Primary Dx) 08/01/2024 1:30 PM E COMMERCE SPECIALIST Office Visit [facility] [address] [place] [phone] Haleigh Ramirez NP Type 2 diabetes mellitus with hyperglycemia, with long-term current use of insulin ([facility]) (Primary Dx); Hypertension associated with type 2 diabetes mellitus ([facility]); Hyperlipidemia associated with type 2 diabetes mellitus ([facility]); PCOS (polycystic ovarian syndrome) 07/19/[address], [place] [phone] Mily Mason RN Bleeding/Progesterone Update 07/05/2024 4:00 PM E COMMERCE SPECIALIST Office Visit [facility] Pulmonology [address] [facility] [address] [place] [address] Brenda Sheriff MD NIEVES (obstructive sleep apnea) (Primary Dx); Psychophysiological insomnia; Delayed sleep phase syndrome; Family history of sleep apnea; BMI 50.0-59.9, adult ([facility]); Nonsmoker 07/04/2024 2:30 PM E COMMERCE SPECIALIST Ancillary Procedure [address], [place] [phone] Menometrorrhagia 07/02/[address] [phone] Mily Mason RN Cycle Update 06/27/2024 2:35 PM E COMMERCE SPECIALIST Lab [address] Menometrorrhagia 06/27/2024 1:30 PM E COMMERCE SPECIALIST Office Visit [address] [phone] Yoel Paulson MD Encounter for gynecological examination with abnormal finding (Primary Dx); Menometrorrhagia; Fibroids 06/13/[address], [place] [phone] Oneida Wells MA Appointment 06/11/2024 2:30 PM E COMMERCE SPECIALIST Office Visit [facility] Care at [address] [phone] Rina Huizar NP Nausea and vomiting, unspecified vomiting type (Primary Dx); Viral gastroenteritis from Last 3 Months Allergies Active Allergy [...] biotin 10,000 mcg capsule Take by mouth Active cetirizine (ZyrTEC) 10 mg tablet TAKE [...] (three) times a day as needed Active hany.ph ze-vbjlb-zij (UribeL) 118-10-40.8-36 mg capsule TAKE 1 CAPSULE BY MOUTH THREE TIMES DAILY NEEDED 022 Active naproxen (NAPROSYN) 500 mg tablet TAKE 1 TABLET BY MOUTH EVERY 12 HOURS. DO NOT USE OTHER NSAIDS WITH MEDICATION Active omeprazole (PriLOSEC) 20 mg capsule Take [...] syringe-needle U-100 1 mL 29 gauge x 07/26 syringe daily 019 Active triamcinolone (KENALOG) 0.1 [...] a day Dx: E11.65 100 each 11 024 Active docusate sodium (DOK) 100 mg capsule Take 1 capsule (100 mg total) by mouth 2 (two) times a day Active ketoconazole (NIZORAL) 2 % shampoo APPLY TO WET HAIR, LEAVE ON FOR 3MINS THEN RINSE 3 TIMES PER WEEK 024 Active methocarbamoL (ROBAXIN) 750 mg tablet Take [...] hyperglycemia, with long-term current use of insulin ([facility]) Take 2 tablets (1,000 mg total) by mouth 2 (two) times a day 360 tablet 3 025 2025 Active tirzepatide (MOUNJARO) 7.5 mg/0.5 mL pen injectorIndication s:Type 2 diabetes mellitus with hyperglycemia, with long-term current use of insulin ([facility]) Inject 7.5 mg under the skin every 7 days 6 mL 3 025 2025 Active blood-glucose meter miscIndications:Ty pe 2 diabetes mellitus with hyperglycemia, with long-term current use of insulin ([facility]) One Touch Verio Meter Use to test blood sugar three times a day Dx: E11.65 1 each Active insulin glargine (LANTUS) 100 unit/mL vial for injectionIndicatio ns:Type 2 diabetes mellitus with hyperglycemia, with long-term current use of insulin (HCC) Inject 120 Units under the skin nightly 120 mL 2 025 Active clotrimazole-betam ethasone (LOTRISONE) cream Apply topically 2 (two) times a day 15 g 1 025 Active nystatin ointment Apply topically 2 (two) times a day APPLY TO AFFECTED AREA 30 g 1 025 Active ergocalciferol (VITAMIN D) 50,000 unit capsule Take 1 capsule (50,000 Units total) by mouth once a week 12 capsule 1 025 Active clotrimazole 1 % cream Apply topically 2 (two) times a day 30 g 1 025 Active lamoTRIgine (LaMICtal) 100 mg tablet [...] in partial remission, most recent episode mixed ([facility]) 04/17/2024 Assessment & Plan (08/15/2024 1:57 PM E COMMERCE SPECIALIST): Patient has not re-established with Psychiatry, information [...] 01/17/2024 Assessment & Plan (08/15/2024 1:58 PM E COMMERCE SPECIALIST): Chronic problem. Currently taking lisinopril 10mg daily. Assessment & Plan (08/01/2024 1:48 PM E COMMERCE SPECIALIST): Chronic problem. Currently taking lisinopril 10mg daily. Assessment & Plan (04/17/2024 3:13 PM CDT): Chronic problem. Currently taking lisinopril 10mg daily. Assessment & Plan (01/17/2024 11:44 AM CDT): Chronic problem. Currently taking lisinopril 10mg daily. Will update labs today. Verified that she uses [facility]. Aware to check results/results letter in [email or web address]. Will contact by phone if needed. Hyperlipidemia associated with type 2 diabetes sonia salazar 01/17/2024 Assessment & Plan (08/15/2024 1:57 PM E COMMERCE SPECIALIST): Awaiting labs, continues Atorvastatin. Assessment & Plan (08/01/2024 1:48 PM E COMMERCE SPECIALIST): Chronic problem. Currently taking Atorvastatin 20mg & fenofibrate 145mg daily. Last lipid panel: 01/17/24 PQX=711, GM=535. Assessment & Plan (04/17/2024 3:14 PM CDT): Chronic problem. Currently taking Atorvastatin 20mg & fenofibrate 145mg daily. Last lipid panel: 01/17/24 LQL=006, QX=217. Assessment & Plan (01/17/2024 11:45 AM CDT): Chronic problem. Currently taking Atorvastatin 20mg & fenofibrate 145mg daily. Last lipid panel: 10/09/21 LDL=could not calc, DK=123. Will update labs today. Verified that she uses [employer]. Aware to check results/results letter in [email or web address]. Will contact by phone if needed. Morbid (severe) obesity due to excess calories 0 01/17/2024 BMI 50.0-59.9, adult 01/17/2024 Class 3 severe obesity due t o excess calories with serious comorbidity and body mass index (BMI) of 50.0 to 59.9 in adult 01/17/2024 Assessment & Plan (08/15/2024 1:57 PM E COMMERCE SPECIALIST): Healthy, low carbohydrate lifestyle and exercise for [...] 09/15/2023 Assessment & Plan (08/01/2024 2:08 PM E COMMERCE SPECIALIST): Chronic problem. A1c worsened from 9.3% 04/17/24 to now 10.0%. interested in insulin pump therapy but wants to check with insurance to see what cost/coverage is. Will send me a [email or web address] message if pump is covered. Will increase [...] for DM eye exam; last 2022 at [facility]. Letter sent to get copy of report. [...] at bedtime DM eye exam 2022 at [facility]. Letter sent to get copy of report. Will update labs today. Verified that she uses [email or web address]. Aware to check results/results letter in [email or web address]. Will contact by phone if needed. Discussed [...] infection. Assessment & Plan (09/15/2023 12:26 PM E COMMERCE SPECIALIST): Hba1c was Lab Results Component Value Date [...] 09/15/2023 Assessment & Plan (08/01/2024 1:48 PM E COMMERCE SPECIALIST): Chronic problem. Continue metformin & Spironolactone. Assessment & Plan (04/17/2024 3:13 PM CDT): Chronic problem. Continue metformin & Spironolactone. Assessment & Plan (01/17/2024 11:43 AM CDT): Chronic problem. Continue metformin & Spironolactone. Assessment & Plan (09/15/2023 12:27 PM E COMMERCE SPECIALIST): Continue aldactone Eczema 07/27/2023 Persistent insomnia 02/13/2023 [...] on file Legal Sex Female 1:26 AM E COMMERCE SPECIALIST Gender Identity Female 12/25/2022 7:50 PM CDT Sexual Orientation Straight 12/25/2022 7: 50 PM CDT Last Filed Vital Signs Vital Sign Reading Time Taken Comments Blood Pressure 104/60 08/15/2024 1:28 PM E COMMERCE SPECIALIST Pulse 85 08/15/2024 1:28 PM E COMMERCE SPECIALIST Temperature 36.6 C (97.8 F) 08/15/2024 1:28 PM E COMMERCE SPECIALIST Respiratory Rate 18 08/01/2024 2:47 PM E COMMERCE SPECIALIST Oxygen Saturation 99% 08/15/2024 1:28 PM E COMMERCE SPECIALIST Inhaled Oxygen Concentration - - Weight 156.5 kg (345 lb) 08/15/2024 1:28 PM E COMMERCE SPECIALIST Height 175.3 cm (5' 9.02 ) 08/15/2024 1:28 PM CS T Body Mass Index 50.92 08/15/2024 1:28 PM E COMMERCE SPECIALIST Plan of Treatment Not on file Procedures Procedure Name Priority Date/Time Associated Diagnosis Comments EGFR Routine 08/15/2024 2:01 PM E COMMERCE SPECIALIST Hypertension associated with type 2 diabetes mellitus (HCC) CHOLESTEROL, LDL, DIRECT Routine 08/15/2024 2:01 PM E COMMERCE SPECIALIST Hypertension associated with type 2 diabetes mellitus (HCC) DIFFERENTIAL AUTO Routine 08/15/2024 2:0 1 PM E COMMERCE SPECIALIST Hypertension associated with type 2 diabetes mellitus (HCC) VITAMIN D 25 HYDROXY Routine 08/15/2024 2:01 PM E COMMERCE SPECIALIST Class 3 severe obesity due to excess calories with serious comorbidity and body mass index (BMI) of 45.0 to 49.9 in adult (HCC) LIPID PANEL Routine 08/15/2024 2:01 PM E COMMERCE SPECIALIST Hypertension associated with type 2 diabetes mellitus (HCC) COMPREHENSIVE METABOLIC PANEL Routine 08/15/2024 2:01 PM E COMMERCE SPECIALIST Hypertension associated with type 2 diabetes mellitus (HCC) CBC WITH AUTO DIFFERENTIAL Routine 08/15/2024 2:01 PM E COMMERCE SPECIALIST Hypertension associated with type 2 diabetes mellitus (HCC) THYROID FUNCTION CASCADE Routine 08/15/2024 2:01 PM E COMMERCE SPECIALIST Hypertension associated with type 2 diabetes mellitus (HCC) THROAT CULTURE Routine 08/01/2024 3:13 PM E COMMERCE SPECIALIST Acute viral syndrome INFLUENZA A/B, RSV, AND COVID-19 PCR Routine 08/01/2024 3:13 PM E COMMERCE SPECIALIST Acute viral syndrome POCT RAPID RSV Routine 08/01/2024 3:07 PM E COMMERCE SPECIALIST Acute viral syndrome POC INFLUENZA A/B, COVID-19 ANTIGEN Routine 08/01/2024 3:07 PM E COMMERCE SPECIALIST Acute viral syndrome POCT RAPID STREP Routine 08/01/2024 3:04 PM E COMMERCE SPECIALIST Acute viral syndrome POCT GLUCOSE Routine 08/01/2024 1:35 PM E COMMERCE SPECIALIST Type 2 diabetes mellitus with hyperglycemia, with long-term current use of insulin (HCC) POCT HEMOGLOBIN A1C Routine 08/01/2024 1 :35 PM E COMMERCE SPECIALIST Type 2 diabetes mellitus with hyperglycemia, with long-term current use of insulin (HCC) US TRANSVAGINAL Schedule Routine, Read Routine (OP Routine) 07/04/2024 2:55 PM E COMMERCE SPECIALIST Menometrorrhagia DIFFERENTIAL AUTO Routine 06/27/2024 2:3 9 PM E COMMERCE SPECIALIST Menometrorrhagia CBC WITH AUTO DIFFERENTIAL Routine 06/27/2024 2:39 PM E COMMERCE SPECIALIST Menometrorrhagia TSH Routine 06/27/2024 2:39 PM E COMMERCE SPECIALIST Menometrorrhagia FERRITIN Routine 06/27/2024 2:39 PM E COMMERCE SPECIALIST Menometrorrhagia POC INFLUENZA A/B, COVID-19 ANTIGEN Routine 06/11/2024 2:26 PM E COMMERCE SPECIALIST Nausea and vomiting, unspecified vomiting type DIABETES EYE EXAM Routine 05/01/2024 7:23 AM CDT ALBUMIN CREATININE RATIO, URINE Routine 01/17/2024 1:00 PM CDT Type 2 diabetes mellitus with hyperglycemia, with long-term current use of insulin (HCC) from Last 3 Months or Most Recently Relevant to Health Maintenance Results * eGFR (08/15/2024 2:01 PM E COMMERCE SPECIALIST) eGFR >90 >=60 mL/min/1. 73 m2 Comment: [...] last reviewed 2021. Blood 08/15/2024 2:01 PM E COMMERCE SPECIALIST 08/15/2024 9:27 PM E COMMERCE SPECIALIST us Soren Mcwilliams MD LAB BLOOD ORDERABLES Final Result [facility] [address] Department [place] [address] * Differential, auto (08/15/2024 2:01 PM E COMMERCE SPECIALIST) Neutrophil abs 2.8 1.5 - 6.5 K/cumm Imm gran abs 0.0 0.0 - 0.1 K/cumm [facility] Lymphocyte abs 1.3 0.8 - 3.3 K/cumm [facility] Monocyte abs 0.3 0.2 - 0.8 K/cumm [facility] Eosinophil abs 0.2 0.0 - 0.5 K/cumm [facility] Basophil abs 0.1 0.0 - 0.1 K/cumm [facility] Neutrophil pct 59.2 % [facility] Comment: Interpretive Data Percent cell count reference ranges are not reported, since discordance with absolute values may lead to misinterpretation of CBC data. Current Interpretive Data was last revised on 2017. Imm gran pct 0.4 % [facility] Comment: Interpretive Data Percent cell count reference ranges are not reported, since discordance with absolute values may lead to misinterpretation of CBC data. Current Interpretive Data was last revised on 2017. Lymphocyte pct 27.8 % [facility] Comment: Interpretive Data Percent cell count reference ranges are not reported, since discordance with absolute values may lead to misinterpretation of CBC data. Current Interpretive Data was last revised on 2017. Monocyte pct 6.4 % [facility] Comment: Interpretive Data Percent cell count reference ranges are not reported, since discordance with absolute values may lead to misinterpretation of CBC data. Current Interpretive Data was last revised on 2017. Eosinophil pct 4.9 % [facility] Comment: Interpretive Data Percent cell count [...] revised on 2017. Blood 08/15/2024 2:01 PM E COMMERCE SPECIALIST 08/15/2024 9:08 PM E COMMERCE SPECIALIST Soren Mcwilliams MD LAB BLOOD ORDERABLES Final Result Performing Organization Address [facility] de Phone Number EUN [facility] [address] * Thyroid Function [place] (08/15/2024 2:01 PM E COMMERCE SPECIALIST) Pathologist [facility] TSH 1.59 0.30 - 4.20 mcIUnit/mL Blood 08/15/2024 2:01 PM E COMMERCE SPECIALIST 08/15/2024 9:08 PM E COMMERCE SPECIALIST Soren Mcwilliams MD LAB BLOOD ORDERABLES Final Result Performing Organization Address [facility] Co de Phone Number EUN XAVIER [address] Department [place] [address] [address] * (ABNORMAL) CBC with auto differential (08/15/2024 2:01 PM E COMMERCE SPECIALIST) WBC 4.7 3.8 - 9.9 K/cumm Hgb 11.3(L) 11.9 - 15.5 g/dL [facility] Hct 38.6 35.6 - 45.5 % [facility] Plt 210 150 - 400 K/cumm [facility] MPV 11.1 9.1 - 12.3 fL [facility] RBC 4.53 3.90 - 5.20 M/cumm [facility] MCV 85.2 81.3 - 96.4 fL [facility] MCH 24.9(L) 27.1 - 33.3 pg [facility] MCHC 29.3(L) 32.3 - 35.7 g/dL [facility] RDW CV 15.8(H) 11.1 - 14.9 % [facility] RDW SD 47.4 35.7 - 48.1 fL [facility] NRBC abs 0.00 0.00 - 0.01 K/cumm [facility] Blood 08/15/2024 2:01 PM E COMMERCE SPECIALIST 08/15/2024 9:08 PM E COMMERCE SPECIALIST Soren Mcwilliams MD LAB BLOOD ORDERABLES Final Result [facility] [address] [address] * (ABNORMAL) Vitamin D 25 hydroxy (08/15/2024 2:01 PM E COMMERCE SPECIALIST) Vitamin D 25-OH 18(L) 30 - 80 ng/mL Blood 08/15/2024 2:01 PM E COMMERCE SPECIALIST 08/15/2024 9:08 PM E COMMERCE SPECIALIST Soren Mcwilliams MD LAB BLOOD ORDERABLES Final Result Performing Organization Address City/[facility]/ZIP Co de Phone Number [facility] [address] [address] * Cholesterol, LDL, direct (08/15/2024 2:01 PM E COMMERCE SPECIALIST) LDL Cholesterol, Direct 72 <=129 mg/dL Comment: [...] revised on 2018. Blood 08/15/2024 2:01 PM E COMMERCE SPECIALIST 08/15/2024 9:27 PM E COMMERCE SPECIALIST Narrative [facility] - 08/15/2024 11:39 PM E COMMERCE SPECIALIST Cholesterol, LDL, direct reflexed based on Elevated Triglyceride (>400) us Soren Mcwilliams MD LAB BLOOD ORDERABLES Final Result [facility] [address] Department [place] [address] * (ABNORMAL) Lipid panel (08/15/2024 2:01 PM E COMMERCE SPECIALIST) Cholesterol 171 30 - 199 mg/dL Comment: [...] 7 [facility] Blood 08/15/2024 2:01 PM E COMMERCE SPECIALIST 08/15/2024 9:08 PM E COMMERCE SPECIALIST us Soren Mcwilliams MD LAB BLOOD ORDERABLES Final Result [facility] [address] Department [place] [address] * (ABNORMAL) Comprehensive metabolic panel (08/15/2024 2:01 PM E COMMERCE SPECIALIST) Sodium 136 135 - 145 mmol/L Potassium, [...] Units/L [facility] Blood 08/15/2024 2:01 PM E COMMERCE SPECIALIST 08/15/2024 9:08 PM E COMMERCE SPECIALIST Soren Mcwilliams MD LAB BLOOD ORDERABLES Final Result Performing Organization Address [facility] Co de Phone Number EUN XAV[facility] [address] Department [place] [address] * (ABNORMAL) Influenza A/B, RSV, and COVID-19 PCR Nasopharyngeal (08/01/2024 3:13 PM E COMMERCE SPECIALIST) COVID-19 RNA Negative Negative Influenza A RNA Negative Negative [facility] Influenza B RNA Negative Negative [facility] RSV RNA Positive(A) Negative [facility] Comment: Interpretive data: Testing performed by [facility]. This test is performed using the [employer] Xpert Xpress CoV-2/Flu/RSV plus assay. This is a multiplex, real-time reverse transcriptase PCR assay intended for the qualitative detection of nucleic acid from SARS-CoV-2, influenza A, influenza B, and respiratory syncytial virus. This assay has been cleared by the [place] Food and Drug administration. The performance characteristics have been verified by the [facility]. Results must be considered in the clinical context, and a negative result does not rule out infection. Interpretive Data last revised 2023 Nasopharyngeal 08/01/2024 3: 13 PM E COMMERCE SPECIALIST 08/01/2024 7:43 PM E COMMERCE SPECIALIST Narrative [facility] - 08/01/2024 8:34 PM E COMMERCE SPECIALIST Is the Patient experiencing symptoms consistent with COVID?->Yes us Rehana Irizarry NP LAB MICROBIOLOGY - GENERAL ORD ERABLES Final Result Performing Organization Address [facility] Co de Phone Number EUN X[facility] Department [place] [address] CH * Throat culture Throat (08/01/2024 3:13 PM E COMMERCE SPECIALIST) Report Final Report: No growth of pathogens. Comment:Testing performed by : [facility], [address] [facility], [place]., [address] Throat 08/01/2024 3:13 PM E COMMERCE SPECIALIST 08/01/2024 10:46 PM E COMMERCE SPECIALIST Narrative [facility] - 08/02/2024 10:45 PM E COMMERCE SPECIALIST Testing performed by [facility] Microbiology Laboratory ([phone]). us Rehana Irizarry NP LAB MICROBIOLOGY - GENERAL ORD ERABLES Final Result Performing Organization Address City/[facility]/ZIP Co de Phone Number EUN [address] Department [place] [address] * POC Influenza A/B, COVID-19 antigen (08/01/2024 3:07 PM E COMMERCE SPECIALIST) Influenza A Ag, POC Negative Negative [facility] Influenza B Ag, POC Negative Negative [facility] COVID-19 Ag POC Presumptive Negative Presumptive Negative, Invalid [facility] Nasal 08/01/2024 3:07 PM E COMMERCE SPECIALIST us Rehana Irizarry [employer] POINT OF CARE TEST ORDERABLES Final Result Performing Organization Address [facility] Co de Phone Number [facility]W [address] [place] [address] * POCT rapid RSV (08/01/2024 3:07 PM E COMMERCE SPECIALIST) Rapid RSV, POC Negative Negative Lot Number [id number] QC Control Line Acceptable Swab 08/01/2024 3:07 PM E COMMERCE SPECIALIST us Rehana Irizarry NP POINT OF CARE TEST ORDERABLES Final Result * POCT rapid strep A (08/01/2024 3:04 PM E COMMERCE SPECIALIST) Rapid Strep A, POC Negative Negative Swab 08/01/2024 3:04 PM E COMMERCE SPECIALIST Result Mattie Irizarry NP POINT OF CARE TEST ORDERABLES Final Result * (ABNORMAL) POCT hemoglobin A1c (08/01/2024 1:35 PM E COMMERCE SPECIALIST) Hemoglobin A1C, POC 10.0 4.0 - 5.6 % Blood 08/01/2024 1:35 PM E COMMERCE SPECIALIST us Haleighyariel Ramirez NP POINT OF CARE TEST ORDERA BLES Final Result * (ABNORMAL) POCT glucose (08/01/2024 1:35 PM E COMMERCE SPECIALIST) Pathologist [facility] Glucose Blood, POC 351 mg/dL Blood 08/01/2024 1:35 PM E COMMERCE SPECIALIST us Haleigh Ramirez NP POINT OF CARE TEST ORDERA BLES Final Result * US Transvaginal (07/04/2024 2:55 PM E COMMERCE SPECIALIST) Anatomical Region Laterality Modality Pelvis N/A Ultrasound 07/04/2024 3:06 PM E COMMERCE SPECIALIST Impressions 07/04/2024 9:26 PM E COMMERCE SPECIALIST 1. Enlarged uterus with a 4.6 and [...] sult * Differential, auto (06/27/2024 2:39 PM E COMMERCE SPECIALIST) Pathologist [facility] Neutrophil abs 3.0 1.5 - 6.5 K/cumm [...] revised on 2017. Blood 06/27/2024 2:39 PM E COMMERCE SPECIALIST 06/27/2024 3:46 PM E COMMERCE SPECIALIST us Yoel Paulson MD LAB BLOOD ORDERABLES Final Result [facility] ([place]) [address] [facility] Department [place] [address] * (ABNORMAL) CBC with auto differential (06/27/2024 2:39 PM E COMMERCE SPECIALIST) WBC 5.3 3.8 - 9.9 K/cumm Hgb [...] [facility] ([facility]) Blood 06/27/2024 2:39 PM E COMMERCE SPECIALIST 06/27/2024 3:46 PM E COMMERCE SPECIALIST us Yoel Paulson MD LAB BLOOD ORDERABLES Final Result [facility] ([facility]) [address] [facility] [place] [address] * TSH (06/27/2024 2:39 PM E COMMERCE SPECIALIST) Pathologist [facility] [place] Thyroid Stimulating Hormone 2.25 0.30 - 4.20 mcIUnit/mL Blood 06/27/2024 2:39 PM E COMMERCE SPECIALIST 06/27/2024 3:46 PM E COMMERCE SPECIALIST Yoel Paulson MD LAB BLOOD ORDERABLES Final Result [facility] (CHRISTINE) 1 [facility] Department [place] [address] * Ferritin (06/27/2024 2:39 PM E COMMERCE SPECIALIST) [facility] Ferritin 22 15 - 150 ng/mL Blood 06/27/2024 2:39 PM E COMMERCE SPECIALIST 06/27/2024 3:46 PM E COMMERCE SPECIALIST Yoel Paulson MD LAB BLOOD ORDERABLES Final Result Performing Organization Address [facility] Co de Phone Number [facility] (CHRISTINE) 1 [facility] Department [place] [address] * POC Influenza A/B, COVID-19 antigen (06/11/2024 2:26 PM E COMMERCE SPECIALIST) [facility] Influenza A Ag, POC Negative Negative [facility] Influenza B Ag, POC Negative Negative [facility] COVID-19 Ag POC Presumptive Negative Presumptive Negative, Invalid [facility] Nasal 06/11/2024 2:26 PM E COMMERCE SPECIALIST Rina Huizar NP POINT OF CARE TEST ORDERAB LES Final Result Performing Organization Address [facility] Co de Phone Number [facility] [address] [place] [address] * DIABETES EYE EXAM (05/01/2024 7:23 AM CDT) Historical Provider HEALTH MAINTENANCE Final Result * Albumin Creatinine Ratio, Urine (01/17/2024 1:00 PM CDT) [facility] Albumin Ur <12.0 mg/L Comment: Interpretive Data No reference range established. Current interpretive data was last revised 2018. Creatinine Ur 35.5 mg/dL EUN Comment: Interpretive Data No reference range established. Current interpretive data was last revised 2018. Albumin Creatinine Ratio, Ur See Comment 1 - 29 E[facility] Comment:Unable to calculate Urine 01/17/2024 1:00 PM CDT 01/17/2024 8:21 PM CDT us Haleigh Ramirez LIFT ELECTRICIAN LAB URINE ORDER[place] [address] [address] [place] [address] from Last 3 Months or Most Recently Relevant to Health [place] [address] [facility] [place] [address] [facility] Care Teams Diet Supervisor Relationship Specialty Start Date End Date Soren Mcwilliams MD [address] [address] PCP - General Family Medicine 04/17/24 Yoel Paulson MD 4 [facility] [address] [address] Plant Chief Obstetrics and Gynecology 08/15/24
--- OUTSIDE RECORDS SUMMARY | 2024-08-31 23:01 | XMS_ITS | Encounter Summary ---
Author Organization [facility] Healthcare Address [address] [place] [address] Care Team Providers Care Sanitarian Inspector Name Role Phone Soren Mcwilliams MD Primary Care Provider [phone] Yoel Paulson MD Unavailable [phone] Reason for Visit * Reason Onset Date Comments Medical Question/Miscellaneous 08/02/2024 Encounter Details Date Type Department Care Team (Late st Contact Info) Description 08/02/2024 Telephone [facility] Medical Group Primary Care at [address] [address] Soren Mcwilliams MD [address] [place] [address] [address] [place] [address] Medical Question/Miscellaneous Social History Tobacco [...] on file Legal Sex Female 1:26 AM VP ANCILLARY Gender Identity Female 12/25/2022 7:50 PM CDT Sexual Orientation Straight 12/25/2022 7: 50 PM CDT documented as of this encounter Miscellaneous Notes * Telephone Encounter - Amaya Escamilla - 08/02/2024 10:04 AM CST Medical Question/Miscellaneous Caller???s Concern: Patient tested positive for RSV yesterday at [facility]. Her symptoms started 07/31. She would like to know how long she needs to quarantine? Please advise Does message need to be routed? Yes-Action Needed ANCILLARY documented in this encounter Plan of Treatment Not on file documented as of this encounter Visit Diagnoses Not on filedocumented in this encounter Additional Health Concerns Infection Onset Date Last Indicated Resolved Time RSV, droplet 08/01/2024 08/01/2024 08/08/2024 3:05 AM VP ANCILLARY documented as of this encounter Care Teams Sanitarian Inspector Relationship Specialty Start Date End Date Soren Mcwilliams MD [address] [place] [address] PCP - General Family Medicine 04/17/24 Yoel Paulson MD [address] [facility] [address] [address] [place] [address] [place] [address] Shoe Clerk Obstetrics and Gynecology 08/15/24 documented as of this encounter
--- OUTSIDE RECORDS SUMMARY | 2024-08-31 23:01 | XMS_ITS | Encounter Summary ---
Author Organization [facility] Address [address] [address] Care Team Providers Care Education Paraprofessional Name Role Phone Michelle Valente MD Primary Care Provider [phone] Reason for Visit * Reason Onset Date Comments Concerns 09/08/2021 Appointment 09/08/2021 Encounter Details Date Type Department Care Team (Late st Contact Info) Description 09/08/2021 Telephone [facility] [address] [place] [address] Minoo Verdin MD Need new address Concerns; [...] week as above. Will cancel today's appt. BASE ANALYST * Telephone Encounter - Dudley Johns RN - 09/08/2021 11:24 AM CST She lives w/ her parents and brother who last Wed started w/ Covid symptoms. All broke out with fever on Tuesday, but gone on Tuesday. Can she still come in and be seen? Will check w/ supervisors and provider then call her back. Appt at 4pm today. BASE ANALYST * Telephone Encounter - Karrie Santos - 09/08/2021 11:19 AM CST Pt states she has come in contact with someone who had covid last week. She states she has since tested negative and has no symptoms. CB# [phone] BASE ANALYST documented in this encounter Plan of Treatment Not on file documented as of this encounter Visit Diagnoses Not on filedocumented in this encounter Care Teams Education Paraprofessional Relationship Specialty Start Date End Date Michelle Valente MD [address] [place] [address] [address] [place] [id number] PCP - General 11/29/17 documented as of this encounter
[2024-09-01 00:29] VITALS: BP 136/95; PULSE 86; RESP 16; O2SAT 100
--- OUTSIDE RECORDS SUMMARY | 2024-09-01 01:06 | XMS_ITS | Clinical Summary ---
Author Organization [facility] Address [address] [place] [address] Care Team Providers Care Biofuels Plant Manager Name Role Phone Michelle Valente MD Primary Care Provider [phone] Source Comments [facility],non-owned Affiliates and Associated Physician Practices is amultiple site organization consisting of ambulatory clinics and hospital sitesin [place], [place], [place] and [place]. This disclosure is being madepursuant to the Care Everywhere program and may not contain all information available regarding this patient. Last updated 18.[facility] Allergies Active Allergy Reactions [...] Dispensed Refills Start Date End Date Status Hudson-3 Fatty Acids (OMEGA-3 FISH OIL) 500 MG Take 1,200 mg by mouth 2 times daily Active CPAP Inhale 1 device by mouth at bedtime Active vitamin D, ergocalciferol, (DRISDOL) 54627 UNITS capsule Take 5,000 Units by mouth [...] times daily Active allergy injection Weekly through [facility] Otolaryngology Active naproxen (NAPROSYN) 500 [...] hyperglycemia, with long-term current use of insulin ([facility]) TAKE 2 TABLETS BY MOUTH TWICE DAILY 360 tablet 11 07/21/2022 Active fenofibrate (Tricor) 145 MG tabletIndications :Type 2 diabetes mellitus with hyperglycemia, with long-term current use of insulin ([facility]) TAKE 1 TABLET BY MOUTH EVERY DAY 90 tablet 4 08/05/2022 Active Blood Glucose Monitoring Suppl (Plutus Softwareuch Verio Flex System) w/Device KITIndications:Ty pe 2 diabetes mellitus with hyperglycemia, with long-term current use of insulin ([facility]) Use 1 kit as directed 1 kit 09/14/2022 Active dulaglutide (Trulicity) 1.5 MG/0.5ML injection Inject 0.5 mL subcutaneously every 7 days 6 mL 11 09/24/2022 Active FOOTBEAT [employer]EX HealthTouch Verio test stripIndications: Type 2 diabetes mellitus with hyperglycemia, with long-term current use of insulin ([facility]) USE TWICE DAILY 100 strip 11 10/13/2022 [...] refills 30 g 02/21/2023 Active nystatin (Mycostatin) 924994 UNIT/GM ointmentIndicatio ns:Recurrent candidiasis of vagina MIX [...] seek urgent/emergent care including calling Suicide Hotline (735 or ) or 361. Follow up in one month with PCP [...] CDT Respiratory Rate 18 07/31/2020 4:33 PM JOCKEY'S AGENT Oxygen Saturation 96% 01/05/2022 3:44 PM CDT [...] this topic Medical Devices Implanted Type Area Sky Diver Device Identifier Shelf Expiration Date Model / Serial / Lot Intrauterine Device/Mirena Implanted:Qty: 1 on 07/30/2020 by Willy Landeros MD at [facility] Cervix 10/21/2022 [id number] Procedures Procedure Name Priority Date/Time Associated Diagnosis Comments HEMOGLOBIN A1C - POINT OF CARE (AMB) [facility] Routine 01/05/2022 Type 2 diabetes mellitus with hyperglycemia, with long-term current use of insulin (HCC) MICROALB/CREAT RATIO URINE RANDOM PANEL 10/09/2021 2:05 PM CDT COMPREHENSIVE METABOLIC PANEL 10/09/2021 2:05 PM CDT HPV DETECTION HIGH RISK TAI Routine 06/29/2021 1:53 PM JOCKEY'S AGENT Encounter for Pap smear of cervix with [...] within a diagnostic category. Test Performed at: [facility] [address] [place] [address] BALAJI CANCINO DO,MPH 10/09/2021 2:05 PM CDT 10/09/2021 2:10 PM CDT Kam Ramesh MD LAB - URINE CHEMISTR Y ORDERABLES [facility] [address] [place] [address] * (ABNORMAL) COMPREHENSIVE METABOLIC PANEL (10/09/2021 2:05 [...] 29 U/L [facility] Comment: Test Performed at: [facility] [address] [place] [address] BALAJI CANCINO DO,MPH 10/09/2021 2:05 PM CDT 10/09/2021 2:10 PM CDT Kam Ramesh MD LAB - CHEMISTRY [facility] Performing Organization Address City/[facility]/ZIP Co de Phone Number [facility] [address] [place] [address] * HPV DETECTION HIGH RISK TAI (06/29/2021 1:53 PM JOCKEY'S AGENT) High Risk Human Papilloma Result Not detected Not detected 07/01/2021 7:22 AM JOCKEY'S AGENT [facility] High Risk Human Papilloma Interp 07/01/2021 7:22 AM JOCKEY'S AGENT [facility] PATHOLOGY LAB Comment:High Risk Human Lopez lloma Virus was Not Detected. Pathology/Cytolo gy MISCELLANEOUS SAMPLES / Unknown 06/29/2021 1:53 PM JOCKEY'S AGENT 06/30/2021 12:05 PM JOCKEY'S AGENT Narrative [facility] PATH[facility] - 07/01/2021 7:22 AM JOCKEY'S AGENT Nucleic acid isolated from the specimen was [...] Verdin MD LAB - MICROBIOLOGY O RDERAPATRIA [facility] PATHOLOGY LAB [address] [place] [address], [facility] [phone] * EYE EXAM (06/29/2021) Anatomical Region Laterality Modality Other Narrative 06/29/2021 Ordered by an unspecified provider. Scanned Document SCANNING ONLY from Last 3 Months or Most Recently Relevant to Health Maintenance Care Teams Biofuels Plant Manager Relationship Specialty Start Date End Date Michelle Valente MD [facility] [place] [address] PCP - General 11/29/17
--- OUTSIDE RECORDS SUMMARY | 2024-09-01 01:06 | XMS_ITS | CONTINUITY OF CARE DOCUMENT ---
Author Name codey, codey Address Unknown Organization [facility] Address [address] [place] [address] Phone [phone] Care Team Providers Care Electroplater Apprentice Name Role Phone Mario Alberto BUNDY, Agusto Olmos Unavailable [phone] MELISA BUNDY, VIKTOR Unavailable [phone] CELENA BUNDY, PENNY Unavailable RESULTS Date Observation [...] Payer name Policy type / Coverage type [place] red [employer] party ID AMIE MEDICAID (2) Medicaid [id number]
--- OUTSIDE RECORDS SUMMARY | 2024-09-01 01:06 | XMS_ITS | Referral Summary ---
Author Organization [facility] Address [address] [place] [address] Care Team Providers Care Air Conditioning Installer Supervisor Name Role Phone Michelle Valente MD Primary Care Provider [phone] Source Comments [facility],non-owned Affiliates and Associated Physician Practices is amultiple site organization consisting of ambulatory clinics and hospital sitesin [place], [place], [place] and [place]. This disclosure is being madepursuant to the Care Everywhere program and may not contain all information available regarding this patient. Last updated 18.[facility] Allergies Active Allergy Reactions Criticality Noted Date [...] Dispensed Refills Start Date End Date Status Ambler-3 Fatty Acids (OMEGA-3 FISH OIL) 500 MG Take 1,200 mg by mouth 2 times daily Active CPAP Inhale 1 device by mouth at bedtime Active vitamin D, ergocalciferol, (DRISDOL) 00401 UNITS capsule Take 5,000 Units by mouth [...] times daily Active allergy injection Weekly through [facility] Otolaryngology Active naproxen (NAPROSYN) 500 MG tablet [...] hyperglycemia, with long-term current use of insulin ([facility]) TAKE 2 TABLETS BY MOUTH TWICE DAILY 360 tablet 11 07/21/2022 Active fenofibrate (Tricor) 145 MG tabletIndications :Type 2 diabetes mellitus with hyperglycemia, with long-term current use of insulin ([facility]) TAKE 1 TABLET BY MOUTH EVERY DAY 90 tablet 4 08/05/2022 Active Blood Glucose Monitoring Suppl (OKKAMuch Verio Flex System) w/Device KITIndications:Ty pe 2 diabetes mellitus with hyperglycemia, with long-term current use of insulin ([facility]) Use 1 kit as directed 1 kit 09/14/2022 Active dulaglutide (Trulicity) 1.5 MG/0.5ML injection Inject 0.5 mL subcutaneously every 7 days 6 mL 11 09/24/2022 Active SetMeUpTouch Verio test stripIndications: Type 2 diabetes mellitus with hyperglycemia, with long-term current use of insulin ([facility]) USE TWICE DAILY 100 strip 11 10/13/2022 [...] refills 30 g 02/21/2023 Active nystatin (Mycostatin) 439084 UNIT/GM ointmentIndicatio ns:Recurrent candidiasis of vagina MIX [...] seek urgent/emergent care including calling Suicide Hotline (576 or ) or 691. Follow up in one month with PCP [...] CDT Respiratory Rate 18 07/31/2020 4:33 PM COMPUTER SCIENCE INTERN Oxygen Saturation 96% 01/05/2022 3:44 PM CDT Inhaled Oxygen Concentration - - Weight 173.3 kg (382 lb) 04/23/2022 3:08 PM CDT Height 175.3 cm (5' 9 ) 04/23/2022 3:08 PM CDT Body Mass Index 56.41 04/23/2022 3:08 PM CDT Plan of Treatment Not on file Medical Devices Implanted Type Area Glue Reel Operator Device Identifier Shelf Expiration Date Model / Serial / Lot Intrauterine Device/Mirena Implanted:Qty: 1 on 07/30/2020 by Willy Landeros MD at [facility] Cervix 10/21/2022 [id number] / [id number] Procedures Procedure Name Priority Date/Time Associated Diagnosis Comments HEMOGLOBIN A1C - POINT OF CARE (AMB) [facility] Routine 01/05/2022 Type 2 diabetes mellitus with hyperglycemia, with long-term current use of insulin (HCC) MICROALB/CREAT RATIO URINE RANDOM PANEL 10/09/2021 2:05 PM CDT COMPREHENSIVE METABOLIC PANEL 10/09/2021 2:05 PM CDT HPV DETECTION HIGH RISK TAI Routine 06/29/2021 1:53 PM COMPUTER SCIENCE INTERN Encounter for Pap smear of cervix with HPV DNA cotesting EYE EXAM 06/29/2021 from Last 3 Months or Most Recently Relevant to Health Maintenance Results * HEMOGLOBIN A1C - POINT OF CARE (AMB) [facility] (01/05/2022) Pathologist [facility] Hemoglobin A1c POCT 8.1 % BLOOD [...] within a diagnostic category. Test Performed at: [facility] [address] [facility] [place] [address] BALAJI CANCINO DO,MPH 10/09/2021 2:05 PM CDT 10/09/2021 2:10 PM CDT Kam Ramesh MD LAB - URINE CHEMISTR Y ORDERABLES [facility] [id number] [place] [address] * (ABNORMAL) COMPREHENSIVE METABOLIC PANEL (10/09/2021 2:05 [...] 29 U/L [facility] Comment: Test Performed at: [facility] [address] [place] [address] BALAJI CANCINO DO,MPH 10/09/2021 2:05 PM CDT 10/09/2021 2:10 PM CDT Kam Ramesh MD LAB - CHEMISTRY D[facility]CI [place] [facility] [address] [place] [address] * HPV DETECTION HIGH RISK TAI (06/29/2021 1:53 PM COMPUTER SCIENCE INTERN) High Risk Human Papilloma Result Not detected Not detected 07/01/2021 7:22 AM COMPUTER SCIENCE INTERN [facility] PATH[facility] High Risk Human Papilloma Interp 07/01/2021 7:22 AM COMPUTER SCIENCE INTERN [facility] PATHOLOGY LAB Comment:High Risk Human Lopez lloma Virus was Not Detected. Pathology/Cytolo gy MISCELLANEOUS SAMPLES / Unknown 06/29/2021 1:53 PM COMPUTER SCIENCE INTERN 06/30/2021 12:05 PM COMPUTER SCIENCE INTERN Narrative [facility] PATH[facility] LAB - 07/01/2021 7:22 AM COMPUTER SCIENCE INTERN Nucleic acid isolated from the specimen was [...] Verdin MD LAB - MICROBIOLOGY O RDZAC [facility] PATH[facility] LAB [address] [place] [address], [facility] [phone] * EYE EXAM (06/29/2021) Anatomical Region Laterality Modality Other Narrative 06/29/2021 Ordered by an unspecified provider. Scanned Document SCANNING ONLY from Last 3 Months or Most Recently Relevant to Health Maintenance Care Teams Air Conditioning Installer Supervisor Relationship Specialty Start Date End Date Michelle Valente MD [facility] [place] [id number] PCP - General 11/29/17
--- OUTSIDE RECORDS SUMMARY | 2024-09-01 01:06 | XMS_ITS | Patient Health Summary ---
Author Organization [facility] Address [address] [place] [address] Care Team Providers Care Eyeglass Lens Generator Name Role Phone Michelle Valente MD Primary Care Provider [phone] Note from [facility][note 3],non-owned Affiliates and Associated Physician Practices is amultiple site organization consisting of ambulatory clinics and hospital sitesin [place], [place], [place] and [place]. This disclosure is being madepursuant to the Care Everywhere program and may not contain all information available regarding this patient. Last updated 18.[facility] Allergies * Amoxicillin-Pot Clavulanate(Rash) -Medium Criticality * Clindamycin(Rash) -Medium Criticality * Latex(Rash) -Medium Criticality * Oxycodone(Rash) -Medium Criticality * Penicillins(Anaphylaxis,Rash) -High Criticality * seasonal allergies [Other](Headache) -Low Criticality Medications * Be aware that medications may not be up to date on this document. Alwaysverify current medications with the patient. * [place]-3 Fatty Acids (OME[place]-3 FISH OIL) 500 MG Take 1,200 mg by mouth 2 times daily * CPAP Inhale 1 device by mouth at bedtime * vitamin D, ergocalciferol, (DRISDOL) 41508 UNITS capsule(Started 09/27/2018) Take 5,000 Units by [...] times daily * [facility] * naproxen (NAPROSYN) 500 MG tablet(Started [...] by 08/05/2023 * Blood Glucose Monitoring Suppl ([employer] Verio Flex System) w/Device KIT (Started 09/14/2022) Use 1 kit as directed * dulaglutide (Trulicity) 1.5 MG/0.5ML injection(Started 09/24/2022) Inject 0.5 mL subcutaneously every 7 days 11 refills by 09/24/2023 * [employer] Verio test strip(Started 10/13/2022) USE TWICE DAILY [...] an appointment for futurerefills * nystatin (Mycostatin) 002939 UNIT/GM ointment(Started 02/21/2023) MIX WITH TRIAMCINOLONE AND [...] 1:09 PM CDT Sexual Orientation Straight 04/20/2021 1 :09 PM CDT Last Filed Vital Signs Vital Sign Reading Time Taken Comments Blood Pressure 140/80 04/23/2022 3:08 PM CDT Pulse 97 01/05/2022 3:44 PM CDT Temperature 36.2 C (97.2 F) 04/05/2022 3:02 PM CDT Respiratory Rate 18 07/31/2020 4:33 PM KNITTING SUPERVISOR Oxygen Saturation 96% 01/05/2022 3:44 PM CDT Inhaled Oxygen Concentration - - Weight 173.3 kg (382 lb) 04/23/2022 3:08 PM CDT Height 175.3 cm (5' 9 ) 04/23/2022 3:08 PM CDT Body Mass Index 56.41 04/23/2022 3:08 PM CDT Medical Devices Implanted Type Area Harvesting Contractor Device Identifier Shelf Expiration Date Model / Serial / Lot Intrauterine Device/Mirena Implanted:Qty: 1 on 07/30/2020 by Willy Landeros MD at [facility] [employer] 10/21/2022 [id number] / [id number] Procedures * GA INSERT NON-INDWELLING BLADDER(Performed 04/05/2022) Performed for Pelvic [...] 06/02/2021) Performed for Chronic interstitial cystitis * GA SONO EXAM, TRANSVAGINAL(Performed 06/02/2021) Performed for Chronic interstitial cystitis * GA US PEL NONOB B-SCAN&/R-T IMG LMTD/F-UP+C97(Performed 06/02/2021) [...] unknown * ENDOTRACHEAL TUBE NOTE(Performed 07/30/2020) * GA HYSTEROSCOPY,W/ENDO BX(Performed 07/30/2020) Performed for Diagnosis unknown [...] intramural * IMAGING/RADIOLOGY/XRAY RESULTS ORDER(Performed 02/25/2020) * GA SONO EXAM, TRANSVAGINAL(Performed 02/22/2020) Performed for Chronic pelvic pain in female, Dysmenorrhea, Menorrhagia with regular cycle * GA US PELVIC NONOB REAL-TIME IMG COMPLETE(Performed 02/22/2020) [...] hyperglycemia, with long-term current use of insulin ([facility]) * HEMOGLOBIN A1C - POINT OF CARE (AMB) [facility](Performed 06/02/2018) Performed for Type 2 diabetes mellitus with hyperglycemia, with long-term current use of insulin ([facility]) * MICROALB/CREAT RATIO URINE RANDOM PANEL(Performed 12/13/2017) Performed for Type 2 diabetes mellitus with complication, with long-term current use of insulin ([facility]) * LIPID PROFILE(Performed 12/13/2017) Performed for Type 2 diabetes mellitus with complication, with long-term current use of insulin ([facility]) * TSH(Performed 12/13/2017) Performed for Type 2 diabetes mellitus with complication, with long-term current use of insulin ([facility]) * COMPREHENSIVE METABOLIC PANEL(Performed 12/13/2017) Performed for Type 2 diabetes mellitus with complication, with long-term current use of insulin ([facility]) * HEMOGLOBIN A1C - POINT OF CARE (AMB)(Performed 12/13/2017) Performed for Type 2 diabetes mellitus with complication, with long-term current use of insulin ([facility]) * HEMOGLOBIN A1C - POINT OF CARE [...] GROSS + MICRO EXAM(Performed 01/30/1997) Results * GA INSERT NON-INDWELLING BLADDER (04/05/2022 5:36 PM CDT) [...] Comment:1 mg/dL Ketones UA POCT neg Specific [place] UA 1.030 Blood Urine POCT neg pH UA 5.5 Protein UA trace Comment:15 mg/dL Urobilinogen UA neg Nitrite UA neg WBC UA neg Urine URINE / Unknown 04/05/2022 4 :21 PM CDT Oneida Trivedi MD LAB - POINT OF CARE ORDERABLES * CULTURE URINE (01/14/2022 3:15 PM CDT) Culture [facility] Comment: CULTURE, URINE, ROUTINE Micro Number: [id number] Test Status: Final Specimen Source: Urine, clean catch Specimen Quality: Adequate Result: No Growth Test Performed at: [email or web address] [address] CODY NORMAN MD Urine URINE SPECIMEN OBTAINED BY CLEAN CATCH PROCEDURE / Unknown 01/14/2022 3:15 PM CDT 01/14/2022 3:15 PM CDT Minoo Verdin MD LAB - MICROBIOLOGY O RDERABLES Performing Organization Address [facility]/ZIP Co de Phone Number [address] [address] * HEMOGLOBIN A1C - POINT OF CARE (AMB) [facility] (01/05/2022) Only the most recent of9 resultswithin the time period is included. Pathologist [facility] Hemoglobin A1c POCT 8.1 % BLOOD SPECIMEN / Unknown 01/05/2022 Kam Ramesh MD LAB - POINT OF CARE ORDERABLES * (ABNORMAL) URINALYSIS W/MICROSCOPIC NO CULTURE (10/13/2021 5:09 PM CDT) Color UA YELLOW YELLOW [facility] Appearance CLEAR CLEAR [facility] Specific [place] UA 1.024 1.001 - 1.035 [facility] pH [...] SEEN /LPF [facility] Comment: Test Performed at: [email or web address] [address] CODY NORMAN MD Urine URINE SPECIMEN OBTAINED BY CLEAN CATCH PROCEDURE / Unknown 10/13/2021 5:09 PM CDT 10/14/2021 11:45 PM CDT Minoo Verdin MD LAB - URINALYSIS ORD ERABLES Performing Organization Address [facility]/ZIP Co de Phone Number [facility] [address] [place] [phone] * (ABNORMAL) CULTURE URINE COMPREHENSIVE (10/13/2021 5:09 PM CDT) Culture (A) [facility] Comment: CULTURE, URINE, SPECIAL Micro Number: [id number] Test Status: Final Specimen Source: Urine Specimen [...] cefuroxime, cephalexin and loracarbef. Test Performed at: [email or web address] [address] CODY NORMAN MD Microbiology URINE SPECIMEN OBTAINED BY CLEAN CATCH PROCEDURE / Unknown 10/13/2021 5:09 PM CDT 10/15/2021 12:22 AM CDT Minoo Verdin MD LAB - MICROBIOLOGY O RDERABLES Performing Organization Address City/[facility]/ZIP Co de Phone Number [facility] [address] [place] [phone] * MICROALB/CREAT RATIO URINE RANDOM PANEL (10/09/2021 [...] within a diagnostic category. Test Performed at: [facility] [address] [place] [address] BALAJI CANCINO DO,MPH 10/09/2021 2:05 PM CDT 10/09/2021 2:10 PM CDT Kam Ramesh MD LAB - URINE CHEMISTR Y ORDERABLES [facility] [address] [place] [address] * (ABNORMAL) HEMOGLOBIN A1C (10/09/2021 2:05 PM [...] INSURANCE ON PHONE FASTING:YES Test Performed at: [facility] [address] [place] [address] CODY NORMAN MD 10/09/2021 2:05 PM CDT 10/09/2021 2:10 PM CDT Kam Ramesh MD LAB - CHEMISTRY DAVIDElizabeth DANIELMANFRED [facility] Organization Address City/State/ZIP Co de Phone Number RANDAL [address] [place] [address] * (ABNORMAL) COMPREHENSIVE METABOLIC PANEL (10/09/2021 2:05 [...] 29 U/L [facility] Comment: Test Performed at: [facility] [address]ISH[address] [place] [address] BALAJI CANCION DO,MPH 10/09/2021 2:05 PM CDT 10/09/2021 2:10 PM CDT Kam Ramesh MD LAB - CHEMISTRY DARCI STEWART Performing Organization Address [facility] Co de Phone Number [facility] [address] [place] [address] * VITAMIN B12 (10/09/2021 2:05 PM CDT) Only the most recent of2 resultswithin the time period is included. Pathologist [facility] Vitamin B12 434 200 - 1100 pg/mL [facility] Comment: Test Performed at: [facility] [address] [place] [address] BALAJI CANCINO DO,MPH 10/09/2021 2:05 PM CDT 10/09/2021 2:10 PM CDT Kam Ramesh MD LAB - CHEMISTRY DARCI STEWART Performing Organization Address [facility] de Phone Number [facility] [address] [place] [address] * (ABNORMAL) LIPID PROFILE (10/09/2021 2:05 PM CDT) Only the most recent of5 resultswithin the time period is included. Pathologist [facility] Cholesterol 242(H) <200 mg/dL [facility] HDL Cholesterol [...] LDL-C. Gianfranco SUE et al. ISABELA. 2013;310(19): 2782-2121 (http://education.[employer].Logic Instrument/faq/GDU347) CHOL/HDLC RATIO 6.4(H) <5.0 (calc) [facility] Non HDL Cholesterol 204(H) <130 mg/dL (calc) [facility] Comment: For patients with diabetes plus 1 major ASCVD risk factor, treating to a non-HDL-C goal of <100 mg/dL (LDL-C of <70 mg/dL) is considered a therapeutic option. Test Performed at: [facility] [address] [place] [address] BALAJI CANCINO DO,MPH 10/09/2021 2:05 PM CDT 10/09/2021 2:10 PM CDT Kam Ramesh MD LAB - CHEMISTRY DARCI STEWART Performing Organization Address City/[facility]/ZIP Co de Phone Number [facility] [address] [place] [address] * HPV DETECTION HIGH RISK TAI (06/29/2021 1:53 PM KNITTING SUPERVISOR) High Risk Human Papilloma Result Not detected Not detected 07/01/2021 7:22 AM KNITTING SUPERVISOR [facility] High Risk Human Papilloma Interp 07/01/2021 7:22 AM KNITTING SUPERVISOR [facility] Comment:High Risk Human Lopez lloma Virus was Not Detected. Pathology/Cytolo gy MISCELLANEOUS SAMPLES / Unknown 06/29/2021 1:53 PM KNITTING SUPERVISOR 06/30/2021 12:05 PM KNITTING SUPERVISOR Narrative [facility] - 07/01/2021 7:22 AM KNITTING SUPERVISOR Nucleic acid isolated from the specimen was [...] - MICROBIOLOGY O RDERABLES Performing Organization Address City/[facility]/ZIP Co de Phone Number [facility] PATHOLOGY LAB [address] [facility] [place] [address], [facility] [phone] * PAP IMAGE-GUIDED W HPV (06/29/2021 1:53 PM KNITTING SUPERVISOR) Case Report Gynecologic Cytology Report Case: [id number] Authorizing Provider: Minoo Verdin MD Collected: 06/29/2021 01:53 PM Ordering Location: [facility] Obstetrics Received: 06/30/2021 12:05 PM [facility] First Screen: Tereso Woodruff Rescreen: Garo Orellana Specimen: THINPREP - IMAGE GUIDED, Cervix/Endocervix 07/02/2021 3:53 PM KNITTING SUPERVISOR [facility] LMP na 07/02/2021 3:53 PM KNITTING SUPERVISOR [facility] Menstrual Status Mirena 07/02/20 21 3:53 PM KNITTING SUPERVISOR [facility] Specimen Adequacy Satisfactory for evaluation, endocervical/trans formation zone component present. 07/02/2021 3:53 PM KNITTING SUPERVISOR [facility] Categorization Negative for intraepithelial lesion or malignancy. 07/02/2021 3:53 PM KNITTING SUPERVISOR [facility] Interpretation AUDOGRAPH OPERATOR Negative for intraepithelial lesion or malignancy. 07/02/2021 3:53 PM KNITTING SUPERVISOR [facility] Pap Footnote The Pap Smear is a screening test. False positive and false negative results occur. Negative results do not preclude abnormalities, thus clinical correlation is required. This specimen was evaluated by the ThinPrep Imaging System along with an additional manual rescreening by a program management professional and/or pathologist. 07/02/2021 3:53 PM KNITTING SUPERVISOR [facility] Embedded Images 3:53 PM KNITTING SUPERVISOR [facility] Pathology/Cytolo gy MISCELLANEOUS SAMPLES / Unknown 06/29/2021 1:53 PM KNITTING SUPERVISOR 06/30/2021 12:05 PM KNITTING SUPERVISOR Minoo Verdin MD LAB - PATHOLOGY/CYTO LOGY ORDERABLES [facility] [address] [phone] * EYE EXAM (06/29/2021) Anatomical Region Laterality [...] of this test have been determined by [employer]. This test should not be used for diagnosis without confirmation by other medically established means. Test Performed at: [facility] [address] [place] [address] RAVINDER MCKINNEY MD 06/03/2021 06/03/2021 12: 21 PM KNITTING SUPERVISOR Kristine Fine MD LAB - MICROBIOLOGY ORDERABLES [address] [address] * (ABNORMAL) CULTURE YEAST WITH DIRECT FLUORESCENT JAMILA (06/03/2021) Smear (A) [facility] Comment: CULTURE, YEAST, W/DIRECT FLUORESCENT JAMILA Micro Number: [id number] Test Status: Final Specimen Source: Genital Specimen Quality: Adequate Smear: Rare Budding yeast seen Result: Marah glabrata Isolate forwarded to [facility], [employer]. for Susceptibility Testing. REPORT COMMENT: FASTING:UNKNOWN Test Performed at: [email or web address] [address] CODY NORMAN MD Microbiology SPECIMEN FROM GENITAL SYSTEM / Unknown 06/03/2021 06/03/2021 12:21 PM KNITTING SUPERVISOR Kristine Fine MD LAB - MICROBIOLOGY ORDERABLES [address] [address] * GA US PEL NONOB B-SCAN&/R-T IMG LMTD/F-UP+C97, GA SONO EXAM, TRANSVAGINAL, US PELVIS COMPLETE (06/02/2021) [...] MCNEILL on 03/31/2021 1:46 PM. Jane Woodard CAPSULE MAKER-ADMINISTRATIVE DIRECTOR MR ORDERABLES * CREATININE - POCT INTERFACED (03/28/2021 5:21 PM CDT) Pathologist [facility] Creatinine POCT 0.85 0.30 - 1.30 mg/dL 03/28/2021 5:25 PM CDT [facility] eGFR >60 >60 mL/min/1.7 3 m2 03/28/2021 5:25 PM CDT [facility] Blood BLOOD SPECIMEN / Unknown 03/28/2021 5:21 PM CDT 03/28/2021 5:25 PM CDT Jane Woodard APRN-ADMINISTRATIVE DIRECTOR LAB - POINT OF CARE ORDERABLES [address] [address], [facility] [phone] * CARDIAC RHYTHM STRIP ORDER (08/01/2020 5:07 PM KNITTING SUPERVISOR) Narrative 08/01/2020 5:07 PM KNITTING SUPERVISOR Ordered by an unspecified provider. Scanned Document CARDIAC SERVICES ORD ERABLES * APHERESIS/TRANSFUSION ORDER (08/01/2020 5:07 PM KNITTING SUPERVISOR) Narrative 08/01/2020 5:07 PM KNITTING SUPERVISOR Ordered by an unspecified provider. Scanned Document NURSING - VITAL SIGN S AND ASSESSMENT * (ABNORMAL) GLUCOSE - POINT OF CARE (07/31/2020 4:30 PM KNITTING SUPERVISOR) Only the most recent of10 resultswithin the time period is included. Pathologist [facility] Glucose WB/POC 153(H) 70 - 106 mg/dL 07/31/2020 5:33 PM KNITTING SUPERVISOR [facility] Specimen Type Arterial/C apillary 07/31/2020 5:33 PM KNITTING SUPERVISOR [facility] Blood BLOOD SPECIMEN / Unknown 07/31/2020 4:30 PM KNITTING SUPERVISOR 07/31/2020 5:33 PM KNITTING SUPERVISOR Willy Landeros MD LAB - POINT OF CARE ORDERABLES [facility] [address] [place] [address] * CBC W AUTO DIFFERENTIAL (07/31/2020 5:17 AM KNITTING SUPERVISOR) Only the most recent of4 resultswithin the time period is included. [facility] WBC 8.1 4.4 - 10.7 x10E9/L 07/31/2020 5:56 AM [facility] WBC Corrected 07/31/2020 5:56 AM [facility] RBC 4.54 3.80 - 5.20 x10E12/L 07/31/2020 5:56 AM [facility] Hemoglobin 13.1 12.0 - 15.6 gm/dL 07/31/2020 5:56 AM [facility] Hematocrit 41.5 35.9 - 45.5 % 07/31/2020 5:56 AM [facility] MCV 91.4 80.7 - 98.3 fl 07/31/2020 5:56 AM [facility] MCH 28.9 26.7 - 34.0 pg 07/31/2020 5:56 AM [facility] MCHC 31.6 30.8 - 35.9 gm/dL 07/31/2020 5:56 AM [facility] Platelet Count 196 153 - 416 x10E9/L 07/31/2020 5:56 AM [facility] RDW-CV 14.3 12.1 - 14.9 % 07/31/2020 5:56 AM [facility] MPV 9.4 9.4 - 12.9 fl 07/31/2020 5:56 AM [facility] Neutrophils % 68.7 44.0 - 73.0 % 07/31/2020 5:56 AM [facility] Lymphocytes % 22.5 20.0 - 43.0 % 07/31/2020 5:56 AM [facility] Monocytes % 7.5 5.0 - 13.0 % 07/31/2020 5:56 AM [facility] Eosinophils % 0.6 0.0 - 6.0 % 07/31/2020 5:56 AM [facility] Basophils % 0.5 0.0 - 2.0 % 07/31/2020 5:56 AM [facility] Immature Granulocytes 0.2 0 - 1 % 07/31/2020 5:56 AM [facility] Neutrophil Absolute 5.59 2.01 - 7.14 x10E9/L 07/31/2020 5:56 AM [facility] Lymphocytes Absolute 1.83 1.07 - 3.94 x10E9/L 07/31/2020 5:56 AM [facility] Monocytes Absolute 0.61 0.26 - 1.07 x10E9/L 07/31/2020 5:56 AM [facility] Eosinophils Absolute 0.05 0 - 0.47 x10E9/L 07/31/2020 5:56 AM [facility] Basophils Absolute 0.04 0 - 0.08 x10E9/L 07/31/2020 5:56 AM [facility] Immature Granulocytes Absolute 0.02 0.00 - 0.06 x10E9/L 07/31/2020 5:56 AM [facility] nRBC Auto 0 /100 WBC 07/31/2020 5:56 AM [facility] Blood BLOOD SPECIMEN / Unknown Lab Venipuncture / Unknown 07/31/2020 5:17 AM KNITTING SUPERVISOR 07/31/2020 5:37 AM [facility] Minoo Verdin MD LAB - HEMATOLOGY ORD ERABLES [facility] [address] [place] [address] * (ABNORMAL) RENAL FUNCTION PANEL (07/31/2020 5:17 AM [facility]) [facility] Signature Glucose 109(H) 70 - 105 mg/dL 07/31/2020 6:07 AM [facility] Sodium 141 136 - 145 mmol/L 07/31/2020 6:07 AM [facility] Potassium 4.2 3.5 - 5.1 mmol/L 07/31/2020 6:07 AM [facility] Chloride 107 98 - 107 mmol/L 07/31/2020 6:07 AM [facility] CO2 25 23 - 31 mmol/L 07/31/2020 6:07 AM [facility] Calcium 8.4 8.4 - 10.4 mg/dL 07/31/2020 6:07 AM [facility] Anion Gap 9 8 - 18 mmol/L 07/31/2020 6:07 AM [facility] Comment:Attention clinician: Reference Range change. BUN 16 7 - 18.7 mg/dL 07/31/2020 6:07 AM [facility] Creatinine 0.74 0.57 - 1.11 mg/dL 07/31/2020 6:07 AM [facility] Albumin 3.5 3.5 - 5.2 gm/dL 07/31/2020 6:07 AM [facility] Phosphorus 4.2 2.3 - 4.7 mg/dL 07/31/2020 6:07 AM [facility] Comment:Attention clinician: Reference Range change. eGFR by MDRD >60 >60 mL/min/1.7 3m2 07/31/2020 6:07 AM [facility] eGFR by MDRD >60 >60 mL/min/1.7 3m2 07/31/2020 6:07 AM [facility] Blood BLOOD SPECIMEN / Unknown Lab Venipuncture / Unknown 07/31/2020 5:17 AM KNITTING SUPERVISOR 07/31/2020 5:37 AM KNITTING SUPERVISOR Minoo Verdin MD LAB - CHEMISTRY ALMAElizabeth [facility] Organization Address City/State/ZIP Co de Phone Number [facility] [address] [place], [place] [id number] * PATHOLOGY TISSUE EXAM (STL) (07/30/2020 10:04 AM KNITTING SUPERVISOR) Case Report Surgical Pathology Report Case: [id number] Authorizing Provider: Willy Landeros MD Collected: 07/30/2020 10:04 AM Ordering Location: [facility] Received: 07/30/2020 01:07 PM Pathologist: Kristen Rich MD Specimens: A) - Fibroid, UTERINE FIBROID B) - Endometrium Curettings 07/31/2020 4:20 PM [facility] Final Diagnosis Uterus, myomectomy (A): - Leiomyoma, 5 cm greatest dimension. Endometrium, curetting (B): - Weakly proliferative endometrium with stromal breakdown . - Benign endocervical glands. 07/31/2020 4:20 PM [facility] Clinical History The patient is a 34-year-old woman who underwent excision of endometriosis and myomectomy. 07/31/2020 4:20 PM [facility] Gross Description The specimen is received [...] Sections are submitted as follows: A1-A2 - Feed Mill Operator sections leiomyoma, A3 - Additionally submitted tissue. Specimen B, endometrial curettings consists of multiple portions of white-erickson tissue admixed with coagula and mucoid material. The specimen has an aggregate measurement of 2.0 x 0.5 x 0.2 cm. The specimen is submitted entirely in cassette B1. KADEN/odin 07/31/2020 4:20 PM [facility] Microscopic Description Microscopic examination substantiates the final diagnosis. 07/31/2020 4:20 PM [facility] Disclaimer All histochemical and/or immunohistochemical results are interpreted with controls that demonstrate appropriate staining reactions before reporting results. Note on use of immunocytochemistry reagents: This test was developed and its performance characteristic determined by [facility], Department of Laboratory Medicine. It has not [...] be interpreted with caution. 07/31/2020 4:20 PM [facility] Embedded Images 07/31/2020 4:20 PM [facility] Pathology/Cytology FIBROMA / Unknown 12/2020 10:04 AM KNITTING SUPERVISOR 07/30/2020 1:07 PM KNITTING SUPERVISOR Comment:Pre-op diagnosis: Diagnosis unknown [R69] Miscellaneous samples (specimen) SPECIMEN FROM ENDOMETRIUM OBTAINED BY CURETTAGE / Unknown 07/30/2020 12:12 PM KNITTING SUPERVISOR 07/30/2020 1:07 PM KNITTING SUPERVISOR Comment:Pre-op diagnosis: Diagnosis unknown [R69] Willy Landeros MD LAB - PATHOLOGY/CYTO LOGY ORDERABLES Performing Organization Address [facility] Co de Phone Number [facility] [address] [place] [address] * ETT LINE PERFORMABLE (07/30/2020 9:04 AM KNITTING SUPERVISOR) Narrative Jose Locktet APRN-CRNA - 07/30/2020 9:04 AM KNITTING SUPERVISOR Jose Lockett APRN-CRNA 07/30/2020 9:05 AM Endotracheal Tube Placement: Patient Location: OR. Procedure: intubation (01207). Procedure Section: Sedation: under general anesthesia. Indications [...] URINE QUAL POCT NOTIFICATION (07/30/2020 6:31 AM KNITTING SUPERVISOR) Comment Notification Label Only - See Separate Report 07/30/2020 6:31 AM KNITTING SUPERVISOR [facility] Urine URINE / Unknown 5:28 AM KNITTING SUPERVISOR Brice Chávez MD LAB - URINALYSIS O RDERABLES [facility] [address] [place] [address] * BLOOD TYPE VERIFICATION (07/30/2020 6:03 AM KNITTING SUPERVISOR) ABO Rh A POS 07/30/2020 6:5 7 AM KNITTING SUPERVISOR [facility] Blood Bank BLOOD SPECIMEN / Unknown Venipuncture / Unknown 07/30/2020 6:03 AM KNITTING SUPERVISOR 07/30/2020 6:11 AM KNITTING SUPERVISOR Brice Chávez MD LAB - BLOOD BANK O RDERABLES Performing Organization Address [facility]/ZIP Co de Phone Number [facility] [address] [place] [address] * HCG URINE QUALITATIVE - POCT (IP) INTERFACED (07/30/2020 5:47 AM KNITTING SUPERVISOR) HCG Qual Urine Negative Negative 07/30/2020 5:53 AM KNITTING SUPERVISOR [facility] Urine URINE / Unknown 07/30/2020 5 :47 AM KNITTING SUPERVISOR 07/30/2020 5:53 AM KNITTING SUPERVISOR Willy Landeros MD LAB - POINT OF CARE ORDERABLES Performing Organization Address [facility] Co de Phone Number [facility] [address] [place], [place] [id number] * (ABNORMAL) BASIC METABOLIC PANEL (CALCIUM TOTAL) (07/28/2020 2:53 PM KNITTING SUPERVISOR) Glucose 99 70 - 105 mg/dL 07/28/2020 3:14 PM KNITTING SUPERVISOR [facility] Sodium 141 136 - 145 mmol/L 07/28/2020 3:14 PM [facility] Potassium 4.8 3.5 - 5.1 mmol/L 07/28/2020 3:14 PM [facility] Chloride 107 98 - 107 mmol/L 07/28/2020 3:14 PM [facility] CO2 23 23 - 31 mmol/L 07/28/2020 3:14 PM [facility] Calcium 8.2(L) 8.4 - 10.4 mg/dL 07/28/2020 3:14 PM KNITTING SUPERVISOR [facility] Anion Gap 11 8 - 18 mmol/L 07/28/2020 3:14 PM KNITTING SUPERVISOR [facility] Comment:Attention clinician: Reference Range change. BUN 19(H) 7 - 18.7 mg/dL 07/28/2020 3:14 PM KNITTING SUPERVISOR [facility] Creatinine 0.76 0.57 - 1.11 mg/dL 07/28/2020 3:14 PM KNITTING SUPERVISOR [facility] eGFR by MDRD >60 >60 mL/min/1.7 3m2 07/28/2020 3:14 PM KNITTING SUPERVISOR [facility] eGFR by MDRD >60 >60 mL/min/1.7 3m2 07/28/2020 3:14 PM KNITTING SUPERVISOR [facility] Blood BLOOD SPECIMEN / Unknown Venipuncture / Unknown 07/28/2020 2:53 PM KNITTING SUPERVISOR 07/28/2020 2:56 PM KNITTING SUPERVISOR Minoo Verdin MD LAB - CHEMISTRY DARCI STEWART [facility] Organization Address City/State/ZIP Co de Phone Number [facility] [address] [place] [address] * SARS-COV-2 (COVID-19) IN HOUSE (07/28/2020 2:43 PM KNITTING SUPERVISOR) COVID-19 PCR Not detected Not detected 07/28/2020 11:38 PM KNITTING SUPERVISOR [facility] Microbiology SPECIMEN FROM NASOPHARYNGEAL STRUCTURE / Unknown Collection / Unknown 07/28/2020 2:43 PM KNITTING SUPERVISOR 07/28/2020 2:55 PM KNITTING SUPERVISOR Narrative [facility] - 07/28/2020 11:38 PM KNITTING SUPERVISOR This nucleic acid amplification assay performance was validated by [facility]. This test has been authorized [...] [facility] [address] [place] [id number], [facility] [phone] * TYPE + SCREEN PANEL (07/28/2020 2:42 PM KNITTING SUPERVISOR) ABO Rh A POS 07/28/2020 3:30 PM KNITTING SUPERVISOR [facility] Comment:No history; collect retype. Antibody Screen NEG 3:30 PM KNITTING SUPERVISOR [facility] Blood Bank BLOOD SPECIMEN / Unknown Venipuncture / Unknown 07/28/2020 2:42 PM KNITTING SUPERVISOR 07/28/2020 2:55 PM KNITTING SUPERVISOR Willy Landeros MD LAB - BLOOD BANK ORD ERABLES Performing Organization Address [facility]/ZIP Co de Phone Number [facility] [address] [place] [address], [facility] [phone] * IMAGING RADIOLOGY XRAY RESULTS ORDER (02/25/2020 7:29 AM CDT) Anatomical Region Laterality Modality Other Narrative 02/25/2020 7:29 AM CDT Ordered by an unspecified provider. Scanned Document IMAGING * GA US PELVIC NONOB REAL-TIME IMG COMPLETE, GA SONO EXAM, TRANSVAGINAL (02/22/2020 12:45 PM CDT) [...] of3 resultswithin the time period is included. [facility] TSH 2.021 0.350 - 4.940 uIU/mL 12/13/2017 4:17 PM CDT [facility] Blood BLOOD SPECIMEN / Unknown Lab Venipuncture / Unknown 12/13/2017 12:48 PM CDT 12/13/2017 1:55 PM CDT Ranjit Martinez MD LAB - CHEMISTRY ORDElizabeth STEWART [facility] [address] [place] [address] * HEMOGLOBIN A1C - POINT OF CARE (AMB) (12/13/2017 11:56 AM CDT) [facility] Hemoglobin A1c POCT 5.8 % [facility] QC Verified Yes [facility] Blood BLOOD SPECIMEN / Unknown 12/13/2017 11:56 AM CDT Ranjit Martinez MD LAB - POINT OF CARE ORDERABLES Performing Organization Address City/[facility]/ZIP Co de Phone Number [facility] [address] [place] [address] * (ABNORMAL) C-PEPTIDE (03/24/2016 12:39 PM CDT) [facility] C-Peptide 5.2(H) 1.1 - 4.4 ng/mL [facility] ([facility]) Comment:C-Peptide reference interval is for fasting patients. Blood specimen (specimen) BLOOD SPECIMEN / Unknown 03/24/2016 12:39 PM CDT 03/24/2016 2:10 PM CDT Narrative [facility] ([place]) - 03/25/2016 3:18 PM CDT Performed at: [address] [place] [address] [id number] [employer]: Maicol Chin PhD, Phone: [phone] Ranjit Martinez MD LAB - CHEMISTRY ORDElizabeth STEWART Performing Organization Address City/[facility]/ZIP Co de Phone Number [facility] ([facility]) * GLUTAMIC ACID DECARBOXYLASE (ABIDA) ANTIBODY (03/24/2016 12:39 PM CDT) ABIDA-65 <5.0 0.0 - 5.0 U/mL [facility]) Blood specimen (specimen) BLOOD SPECIMEN / Unknown 03/24/2016 12:39 PM CDT 03/24/2016 2:09 PM CDT Narrative [facility] ([facility]) - 03/26/2016 5:09 PM CDT Performed at: [address] [place] [address] [id number] [employer]: Balaji Singh MD, Phone: [phone] Ranjit Martinez MD LAB - SEROLOGY ORDER TAYLOR Performing Organization Address City/[facility]/ZIP Co de Phone Number [facility] * GROSS + MICRO EXAM (01/30/1997 1:00 PM CDT) Result CASE NUMBER [id number] [facility] PATH REPORT Comment: ORDERING PHYSICIAN [...] BIOPSIES - NO DIAGNOSTIC ABNORMALITIES. SEE DESCRIPTION. Housing Assistant Property Manager Virginia Ramos RESIDENT IN PATHOLOG Al Martinez M.D. PATHOLOGIST Cortez Talley M.D. ELECTRONICALLY SUSY [facility] [place] MISCELLANEOUS SAMPLES / Unknown 01/30/1997 1:00 PM CDT 01/30/1997 2:32 PM CDT Historical Provider MD LAB - PATHOLOGY/C YTOLOGY ORDERABLES [facility] PATH REPORT Care Teams Eyeglass Lens Generator Relationship Specialty Start Date End Date Michelle Valente MD [address] [place] [address] [address] [place] [address] PCP - General 11/29/17
--- OUTSIDE RECORDS SUMMARY | 2024-09-01 01:06 | XMS_ITS | Clinical Summary ---
Author Organization [facility] Address [facility] [place] [address] Care Team Providers Care Forest Science Professor Name Role Phone Anup Orellana MD Primary Care Provider [phone] Allergies Active Allergy Reactions Criticality Noted Date [...] nasal spray 11/18/2019 Active vitamin D2, ergocalciferol, 88489 UNITS capsule Take 50,000 Units by mouth every 7 days. 09/04/2019 Active Active Problems Problem Noted Date Diagnosed Date Daytime sleepiness 10/11/2016 Benign essential HTN 08/09/2016 Diabetes mellitus ([facility]) 08/09/2016 Morbid obesity ([facility]) 08/09/2016 INEVES on CPAP 08/09/2016 Family History Medical History [...] Comments Blood Pressure 126/68 07/08/2017 11:53 AM HYBRID TECHNOLOGIST Pulse 82 07/08/2017 11:53 AM HYBRID TECHNOLOGIST Temperature - - Respiratory Rate - - Oxygen Saturation - - Inhaled Oxygen Concentration - - Weight 172.8 kg (381 lb) 07/08/2017 11:53 AM HYBRID TECHNOLOGIST Height 170.2 cm (5' 7 ) 07/08/2017 11:53 AM HYBRID TECHNOLOGIST Body Mass Index 59.67 07/08/2017 11:53 AM HYBRID TECHNOLOGIST Plan of Treatment Health Maintenance Due Date [...] patient's age to complete this topic Insurance [employer] Care Teams Forest Science Professor Relationship Specialty Start Date End Date Anup Orellana MD [address] [address] PCP - General INTERNAL MEDICINE 05/29/18
--- OUTSIDE RECORDS SUMMARY | 2024-09-01 01:06 | XMS_ITS | Encounter Summary ---
Author Organization [facility] Address [address] [place] [address] Care Team Providers Care Weld Inspector Name Role Phone Michelle Valente MD Primary Care Provider [phone] Reason for Visit * Reason Onset Date Comments Concerns 09/08/2021 Appointment 09/08/2021 Encounter Details Date Type Department Care Team (Late st Contact Info) Description 09/08/2021 Telephone [facility] [address] [place] [address] Minoo Verdin MD Need new address Concerns; [...] week as above. Will cancel today's appt. 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 All broke out with fever on Tuesday, but gone on Tuesday. Can she still come in and be seen? Will check w/ supervisors and provider then call her back. Appt at 4pm today. RING MACHINE OPERATOR * Telephone Encounter - Karrie Santos - 09/08/2021 11:19 AM CST Pt states she has come in contact with someone who had covid last week. She states she has since tested negative and has no symptoms. CB# [phone] RING MACHINE OPERATOR documented in this encounter Plan of Treatment Not on file documented as of this encounter Visit Diagnoses Not on filedocumented in this encounter Care Teams Weld Inspector Relationship Specialty Start Date End Date Michelle Valente MD [address] [place] [address] [address] [place] [id number] PCP - General 11/29/17 documented as of this encounter
--- OUTSIDE RECORDS SUMMARY | 2024-09-01 01:06 | XMS_ITS | Encounter Summary ---
Author Organization [facility] Address [address] [facility] [place] [address] Care Team Providers Care Technical Support Intern Name Role Phone Michelle Valente MD Primary Care Provider [phone] Encounter Details Date Type Department Care Team (Late st Contact Info) Description 06/26/2021 Telephone [facility] [address] [place] [address] Kam Ramesh MD [facility] [place] [address] Social History Tobacco Use Types Packs/Day Years [...] Instructions* Carissa Travis - 06/26/2021 11:47 AM HEART SPECIALIST Pt is calling to see if she can get a order of test strips sent over to the pharmacy. T SPECIALIST documented in this encounter Plan of Treatment Not on file documented as of this encounter Visit Diagnoses Not on filedocumented in this encounter Care Teams Technical Support Intern Relationship Specialty Start Date End Date Michelle Valente MD [facility] [place] [id number] PCP - General 11/29/17 documented as of this encounter
--- OUTSIDE RECORDS SUMMARY | 2024-09-01 01:07 | XMS_ITS | Clinical Summary ---
Author Organization [facility] Address [address] [place] [address] Care Team Providers Care Fmd Teacher Name Role Phone Soren Mcwilliams MD Primary Care Provider Yoel Paulson MD Unavailable [phone] Allergies Active Allergy Reactions Criticality Noted Date [...] times a day as needed Active suzieph fr-kgenr-afj (UribeL) 118-10-40.8-36 mg capsule TAKE 1 CAPSULE [...] hyperglycemia, with long-term current use of insulin ([facility]) Take 2 tablets (1,000 mg total) by mouth 2 (two) times a day 360 tablet 3 025 2025 Active tirzepatide (MOUNJARO) 7.5 mg/0.5 mL pen injectorIndication s:Type 2 diabetes mellitus with hyperglycemia, with long-term current use of insulin ([facility]) Inject 7.5 mg under the skin every 7 days 6 mL 3 025 2025 Active blood-glucose meter miscIndications:Ty pe 2 diabetes mellitus with hyperglycemia, with long-term current use of insulin ([facility]) One Touch Verio Meter Use to test blood sugar three times a day Dx: E11.65 1 each 025 Active insulin glargine (LANTUS) 100 unit/mL vial for injectionIndicatio ns:Type 2 diabetes mellitus with hyperglycemia, with long-term current use of insulin ([facility]) Inject 120 Units under the skin nightly [...] 04/17/2024 Assessment & Plan (08/15/2024 1:57 PM STATISTICAL REPORTING ANALYST): Patient has not re-established with Psychiatry, information [...] 01/17/2024 Assessment & Plan (08/15/2024 1:58 PM STATISTICAL REPORTING ANALYST): Chronic problem. Currently taking lisinopril 10mg daily. Assessment & Plan (08/01/2024 1:48 PM STATISTICAL REPORTING ANALYST): Chronic problem. Currently taking lisinopril 10mg daily. Assessment & Plan (04/17/2024 3:13 PM CDT): Chronic problem. Currently taking lisinopril 10mg daily. Assessment & Plan (01/17/2024 11:44 AM CDT): Chronic problem. Currently taking lisinopril 10mg daily. Will update labs today. Verified that she uses [employer]. Aware to check results/results letter in [employer]. Will contact by phone if needed. Hyperlipidemia associated with type 2 diabetes sonia salazar 01/17/2024 Assessment & Plan (08/15/2024 1:57 PM STATISTICAL REPORTING ANALYST): Awaiting labs, continues Atorvastatin. Assessment & Plan (08/01/2024 1:48 PM STATISTICAL REPORTING ANALYST): Chronic problem. Currently taking Atorvastatin 20mg & fenofibrate 145mg daily. Last lipid panel: 01/17/24 EDH=261, VD=253. Assessment & Plan (04/17/2024 3:14 PM CDT): Chronic problem. Currently taking Atorvastatin 20mg & fenofibrate 145mg daily. Last lipid panel: 01/17/24 HZS=344, QK=221. Assessment & Plan (01/17/2024 11:45 AM CDT): Chronic problem. Currently taking Atorvastatin 20mg & fenofibrate 145mg daily. Last lipid panel: 10/09/21 LDL=could not calc, MB=948. Will update labs today. Verified that she uses [employer]. Aware to check results/results letter in [employer]. Will contact by phone if needed. Morbid (severe) obesity due to excess calories 0 01/17/2024 BMI 50.0-59.9, adult 01/17/2024 Class 3 severe obesity due t o excess calories with serious comorbidity and body mass index (BMI) of 50.0 to 59.9 in adult 01/17/2024 Assessment & Plan (08/15/2024 1:57 PM STATISTICAL REPORTING ANALYST): Healthy, low carbohydrate lifestyle and exercise for [...] 09/15/2023 Assessment & Plan (08/01/2024 2:08 PM STATISTICAL REPORTING ANALYST): Chronic problem. A1c worsened from 9.3% 04/17/24 to now 10.0%. interested in insulin pump therapy but wants to check with insurance to see what cost/coverage is. Will send me a [employer] message if pump is covered. Will increase [...] for DM eye exam; last 2022 at [facility] in [place]. Letter sent to get copy of report. [...] at bedtime DM eye exam 2022 at [facility] in [place]. Letter sent to get copy of report. Will update labs today. Verified that she uses [employer]. Aware to check results/results letter in [employer]. Will contact by phone if needed. Discussed [...] infection. Assessment & Plan (09/15/2023 12:26 PM STATISTICAL REPORTING ANALYST): Hba1c was Lab Results Component Value Date [...] 09/15/2023 Assessment & Plan (08/01/2024 1:48 PM STATISTICAL REPORTING ANALYST): Chronic problem. Continue metformin & Spironolactone. Assessment & Plan (04/17/2024 3:13 PM CDT): Chronic problem. Continue metformin & Spironolactone. Assessment & Plan (01/17/2024 11:43 AM CDT): Chronic problem. Continue metformin & Spironolactone. Assessment & Plan (09/15/2023 12:27 PM STATISTICAL REPORTING ANALYST): Continue aldactone Eczema 07/27/2023 Persistent insomnia 02/13/2023 [...] Type Department Care Team Description 08/21/2024 [facility]phone [facility] [address] [place] [address] [place] [phone] Mily Mason RN Update on Progesterone 08/16/2024 Orders Only [facility] Primary Care at [address] [phone] Meka Castellano NP 08/16/2024 Telephone [facility] Medical [facility] Primary Care at [address] [phone] Soren Mcwilliams MD Prior Auth (clotrimazole-betametha sone (LOTRISONE) cream) 08/16/2024 Orders Only [facility] Medical [facility] Primary Care at [address] [phone] Soren Mcwilliams MD 08/15/2024 2:01 PM STATISTICAL REPORTING ANALYST - 08/15/2024 11:59 PM STATISTICAL REPORTING ANALYST Hospital Encounter [address] [address] Hypertension associated with type 2 diabetes mellitus (HCC); Class 3 severe obesity due to excess calories with serious comorbidity and body mass index (BMI) of 45.0 to 49.9 in adult (HCC) Discharge Disposition: Discharge to home or self care 08/15/2024 2:00 PM STATISTICAL REPORTING ANALYST Lab [facility] Outpatient Lab at [address] [address] Type 2 diabetes mellitus (HCC) (Primary Dx) 08/15/2024 1:30 PM STATISTICAL REPORTING ANALYST Office Visit [facility] Primary Care at [address] [phone] Meka Castellano NP Bipolar disorder, in partial remission, most recent episode mixed (CMS/HCC) (HCC) (Primary Dx); Hypertension associated with type 2 diabetes mellitus (HCC); Hyperlipidemia associated with type 2 diabetes mellitus (HCC); Intertrigo; Class 3 severe obesity due to excess calories with serious comorbidity and body mass index (BMI) of 50.0 to 59.9 in adult (HCC) 08/08/2024 Orders Only [facility] Diabetes and Endocrinology [address] [place] [phone] David Garrett MD 08/02/2024 Telephone [facility] Primary Care at [address] [address] Soren Mcwilliams MD Medical Question/Miscellaneous 08/01/2024 3:13 PM STATISTICAL REPORTING ANALYST - 08/01/2024 11:59 PM STATISTICAL REPORTING ANALYST Hospital Encounter [address] [address] Acute viral syndrome Discharge Disposition: Discharge to home or self care 08/01/2024 2:45 PM STATISTICAL REPORTING ANALYST Office Visit [facility] Convenient Care at [address] [phone] Rehana Irizarry NP Acute viral syndrome (Primary Dx) 08/01/2024 1:30 PM STATISTICAL REPORTING ANALYST Office Visit [facility] Diabetes and Endocrinology [address] [place] [address] Haleigh Ramirez NP Type 2 diabetes mellitus with hyperglycemia, with long-term current use of insulin (HCC) (Primary Dx); Hypertension associated with type 2 diabetes mellitus (HCC); Hyperlipidemia associated with type 2 diabetes mellitus ([facility]); PCOS (polycystic ovarian syndrome) 07/19/2024 [facility] [address] [address] Mily Mason RN Bleeding/Progesterone Update 07/05/2024 4:00 PM STATISTICAL REPORTING ANALYST Office Visit [facility] Pulmonology [address] [facility] [address] [place] [address] Brenda Sheriff MD NIEVES (obstructive sleep apnea) (Primary Dx); Psychophysiological insomnia; Delayed sleep phase syndrome; Family history of sleep apnea; BMI 50.0-59.9, adult ([facility]); Nonsmoker 07/04/2024 2:30 PM STATISTICAL REPORTING ANALYST Ancillary Procedure [address] [address] Menometrorrhagia 07/02/[address] [address] Mily Mason RN Cycle Update 06/27/2024 2:35 PM STATISTICAL REPORTING ANALYST Lab [address] Menometrorrhagia 06/27/2024 1:30 PM STATISTICAL REPORTING ANALYST Office Visit [address] [phone] Yoel Paulson MD Encounter for gynecological examination with abnormal finding (Primary Dx); Menometrorrhagia; Fibroids 06/13/2024 [facility] [address] [phone] Oneida Wells [place] Appointment 06/11/2024 2:30 PM STATISTICAL REPORTING ANALYST Office Visit [facility] Convenient Care at [address] [phone] Rina Huizar NP Nausea and [...] on file Legal Sex Female 1:26 AM STATISTICAL REPORTING ANALYST Gender Identity Female 12/25/2022 7:50 PM CDT Sexual Orientation Straight 12/25/2022 7: 50 PM CDT Obstetrics History Para Term AB IAB SAB Ectopic Multiple Livin g Live Births 0 0 0 0 0 0 0 0 0 0 0 Last Filed Vital Signs Vital Sign Reading Time Taken Comments Blood Pressure 104/60 08/15/2024 1:28 PM STATISTICAL REPORTING ANALYST Pulse 85 08/15/2024 1:28 PM STATISTICAL REPORTING ANALYST Temperature 36.6 C (97.8 F) 08/15/2024 1:28 PM STATISTICAL REPORTING ANALYST Respiratory Rate 18 08/01/2024 2:47 PM STATISTICAL REPORTING ANALYST Oxygen Saturation 99% 08/15/2024 1:28 PM STATISTICAL REPORTING ANALYST Inhaled Oxygen Concentration - - Weight 156.5 kg (345 lb) 08/15/2024 1:28 PM STATISTICAL REPORTING ANALYST Height 175.3 cm (5' 9.02 ) 08/15/2024 1:28 PM CS T Body Mass Index 50.92 08/15/2024 1:28 PM STATISTICAL REPORTING ANALYST Plan of Treatment Health Maintenance Due Date [...] Diagnosis Comments EGFR Routine 08/15/2024 2:01 PM STATISTICAL REPORTING ANALYST Hypertension associated with type 2 diabetes mellitus (HCC) CHOLESTEROL, LDL, DIRECT Routine 08/15/2024 2:01 PM STATISTICAL REPORTING ANALYST Hypertension associated with type 2 diabetes mellitus (HCC) DIFFERENTIAL AUTO Routine 08/15/2024 2:0 1 PM STATISTICAL REPORTING ANALYST Hypertension associated with type 2 diabetes mellitus (HCC) VITAMIN D 25 HYDROXY Routine 08/15/2024 2:01 PM STATISTICAL REPORTING ANALYST Class 3 severe obesity due to excess calories with serious comorbidity and body mass index (BMI) of 45.0 to 49.9 in adult (HCC) LIPID PANEL Routine 08/15/2024 2:01 PM STATISTICAL REPORTING ANALYST Hypertension associated with type 2 diabetes mellitus (HCC) COMPREHENSIVE METABOLIC PANEL Routine 08/15/2024 2:01 PM STATISTICAL REPORTING ANALYST Hypertension associated with type 2 diabetes mellitus (HCC) CBC WITH AUTO DIFFERENTIAL Routine 08/15/2024 2:01 PM STATISTICAL REPORTING ANALYST Hypertension associated with type 2 diabetes mellitus (HCC) THYROID FUNCTION CASCADE Routine 08/15/2024 2:01 PM STATISTICAL REPORTING ANALYST Hypertension associated with type 2 diabetes mellitus (HCC) THROAT CULTURE Routine 08/01/2024 3:13 PM STATISTICAL REPORTING ANALYST Acute viral syndrome INFLUENZA A/B, RSV, AND COVID-19 PCR Routine 08/01/2024 3:13 PM STATISTICAL REPORTING ANALYST Acute viral syndrome POCT RAPID RSV Routine 08/01/2024 3:07 PM STATISTICAL REPORTING ANALYST Acute viral syndrome POC INFLUENZA A/B, COVID-19 ANTIGEN Routine 08/01/2024 3:07 PM STATISTICAL REPORTING ANALYST Acute viral syndrome POCT RAPID STREP Routine 08/01/2024 3:04 PM STATISTICAL REPORTING ANALYST Acute viral syndrome POCT GLUCOSE Routine 08/01/2024 1:35 PM STATISTICAL REPORTING ANALYST Type 2 diabetes mellitus with hyperglycemia, with long-term current use of insulin (HCC) POCT HEMOGLOBIN A1C Routine 08/01/2024 1 :35 PM STATISTICAL REPORTING ANALYST Type 2 diabetes mellitus with hyperglycemia, with long-term current use of insulin (HCC) US TRANSVAGINAL Schedule Routine, Read Routine (OP Routine) 07/04/2024 2:55 PM STATISTICAL REPORTING ANALYST Menometrorrhagia DIFFERENTIAL AUTO Routine 06/27/2024 2:3 9 PM STATISTICAL REPORTING ANALYST Menometrorrhagia CBC WITH AUTO DIFFERENTIAL Routine 06/27/2024 2:39 PM STATISTICAL REPORTING ANALYST Menometrorrhagia TSH Routine 06/27/2024 2:39 PM STATISTICAL REPORTING ANALYST Menometrorrhagia FERRITIN Routine 06/27/2024 2:39 PM STATISTICAL REPORTING ANALYST Menometrorrhagia POC INFLUENZA A/B, COVID-19 ANTIGEN Routine 06/11/2024 2:26 PM STATISTICAL REPORTING ANALYST Nausea and vomiting, unspecified vomiting type HM DIABETES EYE EXAM Routine 05/01/2024 7:23 AM CDT ALBUMIN CREATININE RATIO, URINE Routine 01/17/2024 1:00 PM CDT Type 2 diabetes mellitus with hyperglycemia, with long-term current use of insulin (HCC) from Last 3 Months or Most Recently Relevant to Health Maintenance Results * eGFR (08/15/2024 2:01 PM STATISTICAL REPORTING ANALYST) eGFR >90 >=60 mL/min/1. 73 m2 Comment: [...] last reviewed 2021. Blood 08/15/2024 2:01 PM STATISTICAL REPORTING ANALYST 08/15/2024 9:27 PM STATISTICAL REPORTING ANALYST us Soren Mcwilliams MD LAB BLOOD ORDERABLES Final Result [facility] [address] [place] [address] * Differential, auto (08/15/2024 2:01 PM STATISTICAL REPORTING ANALYST) Neutrophil abs 2.8 1.5 - 6.5 K/cumm Imm gran abs 0.0 0.0 - 0.1 K/cumm [facility] Lymphocyte abs 1.3 0.8 - 3.3 K/cumm [facility] Monocyte abs 0.3 0.2 - 0.8 K/cumm [facility] Eosinophil abs 0.2 0.0 - 0.5 K/cumm [facility] Basophil abs 0.1 0.0 - 0.1 K/cumm [facility] Neutrophil pct 59.2 % [facility] Comment: Interpretive Data Percent cell count reference ranges are not reported, since discordance with absolute values may lead to misinterpretation of CBC data. Current Interpretive Data was last revised on 2017. Imm gran pct 0.4 % [facility] Comment: Interpretive Data Percent cell count reference ranges are not reported, since discordance with absolute values may lead to misinterpretation of CBC data. Current Interpretive Data was last revised on 2017. Lymphocyte pct 27.8 % [facility] Comment: Interpretive Data Percent cell count reference ranges are not reported, since discordance with absolute values may lead to misinterpretation of CBC data. Current Interpretive Data was last revised on 2017. Monocyte pct 6.4 % [facility] Comment: Interpretive Data Percent cell count reference ranges are not reported, since discordance with absolute values may lead to misinterpretation of CBC data. Current Interpretive Data was last revised on 2017. Eosinophil pct 4.9 % [facility] Comment: Interpretive Data Percent cell count [...] revised on 2017. Blood 08/15/2024 2:01 PM STATISTICAL REPORTING ANALYST 08/15/2024 9:08 PM STATISTICAL REPORTING ANALYST Soren Mcwilliams MD LAB BLOOD ORDERABLES Final Result Performing Organization Address [facility] de Phone Number [facility] [address] [place] [address] * Thyroid Function Weed (08/15/2024 2:01 PM STATISTICAL REPORTING ANALYST) Pathologist [facility] TSH 1.59 0.30 - 4.20 mcIUnit/mL Blood 08/15/2024 2:01 PM STATISTICAL REPORTING ANALYST 08/15/2024 9:08 PM STATISTICAL REPORTING ANALYST Result [facility] Soren Mcwilliams MD LAB BLOOD ORDERABLES Final Result Performing Organization Address [facility] Co de Phone Number [facility] [address] Department [place] [address] * (ABNORMAL) CBC with auto differential (08/15/2024 2:01 PM STATISTICAL REPORTING ANALYST) WBC 4.7 3.8 - 9.9 K/cumm Hgb 11.3(L) 11.9 - 15.5 g/dL [facility] Hct 38.6 35.6 - 45.5 % [facility] Plt 210 150 - 400 K/cumm [facility] MPV 11.1 9.1 - 12.3 fL [facility] RBC 4.53 3.90 - 5.20 M/cumm [facility] MCV 85.2 81.3 - 96.4 fL [facility] MCH 24.9(L) 27.1 - 33.3 pg [facility] MCHC 29.3(L) 32.3 - 35.7 g/dL [facility] RDW CV 15.8(H) 11.1 - 14.9 % [facility] RDW SD 47.4 35.7 - 48.1 fL [facility] NRBC abs 0.00 0.00 - 0.01 K/cumm [facility] Blood 08/15/2024 2:01 PM STATISTICAL REPORTING ANALYST 08/15/2024 9:08 PM STATISTICAL REPORTING ANALYST Soren Mcwilliams MD LAB BLOOD ORDERABLES Final Result Performing Organization Address City/[facility]/ZIP Co de Phone Number EUN [facility] Department [place] [address] * (ABNORMAL) Vitamin D 25 hydroxy (08/15/2024 2:01 PM STATISTICAL REPORTING ANALYST) Vitamin D 25-OH 18(L) 30 - 80 ng/mL Blood 08/15/2024 2:01 PM STATISTICAL REPORTING ANALYST 08/15/2024 9:08 PM STATISTICAL REPORTING ANALYST Soren Mcwilliams MD LAB BLOOD ORDERABLES Final Result Performing Organization Address City/[facility]/ZIP Co de Phone Number [facility] [address] Department [place] [address] * Cholesterol, LDL, direct (08/15/2024 2:01 PM STATISTICAL REPORTING ANALYST) LDL Cholesterol, Direct 72 <=129 mg/dL Comment: [...] revised on 2018. Blood 08/15/2024 2:01 PM STATISTICAL REPORTING ANALYST 08/15/2024 9:27 PM STATISTICAL REPORTING ANALYST Narrative [facility] - 08/15/2024 11:39 PM STATISTICAL REPORTING ANALYST Cholesterol, LDL, direct reflexed based on Elevated Triglyceride (>400) us Soren Mcwilliams MD LAB BLOOD ORDERABLES Final Result [facility] [address] [place] [address] * (ABNORMAL) Lipid panel (08/15/2024 2:01 PM STATISTICAL REPORTING ANALYST) Cholesterol 171 30 - 199 mg/dL Comment: [...] 7 [facility] Blood 08/15/2024 2:01 PM STATISTICAL REPORTING ANALYST 08/15/2024 9:08 PM STATISTICAL REPORTING ANALYST us Soren Mcwilliams MD LAB BLOOD ORDERABLES Final Result [facility] [address] [place] [address] * (ABNORMAL) Comprehensive metabolic panel (08/15/2024 2:01 PM STATISTICAL REPORTING ANALYST) Pathologist [facility] Sodium 136 135 - 145 mmol/L Potassium, [...] Units/L [facility] Blood 08/15/2024 2:01 PM STATISTICAL REPORTING ANALYST 08/15/2024 9:08 PM STATISTICAL REPORTING ANALYST Soren Mcwilliams MD LAB BLOOD ORDERABLES Final Result Performing Organization Address [facility] Co de Phone Number [facility] [address] [place] [address] * (ABNORMAL) Influenza A/B, RSV, and COVID-19 PCR Nasopharyngeal (08/01/2024 3:13 PM STATISTICAL REPORTING ANALYST) COVID-19 RNA Negative Negative Influenza A RNA Negative Negative [facility] Influenza B RNA Negative Negative [facility] RSV RNA Positive(A) Negative [facility] Comment: Interpretive data: Testing performed by [facility]. This test is performed using the [employer] Xpert Xpress CoV-2/Flu/RSV plus assay. This is a multiplex, real-time reverse transcriptase PCR assay intended for the qualitative detection of nucleic acid from SARS-CoV-2, influenza A, influenza B, and respiratory syncytial virus. This assay has been cleared by the [place] Food and Drug administration. The performance characteristics have been verified by the [facility]. Results must be considered in the clinical context, and a negative result does not rule out infection. Interpretive Data last revised 2023 Nasopharyngeal 08/01/2024 3: 13 PM STATISTICAL REPORTING ANALYST 08/01/2024 7:43 PM STATISTICAL REPORTING ANALYST Narrative [facility] - 08/01/2024 8:34 PM STATISTICAL REPORTING ANALYST Is the Patient experiencing symptoms consistent with COVID?->Yes us Rehana Irizarry NP LAB MICROBIOLOGY - GENERAL ORD ERABLES Final Result Performing Organization Address [facility]/ZIP Co de Phone Number [facility] [address] [place] [address] CH * Throat culture Throat (08/01/2024 3:13 PM STATISTICAL REPORTING ANALYST) Report Final Report: No growth of pathogens. Comment:Testing performed by : [facility], [address], [place]., [address] Throat 08/01/2024 3:13 PM STATISTICAL REPORTING ANALYST 08/01/2024 10:46 PM STATISTICAL REPORTING ANALYST Narrative [facility] - 08/02/2024 10:45 PM STATISTICAL REPORTING ANALYST Testing performed by [facility] Microbiology Laboratory ([phone]). us Rehana Irizarry NP LAB MICROBIOLOGY - GENERAL ORD ERABLES Final Result Performing Organization Address City/[facility]/ZIP Co de Phone Number EUN [address] [place] [address] * POC Influenza A/B, COVID-19 antigen (08/01/2024 3:07 PM STATISTICAL REPORTING ANALYST) Influenza A Ag, POC Negative Negative [facility] Influenza B Ag, POC Negative Negative [facility] COVID-19 Ag POC Presumptive Negative Presumptive Negative, Invalid [facility] Nasal 08/01/2024 3:07 PM STATISTICAL REPORTING ANALYST us Rehana Irizarry [facility] POINT OF CARE TEST ORDERABLES Final Result Performing Organization Address [facility]/ZIP Co de Phone Number [facility] [address] [place] [address] * POCT rapid RSV (08/01/2024 3:07 PM STATISTICAL REPORTING ANALYST) Rapid RSV, POC Negative Negative Lot Number [id number] QC Control Line Acceptable Swab 08/01/2024 3:07 PM STATISTICAL REPORTING ANALYST us Rehana Irizarry NP POINT OF CARE TEST ORDERABLES Final Result * POCT rapid strep A (08/01/2024 3:04 PM STATISTICAL REPORTING ANALYST) Rapid Strep A, POC Negative Negative Swab 08/01/2024 3:04 PM STATISTICAL REPORTING ANALYST us Rehana Irizarry NP POINT OF CARE TEST ORDERABLES Final Result * (ABNORMAL) POCT hemoglobin A1c (08/01/2024 1:35 PM STATISTICAL REPORTING ANALYST) Pathologist [facility] Hemoglobin A1C, POC 10.0 4.0 - 5.6 % Blood 08/01/2024 1:35 PM STATISTICAL REPORTING ANALYST us Haleighyariel Ramirez [employer] [employer] POINT OF CARE TEST ORDERA BLES Final Result * (ABNORMAL) POCT glucose (08/01/2024 1:35 PM STATISTICAL REPORTING ANALYST) Pathologist [facility] Glucose Blood, POC 351 mg/dL Blood 08/01/2024 1:35 PM STATISTICAL REPORTING ANALYST us Haleigh Ramirez [employer] POINT OF CARE TEST ORDERA BLES Final Result * US Transvaginal (07/04/2024 2:55 PM STATISTICAL REPORTING ANALYST) Anatomical Region Laterality Modality Pelvis N/A Ultrasound 07/04/2024 3:06 PM STATISTICAL REPORTING ANALYST Impressions 07/04/2024 9:26 PM STATISTICAL REPORTING ANALYST 1. Enlarged uterus with a 4.6 and [...] sult * Differential, auto (06/27/2024 2:39 PM STATISTICAL REPORTING ANALYST) Pathologist [facility] Neutrophil abs 3.0 1.5 - 6.5 K/cumm [...] revised on 2017. Blood 06/27/2024 2:39 PM STATISTICAL REPORTING ANALYST 06/27/2024 3:46 PM STATISTICAL REPORTING ANALYST us Yoel Paulson MD LAB BLOOD ORDERABLES Final Result [facility] [place] [address] [facility] Department [place] [address] * (ABNORMAL) CBC with auto differential (06/27/2024 2:39 PM STATISTICAL REPORTING ANALYST) WBC 5.3 3.8 - 9.9 K/cumm Hgb [...] [facility] ([facility]) Blood 06/27/2024 2:39 PM STATISTICAL REPORTING ANALYST 06/27/2024 3:46 PM STATISTICAL REPORTING ANALYST us Yoel Paulson MD LAB BLOOD ORDERABLES Final Result [facility] ([facility]) [address] [facility] Department [place] [address] * TSH (06/27/2024 2:39 PM STATISTICAL REPORTING ANALYST) Pathologist [facility] Thyroid Stimulating Hormone 2.25 0.30 - 4.20 mcIUnit/mL Blood 06/27/2024 2:39 PM STATISTICAL REPORTING ANALYST 06/27/2024 3:46 PM STATISTICAL REPORTING ANALYST Yoel Paulson MD LAB BLOOD ORDERABLES Final Result [facility] ([facility]) [address] [facility] Department [place] [address] * Ferritin (06/27/2024 2:39 PM STATISTICAL REPORTING ANALYST) [facility] Ferritin 22 15 - 150 ng/mL Blood 06/27/2024 2:39 PM STATISTICAL REPORTING ANALYST 06/27/2024 3:46 PM STATISTICAL REPORTING ANALYST Yoel Paulson MD LAB BLOOD ORDERABLES Final Result Performing Organization Address City/[facility]/ZIP Co de Phone Number [facility] (CHRISTINE) [facility] Department [place] [address] * POC Influenza A/B, COVID-19 antigen (06/11/2024 2:26 PM STATISTICAL REPORTING ANALYST) [facility] Influenza A Ag, POC Negative Negative [facility] Influenza B Ag, POC Negative Negative [facility] COVID-19 Ag POC Presumptive Negative Presumptive Negative, Invalid [facility] Nasal 06/11/2024 2:26 PM STATISTICAL REPORTING ANALYST Rina Huizar NP POINT OF CARE TEST ORDERAB LES Final Result Performing Organization Address [facility] Co de Phone Number [facility] [address] [place] [address] * DIABETES EYE EXAM (05/01/2024 7:23 AM CDT) Historical Provider HEALTH MAINTENANCE Final Result * Albumin Creatinine Ratio, Urine (01/17/2024 1:00 PM CDT) [facility] Albumin Ur <12.0 mg/L Comment: Interpretive Data [...] URINE ORDERAB[place] [id number] [address] [place] [address] from Last 3 Months or Most Recently Relevant to [place] [address] [facility] Member Subscriber Plan / Payer ( fective 2022-Present) Name:Cora Shultz E Relation to Subscriber:Self Name:Cora Shultz Payer ID:[id number] (NAIC) Group ID:Not on file Type:MEDICAID RISK OTHER Address: [facility] [id number] [place] [id number] [place] [address] [facility] Care Teams Fmd Teacher Relationship Specialty Start Date End Date Soren Mcwilliams MD [address] [address] PCP - General Family Medicine 04/17/24 Yoel Paulson MD [address] [place] [address] [address] [place] [id number] Head Of Sales Obstetrics and Gynecology 08/15/24
--- OUTSIDE RECORDS SUMMARY | 2024-09-01 01:07 | XMS_ITS | Encounter Summary ---
Author Organization [facility] Healthcare Address [address] [place] [address] Care Team Providers Care Plug Machine Operator Name Role Phone Soren Mcwilliams MD Primary Care Provider [phone] Yoel Paulson MD Unavailable [phone] Reason for Visit * Reason Onset Date Comments Medical Question/Miscellaneous 08/02/2024 Encounter Details Date Type Department Care Team (Late st Contact Info) Description 08/02/2024 Telephone [facility] Primary Care at [address] [phone] Soren Mcwilliams MD [address] [place] [address] [address] [place] [address] Medical Question/Miscellaneous Social History Tobacco [...] on file Legal Sex Female 1:26 AM CRAFT RECRUITER Gender Identity Female 12/25/2022 7:50 PM CDT Sexual Orientation Straight 12/25/2022 7: 50 PM CDT documented as of this encounter Miscellaneous Notes * Telephone Encounter - Amaya Escamilla - 08/02/2024 10:04 AM CST Medical Question/Miscellaneous Caller???s Concern: Patient tested positive for RSV yesterday at [facility]. Her symptoms started 07/31. She would like to know how long she needs to quarantine? Please advise Does message need to be routed? Yes-Action Needed T RECRUITER documented in this encounter Plan of Treatment Not on file documented as of this encounter Visit Diagnoses Not on filedocumented in this encounter Additional Health Concerns Infection Onset Date Last Indicated Resolved Time RSV, droplet 08/01/2024 08/01/2024 08/08/2024 3:05 AM CRAFT RECRUITER documented as of this encounter Care Teams Plug Machine Operator Relationship Specialty Start Date End Date Soren Mcwilliams MD [address] [place] [id number] PCP - General Family Medicine 04/17/24 Yoel Paulson MD [address] [facility] [address] FA[address] [place] [id number] Live In Companion Obstetrics and Gynecology 08/15/24 documented as of this encounter
--- OUTSIDE RECORDS SUMMARY | 2024-09-01 01:07 | XMS_ITS | Referral Summary ---
Author Organization [facility] Address [address] [place] [address] Care Team Providers Care Pst Supervisor Name Role Phone Soren Mcwilliams MD Primary Care Provider Yoel Paulson MD Unavailable [phone] Encounters Date Type Department Care Team Description 08/21/2024 Telephone [address] [address] [place] [address] [address] [place] [address] Mily Mason, CHAPARRO Update on Progesterone 08/16/2024 Orders Only [facility] Primary Care at [address] [phone] Meka Castellano NP 08/16/2024 Telephone [facility] Primary Care at [address] [phone] Soren Mcwilliams MD Prior Auth (clotrimazole-betametha sone (LOTRISONE) cream) 08/16/2024 Orders Only [facility] Primary Care at [address] [phone] Soren Mcwilliams MD 08/15/2024 2:01 PM FUR BUYER - 08/15/2024 11:59 PM FUR BUYER Hospital Encounter [address] [address] Hypertension associated with type 2 diabetes mellitus (HCC); Class 3 severe obesity due to excess calories with serious comorbidity and body mass index (BMI) of 45.0 to 49.9 in adult (HCC) Discharge Disposition: Discharge to home or self care 08/15/2024 2:00 PM FUR BUYER Lab [facility] at [address] [phone] Type 2 diabetes mellitus (HCC) (Primary Dx) 08/15/2024 1:30 PM FUR BUYER Office Visit [facility] at [address] [phone] Meka Castellano NP Bipolar disorder, in partial remission, most recent episode mixed (CMS/HCC) (HCC) (Primary Dx); Hypertension associated with type 2 diabetes mellitus (HCC); Hyperlipidemia associated with type 2 diabetes mellitus (HCC); Intertrigo; Class 3 severe obesity due to excess calories with serious comorbidity and body mass index (BMI) of 50.0 to 59.9 in adult (HCC) 08/08/2024 Orders Only [facility] [address] [place] [address] ProviderDvaid MD 08/02/2024 Telephone [facility] at [address] [phone] Soren Mcwilliams MD Medical Question/Miscellaneous 08/01/2024 3:13 PM FUR BUYER - 08/01/2024 11:59 PM FUR BUYER Hospital Encounter [address] [address] Acute viral syndrome Discharge Disposition: Discharge to home or self care 08/01/2024 2:45 PM FUR BUYER Office Visit [facility] at [address] [phone] Rehana Irizarry NP Acute viral syndrome (Primary Dx) 08/01/2024 1:30 PM FUR BUYER Office Visit [facility] [address] [place] [phone] Haleigh Ramirez NP Type 2 diabetes mellitus with hyperglycemia, with long-term current use of insulin ([facility]) (Primary Dx); Hypertension associated with type 2 diabetes mellitus ([facility]); Hyperlipidemia associated with type 2 diabetes mellitus ([facility]); PCOS (polycystic ovarian syndrome) 07/19/[address], [place] [phone] Mily Mason RN Bleeding/Progesterone Update 07/05/2024 4:00 PM FUR BUYER Office Visit [facility] Pulmonology [address] [place] [address] Brenda Sheriff MD NIEVES (obstructive sleep apnea) (Primary Dx); Psychophysiological insomnia; Delayed sleep phase syndrome; Family history of sleep apnea; BMI 50.0-59.9, adult ([facility]); Nonsmoker 07/04/2024 2:30 PM FUR BUYER Ancillary Procedure [address], [place] [phone] Menometrorrhagia 07/02/[address] [phone] Mily Mason RN Cycle Update 06/27/2024 2:35 PM FUR BUYER Lab [address] Menometrorrhagia 06/27/2024 1:30 PM FUR BUYER Office Visit [address] [phone] Yoel Paulson MD Encounter for gynecological examination with abnormal finding (Primary Dx); Menometrorrhagia; Fibroids 06/13/[address], [place] [phone] Oneida Wells MA Appointment 06/11/2024 2:30 PM FUR BUYER Office Visit [facility] at [address] [phone] Rina Huizar NP Nausea and [...] times a day as needed Active hany.ph px-zigsq-rus (UribeL) 118-10-40.8-36 mg capsule TAKE 1 CAPSULE [...] with long-term current use of insulin ([facility]) Take 2 tablets (1,000 mg total) by mouth 2 (two) times a day 360 tablet 3 025 2025 Active tirzepatide (MOUNJARO) 7.5 mg/0.5 mL pen injectorIndication s:Type 2 diabetes mellitus with hyperglycemia, with long-term current use of insulin ([facility]) Inject 7.5 mg under the skin every 7 days 6 mL 3 025 2025 Active blood-glucose meter miscIndications:Ty pe 2 diabetes mellitus with hyperglycemia, with long-term current use of insulin ([facility]) One Touch Verio Meter Use [...] in partial remission, most recent episode mixed ([facility]) 04/17/2024 Assessment & Plan (08/15/2024 1:57 PM FUR BUYER): Patient has not re-established with Psychiatry, information [...] 01/17/2024 Assessment & Plan (08/15/2024 1:58 PM FUR BUYER): Chronic problem. Currently taking lisinopril 10mg daily. Assessment & Plan (08/01/2024 1:48 PM FUR BUYER): Chronic problem. Currently taking lisinopril 10mg daily. Assessment & Plan (04/17/2024 3:13 PM CDT): Chronic problem. Currently taking lisinopril 10mg daily. Assessment & Plan (01/17/2024 11:44 AM CDT): Chronic problem. Currently taking lisinopril 10mg daily. Will update labs today. Verified that she uses [facility]. Aware to check results/results letter in [facility]. Will contact by phone if needed. Hyperlipidemia associated with type 2 diabetes sonia salazar 01/17/2024 Assessment & Plan (08/15/2024 1:57 PM FUR BUYER): Awaiting labs, continues Atorvastatin. Assessment & Plan (08/01/2024 1:48 PM FUR BUYER): Chronic problem. Currently taking Atorvastatin 20mg & fenofibrate 145mg daily. Last lipid panel: 01/17/24 YDX=255, AA=284. Assessment & Plan (04/17/2024 3:14 PM CDT): Chronic problem. Currently taking Atorvastatin 20mg & fenofibrate 145mg daily. Last lipid panel: 01/17/24 NYR=297, DJ=880. Assessment & Plan (01/17/2024 11:45 AM CDT): Chronic problem. Currently taking Atorvastatin 20mg & fenofibrate 145mg daily. Last lipid panel: 10/09/21 LDL=could not calc, EW=334. Will update labs today. Verified that she uses [facility]. Aware to check results/results letter in [facility]. Will contact by phone if needed. Morbid (severe) obesity due to excess calories 0 01/17/2024 BMI 50.0-59.9, adult 01/17/2024 Class 3 severe obesity due t o excess calories with serious comorbidity and body mass index (BMI) of 50.0 to 59.9 in adult 01/17/2024 Assessment & Plan (08/15/2024 1:57 PM FUR BUYER): Healthy, low carbohydrate lifestyle and exercise for [...] 09/15/2023 Assessment & Plan (08/01/2024 2:08 PM FUR BUYER): Chronic problem. A1c worsened from 9.3% 04/17/24 to now 10.0%. interested in insulin pump therapy but wants to check with insurance to see what cost/coverage is. Will send me a [facility] message if pump is covered. Will increase [...] for DM eye exam; last 2022 at [facility]. Letter sent to get copy of report. [...] at bedtime DM eye exam 2022 at [facility]. Letter sent to get copy of report. Will update labs today. Verified that she uses [facility]. Aware to check results/results letter in [facility]. Will contact by phone if needed. Discussed [...] infection. Assessment & Plan (09/15/2023 12:26 PM FUR BUYER): Hba1c was Lab Results Component Value Date [...] 09/15/2023 Assessment & Plan (08/01/2024 1:48 PM FUR BUYER): Chronic problem. Continue metformin & Spironolactone. Assessment & Plan (04/17/2024 3:13 PM CDT): Chronic problem. Continue metformin & Spironolactone. Assessment & Plan (01/17/2024 11:43 AM CDT): Chronic problem. Continue metformin & Spironolactone. Assessment & Plan (09/15/2023 12:27 PM FUR BUYER): Continue aldactone Eczema 07/27/2023 Persistent insomnia 02/13/2023 [...] on file Legal Sex Female 1:26 AM FUR BUYER Gender Identity Female 12/25/2022 7:50 PM CDT Sexual Orientation Straight 12/25/2022 7: 50 PM CDT Last Filed Vital Signs Vital Sign Reading Time Taken Comments Blood Pressure 104/60 08/15/2024 1:28 PM FUR BUYER Pulse 85 08/15/2024 1:28 PM FUR BUYER Temperature 36.6 C (97.8 F) 08/15/2024 1:28 PM FUR BUYER Respiratory Rate 18 08/01/2024 2:47 PM FUR BUYER Oxygen Saturation 99% 08/15/2024 1:28 PM FUR BUYER Inhaled Oxygen Concentration - - Weight 156.5 kg (345 lb) 08/15/2024 1:28 PM FUR BUYER Height 175.3 cm (5' 9.02 ) 08/15/2024 1:28 PM CS T Body Mass Index 50.92 08/15/2024 1:28 PM FUR BUYER Plan of Treatment Not on file Procedures Procedure Name Priority Date/Time Associated Diagnosis Comments EGFR Routine 08/15/2024 2:01 PM FUR BUYER Hypertension associated with type 2 diabetes mellitus (HCC) CHOLESTEROL, LDL, DIRECT Routine 08/15/2024 2:01 PM FUR BUYER Hypertension associated with type 2 diabetes mellitus (HCC) DIFFERENTIAL AUTO Routine 08/15/2024 2:0 1 PM FUR BUYER Hypertension associated with type 2 diabetes mellitus (HCC) VITAMIN D 25 HYDROXY Routine 08/15/2024 2:01 PM FUR BUYER Class 3 severe obesity due to excess calories with serious comorbidity and body mass index (BMI) of 45.0 to 49.9 in adult (HCC) LIPID PANEL Routine 08/15/2024 2:01 PM FUR BUYER Hypertension associated with type 2 diabetes mellitus (HCC) COMPREHENSIVE METABOLIC PANEL Routine 08/15/2024 2:01 PM FUR BUYER Hypertension associated with type 2 diabetes mellitus (HCC) CBC WITH AUTO DIFFERENTIAL Routine 08/15/2024 2:01 PM FUR BUYER Hypertension associated with type 2 diabetes mellitus (HCC) THYROID FUNCTION CASCADE Routine 08/15/2024 2:01 PM FUR BUYER Hypertension associated with type 2 diabetes mellitus (HCC) THROAT CULTURE Routine 08/01/2024 3:13 PM FUR BUYER Acute viral syndrome INFLUENZA A/B, RSV, AND COVID-19 PCR Routine 08/01/2024 3:13 PM FUR BUYER Acute viral syndrome POCT RAPID RSV Routine 08/01/2024 3:07 PM FUR BUYER Acute viral syndrome POC INFLUENZA A/B, COVID-19 ANTIGEN Routine 08/01/2024 3:07 PM FUR BUYER Acute viral syndrome POCT RAPID STREP Routine 08/01/2024 3:04 PM FUR BUYER Acute viral syndrome POCT GLUCOSE Routine 08/01/2024 1:35 PM FUR BUYER Type 2 diabetes mellitus with hyperglycemia, with long-term current use of insulin (HCC) POCT HEMOGLOBIN A1C Routine 08/01/2024 1 :35 PM FUR BUYER Type 2 diabetes mellitus with hyperglycemia, with long-term current use of insulin (HCC) US TRANSVAGINAL Schedule Routine, Read Routine (OP Routine) 07/04/2024 2:55 PM FUR BUYER Menometrorrhagia DIFFERENTIAL AUTO Routine 06/27/2024 2:3 9 PM FUR BUYER Menometrorrhagia CBC WITH AUTO DIFFERENTIAL Routine 06/27/2024 2:39 PM FUR BUYER Menometrorrhagia TSH Routine 06/27/2024 2:39 PM FUR BUYER Menometrorrhagia FERRITIN Routine 06/27/2024 2:39 PM FUR BUYER Menometrorrhagia POC INFLUENZA A/B, COVID-19 ANTIGEN Routine 06/11/2024 2:26 PM FUR BUYER Nausea and vomiting, unspecified vomiting type DIABETES EYE EXAM Routine 05/01/2024 7:23 AM CDT ALBUMIN CREATININE RATIO, URINE Routine 01/17/2024 1:00 PM CDT Type 2 diabetes mellitus with hyperglycemia, with long-term current use of insulin (HCC) from Last 3 Months or Most Recently Relevant to Health Maintenance Results * eGFR (08/15/2024 2:01 PM FUR BUYER) eGFR >90 >=60 mL/min/1. 73 m2 Comment: [...] last reviewed 2021. Blood 08/15/2024 2:01 PM FUR BUYER 08/15/2024 9:27 PM FUR BUYER us Soren Mcwilliams MD LAB BLOOD ORDERABLES Final Result [facility] [address] Department [place] [address] * Differential, auto (08/15/2024 2:01 PM FUR BUYER) Neutrophil abs 2.8 1.5 - 6.5 K/cumm Imm gran abs 0.0 0.0 - 0.1 K/cumm [facility] Lymphocyte abs 1.3 0.8 - 3.3 K/cumm [facility] Monocyte abs 0.3 0.2 - 0.8 K/cumm [facility] Eosinophil abs 0.2 0.0 - 0.5 K/cumm [facility] Basophil abs 0.1 0.0 - 0.1 K/cumm [facility] Neutrophil pct 59.2 % [facility] Comment: Interpretive Data Percent cell count reference ranges are not reported, since discordance with absolute values may lead to misinterpretation of CBC data. Current Interpretive Data was last revised on 2017. Imm gran pct 0.4 % [facility] Comment: Interpretive Data Percent cell count reference ranges are not reported, since discordance with absolute values may lead to misinterpretation of CBC data. Current Interpretive Data was last revised on 2017. Lymphocyte pct 27.8 % [facility] Comment: Interpretive Data Percent cell count reference ranges are not reported, since discordance with absolute values may lead to misinterpretation of CBC data. Current Interpretive Data was last revised on 2017. Monocyte pct 6.4 % [facility] Comment: Interpretive Data Percent cell count reference ranges are not reported, since discordance with absolute values may lead to misinterpretation of CBC data. Current Interpretive Data was last revised on 2017. Eosinophil pct 4.9 % [facility] Comment: Interpretive Data Percent cell count reference [...] revised on 2017. Blood 08/15/2024 2:01 PM FUR BUYER 08/15/2024 9:08 PM FUR BUYER Soren Mcwilliams MD LAB BLOOD ORDERABLES Final Result Performing Organization Address [facility] de Phone Number EUN [address] [place] [address] * Thyroid Function [place] (08/15/2024 2:01 PM FUR BUYER) Pathologist [facility] TSH 1.59 0.30 - 4.20 mcIUnit/mL Blood 08/15/2024 2:01 PM FUR BUYER 08/15/2024 9:08 PM FUR BUYER Soren Mcwilliams MD LAB BLOOD ORDERABLES Final Result Performing Organization Address [facility] Co de Phone Number EUN [address] Department [place] [address] * (ABNORMAL) CBC with auto differential (08/15/2024 2:01 PM FUR BUYER) WBC 4.7 3.8 - 9.9 K/cumm Hgb 11.3(L) 11.9 - 15.5 g/dL [facility] Hct 38.6 35.6 - 45.5 % [facility] Plt 210 150 - 400 K/cumm [facility] MPV 11.1 9.1 - 12.3 fL [facility] RBC 4.53 3.90 - 5.20 M/cumm [facility] MCV 85.2 81.3 - 96.4 fL [facility] MCH 24.9(L) 27.1 - 33.3 pg [facility] MCHC 29.3(L) 32.3 - 35.7 g/dL [facility] RDW CV 15.8(H) 11.1 - 14.9 % [facility] RDW SD 47.4 35.7 - 48.1 fL [facility] NRBC abs 0.00 0.00 - 0.01 K/cumm [facility] Blood 08/15/2024 2:01 PM FUR BUYER 08/15/2024 9:08 PM FUR BUYER Soren Mcwilliams MD LAB BLOOD ORDERABLES Final Result [facility] [address] [place] [address] * (ABNORMAL) Vitamin D 25 hydroxy (08/15/2024 2:01 PM FUR BUYER) Vitamin D 25-OH 18(L) 30 - 80 ng/mL Blood 08/15/2024 2:01 PM FUR BUYER 08/15/2024 9:08 PM FUR BUYER Soren Mcwilliams MD LAB BLOOD ORDERABLES Final Result Performing Organization Address City/[facility]/ZIP Co de Phone Number [facility] [address] [place] [address] * Cholesterol, LDL, direct (08/15/2024 2:01 PM FUR BUYER) LDL Cholesterol, Direct 72 <=129 mg/dL Comment: [...] revised on 2018. Blood 08/15/2024 2:01 PM FUR BUYER 08/15/2024 9:27 PM FUR BUYER Narrative [facility] - 08/15/2024 11:39 PM FUR BUYER Cholesterol, LDL, direct reflexed based on Elevated Triglyceride (>400) us Soren Mcwilliams MD LAB BLOOD ORDERABLES Final Result [facility] [address] Department [place] [address] * (ABNORMAL) Lipid panel (08/15/2024 2:01 PM FUR BUYER) Cholesterol 171 30 - 199 mg/dL Comment: [...] 7 [facility] Blood 08/15/2024 2:01 PM FUR BUYER 08/15/2024 9:08 PM FUR BUYER us Soren Mcwilliams MD LAB BLOOD ORDERABLES Final Result [facility] [address] Department [place] [address] * (ABNORMAL) Comprehensive metabolic panel (08/15/2024 2:01 PM FUR BUYER) Sodium 136 135 - 145 mmol/L Potassium, [...] Units/L [facility] Blood 08/15/2024 2:01 PM FUR BUYER 08/15/2024 9:08 PM FUR BUYER Soren Mcwilliams MD LAB BLOOD ORDERABLES Final Result Performing Organization Address [facility] Co de Phone Number EUN X[facility] Department [place] [address] * (ABNORMAL) Influenza A/B, RSV, and COVID-19 PCR Nasopharyngeal (08/01/2024 3:13 PM FUR BUYER) COVID-19 RNA Negative Negative Influenza A RNA Negative Negative [facility] Influenza B RNA Negative Negative [facility] RSV RNA Positive(A) Negative [facility] Comment: Interpretive data: Testing performed by [facility]. This test is performed using the [employer] Xpert Xpress CoV-2/Flu/RSV plus assay. This is a multiplex, real-time reverse transcriptase PCR assay intended for the qualitative detection of nucleic acid from SARS-CoV-2, influenza A, influenza B, and respiratory syncytial virus. This assay has been cleared by the [place] Food and Drug administration. The performance characteristics have been verified by the [facility]. Results must be considered in the clinical context, and a negative result does not rule out infection. Interpretive Data last revised 2023 Nasopharyngeal 08/01/2024 3: 13 PM FUR BUYER 08/01/2024 7:43 PM FUR BUYER Narrative [facility] - 08/01/2024 8:34 PM FUR BUYER Is the Patient experiencing symptoms consistent with COVID?->Yes us Rehana Irizarry NP LAB MICROBIOLOGY - GENERAL ORD ERABLES Final Result Performing Organization Address [facility] Co de Phone Number EUN [facility] Department [place] [address] CH * Throat culture Throat (08/01/2024 3:13 PM FUR BUYER) Report Final Report: No growth of pathogens. Comment:Testing performed by : [facility], [address] [facility], [place]., [address] Throat 08/01/2024 3:13 PM FUR BUYER 08/01/2024 10:46 PM FUR BUYER Narrative [facility] - 08/02/2024 10:45 PM FUR BUYER Testing performed by [facility] Microbiology Laboratory ([phone]). us Rehana Irizarry NP LAB MICROBIOLOGY - GENERAL ORD ERABLES Final Result Performing Organization Address City/[facility]/ZIP Co de Phone Number EUN [address] Department [place] [address] * POC Influenza A/B, COVID-19 antigen (08/01/2024 3:07 PM FUR BUYER) Influenza A Ag, POC Negative Negative [facility] CC EDW Influenza B Ag, POC Negative Negative [facility] CC EDW COVID-19 Ag POC Presumptive Negative Presumptive Negative, Invalid [facility] CC EDW Nasal 08/01/2024 3:07 PM FUR BUYER us Rehana Irizarry NET WEB APPLICATION DEVELOPER POINT OF CARE TEST ORDERABLES Final Result Performing Organization Address [facility] Co de Phone Number [facility] CC EDW [address] [place] [address] * POCT rapid RSV (08/01/2024 3:07 PM FUR BUYER) Rapid RSV, POC Negative Negative Lot Number [id number] QC Control Line Acceptable Swab 08/01/2024 3:07 PM FUR BUYER us Rehana Irizarry NP POINT OF CARE TEST ORDERABLES Final Result * POCT rapid strep A (08/01/2024 3:04 PM FUR BUYER) Rapid Strep A, POC Negative Negative Swab 08/01/2024 3:04 PM FUR BUYER Result Mattie Irizarry NP POINT OF CARE TEST ORDERABLES Final Result * (ABNORMAL) POCT hemoglobin A1c (08/01/2024 1:35 PM FUR BUYER) Hemoglobin A1C, POC 10.0 4.0 - 5.6 % Blood 08/01/2024 1:35 PM FUR BUYER us Haleighyariel Ramirez NP POINT OF CARE TEST ORDERA BLES Final Result * (ABNORMAL) POCT glucose (08/01/2024 1:35 PM FUR BUYER) Pathologist [facility] Glucose Blood, POC 351 mg/dL Blood 08/01/2024 1:35 PM FUR BUYER us Haleigh Ramirez NP POINT OF CARE TEST ORDERA BLES Final Result * US Transvaginal (07/04/2024 2:55 PM FUR BUYER) Anatomical Region Laterality Modality Pelvis N/A Ultrasound 07/04/2024 3:06 PM FUR BUYER Impressions 07/04/2024 9:26 PM FUR BUYER 1. Enlarged uterus with a 4.6 and [...] sult * Differential, auto (06/27/2024 2:39 PM FUR BUYER) Pathologist [facility] Neutrophil abs 3.0 1.5 - 6.5 [...] revised on 2017. Blood 06/27/2024 2:39 PM FUR BUYER 06/27/2024 3:46 PM FUR BUYER us Yoel Paulson MD LAB BLOOD ORDERABLES Final Result [facility] [address] [facility] [place] [address] * (ABNORMAL) CBC with auto differential (06/27/2024 2:39 PM FUR BUYER) WBC 5.3 3.8 - 9.9 K/cumm Hgb [...] [facility] ([facility]) Blood 06/27/2024 2:39 PM FUR BUYER 06/27/2024 3:46 PM FUR BUYER us Yoel Paulson MD LAB BLOOD ORDERABLES Final Result [facility] ([facility]) [address] [facility] [facility] [place] [address] * TSH (06/27/2024 2:39 PM FUR BUYER) Pathologist [facility] Thyroid Stimulating Hormone 2.25 0.30 - 4.20 mcIUnit/mL Blood 06/27/2024 2:39 PM FUR BUYER 06/27/2024 3:46 PM FUR BUYER Yoel Paulson MD LAB BLOOD ORDERABLES Final Result [facility] ([facility]) [address] [facility] [place] [address] * Ferritin (06/27/2024 2:39 PM FUR BUYER) [facility] Ferritin 22 15 - 150 ng/mL Blood 06/27/2024 2:39 PM FUR BUYER 06/27/2024 3:46 PM FUR BUYER Yoel Paulson MD LAB BLOOD ORDERABLES Final Result Performing Organization Address [facility] Co de Phone Number [facility] ([facility]) [address] [facility] [place] [address] * POC Influenza A/B, COVID-19 antigen (06/11/2024 2:26 PM FUR BUYER) [facility] Influenza A Ag, POC Negative Negative [facility] Influenza B Ag, POC Negative Negative [facility] COVID-19 Ag POC Presumptive Negative Presumptive Negative, Invalid [facility] Nasal 06/11/2024 2:26 PM FUR BUYER Rina Huizar NP POINT OF CARE TEST ORDERAB LES Final Result Performing Organization Address [facility] Co de Phone Number [facility] [address] [place] [address] * DIABETES EYE EXAM (05/01/2024 7:23 AM CDT) Historical Provider HEALTH MAINTENANCE Final Result * Albumin Creatinine Ratio, Urine (01/17/2024 1:00 PM CDT) [facility] Albumin Ur <12.0 mg/L Comment: Interpretive Data No reference range established. Current interpretive data was last revised 2018. Creatinine Ur 35.5 mg/dL [facility] Comment: Interpretive Data No reference range established. Current interpretive data was last revised 2018. Albumin Creatinine Ratio, Ur See Comment 1 - 29 [facility] Comment:Unable to calculate Urine 01/17/2024 1:00 PM CDT 01/17/2024 8:21 PM CDT us Haleigh Ramirez NET WEB APPLICATION DEVELOPER LAB URINE ORDERAB[place] [address] [address] Department [place] [address] from Last 3 Months or Most Recently Relevant to [place] [address] [place] [address] [facility] Care Teams Pst Supervisor Relationship Specialty Start Date End Date Soren Mcwilliams MD [address] [address] PCP - General Family Medicine 04/17/24 Yoel Paulson MD 4 [facility] [address] [address] County Manager Obstetrics and Gynecology 08/15/24
[2024-09-01 01:33] LABS: BEDSIDEPREGUCG Negative (Negative)
[2024-09-01] MEDS: KETOROLAC 30 MG/ML VIAL (*BKC) IM (02:11)
[2024-09-01] MEDS: ACETAMINOPHEN 500 MG TABLET 1000 MG PO (02:11)
--- NOTE | 2024-09-01 03:41 | ED_ITS ---
HPI - General Adult General Chief complaint: Extremity Injury, Lower Stated complaint: right leg injury Time Seen by Provider: 09/01/24 00:49 History of Present Illness HPI narrative: This is a 38-year-old female presenting several days after ground level fall. She was at her place of work when she slipped on the floor landing on her right hip. He has been able to walk since then but she has pain hip all way down to her ankle. Her boss found out that she fell today and requested she go to the ER to be evaluated. Patient has been treating her pain Tylenol. No head trauma. No other injuries. Related Data Home Medications ?Medication ?Instructions ?Recorded ?Confirmed ?Last Taken ?Type Aleve 06/15/19 Unknown History Vitamin C 06/15/19 Unknown History ertugliflozin 15 mg tablet mg 06/15/19 Unknown History (Steglatro) fluvoxamine 100 mg tablet mg 06/15/19 Unknown History insulin glargine 100 unit/mL (3 unit subcut 06/15/19 Unknown History mL) subcutaneous pen (Basaglar KwikPen U-100 Insulin) metformin 500 mg tablet,extended 2,000 mg PO DAILY 06/15/19 06/15/19 Unknown History release 24 hr multivitamin,tx-minerals 1 cap PO DAILY 06/15/19 06/15/19 Unknown History (Multi-Vitamin HP/Minerals capsule) norethindrone (contraceptive) 0.35 mg 06/15/19 Unknown History mg tablet omega 1-slj-prb-fish oil 1,000 mg 1 cap PO DAILY 06/15/19 06/15/19 Unknown History (120 mg-180 mg) capsule (Fish Oil) quetiapine 50 mg DAILY 06/15/19 06/15/19 Unknown History trazodone 50 mg tablet 06/15/19 06/15/19 Unknown History vitamin E 268 mg (400 unit) capsule 400 unit PO DAILY 06/15/19 06/15/19 Unknown History doxycycline monohydrate 100 mg 08/10/21 Unknown History capsule empagliflozin 25 mg tablet mg 08/10/21 Unknown History (Jardiance) fenofibrate nanocrystallized 145 mg PO 08/10/21 Unknown History mg tablet liraglutide 0.6 mg/0.1 mL (18 mg/3 mg subcut 08/10/21 Unknown History mL) subcutaneous pen injector (Victoza 2-Mervin) spironolactone 100 mg tablet 08/10/21 Unknown History Allergies Allergy/AdvReac Type Severity Reaction Status Date / Time Penicillins Allergy Mild Anaphylaxis Verified 08/16/24 21:21 oxycodone Allergy Unknown Rash Verified 08/16/24 21:21 clindamycin Allergy Rash Verified 08/16/24 21:21 Latex, Natural Rubber Allergy Rash Verified 08/16/24 21:21 [facility] Past Medical History Medical History Fibroids Diabetes Morbid obesity HTN (hypertension) Social History Social History Smoking status: Never smoker Exam Narrative: APPEARANCE: No apparent distress. Head: atraumatic. EYES: EOMI, NOSE: Atraumatic NECK: Trachea midline RESPIRATORY: No increased rate of breathing CTAB CARDIOVASCULAR: RRR, ABDOMINAL: Non-distended MUSCULOSKELETAl: Focal exam of the right leg revealed no deformities. A small hematoma on the anterior knee. No other bruising or swelling. Patient is able ambulate. NEURO: Alert. Moving 4/4 extremities SKIN:: Warm, dry. Normal color PSYCHIATRIC: Normal affect Course Vital Signs Vital signs: Vital Signs Temperature 98.3 F 08/31/24 23:00 Pulse Rate 93 08/31/24 23:00 Respiratory Rate 18 08/31/24 23:00 Blood Pressure 142/84 H 08/31/24 23:00 Pulse Oximetry 100 08/31/24 23:00 Oxygen Delivery Room Air 08/31/24 23:00 Temperature 98.3 F 08/31/24 23:00 Pulse Rate 86 09/01/24 00:29 Respiratory Rate 16 09/01/24 00:29 Blood Pressure 136/95 H 09/01/24 00:29 Pulse Oximetry 100 09/01/24 00:29 Oxygen Delivery Room Air 08/31/24 23:00 Medical Decision Making [facility] Narrative Medical decision making narrative: -Course: 38-year-old female morbid obesity presenting after ground level fall with right leg pain. X-rays of the hip, knee, and ankle were without acute fracture. Physical exam shows small hematoma over the knee but no other signs of trauma. Patient will be discharged follow-up with her primary care physician for further management. -DDX includes but is not limited to: Soft tissue injury, bony injury muscle strain, sprain -Co-morbidities complicating care: Morbid obesity Vital Signs Vital Signs: Vital Signs Temperature 98.3 F 08/31/24 23:00 Pulse Rate 93 08/31/24 23:00 Respiratory Rate 18 08/31/24 23:00 Blood Pressure 142/84 H 08/31/24 23:00 Pulse Oximetry 100 08/31/24 23:00 Oxygen Delivery Room Air 08/31/24 23:00 Temperature 98.3 F 08/31/24 23:00 Pulse Rate 86 09/01/24 00:29 Respiratory Rate 16 09/01/24 00:29 Blood Pressure 136/95 H 09/01/24 00:29 Pulse Oximetry 100 09/01/24 00:29 Oxygen Delivery Room Air 08/31/24 23:00 Lab Data Labs: Lab Results 09/01/24 Range/Units 01:31 POC Urine HCG, Qual Negative (Negative) Discharge Plan Discharge Clinical Impression: Acute leg pain Patient Disposition: Home, Self-Care Condition: Stable Instructions: Antibiotic Form, Leg Pain (ED) Additional Instructions: You were seen in the emergency department after a fall. Your x-rays were negative for fracture. Please take Motrin Tylenol and Robaxin for pain control. Please follow-up with your primary care physician for further management Patient Language: Nepali Prescriptions: New ibuprofen 800 mg tablet 800 mg PO TID PRN (Reason: pain) 7 Days Qty: 21 0RF acetaminophen 500 mg tablet 1,000 mg PO TID PRN (Reason: bhupendra) 7 Days Qty: 42 0RF methocarbamol 750 mg tablet 1,500 mg PO TID Qty: 35 0RF No Action metformin 500 mg tablet extended release 24 hr 2,000 mg PO DAILY fluvoxamine 100 mg tablet norethindrone (contraceptive) 0.35 mg tablet Basaglar KwikPen U-100 Insulin 100 unit/mL (3 mL) insulin pen SUBCUT quetiapine 50 mg DAILY vitamin E 400 unit Capsule 400 unit PO DAILY omega 9-ojo-lda-fish oil [Fish Oil] 1,000 mg (120 mg-180 mg) Capsule 1 cap PO DAILY Vitamin C Aleve trazodone 50 mg tablet Multi-Vitamin HP/Minerals Capsule 1 cap PO DAILY Steglatro 15 mg tablet naproxen [Naprosyn] 500 mg tablet 500 mg PO BID PRN (Reason: pain) Qty: 20 0RF spironolactone 100 mg tablet doxycycline monohydrate 100 mg capsule fenofibrate nanocrystallized 145 mg tablet PO Jardiance 25 mg tablet Victoza 2-Mervin 0.6 mg/0.1 mL (18 mg/3 mL) pen injector SUBCUT prednisone 20 mg tablet 20 mg PO DAILY 5 Days Qty: 5 0RF Zyrtec 10 mg capsule 10 mg PO DAILY PRN (Reason: allergy symptoms) Qty: 30 0RF famotidine [Pepcid] 20 mg tablet 20 mg PO BID PRN (Reason: allergies) Qty: 30 0RF ciprofloxacin HCl [Cipro] 500 mg tablet 500 mg PO Q12H Qty: 10 0RF oseltamivir [Tamiflu] 75 mg capsule 75 mg PO Q12H 5 Days Qty: 9 0RF benzonatate 200 mg capsule 200 mg PO TID PRN (Reason: cough) Qty: 14 0RF Follow-up/Referrals: PHYSICIAN NOT ON STAFF,NONSTAFF [Primary Care Provider] -
== END 2024-09-01 03:59 | disposition home or self-care (01) ==
PROVIDERS: Physician Assistant; Emergency Provider Emergency Medicine
DX: M79.604 Pain in right leg (principal); W19.XXXA Unspecified fall, initial encounter; Z79.4 Long term (current) use of insulin; E11.9 Type 2 diabetes mellitus without complications; I10 Essential (primary) hypertension; E66.01 Morbid (severe) obesity due to excess calories; Z68.43 Body mass index [BMI] 50.0-59.9, adult
CPT/HCPCS: 73502; 73562; 73600; 81025; 96372; 99284; A9270; J1885

== ENCOUNTER 2024-12-02 20:30 | Emergency (ER) | payer OTHER, SELFPAY ==
--- NOTE | ~2024-12-02 | XR_ITS ---
XR wrist RT 2V Ordering provider: Arie Stapleton MD History: . injury, pain/ HEARD POP WHILE HEAVY LIFTING, PAIN NOW . Comparison: None. FINDINGS: BONES: No acute fracture or dislocation. No definite scaphoid fracture. JOINT SPACES: Normal. SOFT TISSUES: Normal. IMPRESSION: No acute osseous abnormality right wrist. Reviewed, dictated and finalized at location A.
--- OUTSIDE RECORDS SUMMARY | 2024-12-02 20:32 | XMS_ITS | Encounter Summary ---
Author Organization [facility] Address [address] [place] [address] Care Team Providers Care Wireless Development Manager Name Role Phone Michelle Valente MD Primary Care Provider [phone] Encounter Details Date Type Department Care Team (Late st Contact Info) Description 06/26/2021 Telephone [facility] [address] [place] [address] Kam Ramesh MD [facility] [place] [address] Social History Tobacco Use Types Packs/Day Years Used Date Smoking Tobacco: Never Smokeless Tobacco: Never Alcohol Use Standard Drinks/Week Comments No 0 (1 standard drink = 0.6 oz pur e alcohol) Comments No Sex and Gender Information Value Date Recorded Sex Assigned at Female 04/20/2021 1:09 PM CDT Legal Sex Female 5:34 AM BUSINESS PROGRAMMER Gender Identity Female 04/20/2021 1:09 PM CDT Sexual Orientation Straight 04/20/2021 1: 09 PM CDT documented as of this encounter Patient Instructions * Patient Instructions* Carissa Travis - 06/26/2021 11:47 AM BUSINESS PROGRAMMER Pt is calling to see if she can get a order of test strips sent over to the pharmacy. NESS PROGRAMMER documented in this encounter Plan of Treatment Not on file documented as of this encounter Visit Diagnoses Not on filedocumented in this encounter Care Teams Wireless Development Manager Relationship Specialty Start Date End Date Michelle Valente MD [facility] [place] [id number] PCP - General 11/29/17 documented as of this encounter
--- OUTSIDE RECORDS SUMMARY | 2024-12-02 20:33 | XMS_ITS | CONTINUITY OF CARE DOCUMENT ---
Author Name codey, codey Address Unknown Organization [facility] Address [address] [facility] [address] [place] [address] Phone [phone] Care Team Providers Care Hydrogen Power Plant Engineer Name Role Phone Mario Alberto BUNDY, Agusto Olmos Unavailable [phone] MELISA BUNDY, VIKTOR Unavailable [phone] CELENA BUNDY, PENNY Unavailable [phone] RESULTS Date Observation Value Provider Reference [...] Payer name Policy type / Coverage type [employer] ID [employer] MEDICAID (2) Medicaid [id number]
--- OUTSIDE RECORDS SUMMARY | 2024-12-02 20:33 | XMS_ITS | Clinical Summary ---
Author Organization [facility] Address [address] [place] [address] Care Team Providers Care Deputy Probation Officer Name Role Phone Soren Mcwilliams MD Primary Care Provider Yoel Paulson MD Unavailable [phone] Allergies Active Allergy Reactions Criticality Noted Date Comments Clindamycin Rash Medium 07/28/2021 Eyes swollen shut, rash. Eyes swollen shut, rash. Latex Rash Medium 04/05/2022 Oxycodone Rash,Unknown Medium 03/24/2016 Pt says she can tolerate hydrocodone. Pt says she can tolerate hydrocodone. Penicillins Shortness of breath High 01/17/2024 Reaction: SOB, , Medications acetaminophen (TYLENOL) 500 mg tablet Take 1 tablet (500 mg total) by mouth every 6 (six) hours as needed 07/15/20 22 Active albuterol HFA (PROVENTIL HFA,VENTOLIN HFA,PROAIR HFA) 90 mcg/actuation inhaler Take 1-2 puffs by mouth 06/04/20 22 Active atorvastatin (LIPITOR) 20 mg tablet Take 2 tablets (40 mg total) by mouth daily Active cetirizine (ZyrTEC) 10 mg tablet TAKE 1 TABLET BY MOUTH EVERY DAY NEEDED FOR ALLERGY SYMPTOMS Active fenofibrate nanocrystallized (TRICOR) 145 mg tablet Take 1 tablet (145 mg total) by mouth daily Active fluticasone propionate (FLONASE) 50 mcg/actuation nasal spray SHAKE LIQUID AND ADMINISTER 2 SPRAYS INTO EACH NOSTRIL EVERY DAY Active hydrocortisone 2.5 % cream APPLY TO AFFECTED AREA ON EYELIDS EVERY DAY NEEDED FOR RASH Active levonorgestreL (Mirena) IUD 1 each by intrauterine route as directed Active meclizine (ANTIVERT) 25 mg tablet Take by mouth 3 (three) times a day as needed Active bessy-karen-sAllajb s-phsal-hyo (UribeL) 118-10-40.8-36 mg capsule TAKE 1 CAPSULE BY MOUTH THREE TIMES DAILY NEEDED 04/05/20 22 Active naproxen (NAPROSYN) 500 mg tablet TAKE 1 TABLET BY MOUTH EVERY 12 HOURS. DO NOT USE OTHER NSAIDS WITH MEDICATION 11/10/19 22 Active spironolactone (ALDACTONE) 100 mg tablet Take 2 tablets (200 mg total) by mouth daily Active insulin syringe-needle U-100 1 mL 29 gauge x 1/2 syringe daily 10/13/19 19 Active triamcinolone (KENALOG) 0.1 % cream MIX WITH NYSTATIN OINTMENT AND APPLY TO EXTERNALLY VULVAR TISSUES TWICE DAILY 07/31/19 22 Active OneTouch Verio test strips stripIndications:Ty pe 2 diabetes mellitus with hyperglycemia, with long-term current use of insulin (HCC) Use to test blood sugar three times a day Dx: E11.65 100 strip 11 10/20/19 24 Active lancets 33 gauge miscIndications:Typ e 2 diabetes mellitus with hyperglycemia, with long-term current use of insulin (HCC) Use to test blood sugar three times a day Dx: E11.65 100 each 11 10/20/19 24 Active ketoconazole (NIZORAL) 2 % shampoo 12/03/19 24 Active metroNIDAZOLE (METROGEL) 0.75 % gel APPLY A THIN LAYER TO THE AFFECTED AREA OF FACE TWICE A DAY 10/23/19 24 Active ondansetron ODT (ZOFRAN-ODT) 8 mg disintegrating tablet Take 1 tablet (8 mg total) by mouth 3 (three) times a day as needed 11/09/19 24 Active traZODone (DESYREL) 50 mg tabletIndications:O ther insomnia TAKE 1 TABLET BY MOUTH EVERY DAY AT BEDTIME FOR 30 DAYS 90 tablet 3 05/01/20 24 Active EPINEPHrine 0.3 mg/0.3 mL auto-injection syringe Inject 0.3 mL (0.3 mg total) into the muscle as instructed as needed for anaphylaxis 2 each 2 05/30/20 24 Active QUEtiapine (SEROquel) 100 mg tablet TAKE 1 TABLET BY MOUTH EVERY DAY AT NIGHT 90 tablet 1 07/02/20 24 Active metFORMIN XR (GLUCOPHAGE XR) 500 mg 24 hr tabletIndications:T ype 2 diabetes mellitus with hyperglycemia, with long-term current use of insulin ([facility]) Take 2 tablets (1,000 mg total) by mouth 2 (two) times a day 360 tablet 3 08/01/19 25 026 Active blood-glucose meter miscIndications:Typ e 2 diabetes mellitus with hyperglycemia, with long-term current use of insulin ([facility]) One Touch Verio Meter Use to test blood sugar three times a day Dx: E11.65 1 each 08/01/19 25 Active clotrimazole-betame thasone (LOTRISONE) cream Apply topically 2 (two) times a day 15 g 1 08/15/19 25 Active Additional Information Patient not taking.Reported on 11/07/2024 nystatin ointment Apply topically 2 (two) times a day APPLY TO AFFECTED AREA 30 g 1 08/15/19 25 Active Additional Information Patient not taking.Reported on 11/07/2024 ergocalciferol (VITAMIN D) 50,000 unit capsule Take 1 capsule (50,000 Units total) by mouth once a week 12 capsule 1 08/16/19 25 Active lamoTRIgine (LaMICtal) 100 mg tablet TAKE 1 TABLET BY MOUTH TWICE A DAY 180 tablet 1 08/21/19 25 Active medroxyPROGESTERone (PROVERA) 10 mg tablet TAKE 1 TABLET BY MOUTH EVERY DAY 30 tablet 2 09/29/19 25 Active fluvoxaMINE (LUVOX) 100 mg tablet TAKE 1 TABLET BY MOUTH EVERY DAY 100 tablet 10/16/19 25 Active benzonatate (TESSALON) 200 mg capsule TAKE 1 CAPSULE BY MOUTH THREE TIMES A DAY NEEDED FOR COUGH 08/17/19 25 Active ibuprofen (ADVIL,MOTRIN) 800 mg tablet TAKE 1 TABLET BY MOUTH THREE TIMES A DAY NEEDED FOR PAIN FOR 7 DAYS 09/01/19 25 Active LANTUS 100 unit/mL (3 mL) pen for injection INJECT 100 UNITS UNDER THE SKIN NIGHTLY 10/18/19 25 Active tirzepatide (Mounjaro) 10 mg/0.5 mL pen injector injectionIndication s:Type 2 diabetes mellitus with hyperglycemia, with long-term current use of insulin ([facility]) Inject 0.5 mL (10 mg total) under the skin every 7 days 6 mL 3 11/01/19 25 026 Active blood-glucose sensor (FreeStyle Barrie 3 Sensor) deviceIndications:T ype 2 diabetes mellitus with hyperglycemia, with long-term current use of insulin ([facility]) One sensor every 14 days 6 each 3 11/01/19 25 Active insulin lispro (HumaLOG) 100 unit/mL pen for injectionIndication s:type 2 diabetes mellitus Inject 5-10 Units under the skin 3 (three) times a day before meals 30 mL 3 11/01/19 25 026 Active pen needle, diabetic (TechLITE Pen Needle) 32 gauge x 5/32 needleIndications:T ype 2 diabetes mellitus with hyperglycemia, with long-term current use of insulin ([facility]) Use to inject insulin under your skin 4 times daily 400 each 3 11/01/19 25 Active Jardiance 25 mg tabletIndications:t ype 2 diabetes mellitus Take 1 tablet (25 mg total) by mouth daily 90 tablet 3 11/01/19 25 026 Active famotidine (PEPCID) 20 mg tablet Take 1 tablet (20 mg total) by mouth 2 (two) times a day as needed for heartburn 180 tablet 1 11/03/19 25 Active omeprazole (PriLOSEC) 20 mg capsule Take 1 capsule (20 mg total) by mouth daily 90 capsule 1 11/03/19 25 025 Active metroNIDAZOLE (FLAGYL) 500 mg tablet Take 1 tablet (500 mg total) by mouth 2 (two) times a day for 7 days 14 tablet 11/08/19 25 025 Active Problems Problem Noted Date Diagnosed Date Vaginal discharge 11/07/2024 Assessment & Plan (11/07/2024 4:28 PM CDT): Consistent with BV We will treat with Flagyl Low grade squamous intraepit h lesion on cytologic smear cervix (lgsil) 10/18/2024 Overview (11/12/2024): 09/2024- LGSIL 11/07/24- colposcopy and ECC were done without difficulty.- ECC was negative. Assessment & Plan (11/07/2024 4:27 PM CDT): Colposcopy and ECC were done without difficulty. I will call her with the results. I anticipate that she will need repeat Pap smear in 6 months Well woman exam 09/14/2024 Assessment & Plan (09/14/2024 2:20 PM SHIP CONSTRUCTION TEACHER): Pap done today NIEVES (obstructive sleep apnea) 07/05/2024 Family history of sleep apnea 07/05/2024 Delayed sleep phase syndrome 07/05/2024 Transient memory loss 04/17/2024 Sprain of lateral collateral ligament of [...] in partial remission, most recent episode mixed 04/17/2024 Assessment & Plan (08/15/2024 1:57 PM SHIP CONSTRUCTION TEACHER): Patient has not re-established with Psychiatry, information [...] patient also. Lymphedema of left leg 04/17/2024 Hyperlipidemia associated with type 2 diabetes sonia salazar 01/17/2024 Assessment & Plan (10/31/2024 2:57 PM CDT): Chronic problem. Currently taking Atorvastatin 20mg & fenofibrate 145mg daily. Last lipid panel: 01/17/24 TOU=389, GD=569. Assessment & Plan (08/15/2024 1:57 PM SHIP CONSTRUCTION TEACHER): Awaiting labs, continues Atorvastatin. Assessment & Plan (08/01/2024 1:48 PM SHIP CONSTRUCTION TEACHER): Chronic problem. Currently taking Atorvastatin 20mg & fenofibrate 145mg daily. Last lipid panel: 01/17/24 VTV=424, TH=809. Assessment & Plan (04/17/2024 3:14 PM CDT): Chronic problem. Currently taking Atorvastatin 20mg & fenofibrate 145mg daily. Last lipid panel: 01/17/24 EXC=370, HV=713. Assessment & Plan (01/17/2024 11:45 AM CDT): Chronic problem. Currently taking Atorvastatin 20mg & fenofibrate 145mg daily. Last lipid panel: 10/09/21 LDL=could not calc, BC=730. Will update labs today. Verified that she uses [facility]. Aware to check results/results letter in [facility]. Will contact by phone if needed. Morbid (severe) obesity due to excess calories 0 01/17/2024 BMI 45.0-49.9, adult 01/17/2024 Type 2 diabetes mellitus wit h hyperglycemia, with long-term current use of insulin 09/15/2023 Assessment & Plan (10/31/2024 3:11 PM CDT): Chronic problem. A1c not at goal but improved from 10% 08/01/24 to now 9.4%. -freestyle barrie 3 sent in. Let me know if any problems getting it. -will increase Mounjaro 7.5mg weekly to 10mg weekly -may need to start decreasing Lantus when you start the meal time insulin. Go back to lantus 120mg at bedtime. Drop by 2 units weekly if going low. -will add meal time insulin (may be novolog or humalog or their generics) 5 units 3 times daily with meals If blood sugar is <150, take 5 units. If blood sugar is between 151-200, take 6 units. If blood sugar is between 201-250, take 7 units. If blood sugar is between 251-300, take 8 units. If blood sugar is between 301-350, take 9 units. If blood sugar is between >351, take 10 units. Current medications: Metformin XR 1000mg twice daily Jardiance 25mg every morning Mounjaro 7.5mg weekly Lantus 120 units at bedtime Humalog/novolog 5 units 3 times daily with meals If blood sugar is <150, take 5 units. If blood sugar is between 151-200, take 6 units. If blood sugar is between 201-250, take 7 units. If blood sugar is between 251-300, take 8 units. If blood sugar is between 301-350, take 9 units. If blood sugar is between >351, take 10 units. UTD on DM eye exam (05/01/24 no TARA sharma in [place]) UTD on labs. Discussed with Xiomara Shultz: Strive for regular exercise (30min most days) and diet (get at least 4-5 servings of fruit and veggies daily, avoid processed foods, increase lean protein intake and decrease carb portions as well as fruit juices, regular soda & desserts). Watch carbs and simple sugars. Check the blood sugar: Freestyle barrie 3. Check the feet daily for skin breakdown and infection. Assessment & Plan (08/01/2024 2:08 PM SHIP CONSTRUCTION TEACHER): Chronic problem. A1c worsened from 9.3% 04/17/24 to now 10.0%. interested in insulin pump therapy but wants to check with insurance to see what cost/coverage is. Will send me a [facility] message if pump is covered. Will increase [...] of report) UTD on labs. Discussed with Xiomara Shultz: Strive for regular exercise (30min most days) and diet (get at least 4-5 servings of fruit and veggies daily, avoid processed foods, increase lean protein intake and decrease carb portions as well as fruit juices, regular soda & desserts). Watch carbs and simple sugars. Check the blood sugar: Freestyle barrie 3. Check the feet daily for skin [...] for DM eye exam; last 2022 at [facility] in [place]. Letter sent to get copy of report. UTD on labs. Discussed with Xiomara Shultz: Strive for regular exercise (30min most days) and diet (get at least 4-5 servings of fruit and veggies daily, avoid processed foods, increase lean protein intake and decrease carb portions as well as fruit juices, regular soda & desserts). Watch carbs and simple sugars. Check the blood sugar: Freestyle barrie 3. Check the feet daily for skin [...] at bedtime DM eye exam 2022 at [facility] in [place]. Letter sent to get copy of report. Will update labs today. Verified that she uses [facility]. Aware to check results/results letter in [facility]. Will contact by phone if needed. Discussed with Xiomara Shultz: Strive for regular exercise (30min most days) and diet (get at least 4-5 servings of fruit and veggies daily, avoid processed foods, increase lean protein intake and decrease carb portions as well as fruit juices, regular soda & desserts). Watch carbs and simple sugars. Check the blood sugar: Freestyle barrie 3. Check the feet daily for skin breakdown and infection. Assessment & Plan (09/15/2023 12:26 PM SHIP CONSTRUCTION TEACHER): Hba1c was Lab Results Component Value Date [...] (polycystic ovarian syndrome) 09/15/2023 Assessment & Plan (10/31/2024 2:58 PM CDT): Chronic problem. Continue metformin & Spironolactone. Discussed diet/activity as gold standard. Assessment & Plan (08/01/2024 1:48 PM SHIP CONSTRUCTION TEACHER): Chronic problem. Continue metformin & Spironolactone. Assessment & Plan (04/17/2024 3:13 PM CDT): Chronic problem. Continue metformin & Spironolactone. Assessment & Plan (01/17/2024 11:43 AM CDT): Chronic problem. Continue metformin & Spironolactone. Assessment & Plan (09/15/2023 12:27 PM SHIP CONSTRUCTION TEACHER): Continue aldactone Eczema 07/27/2023 Persistent insomnia 02/13/2023 [...] with PCP Intramural leiomyoma of uterus 07/30/2020 Assessment & Plan (11/07/2024 4:30 PM CDT): Her hemoglobin A1c is down to 9.4 She goes back in December for repeat She was asked to call me as soon as she finds out that her number is below 9 Her bleeding is currently stable. Assessment & Plan (09/14/2024 2:21 PM SHIP CONSTRUCTION TEACHER): We will get her schedule for surgery as soon as her hgb A1c is under 9 Procedure reviewed along with risk, benefits and alternatives as they pertain to her specifically. This would be a high risk procedure for her Questions answered Post op pain management discussed. She voices understanding and desired to proceed. Port placement reviewed. Generalized anxiety disorder 07/03/2012 Resolved Problems Problem Noted Date Diagnosed Date Resolved Date Psychophysiological insomnia 07/05/2024 09/14/2024 Nonsmoker 07/05/2024 09/14/2024 Knee pain 04/17/2024 09/14/2024 Infectious diarrheal disease 04/17/2024 09/14/2024 Injury of groin 04/17/2024 09/14/2024 Sprain of foot 04/17/2024 09/14/2024 Hypertension associated with type 2 diabetes mellitus 01/17/2024 09/14/2024 Assessment & Plan (08/15/2024 1:58 PM SHIP CONSTRUCTION TEACHER): Chronic problem. Currently taking lisinopril 10mg daily. Assessment & Plan (08/01/2024 1:48 PM SHIP CONSTRUCTION TEACHER): Chronic problem. Currently taking lisinopril 10mg daily. Assessment & Plan (04/17/2024 3:13 PM CDT): Chronic problem. Currently taking lisinopril 10mg daily. Assessment & Plan (01/17/2024 11:44 AM CDT): Chronic problem. Currently taking lisinopril 10mg daily. Will update labs today. Verified that she uses [facility]. Aware to check results/results letter in [facility]. Will contact by phone if needed. Class 3 severe obesity due t o excess calories with serious comorbidity and body mass index (BMI) of 50.0 to 59.9 in adult 01/17/2024 Assessment & Plan (08/15/2024 1:57 PM SHIP CONSTRUCTION TEACHER): Healthy, low carbohydrate lifestyle and exercise for 150min/week recommended. Assessment & Plan (05/15/2024 3:22 PM CDT): Healthy, low carbohydrate lifestyle and exercise for 150min/week recommended Assessment & Plan (04/17/2024 4:02 PM CDT): BMI Follow-up includes: nutrition counseling, exercise counseling, and education provided. Assessment & Plan (01/17/2024 12:57 PM CDT): Discussed healthy diet and importance of regular physical activity (20- 30min/day, 150min/wk). Sent in MounHand Talk 2.5mg weekly. Will call office if not covered. 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 06/27/2024 Encounters Date Type Department Care Team Description 11/28/2024 Documentation [facility] Home Care Services [address] [place] [phone] Brice Wells, TRUDI 11/21/2024 Telephone [facility] [address] [facility] [address] [place] [address] Mary Gonzalez MD Vaginal Bleeding 11/13/2024 Results Follow-Up [facility] De Oliveira [address] [place] [address] [address] [place] [address] Micheline Singh MA 11/07/2024 4:25 PM CDT - 11/07/2024 11:59 PM CDT Hospital Encounter [address] [address] Low grade squamous intraepith lesion on cytologic smear cervix (lgsil) Discharge Disposition: Discharge to home or self care 11/07/2024 3:30 PM CDT Procedure visit [facility] De Oliveira [address] [facility] [address] [place] [address] Mary Gonzalez MD Low grade squamous intraepith lesion on cytologic smear cervix (lgsil) (Primary Dx); Pre-procedure lab exam; Intramural leiomyoma of uterus; Vaginal discharge 11/05/2024 Telephone [facility] [address] [place] [address] Haleigh Ramirez NP Prior Auth (Freestyle Barrie 3) 10/31/2024 2:30 PM CDT Office Visit [facility] [address] [place] [phone] Haleigh Ramirez NP Type 2 diabetes mellitus with hyperglycemia, with long-term current use of insulin (HCC) (Primary Dx); Hyperlipidemia associated with type 2 diabetes mellitus (HCC); PCOS (polycystic ovarian syndrome) 10/30/2024 Telephone [facility] [address] [place] [address] Brenda Sheriff MD Cpap titration results / cpap order 10/25/2024 8:00 PM CDT - 10/25/2024 11:59 PM CDT Hospital Encounter [facility] [address] [place] [address] NIEVES (obstructive sleep apnea) Discharge Disposition: Discharge to home or self care 10/01/2024 Telephone [facility] [address] [facility] [address] [place] [phone] Yumiko Ovalle MA 09/27/2024 Results Follow-Up [facility] [address] [facility] [address] [facility] [place] [address] Micheline Singh MA 09/26/2024 Telephone [facility] [address] [place] [address] Angeles Birmingham [facility] Sleep Study Results 09/24/2024 Orders Only [facility] [address] [facility] [address] [place] [address] Brenda Sheriff MD NIEVES (obstructive sleep apnea) (Primary Dx) 09/21/2024 8:00 PM SHIP CONSTRUCTION TEACHER - 09/21/2024 11:59 PM SHIP CONSTRUCTION TEACHER Hospital Encounter [facility] [address] [place] [address] NIEVES (obstructive sleep apnea); Psychophysiological insomnia; Delayed sleep phase syndrome; Family history of sleep apnea; BMI 50.0-59.9, adult (HCC); Nonsmoker Discharge Disposition: Discharge to home or self care 09/21/2024 Telephone [facility] [address] [place] [phone] Mary Gonzalez MD Test Results 09/14/2024 2:30 PM SHIP CONSTRUCTION TEACHER - 09/14/2024 11:59 PM SHIP CONSTRUCTION TEACHER [place] [address] Well woman exam Discharge Disposition: Discharge to home or self care 09/14/2024 1:45 PM SHIP CONSTRUCTION TEACHER Office Visit [facility] [address] [place] [phone] Mary Gonzalez MD Intramural leiomyoma of uterus (Primary Dx); Well woman exam 09/04/2024 Telephone [facility] [address] [place] [address] Yoel Paulson MD from Last 3 Months Immunizations Immunization Administration Dates Next Due Influenza, Quadrivalent, Deepthi l Culture-based MDCK, Preservative Free, Antibiotic Free, Intramuscular 04/15/2022 Influenza, Quadrivalent, Spl it, Preservative Free, Intramuscular 09/02/2021,07/31/2020,06/10/2018 Influenza, Trivalent, Preser vative Free, Intramuscular 05/15/2024 Influenza, Unspecified 06/10/2018 Surgical History Surgery Date Site/Laterality Comments MYOMECTOMY CHOLECYSTECTOMY WRIST SURGERY Medical History Medical History Date Comments Personal history of other di seases of the digestive system History of cholecystitis - ( Added by TW Conv) Diabetes mellitus type 2, in sulin dependent (HCC) PCOS (polycystic ovarian syndrome) Family History Medical History Relation Name Comments Diabetes Brother Diabetes Father Breast cancer Mother's Sister One[place] Cancer Neg Hx no colon or stove mounter cancer cmt 09/14/24 Relation Name Status Comments Brother Alive Father Alive Mother Alive Mother's Sister Oneida Alive Social History Tobacco Use Types Packs/Day Years Used Date Smoking Tobacco: Never Humiliation, Afraid, Rape, and Kick questionnair e Answer Date Recorded Within the last year, have y ou been afraid of your partner or ex-partner? No 09/14/2024 Within the last year, have y ou been humiliated or emotionally abused in other ways by your partner or ex-partner? No Within the last year, have y ou been kicked, hit, slapped, or otherwise physically hurt by your partner or ex-partner? No 09/14/2024 Within the last year, have y ou been raped or forced to have any kind of sexual activity by your partner or ex-partner? No 09/14/2024 PHQ-2 Answer Date Recorded PHQ-2 Total Score [...] on file Legal Sex Female 1:26 AM SHIP CONSTRUCTION TEACHER Gender Identity Female 12/25/2022 7:50 PM CDT Sexual Orientation Straight 12/25/2022 7: 50 PM CDT Obstetrics History Para Term AB IAB SAB Ectopic Multiple Livin g Live Births 0 0 0 0 0 0 0 0 0 0 0 Last Filed Vital Signs Vital Sign Reading Time Taken Comments Blood Pressure 108/60 11/07/2024 3:42 PM CDT Pulse 70 10/31/2024 2:30 PM CDT Temperature 36.6 C (97.8 F) 08/15/2024 1:28 PM SHIP CONSTRUCTION TEACHER Respiratory Rate 18 10/31/2024 2:30 PM CDT Oxygen Saturation 99% 08/15/2024 1:28 PM SHIP CONSTRUCTION TEACHER Inhaled Oxygen Concentration - - Weight 153.3 kg (338 lb) 11/07/2024 3:42 PM CDT Height 175.3 cm (5' 9 ) 11/07/2024 3:42 PM CDT Body Mass Index 49.91 11/07/2024 3:42 PM CDT Plan of Treatment Health Maintenance Due Date Last Done Comments Hepatitis C Screening 1987 DTaP/Tdap/Td Vaccine (1 - Tdap) 1998 Varicella Vaccines (1 of 2 - 13+ 2-dose series) 2000 Hepatitis B Screening 2005 Pneumococcal vaccine <65 (1 of 2 - PCV) 2006 Covid-19 Vaccine ( - season) 2024 04/15/2022, 07/22/2021, 11/25/2020, Additional history exists Albumin Creatinine Ratio, Urine 01/16/2025 01/17/2024 Hemoglobin A1C 05/02/2025 10/31/2024, 01/0 02/2025, 04/17/2024, Additional history exists Regular Well Visit/Exam 18-64 06/27/2025 06/27/2024, 04/17/2024 Depression Screening 08/15/2025 08/15/2024, 06/27/2024, 05/15/2024, Additional history exists Lipid Panel 08/15/2025 08/15/2024, 06/2 11/2023, 10/11/2012 eGFR 08/15/2025 08/15/2024, 11/0 08/2023, 01/17/2024 Cervical Cancer Screening 09/14/2025 09/14/2024, Foot Exam 10/31/2025 10/31/2024, 09/15/2023 Dilated Eye Exam 05/01/2026 05/01/2024, 10/21/2022 Influenza Vaccine Completed 05/15/2024, , 09/02/2021, Additional history exists HPV Vaccines Aged Out No longer eligi ble based on patient's age to complete this topic Procedures Procedure Name Priority Date/Time Associated Diagnosis Comments POCT HCG, URINE Routine 11/07/2024 3:46 PM CDT Pre-procedure lab exam SURGICAL PATHOLOGY Routine 11/07/2024 10 :28 AM CDT Low grade squamous intraepith lesion on cytologic smear cervix (lgsil) POCT GLUCOSE Routine 10/31/2024 2:34 PM CDT Type 2 diabetes mellitus with hyperglycemia, with long-term current use of insulin (HCC) POCT HEMOGLOBIN A1C Routine 10/31/2024 2 :34 PM CDT Type 2 diabetes mellitus with hyperglycemia, with long-term current use of insulin (HCC) PSG (SIMPLE) Routine 10/25/2024 8:05 PM CDT NIEVES (obstructive sleep apnea) PSG (SIMPLE) Routine 09/21/2024 8:16 PM SHIP CONSTRUCTION TEACHER NIEVES (obstructive sleep apnea) Psychophysiological insomnia Delayed sleep phase syndrome Family history of sleep apnea BMI 50.0-59.9, adult (HCC) Nonsmoker HIGH RISK HPV DNA DETECTION WITH GENOTYPING Routine 09/14/2024 2:30 PM SHIP CONSTRUCTION TEACHER Well woman exam PAP AND HIGH RISK HPV, REFLEX TO GENOTYPING Routine 09/14/2024 12:21 PM SHIP CONSTRUCTION TEACHER Well woman exam EGFR Routine 08/15/2024 2:01 PM SHIP CONSTRUCTION TEACHER Hypertension associated with type 2 diabetes mellitus (HCC) LIPID PANEL Routine 08/15/2024 2:01 PM SHIP CONSTRUCTION TEACHER Hypertension associated with type 2 diabetes mellitus (HCC) HM DIABETES EYE EXAM Routine 05/01/2024 7:23 AM CDT ALBUMIN CREATININE RATIO, URINE Routine 01/17/2024 1:00 PM CDT Type 2 diabetes mellitus with hyperglycemia, with long-term current use of insulin (HCC) from Last 3 Months or Most Recently Relevant to Health Maintenance Results * POCT hCG, urine (11/07/2024 3:46 PM CDT) HCG, ur, POC Negative Negative Lot Number [id number] QC Backgroud Clear Acceptable QC Control Line Acceptable Urine 11/07/2024 3:46 PM CDT Mary Gonzalez MD POINT OF CARE TEST ORDERABLES Final Result * Surgical pathology (11/07/2024 10:28 AM CDT) Tissue (Endocervix, curettage) 11/07/2024 10:28 AM CDT 11/08/2024 10:28 AM CDT Narrative PATHOLOGY CH - 11/09/2024 8:09 PM CDT EPIC results best viewed via link to PDF [facility] Department of Pathology [address] [place] [address] Note to Patients: This report may contain a detailed description of human tissue sent by a health care provider to the laboratory for pathologic evaluation. The content of this report is essential for diagnosis and may provide important critical findings. This information may be unfamiliar to patients to review without a medical professional present. It is advised that the patient review this report in the presence of a health care provider who can answer questions and explain the details. Final Report Patient Name: XIOMARA SHULTZ Address: [address] [place] [address] Gender: F : 1985 (Age: 39) Service: Location: [facility] : [id number] [facility] #: [id number] Patient Type: SPECIMEN Taken: 11/07/2024 Received: 11/08/2024 Accessioned: 11/08/2024 Reported: 11/09/2024 Physician(s):Mary Gonzalez M.D. Diagnosis: Uterus, endocervix, curettage: - Strips of benign endocervical epithelium. Ester Enciso M.D. Report Electronically Reviewed and Signed Out By Ester Enciso M.D. 11/09/2024 20:09:53 Specimen(s) Received: A: Endocervical curettage / endocervix Microscopic Description: Microscopic examination of the endocervical curettage, examined at multiple levels show strips and small fragments of endocervical epithelium without evidence of dysplasia or malignancy. Clinical History: LSIL on cytologic smear cervix Gross Description: The specimen is submitted in a single formalin filled container labeled XIOMARA SHULTZ and endocervical curettage . It is an approximate 0.5 cc aggregate of blood-tinged mucoid material. All in one cassette. Heather Ordoñez R.N., P.A./Ester Enciso M.D. REPORT IMAGES AND SCANNED DOCUMENTS, IF INCLUDED, ONLY VIEWABLE IN PDF VERSION OF REPORT The performance characteristics of some immunohistochemical stains, fluorescence in-situ hybridization tests and immunophenotyping by flow cytometry cited in this report (if any) were determined by the Surgical Pathology Department at [facility] as part of an ongoing production quality manager program and in compliance with federally mandated regulations drawn from the Clinical Laboratory Improvement Act of 1988 (CLIA '88). Some of these tests rely on the use of analyte specific reagents and are subject to specific labeling requirements by the US Food and Drug Administration. Such diagnostic tests may only be performed in a facility that is certified by the Department of Health and Human Services as a high complexity laboratory under CLIA '88. The FDA has determined that such clearance or approval is not necessary. This test is used for clinical purposes. It should not be regarded as investigational or for research. Nevertheless, federal rules concerning the medical use of analyte specific reagents require that the following disclaimer be attached to the report: This test was developed and its performance characteristics determined by the Surgical Pathology Department [facility]. It has not been cleared or approved by the U. S. Food and Drug Administration. Note for decalcified specimens: This assay has not been validated on decalcified tissues. Results should be interpreted with caution given the possibility of false negativity on decalcified specimens Mary Gonzalez MD LAB PATHOLOGY ORDER TAYLOR Final Result PATHOLOGY [address] [place] [address] * (ABNORMAL) POCT hemoglobin A1c (10/31/2024 2:34 PM CDT) Hemoglobin A1C, POC 9.4 4.0 - 5.6 % Blood 10/31/2024 2:34 PM CDT Haleigh Ramirez NP POINT OF CARE TEST ORDERA BLES Final Result * (ABNORMAL) POCT glucose (10/31/2024 2:34 PM CDT) Glucose Blood, POC 163 mg/dL Blood 10/31/2024 2:34 PM CDT Haleigh Ramirez NP POINT OF CARE TEST ORDERA BLES Final Result * PSG (10/25/2024 8:05 PM CDT) Brenda Sheriff MD SLEEP CENTER ORDERABLES Fin al Result Performing Organization Address [facility] Co de Phone Number [facility] [address] * PSG (09/21/2024 8:16 PM SHIP CONSTRUCTION TEACHER) Brenda Sheriff MD SLEEP CENTER ORDERABLES Fin al Result Performing Organization Address [facility] de Phone Number [facility] [address] * (ABNORMAL) High Risk HPV DNA Detection with Genotyping (Molecular component) (09/14/2024 2:30 PM SHIP CONSTRUCTION TEACHER) HPV HR 16 Not Detected Not Detected [facility] Comment:Testing performed by : [facility], [address] [place]., [address] HPV HR 18 Not Detected Not Detected [facility] Comment:Testing performed by : [facility], [address] [place]., [address] HPV HR Non 16/18 Detected(A) Not Detected [facility] Comment: Interpretive Data Nucleic acid amplification for detection of high-risk Human Papilloma virus (HPV) is performed by the Elma Mary 6800 HPV test. This assay specifically detects HPV-16 and HPV-18 genotypes. The following HPV genotypes are detected as high-risk HPV: HPV-31, 33, 35, ,39, 45, 51, 52, 56, 58, 59, 66, and 68. This assay has been approved by the [place] Food and Drug Administration for detection of HPV in cervical specimens collected by a physician using an endocervical brush/spatula or cervical broom and placed in the ThinPrep Pap Test PreservCyt collection containers. The performance characteristics of this test have been verified by the [facility] Molecular Infectious Disease laboratory. Correlate with separately reported cytology results, as applicable. Interpretive data last revised 23 Testing performed by: [facility], [address] [place]., [address] Endocervical 09/14/2024 2:30 PM SHIP CONSTRUCTION TEACHER 2024 3:13 PM SHIP CONSTRUCTION TEACHER Narrative CERNER - 09/18/2024 4:22 AM SHIP CONSTRUCTION TEACHER Clinical history and diagnosis->Well Woman Exam: Cervical Cancer Screening Number of vials->1 Testing type->Screening Last menstrual period (date if known)->Unknown Contraceptive use->IUD Mary Gonzalez MD LAB BODY FLUIDS AND STOOLS ORDERABLES Final Result Performing Organization Address City/State/[facility] Co ri Phone Number [facility] [address] [facility] Department [place] [address] [facility] * (ABNORMAL) Pap and High Risk HPV and Genotyping (Cytology Component) (09/14/2024 12:21 PM SHIP CONSTRUCTION TEACHER) Thin prep (Pap test) 09/14/2024 12:21 PM SHIP CONSTRUCTION TEACHER 09/14/2024 12:21 PM SHIP CONSTRUCTION TEACHER Narrative PATHOLOGY - 09/19/2024 1:33 PM SHIP CONSTRUCTION TEACHER [facility] Department of Pathology [address] [place] [address] Final Report with Addendum Note to Patients: This report may contain a detailed description of human tissue sent by a health care provider to the laboratory for pathologic evaluation. The content of this report is essential for diagnosis and may provide important critical findings. This information may be unfamiliar to patients to review without a medical professional present. It is advised that the patient review this report in the presence of a health care provider who can answer questions and explain the details. Patient Name: XIOMARA SHULZT Address: [address] [place] [address] , [place] [address] Gender: F : 1985 (Age: 39) Service: Location: Hospital #: [id number] Patient Type: SPECIMEN Taken: 09/14/2024 Received: 09/14/2024 Accessioned:: 2024 Reported: 09/19/2024 Physician(s): Cristian Andrade M.D. Diagnosis: SOURCE OF SPECIMEN SCREENING THIN PREP IMAGED PAP w/ HPV: STATEMENT OF ADEQUACY - Satisfactory for evaluation; endocervical/transformation zone component present GENERAL CATEGORIZATION: - Epithelial cell abnormality INTERPRETATION: - Low grade squamous intraepithelial lesion (LSIL) encompassing HPV/mild dysplasia/FIHS I - Fungal organisms present, morphologically consistent with edwina species Santa BASSETT(ASCP)Salty Alonso M.D. Report Electronically Reviewed and Signed Out By Salty Alonso M.D. 09/19/2024 13:33:36Addenda: HPV Test Interpretation HPV HR 16- Not Detected HPV HR 18- Not Detected HPV HR non 16/18- Detected Interpretive Data Nucleic acid amplification for detection of high-risk Human Papilloma virus (HPV) is performed by the Elma Mary 6800 HPV test. This assay specifically detects HPV-16 and HPV-18 genotypes. The following HPV genotypes are detected as high-risk HPV: HPV-31, 33, 35, 39, 45, 51, 52, 56, 58, 59, 66, and 68. This assay has been approved by the [place] Food and Drug Administration for detection of HPV in cervical specimens collected by a physician using an endocervical brush/spatula or cervical broom and placed in the ThinPrep Pap Test PreservCyt collection containers. The performance characteristics of this test have been verified by the [facility] Molecular Infectious Disease laboratory. Correlate with reported cytology results, as applicable. Interpretive data last revised 23 DANYELLE Martinez(ASCP)Report Electronically Reviewed and Signed Out By DANYELLE Martinez(ASCP) 09/18/2024 11:12:43 Specimen(s) Received: A: SCREENING THIN PREP IMAGED PAP w/ HPV Clinical History: Contraceptive History: IUD The Pap test is a screening test used to aid in the detection of cervical cancer and its precursors. It should not be the sole means by which malignant and premalignant lesions are diagnosed. Both false negative and false positive results may occur. It also has poor sensitivity for the detection of endometrial lesions and should not be used to evaluate suspected endometrial abnormalities. For these reasons it is most important to obtain Pap tests at regular intervals. The performance characteristics of some immunohistochemical stains, fluorescence in-situ hybridization tests and immunophenotyping by flow cytometry cited in this report (if any) were determined by the Surgical Pathology Department at [facility] as part of an ongoing production quality manager program and in compliance with federally mandated regulations drawn from the Clinical Laboratory Improvement Act of 1988 (CLIA '88). Some of these tests rely on the use of analyte specific reagents and are subject to specific labeling requirements by the [place] Food and Drug Administration. Such diagnostic tests may only be performed in a facility that is certified by the Department of Health and Human Services as a high complexity laboratory under CLIA '88. The FDA has determined that such clearance or approval is not necessary. This test is used for clinical purposes. It should not be regarded as investigational or for research. Nevertheless, federal rules concerning the medical use of analyte specific reagents require that the following disclaimer be attached to the report: This test was developed and its performance characteristics determined by the Surgical Pathology Department [facility]. It has not been cleared or approved by the [place]. S. Food and Drug Administration. Mary Gonzalez MD LAB CYTOLOGY ORDERA BLE Final Result PATHOLOGY [address] [place] [address] * eGFR (08/15/2024 2:01 PM SHIP CONSTRUCTION TEACHER) eGFR >90 >=60 mL/min/1. 73 m2 Comment: [...] last reviewed 2021. Blood 08/15/2024 2:01 PM SHIP CONSTRUCTION TEACHER 08/15/2024 9:27 PM SHIP CONSTRUCTION TEACHER us Soren Mcwilliams MD LAB BLOOD ORDERABLES Final Result [facility] [address] Department [place] [address] * (ABNORMAL) Lipid panel (08/15/2024 2:01 PM SHIP CONSTRUCTION TEACHER) Cholesterol 171 30 - 199 mg/dL Comment: [...] on 2018. Triglycerides 734(H) <=149 mg/dL [facility] Comment: Interpretive Data Ages < or = [...] revised on 2018. Chol/HDL ratio 7 E[facility] Blood 08/15/2024 2:01 PM SHIP CONSTRUCTION TEACHER 08/15/2024 9:08 PM SHIP CONSTRUCTION TEACHER Soren Mcwilliams MD LAB BLOOD ORDERABLES Final Result Performing Organization Address [facility] de Phone Number [facility] [address] [employer] [place] [address] * DIABETES EYE EXAM (05/01/2024 7:23 AM [...] NP LAB URINE ORDERABLES Dilcia l Result Performing Organization Address [facility] Co de Phone Number [facility] [address] [place] [address] from Last 3 Months or Most Recently Relevant to Health Maintenance Insurance [employer] [facility] [place] [address] [employer] [facility] Care Teams Deputy Probation Officer Relationship Specialty Start Date End Date Soren Mcwilliams MD [address] [facility] [address] [place] [address] PCP - General Family Medicine 04/17/24 Yoel Paulson MD [address] [address] [address] Light Bulb Tester Obstetrics and Gynecology 08/15/24
--- OUTSIDE RECORDS SUMMARY | 2024-12-02 20:33 | XMS_ITS | Referral Summary ---
Author Organization [facility] Outpatient [facility] Address [address] [place] [address] Care Team Providers [facility] [place] [facility] Name Role Phone Soren Mcwilliams MD Primary Care Provider Yoel Paulson MD Unavailable Encounters Date Type Department Care Team Description 11/28/2024 Documentation [facility] Home Care Services [address] [place] [address] Brice Wells, TRUDI 11/21/2024 Telephone [facility]ran [employer] De Oliveira [address] [place] [address] [address] [place] [address] Mary Gonzalez MD Vaginal Bleeding 11/13/2024 Results Follow-Up Mobile[facility] De Oliveira [address] [place] [address] [address] [place] [address] Micheline Singh MA 11/07/2024 4:25 PM CDT - 11/07/2024 11:59 PM CDT Hospital Encounter [address] [address] Low grade squamous intraepith lesion on cytologic smear cervix (lgsil) Discharge Disposition: Discharge to home or self care 11/07/2024 3:30 PM CDT Procedure visit Mehran De Oliveira [address] [place] [address] [address] [place] [phone] Mary Gonzalez MD Low grade squamous intraepith lesion on cytologic smear cervix (lgsil) (Primary Dx); Pre-procedure lab exam; Intramural leiomyoma of uterus; Vaginal discharge 11/05/2024 Telephone [facility] Diabetes and Endocrinology [address] [place] [phone] Haleigh Ramirez, KIRSTIE Prior Auth (Freestyle Barrie 3) 10/31/2024 2:30 PM CDT Office Visit [facility] Diabetes [facility] Endocrinology [address] [place] [phone] Haleigh Ramirez, KIRSTIE Type 2 diabetes mellitus with hyperglycemia, with long-term current use of insulin (HCC) (Primary Dx); Hyperlipidemia associated with type 2 diabetes mellitus (HCC); PCOS (polycystic ovarian syndrome) 10/30/2024 Telephone [facility] Sleep Lab [address] [place], [place] [phone] Brenda Sheriff MD Cpap titration results / cpap order 10/25/2024 8:00 PM CDT - 10/25/2024 11:59 PM CDT Hospital Encounter [facility] Sleep Lab [address] [place], [place] [phone] NIEVES (obstructive sleep apnea) Discharge Disposition: Discharge to home or self care 10/01/2024 Telephone [facility] Pulmonology [facility] [address] [phone] Yumiko Ovalle MA 09/27/2024 Results [facility] [address] [place] [phone] Micheline Singh MA 09/26/2024 Telephone [facility] Sleep Lab [address] [place], [place] [phone] [place], [facility] Sleep Study Results 09/24/2024 Orders Only [facility] Pulmonology [address] [place] [phone] Brenda Sheriff MD NIEVES (obstructive sleep apnea) (Primary Dx) 09/21/2024 Telephone [facility] [address] [place] [address] [address] [place] [phone] Mary Gonzalez MD Test Results 09/21/2024 8:00 PM CHAIN PERSON - 09/21/2024 11:59 PM CHAIN PERSON Hospital Encounter [facility] Sleep Lab [address] [place] [address] NIEVES (obstructive sleep apnea); Psychophysiological insomnia; Delayed sleep phase syndrome; Family history of sleep apnea; BMI 50.0-59.9, adult (HCC); Nonsmoker Discharge Disposition: Discharge to home or self care 09/14/2024 2:30 PM CHAIN PERSON - 09/14/2024 11:59 PM CHAIN PERSON Hospital Encounter [address] [address] Well woman exam Discharge Disposition: Discharge to home or self care 09/14/2024 1:45 PM CHAIN PERSON Office Visit [facility] [address] [place] [address] [address], [place] [phone] Mary Gonzalez MD Intramural leiomyoma of uterus (Primary Dx); Well woman exam 09/04/2024 Telephone [facility] [address] [place] [address] [address], [place] [phone] Yoel Paulson MD from Last 3 Months Allergies Active Allergy [...] every 6 (six) hours as needed 07/15/20 Active albuterol HFA (PROVENTIL HFA,VENTOLIN HFA,PROAIR HFA) [...] (three) times a day as needed Active bessy-karen-s.jb s-phsal-hyo (UribeL) 118-10-40.8-36 mg capsule TAKE 1 [...] times a day Dx: E11.65 100 strip 10/20/19 24 Active lancets 33 gauge miscIndications:Typ e 2 diabetes mellitus with hyperglycemia, with long-term current use of insulin (HCC) Use to test blood sugar three times a day Dx: E11.65 100 each 10/20/19 24 Active ketoconazole (NIZORAL) 2 % [...] day APPLY TO AFFECTED AREA 30 g 08/15/19 25 Active Additional Information Patient not [...] hyperglycemia, with long-term current use of insulin ([facility]) Inject 0.5 mL (10 mg total) under the skin every 7 days 6 mL 11/01/19 25 026 Active blood-glucose sensor (FreeStyle Barrie 3 Sensor) deviceIndications:T ype 2 diabetes mellitus with hyperglycemia, with long-term current use of insulin ([facility]) One sensor every 14 days 6 each 11/01/19 25 Active insulin lispro (HumaLOG) 100 unit/mL pen for injectionIndication s:type 2 diabetes mellitus Inject 5-10 Units under the skin 3 (three) times a day before meals 30 mL 11/01/19 25 026 Active pen needle, diabetic (TechLITE Pen Needle) 32 gauge x 5/32 needleIndications:T ype 2 diabetes mellitus with hyperglycemia, with long-term current use of insulin ([facility]) Use to inject insulin under [...] 09/14/2024 Assessment & Plan (09/14/2024 2:20 PM CHAIN PERSON): Pap done today NIEVES (obstructive sleep apnea) [...] 04/17/2024 Assessment & Plan (08/15/2024 1:57 PM CHAIN PERSON): Patient has not re-established with Psychiatry, information [...] fenofibrate 145mg daily. Last lipid panel: 01/17/24 WGE=965, ZT=508. Assessment & Plan (08/15/2024 1:57 PM CHAIN PERSON): Awaiting labs, continues Atorvastatin. Assessment & Plan (08/01/2024 1:48 PM CHAIN PERSON): Chronic problem. Currently taking Atorvastatin 20mg & fenofibrate 145mg daily. Last lipid panel: 01/17/24 LKI=751, LK=237. Assessment & Plan (04/17/2024 3:14 PM CDT): Chronic problem. Currently taking Atorvastatin 20mg & fenofibrate 145mg daily. Last lipid panel: 01/17/24 NGN=294, YD=470. Assessment & Plan (01/17/2024 11:45 AM CDT): Chronic problem. Currently taking Atorvastatin 20mg & fenofibrate 145mg daily. Last lipid panel: 10/09/21 LDL=could not calc, JH=223. Will update labs today. Verified that she uses mychart. Aware to check results/results letter in cicayda. Will contact by phone if needed. Morbid [...] eye exam (05/01/24 no TARA sharma in [place]) UTD on labs. Discussed with Xiomara Shultz: [...] infection. Assessment & Plan (08/01/2024 2:08 PM CHAIN PERSON): Chronic problem. A1c worsened from 9.3% 04/17/24 to now 10.0%. interested in insulin pump therapy but wants to check with insurance to see what cost/coverage is. Will send me a cicayda message if pump is covered. Will increase [...] for DM eye exam; last 2022 at [facility] in [place]. Letter sent to get copy of report. [...] at bedtime DM eye exam 2022 at [facility] in [place]. Letter sent to get copy of report. Will update labs today. Verified that she uses cicayda. Aware to check results/results letter in cicayda. Will contact by phone if needed. Discussed [...] infection. Assessment & Plan (09/15/2023 12:26 PM CHAIN PERSON): Hba1c was Lab Results Component Value Date [...] standard. Assessment & Plan (08/01/2024 1:48 PM CHAIN PERSON): Chronic problem. Continue metformin & Spironolactone. Assessment & Plan (04/17/2024 3:13 PM CDT): Chronic problem. Continue metformin & Spironolactone. Assessment & Plan (01/17/2024 11:43 AM CDT): Chronic problem. Continue metformin & Spironolactone. Assessment & Plan (09/15/2023 12:27 PM CHAIN PERSON): Continue aldactone Eczema 07/27/2023 Persistent insomnia 02/13/2023 [...] stable. Assessment & Plan (09/14/2024 2:21 PM CHAIN PERSON): We will get her schedule for surgery [...] 09/14/2024 Assessment & Plan (08/15/2024 1:58 PM CHAIN PERSON): Chronic problem. Currently taking lisinopril 10mg daily. Assessment & Plan (08/01/2024 1:48 PM CHAIN PERSON): Chronic problem. Currently taking lisinopril 10mg daily. Assessment & Plan (04/17/2024 3:13 PM CDT): Chronic problem. Currently taking lisinopril 10mg daily. Assessment & Plan (01/17/2024 11:44 AM CDT): Chronic problem. Currently taking lisinopril 10mg daily. Will update labs today. Verified that she uses mychart. Aware to check results/results letter in cicayda. Will contact by phone if needed. Class 3 severe obesity due t o excess calories with serious comorbidity and body mass index (BMI) of 50.0 to 59.9 in adult 01/17/2024 5 Assessment & Plan (08/15/2024 1:57 PM CHAIN PERSON): Healthy, low carbohydrate lifestyle and exercise for 150min/week recommended. Assessment & Plan (05/15/2024 3:22 PM CDT): Healthy, low carbohydrate lifestyle and exercise for 150min/week recommended Assessment & Plan (04/17/2024 4:02 PM CDT): BMI Follow-up includes: nutrition counseling, exercise counseling, and education provided. Assessment & Plan (01/17/2024 12:57 PM CDT): Discussed healthy diet and importance of regular physical activity (20- 30min/day, 150min/wk). Sent in Chanyouji 2.5mg weekly. Will call office if not covered. 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 06/27/2024 Immunizations Immunization Administration Dates Next Due Influenza, [...] on file Legal Sex Female 1:26 AM CHAIN PERSON Gender Identity Female 12/25/2022 7:50 PM CDT Sexual Orientation Straight 12/25/2022 7: 50 PM CDT Last Filed Vital Signs Vital Sign Reading Time Taken Comments Blood Pressure 108/60 11/07/2024 3:42 PM CDT Pulse 70 10/31/2024 2:30 PM CDT Temperature 36.6 C (97.8 F) 08/15/2024 1:28 PM CHAIN PERSON Respiratory Rate 18 10/31/2024 2:30 PM CDT Oxygen Saturation 99% 08/15/2024 1:28 PM CHAIN PERSON Inhaled Oxygen Concentration - - Weight 153.3 kg (338 lb) 11/07/2024 3:42 PM CDT Height 175.3 cm (5' 9 ) 11/07/2024 3:42 PM CDT Body Mass Index 49.91 11/07/2024 3:42 PM CDT Plan of Treatment Not on file Procedures [...] apnea) PSG (SIMPLE) Routine 09/21/2024 8:16 PM CHAIN PERSON NIEVES (obstructive sleep apnea) Psychophysiological insomnia Delayed sleep phase syndrome Family history of sleep apnea BMI 50.0-59.9, adult (HCC) Nonsmoker HIGH RISK HPV DNA DETECTION WITH GENOTYPING Routine 09/14/2024 2:30 PM CHAIN PERSON Well woman exam PAP AND HIGH RISK HPV, REFLEX TO GENOTYPING Routine 09/14/2024 12:21 PM CHAIN PERSON Well woman exam EGFR Routine 08/15/2024 2:01 PM CHAIN PERSON Hypertension associated with type 2 diabetes mellitus (HCC) LIPID PANEL Routine 08/15/2024 2:01 PM CHAIN PERSON Hypertension associated with type 2 diabetes mellitus [...] results best viewed via link to PDF [facility] Department of Pathology [address] [place] [id number] Note to Patients: This report may contain [...] Final Report Patient Name: XIOMARA SHULTZ Address: [address] [place] [address], [place] [address] Gender: F : 1985 (Age: 39) Service: Location: [facility] : [id number] [facility] #: [id number] Patient Type: SPECIMEN Taken: 11/07/2024 Received: 11/08/2024 [...] All in one cassette. Heather Ordoñez R.N., P.AAlla/Ester Enciso M.D. REPORT IMAGES AND SCANNED DOCUMENTS, IF INCLUDED, ONLY VIEWABLE IN PDF VERSION OF REPORT The performance characteristics of some immunohistochemical stains, fluorescence in-situ hybridization tests and immunophenotyping by flow cytometry cited in this report (if any) were determined by the Surgical Pathology Department at [facility] as part of an ongoing supervisor quality control program and in compliance with federally mandated [...] characteristics determined by the Surgical Pathology Department [facility]. It has not been cleared or approved by the U. S. Food and Drug Administration. Note for decalcified specimens: This assay has not been validated on decalcified tissues. Results should be interpreted with caution given the possibility of false negativity on decalcified specimens us Mary Gonzalez MD LAB PATHOLOGY ORDER TAYLOR Final Result PATHOLOGY [address] [place] [address] * (ABNORMAL) POCT hemoglobin A1c (10/31/2024 2:34 PM CDT) Hemoglobin A1C, POC 9.4 4.0 - 5.6 % Blood 10/31/2024 2:34 PM CDT us Haleigh Ramirez NP POINT OF CARE TEST ORDERA BLES Final Result * (ABNORMAL) POCT glucose (10/31/2024 2:34 PM CDT) Glucose Blood, POC 163 mg/dL Blood 10/31/2024 2:34 PM CDT us Haleigh Ramirez NP POINT OF CARE TEST ORDERA BLES Final Result * PSG (10/25/2024 8:05 PM CDT) Brenda Sheriff MD SLEEP CENTER ORDERABLES Fin al Result Performing Organization Address City/[facility]/ZIP Co de Phone Number [facility] SLEEP [address] * PSG (09/21/2024 8:16 PM CHAIN PERSON) Brenda Sheriff MD SLEEP CENTER ORDERABLES Fin al Result Performing Organization Address [facility] Co de Phone Number [facility]EP [address] * (ABNORMAL) High Risk HPV DNA Detection with Genotyping (Molecular component) (09/14/2024 2:30 PM CHAIN PERSON) HPV HR 16 Not Detected Not Detected [facility] Comment:Testing performed by : [facility], [address] [place]., [address] HPV HR 18 Not Detected Not Detected [facility] Comment:Testing performed by : [facility], [address] [place]., [address] HPV HR Non 16/18 Detected(A) Not Detected [facility] Comment: Interpretive Data Nucleic acid amplification for detection of high-risk Human Papilloma virus (HPV) is performed by the Elma Mray 6800 HPV test. This assay specifically detects [...] this test have been verified by the [facility] Molecular Infectious Disease laboratory. Correlate with separately reported cytology results, as applicable. Interpretive data last revised 23 Testing performed by: [facility], [address] [place]., [address] Endocervical 09/14/2024 2:30 PM CHAIN PERSON 2024 3:13 PM CHAIN PERSON Narrative CERNER - 09/18/2024 4:22 AM CHAIN PERSON Clinical history and diagnosis->Well Woman Exam: Cervical Cancer Screening Number of vials->1 Testing type->Screening Last menstrual period (date if known)->Unknown Contraceptive use->IUD Mary Gonzalez MD LAB BODY FLUIDS AND STOOLS ORDERABLES Final Result Performing Organization Address City/State/[facility] Co de Phone Number [facility] [address] [place] [address] BJ * (ABNORMAL) Pap and High Risk HPV and Genotyping (Cytology Component) (09/14/2024 12:21 PM CHAIN PERSON) Thin prep (Pap test) 09/14/2024 12:21 PM CHAIN PERSON 09/14/2024 12:21 PM CHAIN PERSON Narrative PATHOLOGY - 09/19/2024 1:33 PM CHAIN PERSON [facility] Department of Pathology [address] [place] [address] Final Report with Addendum Note to [...] and explain the details. Patient Name: XIOMARA SHULTZ Address: [facility] [address], [place] [address] Gender: F : 1985 (Age: 39) Service: Location: [facility] #: [id number] Patient Type: SPECIMEN Taken: 09/14/2024 Received: 09/14/2024 Accessioned:: 2024 Reported: 09/19/2024 Physician(s): Mary Gonzalez M.D. Mary Gonzalez M.D. Diagnosis: SOURCE OF SPECIMEN SCREENING THIN PREP IMAGED PAP w/ HPV: STATEMENT OF ADEQUACY - Satisfactory for evaluation; endocervical/transformation zone component present GENERAL CATEGORIZATION: - Epithelial cell abnormality INTERPRETATION: - Low grade squamous intraepithelial lesion (LSIL) encompassing HPV/mild dysplasia/FISH I - Fungal organisms present, morphologically consistent [...] this test have been verified by the [facility] Molecular Infectious Disease laboratory. Correlate with reported cytology results, as applicable. Interpretive data last revised 23 DANYELLE Martinez(ASCP)Report Electronically Reviewed and Signed Out By PRESTON MartinezASCP) 09/18/2024 11:12:43 Specimen(s) Received: A: SCREENING THIN [...] determined by the Surgical Pathology Department at [facility] as part of an ongoing supervisor quality control program and in compliance with federally mandated [...] characteristics determined by the Surgical Pathology Department [facility]. It has not been cleared or approved by the U. S. Food and Drug Administration. Mary Gonzalez MD LAB CYTOLOGY ORDERA BLE Final Result PATHOLOGY [address] [place] [address] * eGFR (08/15/2024 2:01 PM CHAIN PERSON) eGFR >90 >=60 mL/min/1. 73 m2 Comment: [...] Inclusion of Race in Diagnosing Kidney Disease, RIMAN 2020). The CKD-EPI equation should not be used for patients with unstable renal function and has not been validated in children and those over 70. Current interpretive data was last reviewed 2021. Blood 08/15/2024 2:01 PM CHAIN PERSON 08/15/2024 9:27 PM CHAIN PERSON Soren Mcwilliams MD LAB BLOOD ORDERABLES Final Result [facility] [address] Department [place] [address] * (ABNORMAL) Lipid panel (08/15/2024 2:01 PM CHAIN PERSON) Cholesterol 171 30 - 199 mg/dL Comment: [...] ratio 7 E[facility] Blood 08/15/2024 2:01 PM CHAIN PERSON 08/15/2024 9:08 PM CHAIN PERSON Soren Mcwilliams MD LAB BLOOD ORDERABLES Final Result Performing Organization Address [facility] Co de Phone Number [facility] [place] [address] * DIABETES EYE EXAM (05/01/2024 7:23 AM [...] Dilcia l Result Performing Organization Address [facility] Co de Phone Number [facility] [address] [place] [address] from Last 3 Months or Most Recently Relevant to Health Maintenance [place] [address] [employer] [facility] [place] [address] [employer] [facility] Care Teams [place] [facility] Relationship Specialty Start Date End Date Soren Mcwilliams MD [address] [address] PCP - General Family Medicine 04/17/24 Yoel Paulson MD [address] [facility] [address] [place] [address] [place] [address] Taxation Inspector Obstetrics and Gynecology 08/15/24
--- OUTSIDE RECORDS SUMMARY | 2024-12-02 20:33 | XMS_ITS | Clinical Summary ---
Author Organization [facility] Address [address] [place] [address] Care Team Providers Care Telescope Operator Name Role Phone Michelle Valente MD Primary Care Provider [phone] Source Comments [facility],non-owned Affiliates and Associated Physician Practices is amultiple site organization consisting of ambulatory clinics and hospital sitesin [place], [place], [place] and [place]. This disclosure is being madepursuant to the Care Everywhere program and may not contain all information available regarding this patient. Last updated 18.[facility] Allergies Active Allergy Reactions Criticality Noted [...] document. Alwaysverify current medications with the patient. [place]-3 Fatty Acids (OMEGA-3 FISH OIL) 500 MG Take 1,200 mg by mouth 2 times daily Active CPAP Inhale 1 device by mouth at bedtime Active vitamin D, ergocalciferol, (DRISDOL) 46002 UNITS capsule Take 5,000 Units by mouth once daily 09/28/19 19 Active insulin syringe-needle (BD ULTRAFINE) 29G X 1/2 1 ML syringeIndicati ons:Type 2 diabetes mellitus with hyperglycemia, with long-term current use of insulin ([facility]) once daily 100 Each 11 10/13/19 19 Active QUEtiapine (SEROQUEL) 100 MG tablet Take 1 (one) tablet by mouth once daily Active fluticasone propionate (FLONASE) 50 MCG/ACT nasal spray 2 sprays 03/23/20 20 Active fluvoxaMINE (LUVOX) 100 MG tablet 1 (one) tablet 04/09/20 20 Active traZODone (DESYREL) 50 MG tablet 1 (one) tablet 03/31/20 20 Active acetaminophen (TYLENOL) 500 MG capsule Take 1 capsule by mouth every 6 hours as needed for Pain 30 capsule 07/31/19 21 Active ibuprofen (MOTRIN) 600 MG tablet Take 1 tablet by mouth every 6 hours as needed for Pain 40 tablet 1 07/31/19 21 Active levonorgestrel (MIRENA, 52 MG,) 20 MCG/24HR IUD 1 (one) device by Intrauterine route as directed Active OneTouch Delica Lancets 33G MISCIndications :Type 2 diabetes mellitus with hyperglycemia, with long-term current use of insulin (HCC) Use 1 Each 2 times daily 100 Each 11 06/25/20 21 Active triamcinolone acetonide (KENALOG) 0.1 % cream MIX WITH NYSTATIN OINTMENT AND APPLY TO EXTERNALLY VULVAR TISSUES TWICE DAILY 07/31/19 22 Active cetirizine (ZYRTEC) 10 MG tablet Take 1 (one) tablet by mouth once daily Active famotidine (PEPCID) 20 MG tablet Take 1 (one) tablet by mouth 2 times daily Active allergy injection Weekly through [facility] Ot[facility] Active naproxen (NAPROSYN) 500 MG tablet Take 1 (one) tablet by mouth 2 times daily as needed 11/10/19 Active Biotin 10 MGIndications:A cne vulgaris 01/06/20 Active insulin glargine (LANTUS SOLOSTAR) penIndications: Type 2 diabetes mellitus with hyperglycemia, with long-term current use of insulin (HCC) Inject 90 (ninety) Units subcutaneously at bedtime 75 mL 11 01/06/20 Active Insulin Pen Needle (Coinalytics Co.LITE PEN NEEDLES) 32G X 4 MM MISCIndications :Type 2 diabetes mellitus with hyperglycemia, with long-term current use of insulin ([facility]) Use 1 Each 3 times daily 100 Each 11 02/19/20 Active Meth-Hyo-M Bl-Na Phos-Ph Carlos (Uribel) 118 MG Take 1 (one) capsule by mouth every 8 hours as needed (bladder pain) 30 capsule 04/05/20 22 Active Additional Information Patient not taking.Reported on 04/20/2022 cyclobenzaprine (Flexeril) 10 MG tablet Take 1 (one) tablet by mouth 3 times daily 20 tablet 1 04/26/20 22 Active metFORMIN ER 24hr (Glucophage XR) 500 MG tabletIndicatio ns:Type 2 diabetes mellitus with hyperglycemia, with long-term current use of insulin ([facility]) TAKE 2 TABLETS BY MOUTH TWICE DAILY 360 tablet 11 07/21/20 22 Active fenofibrate (Tricor) 145 MG tabletIndicatio ns:Type 2 diabetes mellitus with hyperglycemia, with long-term current use of insulin ([facility]) TAKE 1 TABLET BY MOUTH EVERY DAY 90 tablet 4 08/05/19 23 Active Blood Glucose Monitoring Suppl (Nuevolutionuch Verio Flex System) w/Device KITIndications: Type 2 diabetes mellitus with hyperglycemia, with long-term current use of insulin ([facility]) Use 1 kit as directed 1 kit 09/14/19 23 Active dulaglutide (Trulicity) 1.5 MG/0.5ML injection Inject 0.5 mL subcutaneously every 7 days 6 mL 11 09/25/19 23 Active OneTouch Verio test stripIndication s:Type 2 diabetes mellitus with hyperglycemia, with long-term current use of insulin ([facility]) USE TWICE DAILY 100 strip 11 10/14/19 23 Active SYRINGE-NEEDLE, DISP, 3 ML (B-D INTEGRA SYRINGE) 25G X 5/8 3 ML MISC USE WITH ALLERGY SERUM. Dispense 30 for a 1 month supply 30 Each 3 10/21/19 23 Active acetaminophen (Tylenol) 500 MG tablet Take 1 (one) tablet by mouth every 6 hours as needed 07/15/20 22 Active albuterol HFA (Proventil; Ventolin; Proair) 108 (90 Base) MCG/ACT inhaler INHALE 1 TO 2 PUFFS BY MOUTH EVERY 4 TO 6 HOURS NEEDED 06/04/20 Active fenofibrate (Tricor) 145 MG tablet Take 1 (one) tablet by mouth once daily 06/17/20 22 Active fluconazole (Diflucan) 150 MG tablet TAKE 1 TABLET BY MOUTH 1 TIME FOR 1 DOSE. REPEAT IN 3 DAYS 09/25/19 23 Active lisinopril (Prinivil; Zestril) 10 MG tablet Take 1 (one) tablet by mouth once daily 10/23/19 23 Active metFORMIN ER 24hr (Glucophage XR) 500 MG tablet Take 2 (two) tablets by mouth once daily 07/15/20 22 Active spironolactone (Aldactone) 100 MG tabletIndicatio ns:Acne vulgaris Take 2 (two) tablets by mouth once daily 60 tablet 5 10/27/19 23 Active ketoconazole (Nizoral) 2 % shampooIndicati ons:Other seborrheic dermatitis Apply to wet hair, leave on for 3 minutes, then rinse; three times weekly. 30 days supply 120 mL 10/27/19 23 Active metroNIDAZOLE (Metrogel) 0.75 % gelIndications: Other rosacea,Acne vulgaris Apply a thin film to affected areas on face twice daily. 30 days supply. 45 g 10/27/19 23 Active triamcinolone acetonide (Kenalog) 0.1 % ointmentIndicat ions:Recurrent candidiasis of vagina MIX WITH NYSTATIN AND APPLY TO VULVAR TISSUES TWICE A DAY / patient needs an appointment for future refills 30 g 02/22/20 23 Active nystatin (Mycostatin) 765333 UNIT/GM ointmentIndicat ions:Recurrent candidiasis of vagina MIX WITH TRIAMCINOLONE AND APPLY TO EXTERNAL VULVAR TISSUES TWICE A DAY / pt needs an appointment for future refills 30 g 02/22/20 23 Active hydrocortisone (Hytone) 2.5 % creamIndication s:Eyelid dermatitis, allergic/contac t APPLY TO AFFECTED AREA ON EYELIDS EVERY DAY NEEDED FOR RASH 28.35 g 3 06/06/20 23 Active EPINEPHrine (Epipen) 0.3 MG/0.3ML auto-injector pen INJECT 1 PEN INTO THE MUSCLE 1 TIME NEEDED FOR ANAPHYLAXIS 0.6 mL 06/06/20 23 Active doxycycline monohydrate 100 MG capsuleIndicati ons:Other rosacea,Acne vulgaris TAKE 1 CAPSULE BY MOUTH EVERY DAY 30 capsule 3 10/10/19 24 Active fenofibrate (Tricor) 145 MG tablet TAKE 1 TABLET BY MOUTH EVERY DAY 30 tablet 01/02/20 24 Active empagliflozin (Jardiance) 25 MG tabletIndicatio ns:Type 2 diabetes mellitus with hyperglycemia, with long-term current use of insulin (HCC) Take 1 (one) tablet by mouth once daily 30 tablet 01/02/20 24 Active Active Problems Problem Noted Date Diagnosed [...] seek urgent/emergent care including calling Suicide Hotline (483 or ) or 911. Follow up in one month with PCP [...] 06/30/2016 06/02/2018 Morbid obesity 05/14/2014 12/13/2017 Immunizations Immunization Administration Dates Next Due INFLUENZA VACCINE 06/10/2018 [...] PM CDT Legal Sex Female 5:34 AM SITE MONITOR Gender Identity Female 04/20/2021 1:09 PM CDT Sexual Orientation Straight 04/20/2021 1: 09 PM CDT Last Filed Vital Signs Vital Sign Reading Time Taken Comments Blood Pressure 140/80 04/23/2022 3:08 PM CDT Pulse 97 01/05/2022 3:44 PM CDT Temperature 36.2 C (97.2 F) 04/05/2022 3:02 PM CDT Respiratory Rate 18 07/31/2020 4:33 PM SITE MONITOR Oxygen Saturation 96% 01/05/2022 3:44 PM CDT [...] 06/23/2021, 10/16/2018 COVID-19 VACCINE ( season) 2024 DIABETES - URINE PROTEIN SCREENING 07/25/2024 10/09/2021, 05/22/2021, 12/13/2017, Additional history exists INFLUENZA VACCINE (Season Ended) 2025 07/31/2020, 06/10/2018 PAP with HPV 06/29/2026 06/29/2021 ZOSTER VACCINE (1 of 2) 2037 HIB VACCINE Aged Out No longer eligi ble based on patient's age to complete this topic HPV VACCINE Aged Out No longer eligi ble based on patient's age to complete this topic MENINGOCOCCAL (Group B) VACCINE SHARED DECISION-MAKING Aged Out No longer eligible based on patient's age to complete this topic MENINGOCOCCAL GROUPS A/C/Y/W VACCINE Aged Out No longer eligible based on patient's age to complete this topic Medical Devices Implanted Type Area Home Care Consultant Device Identifier Shelf Expiration Date Model / Serial / Lot Intrauterine Device/Mirena Implanted:Qty: 1 on 07/30/2020 by Willy Landeros MD at [facility] Cervix 10/21/2022 [id number] / [id number] Procedures Procedure Name Priority Date/Time Associated Diagnosis Comments HEMOGLOBIN A1C - POINT OF CARE (AMB) [facility] Routine 01/05/2022 Type 2 diabetes mellitus with hyperglycemia, with long-term current use of insulin MICROALB/CREAT RATIO URINE RANDOM PANEL 10/09/2021 2:05 PM CDT COMPREHENSIVE METABOLIC PANEL 10/09/2021 2:05 PM CDT HPV DETECTION HIGH RISK TAI Routine 06/29/2021 1:53 PM SITE MONITOR Encounter for Pap smear of cervix with HPV DNA cotesting EYE EXAM 06/29/2021 from Last 3 Months or Most Recently Relevant to Health Maintenance Results * HEMOGLOBIN A1C - POINT OF CARE (AMB) [facility] (01/05/2022) Hemoglobin A1c POCT 8.1 % BLOOD SPECIMEN / Unknown 01/05/2022 Kam Ramesh MD LAB - POINT OF CARE ORDERABLES Final Result * MICROALB/CREAT RATIO URINE RANDOM PANEL (10/09/2021 [...] within a diagnostic category. Test Performed at: [facility] [address] [place] [address] BALAJI CANCINO DO,MPH 10/09/2021 2:05 PM CDT 10/09/2021 2:10 PM CDT Kam Ramesh MD LAB - URINE CHEMISTRY ORDERABL ES Final Result [facility] [id number] [place] [address] * (ABNORMAL) COMPREHENSIVE METABOLIC PANEL (10/09/2021 2:05 [...] 29 U/L [facility] Comment: Test Performed at: [facility] [address] [place] [address] BALAJI CANCINO DO,MPH 10/09/2021 2:05 PM CDT 10/09/2021 2:10 PM CDT Kam Ramesh MD LAB - CHEMISTRY ORDERABLES [facility] al Result [facility] [address] [place] [address] * HPV DETECTION HIGH RISK TAI (06/29/2021 1:53 PM SITE MONITOR) High Risk Human Papilloma Result Not detected Not detected 07/01/2021 7:22 AM SITE MONITOR [facility] High Risk Human Papilloma Interp 07/01/2021 7:22 AM SITE MONITOR [facility] Comment:High Risk Human Lpoez lloma Virus was Not Detected. Pathology/Cytolo gy MISCELLANEOUS SAMPLES / Unknown 06/29/2021 1:53 PM SITE MONITOR 06/30/2021 12:05 PM SITE MONITOR Narrative [facility] - 07/01/2021 7:22 AM SITE MONITOR Nucleic acid isolated from the specimen was [...] available data (cytology, histology, and clinical information). us Minoo Verdin MD LAB - MICROBIOLOGY ORDERABLES Fi nal Result [facility] [address] [place] [address], [place] [phone] * EYE EXAM (06/29/2021) Anatomical Region Laterality Modality Other Narrative 06/29/2021 Ordered by an unspecified provider. us Scanned Document SCANNING ONLY Final Result from Last 3 Months or Most Recently Relevant to Health Maintenance Insurance MEDICAID [employer] [place] Care Teams Telescope Operator Relationship Specialty Start Date End Date Michelle Valente MD [facility] [place] [address] PCP - General 11/29/17
--- OUTSIDE RECORDS SUMMARY | 2024-12-02 20:33 | XMS_ITS | Clinical Summary ---
Author Organization [facility] Address [facility] [place] [address] Care Team Providers Care Production Supervisor Trainee Name Role Phone Anup Orellana MD Primary Care Provider [phone] Allergies Active Allergy Reactions Criticality Noted Date [...] nasal spray 11/18/2019 Active vitamin D2, ergocalciferol, 56515 UNITS capsule Take 50,000 Units by mouth every 7 days. 09/04/2019 Active Active Problems Problem Noted Date Diagnosed Date Daytime sleepiness 10/11/2016 Benign essential HTN 08/09/2016 Diabetes mellitus ([facility]) 08/09/2016 Morbid obesity 08/09/2016 NIEVES on CPAP 08/09/2016 Family History [...] Comments Blood Pressure 126/68 07/08/2017 11:53 AM LIVE SOURCE OPERATOR Pulse 82 07/08/2017 11:53 AM LIVE SOURCE OPERATOR Temperature - - Respiratory Rate - - Oxygen Saturation - - Inhaled Oxygen Concentration - - Weight 172.8 kg (381 lb) 07/08/2017 11:53 AM LIVE SOURCE OPERATOR Height 170.2 cm (5' 7 ) 07/08/2017 11:53 AM LIVE SOURCE OPERATOR Body Mass Index 59.67 07/08/2017 11:53 AM LIVE SOURCE OPERATOR Plan of Treatment Health Maintenance Due Date Last Done Comments Cervical Cancer Screening Pa p Smear (Age 30 to 64) Every 3 Years 1987 Kidney Health Evaluation 1987 Hemoglobin A1C 1987 Lipid Panel 1987 Annual Physical 1990 Diabetes: Retinopathy Eye Exam 2005 Hepatitis C 2005 DTaP, Tdap and Td Vaccines ( 1 - Tdap) 2006 Hepatitis B Vaccines (1 of 3 - 19+ 3-dose series) 2006 Pneumococcal Vaccine: Pediat rics (0 to 5 Years) and At-Risk Patients (6 to 49 Years) (1 of 2 - PCV) 2006 Cervical Cancer Screening Pa p with HPV Testing (Age 30 to 64) Every 5 Years 2017 Cervical Cancer Screening with HPV 2017 COVID-19 Vaccine ( - 2023-2 5 season) 2024 HPV Vaccines Aged Out No longer eligi [...] patient's age to complete this topic Insurance [employer] Care Teams Production Supervisor Trainee Relationship Specialty Start Date End Date Anup Orellana MD [facility] [employer] [address] [address] PCP - General INTERNAL MEDICINE 05/29/18
--- OUTSIDE RECORDS SUMMARY | 2024-12-02 20:33 | XMS_ITS | Encounter Summary ---
Author Organization [facility] Healthcare Address [address] [place] [address] Care Team Providers Care Surgeon Chief Name Role Phone Soren Mcwilliams MD Primary Care Provider [phone] Yoel Paulson MD Unavailable [phone] Encounter Details Date Type Department Care Team (Late st Contact Info) Description 11/13/2024 Results Follow-Up [facility] [address] [address] Micheline Singh MA Social History Tobacco Use Types Packs/Day Years [...] on file Legal Sex Female 1:26 AM TRAFFIC INVESTIGATOR Gender Identity Female 12/25/2022 7:50 PM CDT Sexual Orientation Straight 12/25/2022 7: 50 PM CDT documented as of this encounter Miscellaneous Notes * Telephone Encounter - Micheline Singh MA - 11/13/2024 5:22 PM CDT Pap card updated in Pap Box documented in this encounter Plan of Treatment Not on file documented as of this encounter Visit Diagnoses Not on filedocumented in this encounter Care Teams Surgeon Chief Relationship Specialty Start Date End Date Soren Mcwilliams MD [address] [facility] [address] [place] [address] PCP - General Family Medicine 04/17/24 Yoel Paulson MD [address] [place] [address] [address] [address] Line Service Supervisor Obstetrics and Gynecology 08/15/24 documented as of this encounter
--- OUTSIDE RECORDS SUMMARY | 2024-12-02 20:33 | XMS_ITS | Data Portability ---
Author Organization [facility] [employer], Main Office Address [address] [place] [address] Assessment No assessment recorded. Plan of Treatment Reminders Order Date Submit Date Provider Last Modified By Organization Details Last Modified Time Details Appointments None recorded. Lab lipid panel, serum 2022 023 [facility] (Lab), [address] [place], [address], 3 13:15:56 glycohemogl obin, total, blood 2022 023 [facility] (Lab), [address] [place], [address], 3 14:29:48 CMP, serum or plasma 2022 023 [facility] (Lab), [address] [place], [address], 3 13:15:52 urinalysis, dipstick 2022 023 [email or web address] 3 [facility] [address], [place], [address], 3 13:37:20 culture, urine 2022 023 [facility] (Lab), [address] [place], [address], 3 07:58:25 Referral gynecologis t referral - Please call the pt to make an appt. Thank you 2022 023 [email or web address] Parul Aguiar MD, [address] [place], [address], 13:12:50 Procedures None recorded. Surgeries None recorded. Imaging None recorded. Medication Orders None recorded. Patient TargetsNo targets recorded. Patient InstructionsNo instructions recorded. Reason for Referral Production Material Coordinator Referral for Pa in in pelvis Please call the pt to make an appt. Thank you Referring Physician: Michelle Valente, Family Medicine, Encounter Date: 11/15/2022 Results Created Date Observation Date Name Description Value Unit Range Abnormal Flag Note LastModifiedBy Organization Detail LastModifiedTime 09/08/19 23 09/08/2022 rapid strep group A, throa t STREP A negati ve Not Available [address], [place], [address], 09/08/2022 15:59:50 11/16/19 23 11/15/2022 urina lysis , dipst ick Leukocytes (reference range: negative mayte/ l) Negati ve Not Available [address], [place], [address], 11/15/2022 11:38:40 11/16/19 23 11/15/2022 urina lysis , dipst ick Nitrite (reference rage: negative mg/dl) negati ve Not Available [address], [place], [address], 11/15/2022 11:38:40 11/16/19 23 11/15/2022 urina lysis , dipst ick Urobilinogen (reference range: 0.2-1 mg/dl) 0.2 Not Available [address], [place], [address], 11/15/2022 11:38:40 11/16/19 23 11/15/2022 urina lysis , dipst ick Protein (reference range: negative mg/dl) Negati ve Not Available [address], [place], [address], 11/15/2022 11:38:40 11/16/19 23 11/15/2022 urina lysis , dipst ick pH (reference range: 5-7) 5.5 Not Available [address], [place], [address], 11/15/2022 11:38:40 11/16/19 23 11/15/2022 urina lysis , dipst ick Blood (reference range: negative Preston/ l) Negati ve Not Available [address], [place], [address], 11/15/2022 11:38:40 11/16/19 23 11/15/2022 urina lysis , dipst ick Specific Linden (reference range: 1.005-1.030) 1.030 Not Available [address], [place], [address], 11/15/2022 11:38:40 11/16/19 23 11/15/2022 urina lysis , dipst ick Ketone (reference range: negative mg/dl) Negati ve Not Available [address], [place], [address], 11/15/2022 11:38:40 11/16/19 23 11/15/2022 urina lysis , dipst ick Bilirubin (reference range: negative mg/dl) Negati ve Not Available [address], [place], [address], 11/15/2022 11:38:40 11/16/19 23 11/15/2022 urina lysis , dipst ick Glucose (reference range: negative mg/dl) 250 Not Available [address], [place], [address], 11/15/2022 11:38:40 11/16/19 23 11/15/2022 urina lysis , dipst ick Appearance Clear Not Available [address], [place], [address], 11/15/2022 11:38:40 11/16/19 23 11/15/2022 urina lysis , dipst ick Color Yellow Not Available [address], [place], [address], 11/15/2022 11:38:40 12/17/19 23 12/16/2022 COMPR EHENS AMISH METAB OLIC PANEL sodium 139 mmol/ L 137-14 5 Not Available [facility] (Lab) [address] [place], [address], 12/16/2022 13:15:52 12/17/19 23 12/16/2022 COMPR EHENS AMISH METAB OLIC PANEL potassium 3.8 mmol/ L 3.5-5. 1 Not Available [facility] (Lab) [address] [place], [address], 12/16/2022 13:15:52 12/17/19 23 12/16/2022 COMPR EHENS AMISH METAB OLIC PANEL chloride 106 mmol/ L 98-107 Not Available [facility] (Lab) [address] [place], [address], 12/16/2022 13:15:52 12/17/19 23 12/16/2022 COMPR EHENS AMISH METAB OLIC PANEL carbon dioxide 24 mmol/ L 22-30 Not Available [facility] (Lab) [address] [place], [address], 12/16/2022 13:15:52 12/17/19 23 12/16/2022 COMPR EHENS AMISH METAB OLIC PANEL anion gap 12.8 mmol/ L 14-22 low Not Available [facility] (Lab) [address] [place], [address], 12/16/2022 13:15:52 12/17/19 23 12/16/2022 COMPR EHENS AMISH METAB OLIC PANEL glucose 97 mg/dL 70-99 Not Available [facility] (Lab) [address] [place], [address], 12/16/2022 13:15:52 12/17/19 23 12/16/2022 COMPR EHENS AMISH METAB OLIC PANEL BUN 8 mg/dL 8-19 Not Available [facility] (Lab) [address] [place], [address], 12/16/2022 13:15:52 12/17/19 23 12/16/2022 COMPR EHENS AMISH METAB OLIC PANEL creatinine 0.56 mg/dL 0.66-1 .25 low Not Available [facility] (Lab) [address] [place], [address], 12/16/2022 13:15:52 12/17/19 23 12/16/2022 COMPR EHENS AMISH METAB OLIC PANEL GFR >60 Refer ence Range : [place] ge GFR Healt hy Adult : >60 [...] calcu lator is avail able on the [facility] websi te: [email or web address] :[email or web address] [email or web address].[email or web address] [email or web address] [email or web address]/pr ofess ional s/kdo qi/gf r_cal culat or Not Available [facility] (Lab) [address] [place], [address], 12/16/2022 13:15:52 12/17/19 23 12/16/2022 COMPR EHENS AMISH METAB OLIC PANEL alkaline phosphatase 49 U/L 38-126 Not Available [facility] (Lab) [address] [place], [address], 12/16/2022 13:15:52 12/17/19 23 12/16/2022 COMPR EHENS AMISH METAB OLIC PANEL alanine aminotransfe rase 34 U/L 0-35 Not Available [facility] (Lab) [address] [place], [address], 12/16/2022 13:15:52 12/17/19 23 12/16/2022 COMPR EHENS AMISH METAB OLIC PANEL aspartate aminotransfe rase 26 U/L 15-37 Not Available [facility] (Lab) [address] [place], [address], 12/16/2022 13:15:52 12/17/19 23 12/16/2022 COMPR EHENS AMISH METAB OLIC PANEL bilirubin, total 0.60 mg/dL 0.20-1 .30 Not Available [facility] (Lab) [address] [place], [address], 12/16/2022 13:15:52 12/17/19 23 12/16/2022 COMPR EHENS AMISH METAB OLIC PANEL calcium 8.8 mg/dL 8.4-10 .2 Not Available [facility] (Lab) [address] [place], [address], 12/16/2022 13:15:52 12/17/19 23 12/16/2022 COMPR EHENS AMISH METAB OLIC PANEL total protein 6.2 g/dL 6.3-8. 2 low Not Available [facility] (Lab) [address] [place], [address], 12/16/2022 13:15:52 12/17/19 23 12/16/2022 COMPR EHENS AMISH METAB OLIC PANEL albumin 3.6 g/dL 3.4-5. 0 Not Available [facility] (Lab) [address] [place], [address], 12/16/2022 13:15:52 12/17/19 23 12/16/2022 COMPR EHENS AMISH METAB OLIC PANEL globulin 2.6 g/dL 2.6-4. 2 Not Available [facility] (Lab) [address] [place], [address], 12/16/2022 13:15:52 12/17/19 23 12/16/2022 COMPR EHENS AMISH METAB OLIC PANEL A/G ratio 1.4 ratio 1.0-2. 0 Not Available [facility] (Lab) [address] [place], [address], 12/16/2022 13:15:52 12/17/19 23 12/16/2022 LIPID PANEL cholesterol 235 mg/dL 140-19 9 high NIH CHARLI NSUS RECOM MENDA TION FOR CLARENCE STERO L: ADULT CHILD LOW RISK: <200 <170 BORDE RLINE : <200- 239 ----- HIGH RISK: >240 >200 Not Available [facility] (Lab) [address] [place], [address], 12/16/2022 13:15:56 12/17/19 23 12/16/2022 LIPID PANEL triglyceride s 318 mg/dL 0-150 high NIH CHARLI NSUS REPOR T RECOM MENDA TION FOR TRIGL YCERI URMILA: ADULT CHILD LOW RISK: <150 ----- BODER LINE: 150-1 99 ----- HIGH RISK: >200 ----- Not Available [facility] (Lab) [address] [place], [address], 12/16/2022 13:15:56 12/17/19 23 12/16/2022 LIPID PANEL HDL cholesterol 37 mg/dL 40- low Not Available [facility] (Lab) [address] [place], [address], 12/16/2022 13:15:56 12/17/19 23 12/16/2022 LIPID PANEL [...] WILL NOT BE REPOR HIRA. Not Available [facility] (Lab) [address] [place], [address], 12/16/2022 13:15:56 12/17/1912/16/2022 HEMOG LOBIN A1C HA1C 8.5 % 4.0-6. 0 high Diabe camilla Scree mleisa Crite yesi: <5.7% Consi stent with absen ce of diabe camilla 5.7-6 .4% Consi stent with incre ased risk for diabe camilla (pred iabet es) >OR=6 .5% Consi stent with diabe camilla REFER ENCE: Diabe camilla Care 2016, 39([place] ppl.1 ):s13 -s22 Not Available [facility] ([facility]) [address], [place], [address], 12/16/2022 14:29:48 09/08/19 23 XR, chest , 2 view [facility] [address], [place] [address] Patien t Name: NILSONDAGO A E Access ion #: [id number] Sex: F : 1985 5 Locati [...] c proces s. Page 1 of 2 [facility] Patikandace t Name: NILSONDAGO A E Access ion #: [id number] Sex: F : 1985 5 Exam Date: 023 3:16 PM Exam Name: XR CHEST 2V Admitt ing Diagno sis(es ): Create d and electr onical ly signed by: Kevin rodriguez MD Signed Date: 3:43 PM (CT) Dictat ed by: Kevin rodriguez MD DD: 023 3:43 PM (CT) DT: 023 3:43 PM (CT) Page 2 of 2 [id number] [facility] (Imaging) [address] [facility], [place], [address], 09/22/2022 08:21:58 09/08/19 23 09/08/2022 XR, chest , 2 view No observ ation record ed. [id number] Not Available 09/22/2022 08:21:58 11/09/19 23 11/08/2022 imagi ng/di agnos tic resul t No observ ation record ed. [address] [facility] [address], [place], [address], 11/09/2022 08:17:44 Result Notes None recorded. Problems Name Problem SNOMED Code Status Onset Date Resolution Date Notes Provider Name and Address Organization Details Recorded Time Injury of groin 81719107 Active Not Available [facility] 3 23:43:27 Folliculitis 34005806 Active Not Available [employer] 3 23:43:27 Constipation 94002496 Active Not Available 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 3 23:43:27 Sprain of lateral collateral ligament of knee 29476459 Active Not Available [facility] 3 23:43:27 Acneiform eruption 409571934 Active Not Available [facility] 3 23:43:27 Aphthous ulcer of mouth 148784719 Active Not Available [facility] 3 23:43:28 Anxiety 48375333 Active Not Available [facility] 3 23:43:28 Sprain of foot 13848834 Active Not Available [facility] 3 23:43:28 Hyperlipidemi a 56787718 Active Not Available [facility] 3 23:43:28 Essential hypertension 89723653 Active Not Available [facility] 3 23:43:28 Diabetes mellitus 23520653 Active Not Available [facility] 3 23:43:28 Sleep apnea 27787099 Active Not Available [facility] 3 23:43:28 Nocturnal enuresis 7865758 Active Not Available [facility] 3 23:43:28 Tinea corporis 46577984 Active Not Available [facility] 3 23:43:28 Pain in pelvis 27226800 Active 2022 Not Available [facility] 3 23:43:27 Type 2 diabetes mellitus without complication 074510837 Active 2022 Not Available [facility] 3 23:43:27 Bipolar disorder 14516688 Active 2022 Not Available [facility] 3 23:43:27 Uncontrolled type 2 diabetes mellitus 331209868 Active 2022 Not Available [facility] 3 23:43:28 Insomnia 821434863 Active 2022 Michelle Valente MD [address], [place] [address], [place], [address] , [facility] [employer] [facility] 3 11:37:18 Persistent insomnia 466080041 Active 2022 Michelle Valente MD [address], [facility] [address], [place], [address] , [facility] 3 11:39:42 Eczema 55302772 Active 2023 [facility] [address], [place], [address] , [facility] 4 14:58:18 Notes:Some problems listed i n Documents: #[id number], #[id number] could not be added to this patient's [...] Time 09/08/2022 XR, chest, 2 view completed [id number] [facility] (Imaging) [address], [place], [address], 09/22/2022 08:21:58 09/08/2022 XR, chest, 2 view completed [id number] Information not available 09/22/2022 08:21:58 11/08/2022 imaging/lópez gnostic result completed [address], [place], [address], 11/09/2022 08:17:44 Procedure Notes None recorded. Medical Equipment None Reported. Allergies Allergen ID Allergen Name Allergen Category Reaction Reaction Severity Criticality Documentation Date Start Date Code Code System Note Provider Name and Address Organization Details Recorded Time Product containin g penicilli n (product) medicatio n Not available Not available Not available 09/22/2022 13968 8001 SNOMED Not Available [facility] 08:21:55 64027 oxycodone medicatio n Not available Not available Not available 12/16/2022 7804 RxNorm Mariana Lay MA null, [place] - [facility] 3 09:45:23 Medications Name Sig Start Date [...] BY MOUTH THREE TIMES A DAY NEEDED active Not Available Not Available No t Available phenazopyri dine 100 mg tablet TK 2 [...] % 86 /min 18 /min 97.2 [degF] 660599. 55 g 114 mm[Hg] 82 mm[Hg] Not Available [facility] 3 08:18:18 Date Recorded Body mass index (BMI) Body height Oxygen saturation Oxygen saturation in Arterial blood by Pulse oximetry Heart rate Body temperature Body weight Systolic blood pressure Diastolic blood pressure Provider Name and Address Organization Details Last Updated DateTime 3 55.8 kg/m2 170.18 cm 97 % 97 % 96 /min 97.3 [degF] 867640. 88 g 142 mm[Hg] 100 mm[Hg] Not Available [facility] 3 08:18:18 Date Recorded Body mass index (BMI) Body height Oxygen saturation Oxygen saturation in Arterial blood by Pulse oximetry Heart rate Body temperature Body weight Systolic blood pressure Diastolic blood pressure Provider Name and Address Organization Details Last Updated DateTime 3 55.1 kg/m2 170.18 cm 97 % 97 % 85 /min 97.2 [degF] 287680. 51 g 134 mm[Hg] 80 mm[Hg] Not Available [facility] 3 08:18:18 Date Recorded Body height Body mass index (BMI) Body weight Body temperature Heart rate Oxygen saturation Oxygen saturation in Arterial blood by Pulse oximetry Systolic blood pressure Diastolic blood pressure Provider Name and Address Organization Details Last Updated DateTime 3 170.18 cm 55.4 kg/m2 729886. 7 g 97.2 [degF] 99 /min 97 % 97 % 108 mm[Hg] 74 mm[Hg] VADIM Maria PA [employer] 3 11:24:49 Date Recorded Body height Body mass index (BMI) Body weight Body temperature Heart rate Oxygen saturation Oxygen saturation in Arterial blood by Pulse oximetry Systolic blood pressure Diastolic blood pressure Provider Name and Address Organization Details Last Updated DateTime 3 170.18 cm 55.8 kg/m2 253843. 6 g 97.3 [degF] 75 /min 98 % 98 % 118 mm[Hg] 62 mm[Hg] Mariana Lay MA [employer] 3 09:44:49 Social History Question Answer Notes LastModified by Organizat ion Details LastModified Time Tobacco Smoking Status Never Smoker Not Available [facility] 09/22/2022 08:17:27 What Is Your Level Of Alcohol Consumption? None [id number] Information not available 09/22/2022 In The 14 Days Before Symptom Onset, Have You Had Close Contact With A Laboratory-confirm ed COVID-19 While That Case Was Ill? No [id number] Information not available 09/22/2022 In The 14 Days Before Symptom Onset, Have You Had Close Contact With A Person Who Is Under Investigation For COVID-19 While That Person Was Ill? No [id number] Information not available 09/22/2022 Do You Use Your Seat Belt Or Car Seat Routinely? Yes [email or web address] Information not available 12/16/2022 Do You Feel Stressed (tense, Restless, Nervous, Or Anxious, Or Unable To Sleep At Night)? [id number] Information not available 12/16/2022 Sex: Unknown Functional Status None recorded. Mental Status None recorded. Family History Relationship Description Onset Age of this Age Resolved Age Notes LastModified by Organization Details LastModified Time Maternal Grandfather Heart disease [id number] Not available 09/22/2022 08:17:34 Maternal Grandfather Family history of malignant neoplasm [id number].030 [id number] Not available 09/22/2022 08:17:34 Maternal Grandfather Hypertensive disorder MIGRATION.426 [id number] Not available 09/22/2022 08:17:34 Maternal Grandmother Heart disease [id number] [id number] Not available 09/22/2022 08:17:34 Maternal Grandmother Depressive disorder [id number].627 [id number] Not available 09/22/2022 08:17:34 Maternal Grandmother Hypertensive disorder [id number] [id number] Not available 09/22/2022 08:17:34 Paternal Grandfather Heart disease [id number].336 [id number] Not available 09/22/2022 08:17:34 Paternal Grandfather Family history of malignant neoplasm [id number].775 [id number] Not available 09/22/2022 08:17:34 Paternal Grandfather Hypertensive disorder [id number].674 [id number] Not available 09/22/2022 08:17:34 Paternal Grandmother Heart disease [id number] [id number] Not available 09/22/2022 08:17:34 Paternal Grandmother Hypertensive disorder [id number] [id number] Not available 09/22/2022 08:17:34 Father Diabetes mellitus [id number].061 [id number] Not available 09/22/2022 08:17:34 Father Hypertensive disorder [id number].186 [id number] Not available 09/22/2022 08:17:34 Mother Depressive disorder [id number].495 [id number] Not available 09/22/2022 08:17:34 Mother Hypertensive disorder [id number].020 [id number] Not available 09/22/2022 08:17:34 Medical History No medical history recorded. Gynecological HistoryNo gynecological history recorded. Obstetrics History GPAL:G 0 P 0 0 0 0 Past Encounters Encounter ID Performer Location Encounter Start Date Encounter Closed Date Diagnosis/Indication Diagnosis SNOMED-CT Code Diagnosis ICD10 Code Diagnosis Note [id number] Michelle Valente MD [facility] [place] [address] 01/06/2021 00:00:00 01/06/2021 19:51:12 [id number] Michelle Valente MD [facility] Rina esparza [facility] [place] [address] [address] [place] [address] 04/27/2021 00:00:00 04/27/2021 20:57:20 [id number] Michelle Valente MD [facility] Rina esparza [facility] [place] [address] [address] [place] [address] 06/15/2021 00:00:00 06/15/2021 19:04:33 [id number] Michelle Valente MD [facility] Rina esparza [facility] [place] [address] [address] [place] [address] 07/07/2021 00:00:00 07/08/2021 06:10:39 [id number] Michelle Valente MD [facility] [place] [address] 12/15/2021 00:00:00 12/16/2021 06:17:08 [id number] Michelle Valente MD [facility] Rina esparza [facility] [place] [address] 07/28/2022 00:00:00 07/28/2022 20:12:37 [id number] Michelle Valente MD [facility] Rina esparza [address] [place] [address] [place] [address] 09/08/2022 00:00:00 09/09/2022 06:12:28 [id number] Michelle Valente MD [facility] Rina esparza [address] [place] [address] [place] [address] 11/15/2022 11:16:21 11/15/2022 11:59:20 Pain in pelvis 23323121 R10.2 [id number] Michelle Valente MD [facility] Gustavo vilma [address] [place] [address] [place] [address] 12/16/2022 09:38:49 12/16/2022 10:02:06 Adult health examination 883867162 Z00.00 Ok to participat e in exercise at the GYM. Type 2 lópez betes mellitus without complication 959453205 E11.9 Hyperlipid emia screening 267351099 Z13.220 Bipolar disorder 5685510 4 F31.9 Continue meds Health Concerns Section [...] 2020 (MEDICAID REPLACEMENT - HMO) Cora Shultz [id number] Cora Shultz 12/16/2022 1 [employer] [place] - DOS ON OR AFTER 2020 (MEDICAID REPLACEMENT - HMO) Cora Shultz [id number] Cora Shultz Notes Date Note Type Note Provider Name and Address Organization Details Recorded Time 11/15/2022 text/html Here today for f/u of UTI. finished cipro after stopped cipro. Pain is located in pelvic area. No burning on urination. No frequency or urgency. Stopped the cipro on Tuesday and sxs started again Tuesday night. No vaginal d/c. Michelle Valente MD [address], [facility] [address], [place], [address], [facility] [employer] [facility] [employer] 11/15/2022 13:38:00 12/16/2022 text/html Here today for annual physical. Doing ok. Wants to get qualified for G[employer] membership submitted to Insurance company. 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 Michelle Valente MD [address], [facility] [address], [place], [address], [employer] 12/16/2022 20:22:31 OBGyn Episode No OBEpisode recorded.
--- OUTSIDE RECORDS SUMMARY | 2024-12-02 20:33 | XMS_ITS | Encounter Summary ---
Author Organization [facility] Address [address] [place] [address] Care Team Providers Care Corporate Ethics Officer Name Role Phone Michelle Valente MD Primary Care Provider [phone] Reason for Visit * Reason Onset Date Comments Concerns 09/08/2021 Appointment 09/08/2021 Encounter Details Date Type Department Care Team (Late st Contact Info) Description 09/08/2021 Telephone [facility] [address] [place] [address] Minoo Verdin MD Need new address Concerns; Appointment Social History Tobacco Use Types Packs/Day Years Used Date Smoking Tobacco: Never Smokeless Tobacco: Never Alcohol Use Standard Drinks/Week Comments No 0 (1 standard drink = 0.6 oz pur e alcohol) Comments No Sex and Gender Information Value Date Recorded Sex Assigned at Female 04/20/2021 1:09 PM CDT Legal Sex Female 5:34 AM MEAT SCRUBBER Gender Identity Female 04/20/2021 1:09 PM CDT [...] week as above. Will cancel today's appt. SCRUBBER * Telephone Encounter - Dudley Johns RN - 09/08/2021 11:24 AM CST She lives w/ her parents and brother who last Wed started w/ Covid symptoms. All broke out with fever on Tuesday, but gone on Tuesday. Can she still come in and be seen? Will check w/ supervisors and provider then call her back. Appt at 4pm today. SCRUBBER * Telephone Encounter - Karrie Santos - 09/08/2021 11:19 AM CST Pt states she has come in contact with someone who had covid last week. She states she has since tested negative and has no symptoms. CB# [phone] SCRUBBER documented in this encounter Plan of Treatment Not on file documented as of this encounter Visit Diagnoses Not on filedocumented in this encounter Care Teams Corporate Ethics Officer Relationship Specialty Start Date End Date Michelle Valente MD [address] [place] [address] [address] [place] [address] PCP - General 11/29/17 documented as of this encounter
[2024-12-02 20:39] VITALS: BP 138/75; PULSE 84; RESP 22; TEMP 36.9; O2SAT 92
--- NOTE | 2024-12-02 22:10 | ED.UPPEXIN ---
HPI - Extremity Injury (Upper) General Chief Complaint: Extremity Injury, Upper Stated Complaint: injury to right wrist- felt pop Time Seen by Provider: 12/02/24 21:20 Source: patient Mode of arrival: ambulatory Limitations: no limitations History of Present Illness HPI narrative: This is a 39 year old male that presents to the ER for right wrist injury. Reports she picked up a box of sauce packets and felt a pop in her right wrist. Reports swelling and pain in the area. Reports decreased ROM due to pain. Denies numbness. Related Data Home Medications ?Medication ?Instructions ?Recorded ?Confirmed ?Last Taken ?Type Aleve 06/15/19 Unknown History Vitamin C 06/15/19 Unknown History ertugliflozin 15 mg tablet mg 06/15/19 Unknown History (Steglatro) fluvoxamine 100 mg tablet mg 06/15/19 Unknown History insulin glargine 100 unit/mL (3 unit subcut 06/15/19 Unknown History mL) subcutaneous pen (Basaglar KwikPen U-100 Insulin) metformin 500 mg tablet,extended 2,000 mg PO DAILY 06/15/19 06/15/19 Unknown History release 24 hr multivitamin,tx-minerals 1 cap PO DAILY 06/15/19 06/15/19 Unknown History (Multi-Vitamin HP/Minerals capsule) norethindrone (contraceptive) 0.35 mg 06/15/19 Unknown History mg tablet omega 5-eah-rtj-fish oil 1,000 mg 1 cap PO DAILY 06/15/19 06/15/19 Unknown History (120 mg-180 mg) capsule (Fish Oil) quetiapine 50 mg DAILY 06/15/19 06/15/19 Unknown History trazodone 50 mg tablet 06/15/19 06/15/19 Unknown History vitamin E 268 mg (400 unit) capsule 400 unit PO DAILY 06/15/19 06/15/19 Unknown History doxycycline monohydrate 100 mg 08/10/21 Unknown History capsule empagliflozin 25 mg tablet mg 08/10/21 Unknown History (Jardiance) fenofibrate nanocrystallized 145 mg PO 08/10/21 Unknown History mg tablet liraglutide 0.6 mg/0.1 mL (18 mg/3 mg subcut 08/10/21 Unknown History mL) subcutaneous pen injector ([employer] LED Productsza 2-Mervin) spironolactone 100 mg tablet 08/10/21 Unknown History Allergies Allergy/AdvReac Type Severity Reaction Status Date / Time Penicillins Allergy Mild Anaphylaxis Verified 08/16/24 21:21 oxycodone Allergy Unknown Rash Verified 08/16/24 21:21 clindamycin Allergy Rash Verified 08/16/24 21:21 Latex, Natural Rubber Allergy Rash Verified 08/16/24 21:21 Review of Systems Review of Systems: CONSTITUTIONAL: Denies fever MUSCULOSKELETAL: Reports joint pain, and myalgia. NEUROLOGIC: Denies numbness All systems reviewed & are unremarkable except as noted in HPI and below PMFSH Past Medical History Medical History Fibroids Diabetes Morbid obesity HTN (hypertension) Social History Social History Smoking status: Never smoker Exam Narrative: GENERAL: Well-appearing, obese, and in no acute distress. HEAD: Normocephalic, atraumatic. EYES: EOMI. EXTREMITIES: Normal range of motion. No edema or obvious deformity. Normal radial pulse. Normal sensation SKIN: Warm, dry, no rash. NEURO: No focal deficits. Alert and oriented x3. PSYCH: Normal mood and affect Course Course Emergency Course: patient updated on her workup and agrees with plan of care Vital Signs Vital signs: Vital Signs Temperature 98.4 F 12/02/24 20:39 Pulse Rate 84 12/02/24 20:39 Respiratory Rate 22 H 12/02/24 20:39 Blood Pressure 138/75 12/02/24 20:39 Pulse Oximetry 92 12/02/24 20:39 Oxygen Delivery Room Air 12/02/24 20:39 Temperature 98.4 F 12/02/24 20:39 Pulse Rate 84 12/02/24 20:39 Respiratory Rate 22 H 12/02/24 20:39 Blood Pressure 138/75 12/02/24 20:39 Pulse Oximetry 92 12/02/24 20:39 Oxygen Delivery Room Air 12/02/24 20:39 MDM - Extremity Injury (Upper) MDM Narrative Medical decision making narrative: Patient presents to the emergency department for right wrist pain after an injury. She is neurovascularly intact. Right wrist x-ray without acute osseous abnormalities. Patient placed in Myron wrap. Will be given follow-up with Orthopedics. She was given warnings to return to the ER Differential Diagnosis Differential diagnosis: Likely sprain and strain of wrist and fracture of wrist Imaging Data Radiologist's impression: ITS Impressions Wrist X-Ray 12/02/24 21:07 IMPRESSION: No acute osseous abnormality right wrist. Critical Care Time Critical Care Time Critical Care Time: No Discharge Plan Discharge Clinical Impression: Sprain and strain of wrist Patient Disposition: Home Condition: Stable Instructions: Wrist Sprain (ED) Additional Instructions: Return to the ER if you experience fever, redness and swelling of your extremity, numbness or any other symptoms that are concerning to you Wear MYRON wrap. No weight on the affected extremity. Ice and elevate extremity. Pain medication as needed and directed. Follow up with orthopedics for further care. Patient Language: Singaporean Prescriptions: No Action metformin 500 mg tablet extended release 24 hr 2,000 mg PO DAILY fluvoxamine 100 mg tablet norethindrone (contraceptive) 0.35 mg tablet Basaglar KwikPen U-100 Insulin 100 unit/mL (3 mL) insulin pen SUBCUT quetiapine 50 mg DAILY vitamin E 400 unit Capsule 400 unit PO DAILY omega 6-gaj-zqm-fish oil [Fish Oil] 1,000 mg (120 mg-180 mg) Capsule 1 cap PO DAILY Vitamin C Aleve trazodone 50 mg tablet Multi-Vitamin HP/Minerals Capsule 1 cap PO DAILY Steglatro 15 mg tablet naproxen [Naprosyn] 500 mg tablet 500 mg PO BID PRN (Reason: pain) Qty: 20 0RF spironolactone 100 mg tablet doxycycline monohydrate 100 mg capsule fenofibrate nanocrystallized 145 mg tablet PO Jardiance 25 mg tablet Victoza 2-Mervin 0.6 mg/0.1 mL (18 mg/3 mL) pen injector SUBCUT prednisone 20 mg tablet 20 mg PO DAILY 5 Days Qty: 5 0RF Zyrtec 10 mg capsule 10 mg PO DAILY PRN (Reason: allergy symptoms) Qty: 30 0RF famotidine [Pepcid] 20 mg tablet 20 mg PO BID PRN (Reason: allergies) Qty: 30 0RF ciprofloxacin HCl [Cipro] 500 mg tablet 500 mg PO Q12H Qty: 10 0RF oseltamivir [Tamiflu] 75 mg capsule 75 mg PO Q12H 5 Days Qty: 9 0RF benzonatate 200 mg capsule 200 mg PO TID PRN (Reason: cough) Qty: 14 0RF ibuprofen 800 mg tablet 800 mg PO TID PRN (Reason: pain) 7 Days Qty: 21 0RF acetaminophen 500 mg tablet 1,000 mg PO TID PRN (Reason: bhupendra) 7 Days Qty: 42 0RF methocarbamol 750 mg tablet 1,500 mg PO TID Qty: 35 0RF Follow-up/Referrals: Poppy,Soren Dalal MD [Primary Care Provider] - Isac Quan MD [Physician] -
--- OUTSIDE RECORDS SUMMARY | 2024-12-02 22:12 | XMS_ITS | Encounter Summary ---
Author Organization [facility] Address [address] [place] [address] Care Team Providers Care Data Center Architect Name Role Phone Michelle Valente MD Primary Care Provider Encounter Details Date Type Department Care Team (Late st Contact Info) Description 06/26/2021 Telephone [facility] [address] [place] [address] Kam Ramesh MD [facility] [place] [address] Social History Tobacco Use Types Packs/Day Years Used Date Smoking Tobacco: Never Smokeless Tobacco: Never Alcohol Use Standard Drinks/Week Comments No 0 (1 standard drink = 0.6 oz pur e alcohol) Comments No Sex and Gender Information Value Date Recorded Sex Assigned at Female 04/20/2021 1:09 PM CDT Legal Sex Female 5:34 AM COP EXAMINER Gender Identity Female 04/20/2021 1:09 PM CDT Sexual Orientation Straight 04/20/2021 1: 09 PM CDT documented as of this encounter Patient Instructions * Patient Instructions* Carissa Travis - 06/26/2021 11:47 AM COP EXAMINER Pt is calling to see if she can get a order of test strips sent over to the pharmacy. EXAMINER documented in this encounter Plan of Treatment Not on file documented as of this encounter Visit Diagnoses Not on filedocumented in this encounter Care Teams Data Center Architect Relationship Specialty Start Date End Date Michelle Valente MD [facility] [place] [id number] PCP - General 11/29/17 documented as of this encounter
--- OUTSIDE RECORDS SUMMARY | 2024-12-02 22:12 | XMS_ITS | Clinical Summary ---
Author Organization [facility] Address [address] [place] [address] Care Team Providers Care Buck Swamper Name Role Phone Soren Mcwilliams MD Primary Care Provider [phone] Yoel Paulson MD Unavailable [phone] Allergies Active Allergy Reactions Criticality Noted Date [...] hyperglycemia, with long-term current use of insulin ([facility]) Take 2 tablets (1,000 mg total) by mouth 2 (two) times a day 360 tablet 3 08/01/19 25 026 Active blood-glucose meter miscIndications:Typ e 2 diabetes mellitus with hyperglycemia, with long-term current use of insulin ([facility]) One Touch Verio Meter Use to test [...] hyperglycemia, with long-term current use of insulin ([facility]) Inject 0.5 mL (10 mg total) under the skin every 7 days 6 mL 3 11/01/19 25 026 Active blood-glucose sensor (FreeStyle Barrie 3 Sensor) deviceIndications:T ype 2 diabetes mellitus with hyperglycemia, with long-term current use of insulin ([facility]) One sensor every 14 days 6 each [...] hyperglycemia, with long-term current use of insulin ([facility]) Use to inject insulin under your skin [...] 09/14/2024 Assessment & Plan (09/14/2024 2:20 PM SALES REPRESENTATIVE [employer]): Pap done today NIEVES (obstructive sleep apnea) [...] 04/17/2024 Assessment & Plan (08/15/2024 1:57 PM SALES REPRESENTATIVE [employer]): Patient has not re-established with Psychiatry, information [...] fenofibrate 145mg daily. Last lipid panel: 01/17/24 GXE=444, YS=804. Assessment & Plan (08/15/2024 1:57 PM SALES REPRESENTATIVE [employer]): Awaiting labs, continues Atorvastatin. Assessment & Plan (08/01/2024 1:48 PM SALES REPRESENTATIVE [employer]): Chronic problem. Currently taking Atorvastatin 20mg & fenofibrate 145mg daily. Last lipid panel: 01/17/24 YND=290, KI=337. Assessment & Plan (04/17/2024 3:14 PM CDT): Chronic problem. Currently taking Atorvastatin 20mg & fenofibrate 145mg daily. Last lipid panel: 01/17/24 ESG=689, KX=714. Assessment & Plan (01/17/2024 11:45 AM CDT): Chronic problem. Currently taking Atorvastatin 20mg & fenofibrate 145mg daily. Last lipid panel: 10/09/21 LDL=could not calc, BF=505. Will update labs today. Verified that she uses [employer] Aware to check results/results letter in [employer]. Will contact by phone if needed. Morbid [...] eye exam (05/01/24 no TARA sharma in [place]) UTD on labs. Discussed with Xiomara Shultz: [...] infection. Assessment & Plan (08/01/2024 2:08 PM SALES REPRESENTATIVE [employer]): Chronic problem. A1c worsened from 9.3% 04/17/24 to now 10.0%. interested in insulin pump therapy but wants to check with insurance to see what cost/coverage is. Will send me a [employer] message if pump is covered. Will increase [...] for DM eye exam; last 2022 at [facility] in [place]. Letter sent to get copy of report. [...] at bedtime DM eye exam 2022 at [facility] in [place]. Letter sent to get copy of report. Will update labs today. Verified that she uses [employer]. Aware to check results/results letter in [employer]. Will contact by phone if needed. Discussed [...] infection. Assessment & Plan (09/15/2023 12:26 PM SALES REPRESENTATIVE [employer]): Hba1c was Lab Results Component Value Date [...] standard. Assessment & Plan (08/01/2024 1:48 PM SALES REPRESENTATIVE [employer]): Chronic problem. Continue metformin & Spironolactone. Assessment & Plan (04/17/2024 3:13 PM CDT): Chronic problem. Continue metformin & Spironolactone. Assessment & Plan (01/17/2024 11:43 AM CDT): Chronic problem. Continue metformin & Spironolactone. Assessment & Plan (09/15/2023 12:27 PM SALES REPRESENTATIVE [employer]): Continue aldactone Eczema 07/27/2023 Persistent insomnia 02/13/2023 [...] stable. Assessment & Plan (09/14/2024 2:21 PM SALES REPRESENTATIVE [employer]): We will get her schedule for surgery [...] 09/14/2024 Assessment & Plan (08/15/2024 1:58 PM SALES REPRESENTATIVE [employer]): Chronic problem. Currently taking lisinopril 10mg daily. Assessment & Plan (08/01/2024 1:48 PM SALES REPRESENTATIVE [employer]): Chronic problem. Currently taking lisinopril 10mg daily. Assessment & Plan (04/17/2024 3:13 PM CDT): Chronic problem. Currently taking lisinopril 10mg daily. Assessment & Plan (01/17/2024 11:44 AM CDT): Chronic problem. Currently taking lisinopril 10mg daily. Will update labs today. Verified that she uses [employer] Aware to check results/results letter in [employer]. Will contact by phone if needed. Class 3 severe obesity due t o excess calories with serious comorbidity and body mass index (BMI) of 50.0 to 59.9 in adult 01/17/2024 Assessment & Plan (08/15/2024 1:57 PM SALES REPRESENTATIVE [employer]): Healthy, low carbohydrate lifestyle and exercise for 150min/week recommended. Assessment & Plan (05/15/2024 3:22 PM CDT): Healthy, low carbohydrate lifestyle and exercise for 150min/week recommended Assessment & Plan (04/17/2024 4:02 PM CDT): BMI Follow-up includes: nutrition counseling, exercise counseling, and education provided. Assessment & Plan (01/17/2024 12:57 PM CDT): Discussed healthy diet and importance of regular physical activity (20- 30min/day, 150min/wk). Sent in MounFixber 2.5mg weekly. Will call office if not covered. 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 06/27/2024 Encounters Date Type Department Care Team Description 11/28/2024 Documentation [facility] [address] [place] [phone] Brice Wells, TRUDI 11/21/2024 Telephone Mehran De Oliveira [address] [facility] [address] [place] [address] Mary Gonzalez MD Vaginal Bleeding 11/13/2024 Results Follow-Up Mehran De Oliveira [address] [place] [address] [address] [place] [address] Micheline Singh MA 11/07/2024 4:25 PM CDT - 11/07/2024 11:59 PM CDT Hospital Encounter [address] [address] Low grade squamous intraepith lesion on cytologic smear cervix (lgsil) Discharge Disposition: Discharge to home or self care 11/07/2024 3:30 PM CDT Procedure visit Mehran De Oliveira [address] [facility] [address] [place] [address] Mary Gonzalez MD Low grade squamous intraepith lesion on cytologic smear cervix (lgsil) (Primary Dx); Pre-procedure lab exam; Intramural leiomyoma of uterus; Vaginal discharge 11/05/2024 Telephone [facility] [address] [place] [address] Haleigh Ramirez NP Prior Auth (Freestyle Barrie 3) 10/31/2024 2:30 PM CDT Office Visit [facility] [address] [place] [phone] Haleigh Ramirez NP Type 2 diabetes mellitus with hyperglycemia, with long-term current use of insulin (HCC) (Primary Dx); Hyperlipidemia associated with type 2 diabetes mellitus (HCC); PCOS (polycystic ovarian syndrome) 10/30/2024 Telephone [facility] [address] [place] [address] Brenda Sheriff MD Cpap titration results / cpap order 10/25/2024 8:00 PM CDT - 10/25/2024 11:59 PM CDT Hospital Encounter [facility] [address] [place] [address] NIEVES (obstructive sleep apnea) Discharge Disposition: Discharge to home or self care 10/01/2024 Telephone [facility] [address] [facility] [address] [place] [address] Yumiko Ovalle MA 09/27/2024 Results Follow-Up [facility] [address] [facility] [address] [facility] [place] [address] Micheline Singh MA 09/26/2024 Telephone [facility] [address] [place] [address] Angeles Birmingham [facility] Sleep Study Results 09/24/2024 Orders Only [facility] [address] [facility] [address] [place] [address] Brenda Sheriff MD NIEVES (obstructive sleep apnea) (Primary Dx) 09/21/2024 8:00 PM SALES REPRESENTATIVE [employer] - 09/21/2024 11:59 PM SALES REPRESENTATIVE [employer] Hospital Encounter [facility] [address] [place] [address] NIEVES (obstructive sleep apnea); Psychophysiological insomnia; Delayed sleep phase syndrome; Family history of sleep apnea; BMI 50.0-59.9, adult (HCC); Nonsmoker Discharge Disposition: Discharge to home or self care 09/21/2024 Telephone [facility] [address] [place] [address] Mary Gonzalez MD Test Results 09/14/2024 2:30 PM SALES REPRESENTATIVE [employer] - 09/14/2024 11:59 PM SALES REPRESENTATIVE [employer] [place] [address] Well woman exam Discharge Disposition: Discharge to home or self care 09/14/2024 1:45 PM SALES REPRESENTATIVE [employer] Office Visit [facility] [address] [place] [address] Mary Gonzalez MD Intramural leiomyoma of uterus (Primary Dx); Well woman exam 09/04/2024 Telephone [facility] [address] [place] [address] Yoel Paulson MD from Last 3 Months [...] [place] Cancer Neg Hx no colon or clerk television 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 cancer cmt 09/14/24 Relation Name Status Comments [...] on file Legal Sex Female 1:26 AM SALES REPRESENTATIVE [employer] Gender Identity Female 12/25/2022 7:50 PM CDT [...] 36.6 C (97.8 F) 08/15/2024 1:28 PM SALES REPRESENTATIVE [employer] Respiratory Rate 18 10/31/2024 2:30 PM CDT Oxygen Saturation 99% 08/15/2024 1:28 PM SALES REPRESENTATIVE [employer] Inhaled Oxygen Concentration - - Weight 153.3 [...] apnea) PSG (SIMPLE) Routine 09/21/2024 8:16 PM SALES REPRESENTATIVE [employer] NIEVES (obstructive sleep apnea) Psychophysiological insomnia Delayed sleep phase syndrome Family history of sleep apnea BMI 50.0-59.9, adult (HCC) Nonsmoker HIGH RISK HPV DNA DETECTION WITH GENOTYPING Routine 09/14/2024 2:30 PM SALES REPRESENTATIVE [employer] Well woman exam PAP AND HIGH RISK HPV, REFLEX TO GENOTYPING Routine 09/14/2024 12:21 PM SALES REPRESENTATIVE [employer] Well woman exam EGFR Routine 08/15/2024 2:01 PM SALES REPRESENTATIVE [employer] Hypertension associated with type 2 diabetes mellitus (HCC) LIPID PANEL Routine 08/15/2024 2:01 PM SALES REPRESENTATIVE [employer] Hypertension associated with type 2 diabetes mellitus [...] results best viewed via link to PDF [facility] Department of Pathology [address] [place] [address] Note to Patients: This report may contain [...] Final Report Patient Name: XIOMARA SHULTZ Address: [address] [place] [address] Gender: F : 1985 (Age: 39) Service: Location: [facility] : [id number] [facility] [id number] Patient Type: SPECIMEN Taken: 11/07/2024 Received: 11/08/2024 [...] determined by the Surgical Pathology Department at [facility] as part of an ongoing quality assurance clerk program and in compliance with federally mandated [...] by the Surgical Pathology Department [facility]. It has not been cleared or approved by the U. S. Food and Drug Administration. Note for decalcified specimens: This assay has not been validated on decalcified tissues. Results should be interpreted with caution given the possibility of false negativity on decalcified specimens Mary Gonzalez MD LAB PATHOLOGY ORDER TAYLOR Final Result PATHOLOGY [address] [place] [address] * (ABNORMAL) POCT hemoglobin A1c (10/31/2024 2:34 [...] ORDERABLES Fin al Result Performing Organization Address [facility] Co de Phone Number [facility] [address] * PSG (09/21/2024 8:16 PM SALES REPRESENTATIVE [employer]) Brenda Sheriff MD SLEEP CENTER ORDERABLES Fin al Result Performing Organization Address [facility] de Phone Number [facility] [address] * (ABNORMAL) High Risk HPV DNA Detection with Genotyping (Molecular component) (09/14/2024 2:30 PM SALES REPRESENTATIVE [employer]) HPV HR 16 Not Detected Not Detected [facility] Comment:Testing performed by : [facility], [address] [place]., [address] HPV HR 18 Not Detected Not Detected [facility] Comment:Testing performed by : [facility], [address] [place]., [address] HPV HR Non 16/18 Detected(A) Not Detected [facility] Comment: Interpretive Data Nucleic acid amplification for [...] this test have been verified by the [facility] Molecular Infectious Disease laboratory. Correlate with separately reported cytology results, as applicable. Interpretive data last revised 23 Testing performed by: [facility], [address] [place]., [address] Endocervical 09/14/2024 2:30 PM SALES REPRESENTATIVE [employer] 2024 3:13 PM SALES REPRESENTATIVE [employer] Narrative CERNER - 09/18/2024 4:22 AM SALES REPRESENTATIVE [employer] Clinical history and diagnosis->Well Woman Exam: Cervical Cancer Screening Number of vials->1 Testing type->Screening Last menstrual period (date if known)->Unknown Contraceptive use->IUD Mary Gonzalez MD LAB BODY FLUIDS AND STOOLS ORDERABLES Final Result Performing Organization Address City/State/[facility] Co ks Phone Number [facility] [address] [facility] Department [place] [address] [facility] * (ABNORMAL) Pap and High Risk HPV and Genotyping (Cytology Component) (09/14/2024 12:21 PM SALES REPRESENTATIVE [employer]) Thin prep (Pap test) 09/14/2024 12:21 PM SALES REPRESENTATIVE [employer] 09/14/2024 12:21 PM SALES REPRESENTATIVE [employer] Narrative PATHOLOGY - 09/19/2024 1:33 PM SALES REPRESENTATIVE [employer] [facility] Department of Pathology [address] [place] [address] Final Report with Addendum Note to [...] the details. Patient Name: XIOMARA SHULTZ Address: [address] [place] [address] , [place] [address] Gender: F : 1985 (Age: 39) Service: Location: Hospital #: [id number] Patient Type: SPECIMEN Taken: 09/14/2024 Received: 09/14/2024 [...] this test have been verified by the [facility] Molecular Infectious Disease laboratory. Correlate with [...] determined by the Surgical Pathology Department at [facility] as part of an ongoing quality assurance clerk program and in compliance with federally mandated [...] by the Surgical Pathology Department [facility]. It has not been cleared or approved by the U. S. Food and Drug Administration. Mary Gonzalez MD LAB CYTOLOGY ORDERA BLE Final Result PATHOLOGY [address] [place] [address] * eGFR (08/15/2024 2:01 PM SALES REPRESENTATIVE [employer]) eGFR >90 >=60 mL/min/1. 73 m2 Comment: [...] last reviewed 2021. Blood 08/15/2024 2:01 PM SALES REPRESENTATIVE [employer] 08/15/2024 9:27 PM SALES REPRESENTATIVE [employer] us Soren Mcwilliams MD LAB BLOOD ORDERABLES Final Result [facility] [address] Department [place] [address] * (ABNORMAL) Lipid panel (08/15/2024 2:01 PM SALES REPRESENTATIVE [employer]) Cholesterol 171 30 - 199 mg/dL Comment: [...] ratio 7 EUN Blood 08/15/2024 2:01 PM SALES REPRESENTATIVE [employer] 08/15/2024 9:08 PM SALES REPRESENTATIVE [employer] Soren Mcwilliams MD LAB BLOOD ORDERABLES Final Result Performing Organization Address [facility] de Phone Number [facility] [address] [employer] [place] [address] * DIABETES EYE EXAM (05/01/2024 7:23 AM [...] ORDERABLES Dilcia l Result Performing Organization Address [facility] Co de Phone Number [facility] [address] [place] [address] from Last 3 Months or Most Recently Relevant to Health Maintenance Insurance [employer] [facility] [place] [address] [employer] [facility] Care Teams Buck Swamper Relationship Specialty Start Date End Date Soren Mcwilliams MD [address] [facility] [address] [place] [address] PCP - General Family Medicine 04/17/24 Yoel Paulson MD [address] [facility] [address], [place] [address] Internship Coordinator Obstetrics and Gynecology 08/15/24
--- OUTSIDE RECORDS SUMMARY | 2024-12-02 22:12 | XMS_ITS | CONTINUITY OF CARE DOCUMENT ---
Author Name codey, codey Address Unknown Organization [facility] Address [address] [place] [address] Phone [phone] Care Team Providers Care Binder Cutter Name Role Phone Mario Alberto BUNDY, Agusto Olmos Unavailable [phone] MELISA BUNDY, VIKTOR Unavailable [phone] CELENA BUNDY, PENNY Unavailable [phone] RESULTS Date Observation Value Provider Reference [...] Payer name Policy type / Coverage type [place] [employer] party ID AMIE MEDICAID (2) Medicaid [id number]
--- OUTSIDE RECORDS SUMMARY | 2024-12-02 22:12 | XMS_ITS | Encounter Summary ---
Author Organization [facility] Healthcare Address [address] [place] [address] Care Team Providers Care Strip Cutter Name Role Phone Soren Mcwilliams MD Primary Care Provider [phone] Yoel Paulson MD Unavailable [phone] Encounter Details Date Type Department Care Team (Late st Contact Info) Description 11/13/2024 Results Follow-Up [facility] [address] [address] Micheline Singh MA Social History [...] on file Legal Sex Female 1:26 AM PROPOSAL COORDINATOR Gender Identity Female 12/25/2022 7:50 PM CDT [...] on filedocumented in this encounter Care Teams Strip Cutter Relationship Specialty Start Date End Date Soren Mcwilliams MD [address] [facility] [place] [place] [address] PCP - General Family Medicine 04/17/24 Yoel Paulson MD [address] [place] [address] [address], [place] [address] Hot [place]ale Worker Obstetrics and Gynecology 08/15/24 documented as of this encounter
--- OUTSIDE RECORDS SUMMARY | 2024-12-02 22:12 | XMS_ITS | Referral Summary ---
Author Organization [facility] Address [address] [place] [address] Care Team Providers Care Plant Maintenance Technician Name Role Phone Soren Mcwilliams MD Primary Care Provider [phone] Yoel Paulson MD Unavailable Encounters Date Type Department Care Team Description 11/28/2024 Documentation [facility] Care Services [address] [place] [address] Brice Wells, TRUDI 11/21/2024 Telephone [facility] International[facility]AYLA De Oliveira [address] [place] [address] [address] [place] [address] Mary Gonzalez MD Vaginal Bleeding 11/13/2024 Results Follow-Up [facility] Olive[facility] [address] [place] [address] [address] [place] [address] Micheline Singh MA 11/07/2024 4:25 PM CDT - 11/07/2024 11:59 PM CDT Hospital Encounter [address] [address] Low grade squamous intraepith lesion on cytologic smear cervix (lgsil) Discharge Disposition: Discharge to home or self care 11/07/2024 3:30 PM CDT Procedure visit Mehran De Oliveira [address] [place] [address] [address] [place] [phone] Mary Gonzalez MD Low grade squamous intraepith lesion on cytologic smear cervix (lgsil) (Primary Dx); Pre-procedure lab exam; Intramural leiomyoma of uterus; Vaginal discharge 11/05/2024 Telephone [facility] [address] [place] [phone] Haleigh Ramirez, KIRSTIE Prior Auth (Freestyle Barrie 3) 10/31/2024 2:30 PM CDT Office Visit [facility] [address] [place] [phone] Haleigh Ramirez, KIRSTIE Type 2 diabetes mellitus with hyperglycemia, with long-term current use of insulin (HCC) (Primary Dx); Hyperlipidemia associated with type 2 diabetes mellitus (HCC); PCOS (polycystic ovarian syndrome) 10/30/2024 Telephone [facility] [address] [place], [place] [phone] Brenda Sheriff MD Cpap titration results / cpap order 10/25/2024 8:00 PM CDT - 10/25/2024 11:59 PM CDT Hospital Encounter [facility] [address] [place], [place] [phone] NIEVES (obstructive sleep apnea) Discharge Disposition: Discharge to home or self care 10/01/2024 Telephone [facility] Pulmonology [facility] [address] [address] Yumiko Ovalle MA 09/27/2024 Results Follow-Up [facility] [address] [facility] [address] [place] [phone] Micheline Singh MA 09/26/2024 Telephone [facility] [address] [place], [place] [phone] Angeles Birmingham, [facility] Sleep Study Results 09/24/2024 Orders Only [facility]mon[facility] [address] [facility] [place] [phone] Brenda Sheriff MD NIEVES (obstructive sleep apnea) (Primary Dx) 09/21/2024 Telephone [facility] [address] [place] [address] [address] [place] [phone] Mary Gonzalez MD Test Results 09/21/2024 8:00 PM COLLECTION DEVELOPMENT LIBRARIAN - 09/21/2024 11:59 PM COLLECTION DEVELOPMENT LIBRARIAN Hospital Encounter [facility] [address] [place] [address] NIEVES (obstructive sleep apnea); Psychophysiological insomnia; Delayed sleep phase syndrome; Family history of sleep apnea; BMI 50.0-59.9, adult (HCC); Nonsmoker Discharge Disposition: Discharge to home or self care 09/14/2024 2:30 PM COLLECTION DEVELOPMENT LIBRARIAN - 09/14/2024 11:59 PM COLLECTION DEVELOPMENT LIBRARIAN Hospital Encounter [address] [address] Well woman exam Discharge Disposition: Discharge to home or self care 09/14/2024 1:45 PM COLLECTION DEVELOPMENT LIBRARIAN Office Visit [facility] [address] [place] [address] [address] [phone] Mary Gonzalez MD Intramural leiomyoma of uterus (Primary Dx); Well woman exam 09/04/2024 Telephone [facility] [address] [place] [address] [address] [phone] Yoel Paulson MD from Last 3 Months [...] use of insulin ([facility]) Inject 0.5 mL (10 mg total) under the skin every 7 days 6 mL 11/01/19 25 026 Active blood-glucose sensor (FreeStyle Barrie 3 Sensor) deviceIndications:T ype 2 diabetes mellitus with hyperglycemia, with long-term current use of insulin ([facility]) One sensor every 14 days 6 each [...] use of insulin ([facility]) Use to inject insulin under your skin [...] 09/14/2024 Assessment & Plan (09/14/2024 2:20 PM COLLECTION DEVELOPMENT LIBRARIAN): Pap done today NIEVES (obstructive sleep apnea) [...] 04/17/2024 Assessment & Plan (08/15/2024 1:57 PM COLLECTION DEVELOPMENT LIBRARIAN): Patient has not re-established with Psychiatry, information [...] fenofibrate 145mg daily. Last lipid panel: 01/17/24 QWP=913, FH=973. Assessment & Plan (08/15/2024 1:57 PM COLLECTION DEVELOPMENT LIBRARIAN): Awaiting labs, continues Atorvastatin. Assessment & Plan (08/01/2024 1:48 PM COLLECTION DEVELOPMENT LIBRARIAN): Chronic problem. Currently taking Atorvastatin 20mg & fenofibrate 145mg daily. Last lipid panel: 01/17/24 SCS=054, US=054. Assessment & Plan (04/17/2024 3:14 PM CDT): Chronic problem. Currently taking Atorvastatin 20mg & fenofibrate 145mg daily. Last lipid panel: 01/17/24 APH=839, DL=081. Assessment & Plan (01/17/2024 11:45 AM CDT): Chronic problem. Currently taking Atorvastatin 20mg & fenofibrate 145mg daily. Last lipid panel: 10/09/21 LDL=could not calc, LI=910. Will update labs today. Verified that she uses mychart. Aware to check results/results letter in [employer]. Will contact by phone if needed. Morbid [...] eye exam (05/01/24 no TARA sharma in [place]) UTD on labs. Discussed with Xiomara Shultz: [...] infection. Assessment & Plan (08/01/2024 2:08 PM COLLECTION DEVELOPMENT LIBRARIAN): Chronic problem. A1c worsened from 9.3% 04/17/24 to now 10.0%. interested in insulin pump therapy but wants to check with insurance to see what cost/coverage is. Will send me a [employer] message if pump is covered. Will increase [...] for DM eye exam; last 2022 at [facility] in [place]. Letter sent to get copy of report. [...] at bedtime DM eye exam 2022 at [facility] in [place]. Letter sent to get copy of report. Will update labs today. Verified that she uses [employer]. Aware to check results/results letter in [employer]. Will contact by phone if needed. Discussed [...] infection. Assessment & Plan (09/15/2023 12:26 PM COLLECTION DEVELOPMENT LIBRARIAN): Hba1c was Lab Results Component Value Date [...] standard. Assessment & Plan (08/01/2024 1:48 PM COLLECTION DEVELOPMENT LIBRARIAN): Chronic problem. Continue metformin & Spironolactone. Assessment & Plan (04/17/2024 3:13 PM CDT): Chronic problem. Continue metformin & Spironolactone. Assessment & Plan (01/17/2024 11:43 AM CDT): Chronic problem. Continue metformin & Spironolactone. Assessment & Plan (09/15/2023 12:27 PM COLLECTION DEVELOPMENT LIBRARIAN): Continue aldactone Eczema 07/27/2023 Persistent insomnia 02/13/2023 [...] stable. Assessment & Plan (09/14/2024 2:21 PM COLLECTION DEVELOPMENT LIBRARIAN): We will get her schedule for surgery [...] 09/14/2024 Assessment & Plan (08/15/2024 1:58 PM COLLECTION DEVELOPMENT LIBRARIAN): Chronic problem. Currently taking lisinopril 10mg daily. Assessment & Plan (08/01/2024 1:48 PM COLLECTION DEVELOPMENT LIBRARIAN): Chronic problem. Currently taking lisinopril 10mg daily. Assessment & Plan (04/17/2024 3:13 PM CDT): Chronic problem. Currently taking lisinopril 10mg daily. Assessment & Plan (01/17/2024 11:44 AM CDT): Chronic problem. Currently taking lisinopril 10mg daily. Will update labs today. Verified that she uses mychart. Aware to check results/results letter in [employer]. Will contact by phone if needed. Class 3 severe obesity due t o excess calories with serious comorbidity and body mass index (BMI) of 50.0 to 59.9 in adult 01/17/2024 5 Assessment & Plan (08/15/2024 1:57 PM COLLECTION DEVELOPMENT LIBRARIAN): Healthy, low carbohydrate lifestyle and exercise for 150min/week recommended. Assessment & Plan (05/15/2024 3:22 PM CDT): Healthy, low carbohydrate lifestyle and exercise for 150min/week recommended Assessment & Plan (04/17/2024 4:02 PM CDT): BMI Follow-up includes: nutrition counseling, exercise counseling, and education provided. Assessment & Plan (01/17/2024 12:57 PM CDT): Discussed healthy diet and importance of regular physical activity (20- 30min/day, 150min/wk). Sent in [email or web address] 2.5mg weekly. Will call office if not [...] on file Legal Sex Female 1:26 AM COLLECTION DEVELOPMENT LIBRARIAN Gender Identity Female 12/25/2022 7:50 PM CDT Sexual Orientation Straight 12/25/2022 7: 50 PM CDT Last Filed Vital Signs Vital Sign Reading Time Taken Comments Blood Pressure 108/60 11/07/2024 3:42 PM CDT Pulse 70 10/31/2024 2:30 PM CDT Temperature 36.6 C (97.8 F) 08/15/2024 1:28 PM COLLECTION DEVELOPMENT LIBRARIAN Respiratory Rate 18 10/31/2024 2:30 PM CDT Oxygen Saturation 99% 08/15/2024 1:28 PM COLLECTION DEVELOPMENT LIBRARIAN Inhaled Oxygen Concentration - - Weight 153.3 [...] apnea) PSG (SIMPLE) Routine 09/21/2024 8:16 PM COLLECTION DEVELOPMENT LIBRARIAN NIEVES (obstructive sleep apnea) Psychophysiological insomnia Delayed sleep phase syndrome Family history of sleep apnea BMI 50.0-59.9, adult (HCC) Nonsmoker HIGH RISK HPV DNA DETECTION WITH GENOTYPING Routine 09/14/2024 2:30 PM COLLECTION DEVELOPMENT LIBRARIAN Well woman exam PAP AND HIGH RISK HPV, REFLEX TO GENOTYPING Routine 09/14/2024 12:21 PM COLLECTION DEVELOPMENT LIBRARIAN Well woman exam EGFR Routine 08/15/2024 2:01 PM COLLECTION DEVELOPMENT LIBRARIAN Hypertension associated with type 2 diabetes mellitus (HCC) LIPID PANEL Routine 08/15/2024 2:01 PM COLLECTION DEVELOPMENT LIBRARIAN Hypertension associated with type 2 diabetes mellitus [...] results best viewed via link to PDF [facility] Department of Pathology [address] [place] [address] Note to Patients: This report may [...] Final Report Patient Name: XIOMARA SHULTZ Address: [address] [place] [address], [place] [address] Gender: F : 1985 (Age: 39) Service: Location: [facility] : [id number] [facility] #: [id number] Patient Type: SPECIMEN Taken: 11/07/2024 Received: 11/08/2024 [...] determined by the Surgical Pathology Department at [facility] as part of an ongoing quality assurance monitor body program and in compliance with federally mandated [...] characteristics determined by the Surgical Pathology Department [facility]. It has not been cleared or approved by the U. S. Food and Drug Administration. Note for decalcified specimens: This assay has not been validated on decalcified tissues. Results should be interpreted with caution given the possibility of false negativity on decalcified specimens us Mary Gonzalez MD LAB PATHOLOGY ORDER TAYLOR Final Result PATHOLOGY [address] [place] [address] * (ABNORMAL) POCT hemoglobin A1c (10/31/2024 2:34 [...] ORDERABLES Fin al Result Performing Organization Address City/[facility]/ZIP Co de Phone Number [facility] [address] * PSG (09/21/2024 8:16 PM COLLECTION DEVELOPMENT LIBRARIAN) Brenda Sheriff MD SLEEP CENTER ORDERABLES Fin al Result Performing Organization Address [facility] Co de Phone Number [facility] [address] * (ABNORMAL) High Risk HPV DNA Detection with Genotyping (Molecular component) (09/14/2024 2:30 PM COLLECTION DEVELOPMENT LIBRARIAN) HPV HR 16 Not Detected Not Detected [facility] Comment:Testing performed by : [facility], [address] [place]., [address] HPV HR 18 Not Detected Not Detected [facility] Comment:Testing performed by : [facility], [address] [place]., [address] HPV HR Non 16/18 Detected(A) Not Detected [...] this test have been verified by the [facility] Molecular Infectious Disease laboratory. Correlate with separately reported cytology results, as applicable. Interpretive data last revised 23 Testing performed by: [facility], [address] [place]., [address] Endocervical 09/14/2024 2:30 PM COLLECTION DEVELOPMENT LIBRARIAN 2024 3:13 PM COLLECTION DEVELOPMENT LIBRARIAN Narrative CERNER - 09/18/2024 4:22 AM COLLECTION DEVELOPMENT LIBRARIAN Clinical history and diagnosis->Well Woman Exam: Cervical Cancer Screening Number of vials->1 Testing type->Screening Last menstrual period (date if known)->Unknown Contraceptive use->IUD Mary Gonzalez MD LAB BODY FLUIDS AND STOOLS ORDERABLES Final Result Performing Organization Address City/State/[facility] Co de Phone Number [facility] [address] Department [place] [address] BJ * (ABNORMAL) Pap and High Risk HPV and Genotyping (Cytology Component) (09/14/2024 12:21 PM COLLECTION DEVELOPMENT LIBRARIAN) Thin prep (Pap test) 09/14/2024 12:21 PM COLLECTION DEVELOPMENT LIBRARIAN 09/14/2024 12:21 PM COLLECTION DEVELOPMENT LIBRARIAN Narrative PATHOLOGY - 09/19/2024 1:33 PM COLLECTION DEVELOPMENT LIBRARIAN [facility] Department of Pathology [address] [place] [address] Final Report with Addendum Note to [...] the details. Patient Name: XIOMARA SHULTZ Address: [facility] [address], [place] [address] Gender: F : 1985 (Age: 39) Service: Location: [facility] #: [id number] Patient Type: SPECIMEN Taken: 09/14/2024 Received: 09/14/2024 [...] this test have been verified by the [facility] Molecular Infectious Disease laboratory. Correlate with [...] determined by the Surgical Pathology Department at [facility] as part of an ongoing quality assurance monitor body program and in compliance with federally mandated [...] characteristics determined by the Surgical Pathology Department [facility]. It has not been cleared or approved by the U. S. Food and Drug Administration. Mary Gonzalez MD LAB CYTOLOGY ORDERA BLE Final Result PATHOLOGY [address] [place] [address] * eGFR (08/15/2024 2:01 PM COLLECTION DEVELOPMENT LIBRARIAN) eGFR >90 >=60 mL/min/1. 73 m2 Comment: [...] last reviewed 2021. Blood 08/15/2024 2:01 PM COLLECTION DEVELOPMENT LIBRARIAN 08/15/2024 9:27 PM COLLECTION DEVELOPMENT LIBRARIAN Soren Mcwilliams MD LAB BLOOD ORDERABLES Final Result [facility] [address] Department [place] [address] * (ABNORMAL) Lipid panel (08/15/2024 2:01 PM COLLECTION DEVELOPMENT LIBRARIAN) Cholesterol 171 30 - 199 mg/dL Comment: [...] ratio 7 EUN Blood 08/15/2024 2:01 PM COLLECTION DEVELOPMENT LIBRARIAN 08/15/2024 9:08 PM COLLECTION DEVELOPMENT LIBRARIAN Soren Mcwilliams MD LAB BLOOD ORDERABLES Final Result Performing Organization Address [facility] Co de Phone Number EUN [facility] [address] Department [place] [address] * DIABETES EYE EXAM (05/01/2024 7:23 AM [...] ORDERABLES Dilcia l Result Performing Organization Address [facility] Co de Phone Number EUN [address] Department [place] [address] from Last 3 Months or Most Recently Relevant to Health Maintenance [place] [address] [employer] [facility] [place] [address] [employer] [facility] Care Teams Plant Maintenance Technician Relationship Specialty Start Date End Date Soren Mcwilliams MD [address] [address] PCP - General Family Medicine 04/17/24 Yoel Paulson MD [address] [facility] [address] [place] [address] Byproducts Operator Obstetrics and Gynecology 08/15/24
--- OUTSIDE RECORDS SUMMARY | 2024-12-02 22:12 | XMS_ITS | Encounter Summary ---
Author Organization [facility] Address [address] [place] [address] Care Team Providers Care Leather Goods Sales Representative Name Role Phone Michelle Valente MD Primary Care Provider Reason for Visit * Reason Onset Date Comments Concerns 09/08/2021 Appointment 09/08/2021 Encounter Details Date Type Department Care Team (Late st Contact Info) Description 09/08/2021 Telephone [facility] [address] [facility] [address] [place] [address] Minoo Verdin MD Need new address Concerns; Appointment Social History Tobacco Use Types Packs/Day Years Used Date Smoking Tobacco: Never Smokeless Tobacco: Never Alcohol Use Standard Drinks/Week Comments No 0 (1 standard drink = 0.6 oz pur e alcohol) Comments No Sex and Gender Information Value Date Recorded Sex Assigned at Female 04/20/2021 1:09 PM CDT Legal Sex Female 5:34 AM AUTOMOBILE OR TRUCK RENTAL DISPATCHER Gender Identity Female 04/20/2021 1:09 PM CDT [...] week as above. Will cancel today's appt. MOBILE OR TRUCK RENTAL DISPATCHER * Telephone Encounter - Dudley Johns RN - 09/08/2021 11:24 AM CST She lives w/ her parents and brother who last Wed started w/ Covid symptoms. All broke out with fever on Tuesday, but gone on Tuesday. Can she still come in and be seen? Will check w/ supervisors and provider then call her back. Appt at 4pm today. MOBILE OR TRUCK RENTAL DISPATCHER * Telephone Encounter - Karrie Santos - 09/08/2021 11:19 AM CST Pt states she has come in contact with someone who had covid last week. She states she has since tested negative and has no symptoms. CB# [phone] MOBILE OR TRUCK RENTAL DISPATCHER documented in this encounter Plan of Treatment Not on file documented as of this encounter Visit Diagnoses Not on filedocumented in this encounter Care Teams Leather Goods Sales Representative Relationship Specialty Start Date End Date Michelle Valente MD [address] [place] [address] [address] [place] [address] PCP - General 11/29/17 documented as of this encounter
--- OUTSIDE RECORDS SUMMARY | 2024-12-02 22:12 | XMS_ITS | Clinical Summary ---
Author Organization [facility] Address [facility] [place] [address] Care Team Providers Care Imaging Aide Name Role Phone Anup Orellana MD Primary Care Provider [phone] Allergies Active Allergy Reactions Criticality Noted Date [...] nasal spray 11/18/2019 Active vitamin D2, ergocalciferol, [address] UNITS capsule Take 50,000 Units by mouth every 7 days. 09/04/2019 Active Active Problems Problem Noted Date Diagnosed Date Daytime sleepiness 10/11/2016 Benign essential HTN 08/09/2016 Diabetes mellitus ([facility]) 08/09/2016 Morbid obesity 08/09/2016 NIEVES [...] Comments Blood Pressure 126/68 07/08/2017 11:53 AM C SOFTWARE DEVELOPER Pulse 82 07/08/2017 11:53 AM C SOFTWARE DEVELOPER Temperature - - Respiratory Rate - - Oxygen Saturation - - Inhaled Oxygen Concentration - - Weight 172.8 kg (381 lb) 07/08/2017 11:53 AM C SOFTWARE DEVELOPER Height 170.2 cm (5' 7 ) 07/08/2017 11:53 AM C SOFTWARE DEVELOPER Body Mass Index 59.67 07/08/2017 11:53 AM C SOFTWARE DEVELOPER Plan of Treatment Health Maintenance Due Date [...] patient's age to complete this topic Insurance [place] Care Teams Imaging Aide Relationship Specialty Start Date End Date Anup Orellana MD [employer] [id number] [address] PCP - General INTERNAL MEDICINE 05/29/18
--- OUTSIDE RECORDS SUMMARY | 2024-12-02 22:12 | XMS_ITS | Clinical Summary ---
Author Organization [facility] Address [address] [place] [address] Care Team Providers Care Outreach Counselor Name Role Phone Michelle Valente MD Primary Care Provider [phone] [facility],non-owned Affiliates and Associated Physician Practices is amultiple site organization consisting of ambulatory clinics and hospital sitesin [place], [place], [place] and [place]. This disclosure is being madepursuant to the Care Everywhere program and may not contain all information available regarding this patient. Last updated 18.[facility] Allergies Active Allergy Reactions Criticality Noted [...] document. Alwaysverify current medications with the patient. Congress-3 Fatty Acids (OMEGA-3 FISH OIL) 500 MG Take 1,200 mg by mouth 2 times daily Active CPAP Inhale 1 device by mouth at bedtime Active vitamin D, ergocalciferol, (DRISDOL) 81488 UNITS capsule Take 5,000 Units by mouth once daily 09/28/19 19 Active insulin syringe-needle (BD ULTRAFINE) 29G X 1/2 1 ML syringeIndicati ons:Type 2 diabetes mellitus with hyperglycemia, with long-term current use of insulin ([facility]) once daily 100 Each 11 10/13/19 19 [...] times daily Active allergy injection Weekly through [facility] Active naproxen (NAPROSYN) 500 MG tablet Take 1 (one) tablet by mouth 2 times daily as needed 11/10/19 Active Biotin 10 MGIndications:A cne vulgaris 01/06/20 Active insulin glargine (LANTUS SOLOSTAR) penIndications: Type 2 diabetes mellitus with hyperglycemia, with long-term current use of insulin (HCC) Inject 90 (ninety) Units subcutaneously at bedtime 75 mL 11 01/06/20 Active Insulin Pen Needle (VideoProsLITE PEN NEEDLES) 32G X 4 MM MISCIndications :Type 2 diabetes mellitus with hyperglycemia, with long-term current use of insulin ([facility]) Use 1 Each 3 times daily 100 [...] 08/05/19 23 Active Blood Glucose Monitoring Suppl ([employer] Verio Flex System) w/Device KITIndications: Type 2 [...] MILL) USE TWICE DAILY 100 strip 11 10/14/19 [...] 30 g 02/22/20 23 Active nystatin (Mycostatin) 042057 UNIT/GM ointmentIndicat ions:Recurrent candidiasis of vagina MIX [...] seek urgent/emergent care including calling Suicide Hotline (155 or ) or 911. Follow up in [...] PM CDT Legal Sex Female 5:34 AM NEIGHBORHOOD COORDINATOR Gender Identity Female 04/20/2021 1:09 PM CDT Sexual Orientation Straight 04/20/2021 1: 09 PM CDT Last Filed Vital Signs Vital Sign Reading Time Taken Comments Blood Pressure 140/80 04/23/2022 3:08 PM CDT Pulse 97 01/05/2022 3:44 PM CDT Temperature 36.2 C (97.2 F) 04/05/2022 3:02 PM CDT Respiratory Rate 18 07/31/2020 4:33 PM NEIGHBORHOOD COORDINATOR Oxygen Saturation 96% 01/05/2022 3:44 PM [...] this topic Medical Devices Implanted Type Area [place] Guide Device Identifier Shelf Expiration Date Model / Serial / Lot Intrauterine Device/Mirena Implanted:Qty: 1 on 07/30/2020 by Willy Landeros MD at [facility] Cervix 10/21/2022 [id number] / [id number] Procedures Procedure Name Priority Date/Time Associated Diagnosis Comments HEMOGLOBIN A1C - POINT OF CARE (AMB) [facility] Routine 01/05/2022 Type 2 diabetes mellitus with hyperglycemia, with long-term current use of insulin MICROALB/CREAT RATIO URINE RANDOM PANEL 10/09/2021 2:05 PM CDT COMPREHENSIVE METABOLIC PANEL 10/09/2021 2:05 PM CDT HPV DETECTION HIGH RISK TAI Routine 06/29/2021 1:53 PM NEIGHBORHOOD COORDINATOR Encounter for Pap smear of cervix with [...] within a diagnostic category. Test Performed at: [facility] [id number] [place] [address] BALAJI CANCINO DO,MPH 10/09/2021 2:05 PM CDT 10/09/2021 2:10 PM CDT Kam Ramesh MD LAB - URINE CHEMISTRY ORDERABL ES Final Result [facility] [id number] [place] [address] * (ABNORMAL) COMPREHENSIVE METABOLIC PANEL (10/09/2021 2:05 [...] 29 U/L [facility] Comment: Test Performed at: [facility] [address] [place] [address] BALAJI CANCINO DO,MPH 10/09/2021 2:05 PM CDT 10/09/2021 2:10 PM CDT Kam Ramesh MD LAB - CHEMISTRY ORDERABLES [facility] al Result [facility] [address] [place] [address] * HPV DETECTION HIGH RISK TAI (06/29/2021 1:53 PM NEIGHBORHOOD COORDINATOR) High Risk Human Papilloma Result Not detected Not detected 07/01/2021 7:22 AM NEIGHBORHOOD COORDINATOR [facility] High Risk Human Papilloma Interp 07/01/2021 7:22 AM NEIGHBORHOOD COORDINATOR [facility] Comment:High Risk Human Lopez lloma Virus was Not Detected. Pathology/Cytolo gy MISCELLANEOUS SAMPLES / Unknown 06/29/2021 1:53 PM NEIGHBORHOOD COORDINATOR 06/30/2021 12:05 PM NEIGHBORHOOD COORDINATOR Narrative [facility] - 07/01/2021 7:22 AM NEIGHBORHOOD COORDINATOR Nucleic acid isolated from the specimen [...] nal Result [facility] [address] [facility] [place] [address], [facility] [phone] * EYE EXAM (06/29/2021) Anatomical Region Laterality Modality Other Narrative 06/29/2021 Ordered by an unspecified provider. us Scanned Document SCANNING ONLY Final Result from Last 3 Months or Most Recently Relevant to Health Maintenance Insurance MEDICAID [employer] [place] Care Teams Outreach Counselor Relationship Specialty Start Date End Date Michelle Valente MD [facility] [place] [address] PCP - General 11/29/17
[2024-12-02] MEDS: ACETAMINOPHEN 500 MG TABLET 1000 MG PO (22:20)
[2024-12-02 22:27] VITALS: BP 131/74; PULSE 73; RESP 16; O2SAT 98
== END 2024-12-02 22:29 | disposition home or self-care (01) ==
PROVIDERS: Emergency Provider Physician Assistant; PCP Family Medicine
DX: S63.501A Unspecified sprain of right wrist, initial encounter (principal); S66.911A Strain of unspecified muscle, fascia and tendon at wrist and hand level, right hand, initial encounter; I10 Essential (primary) hypertension; E11.9 Type 2 diabetes mellitus without complications; E66.01 Morbid (severe) obesity due to excess calories; Z68.43 Body mass index [BMI] 50.0-59.9, adult; Z79.3 Long term (current) use of hormonal contraceptives; Z79.84 Long term (current) use of oral hypoglycemic drugs; Z79.899 Other long term (current) drug therapy; Z79.85 Long-term (current) use of injectable non-insulin antidiabetic drugs; X50.0XXA Overexertion from strenuous movement or load, initial encounter
CPT/HCPCS: 73100; 99283; A9270